=== PATIENT | female | born 1940 | race Caucasian/White ===

== ENCOUNTER → 2016-07-19 | Outpatient (CLI) | payer OTHER ==
[~2016-07-19] MED LIST: ALLO300T2 PO; BRIM0.2S18 OPB; BUSP15TA70 PO; CLON0.3T PO; CLON1TAB3 PO; FLUO20CA34 PO; LAMO200T38 PO; LEVO150T PO; [UNRECOGNIZED DRUG - CODE] OPB
--- NOTE | 2016-07-19 16:01 | MAMMOGRAPHY REPORT ---
BILATERAL DIGITAL SCREENING MAMMOGRAM WITH CAD: 07/19/2016 CLINICAL HISTORY: Routine screening. Patient has no complaints. TECHNIQUE: Bilateral CC and MLO views were obtained. Current study was also evaluated with a Compute r Aided Detection (CAD) system. COMPARISON: Comparison is made to exams dated: 07/15/2015 mammogram, 07/10/2014 mammogram, 08/17/2011 ma mmogram, 08/06/2010 mammogram, 02/13/2009 mammogram - [facility], and 02/06/2008. BREAST COMPOSITION: The tissue of both breasts is almost entirely fatty. FINDINGS: A pacemaker projects over the superior left pectoralis muscle on the MLO view. No new susp icious mass, architectural distortion or cluster of microcalcifications is seen. IMPRESSION: ACR BI-RADS CATEGORY 1: NEGATIVE There is no mammographic evidence of malignancy. A 1 year screening mammogram is recommended. The pa tient will receive written notification of the results. Approximately 10% of breast cancers are not detected with mammography. A negative mammographic report should not delay biopsy if a clinically suggestive mass is present. Emma Torres M.D. ay/:07/19/2016 13:55:09 [employer] Observer: Maddie CONNELLY(Anastasia)(Araceli)(BD), [facility] letter sent: Normal 1/2 BI-RADS Code: ACR BI-RADS Category 1: Negative
== END | disposition home or self-care (01) ==
LOC: C.MAMM 13:13
PROVIDERS: ATTEND Family Medicine
DX: Z12.31 Encounter for screening mammogram for malignant neoplasm of breast (principal)

== ENCOUNTER → 2017-06-15 | Day surgery (SDC) | payer OTHER ==
[~2017-06-15] VITALS: Ht 172.7 cm; Wt 78.6 kg
[~2017-06-15] MED LIST changes: +LACT1CAP6 PO; +LAMO200T35 PO; -LAMO200T38 PO; +LIDOCAINE HCL 2% 2 ML VIAL (20MG/ML) ONE; +ONDANSETRON INJ 2 MG/ML 2 ML VIAL IV PRN; +PROPOFOL IV EMULSION 10 MG/ML 20 ML VIAL ONE; +PSYL58.636 PO
[2017-06-15 09:11] VITALS: Ht 172.7 cm; Wt 78.6 kg
--- NOTE | 2017-06-15 09:18 | Endo History and Physical ---
History & Physical Date of Service: June 15, 2017. Chief Complaint: Referring Physician: Ms Lobo and Dr. Crandall History of Present Illness History of intermitant solid food dysphagia, gagging and abdominal bloating. Past Medical History Other Psy. Disorders, Glaucoma, High Cholesterol, Heart Disease, Thyroid Disease , Kidney Disease Past Surgical History Hx Cardiac Surgery: No Hx Internal Defibrillator: No Hx Pacemaker: No Hx Abdominal Surgery: No Hx Post-Op Nausea and Vomiting: No Hx Cancer Surgery: No Hx Thoracic Surgery: No Hx Orthopedic: No Hx Urinary Tract Surgery: No Social History Smoking Status: Never Smoker Hx Substance Use: No Hx Alcohol Use: No Allergies Coded Allergies: No Known Allergies (Verified , 06/15/17) Current Medications Reported Home Medications Medications Dose Route/Sig Max Daily Dose Days Date Category Metamucil Fiber (Psyllium) 51.7 % Fritz 8 PO QD 06/15/17 Reported Probiotic (Lactobacillus) 1 Cap Cap PO QD 06/15/17 Reported Buspar (Buspirone Hcl) 15 Mg Tab 15 Mg PO 06/18/14 Reported Synthroid (Levothyroxine Sodium) 150 Mcg Tab 150 Mcg PO DAILY 06/18/14 Reported Lamictal (Lamotrigine) 200 Mg Tab 200 Mg PO BID 05/09/14 Reported Klonopin (Clonazepam) 1 Mg Tab 1 Mg PO DAILY PRN 05/18/12 Reported Timolol Maleate (Timolol Maleate (Ophth)) 0.5 % Lolis 1 Drop OPB DAILYBB 05/18/12 Reported Brimonidine Tartrate 0.2 % Lolis 1 Drop OPB BID 05/18/12 Reported Prozac (Fluoxetine Hcl) 20 Mg Cap 60 Mg PO AM 08/30/11 Reported Zyloprim (Allopurinol) 300 Mg Tab 300 Mg PO DAILY 08/30/11 Reported Catapres (Clonidine Hcl) 0.3 Mg Tab 0.3 Mg PO BID 08/30/11 Reported Vital Signs Weight (Kilograms): 78.64 Height (Feet): 5 Height (Inches): 8 Date Time Temp Pulse Resp B/P (MAP) Pulse Ox O2 Delivery O2 Flow Rate FiO2 06/15/17 09:10 36.7 81 20 172/98 (122) 100 Room Air Physical Exam General Appearance: no apparent distress Respiratory/Chest: Auscultation: breath sounds normal Cardiovascular: Heart Auscultation: II/ DORON Abdomen: Inspection & Palpation: soft Assessment and Plan EGD for evaluation of bloating and dysphagia. Risks discussed to include bleeding, infection, perforation pain, aspiration and need for follow-up studies.
--- NOTE | 2017-06-15 09:52 | GI REPORT ---
Patient Name: Eva Tejeda Procedure Date: 06/15/2017 9:37 AM Date of : 1940 Admit Type: Outpatient Age: 76 Gender: Female Attending MD: Frank Nowak DO Procedure: Upper GI endoscopy Providers: Frank Nowak DO Referring MD: Rosa Malone NP, Leticia Crandall Indications: Dysphagia, Abdominal bloating Medicines: Monitored Anesthesia Care Complications: No immediate complications. Estimated blood loss: Minimal. Estimated Blood Loss: Estimated blood loss was minimal. Procedure: Pre-Anesthesia Assessment: - Prior to the procedure, a History and Physical was performed, and patient medications, allergies and sensitivities were reviewed. The patient's tolerance of previous anesthesia was reviewed. - The risks and benefits of the procedure and the sedation options and risks were discussed with the patient. All questions were answered and informed consent was obtained. - Patient identification and proposed procedure were verified prior to the procedure by the physician, the nurse and the batt machine operator. The procedure was verified in the procedure room. - Pre-procedure physical examination revealed no contraindications to sedation. - ASA Grade Assessment: III - A patient with severe systemic disease. - After reviewing the risks and benefits, the patient was deemed in satisfactory condition to undergo the procedure. - The anesthesia plan was to use monitored anesthesia care (MAC). - Immediately prior to administration of medications, the patient was re-assessed for adequacy to receive sedatives. - The heart rate, respiratory rate, oxygen saturations, blood pressure, adequacy of pulmonary ventilation, and response to care were monitored throughout the procedure. - The physical status of the patient was re-assessed after the procedure. After obtaining informed consent, the endoscope was passed under direct vision. Throughout the procedure, the patient's blood pressure, pulse, and oxygen saturations were monitored continuously. The Scope was introduced through the mouth, and advanced to the second part of duodenum. The upper GI endoscopy was accomplished without difficulty. The patient tolerated the procedure well. Findings: No endoscopic abnormality was evident in the esophagus to explain the patient's complaint of dysphagia. It was decided, however, to proceed with dilation of the entire esophagus. A guidewire was placed and the scope was withdrawn. Dilation was performed with a Savary dilator with mild resistance at 54 Fr. The endoscope was then reinserted to evaluate the success of the procedure. Estimated blood loss was minimal. The Z-line was regular and was found 37 cm from the incisors. The entire examined stomach was normal. Biopsies were taken with a cold forceps for histology. Estimated blood loss was minimal. Patchy mild inflammation characterized by erythema and granularity was found in the duodenal bulb and in the second portion of the duodenum. Biopsies were taken with a cold forceps for histology. Estimated blood loss was minimal. Impression: - No endoscopic esophageal abnormality to explain patient's dysphagia. Esophagus dilated to 54 Fr today. - Z-line regular, 37 cm from the incisors. - Normal stomach. Biopsied. - Duodenitis. Biopsied. Recommendation: - Discharge patient to home (ambulatory). - Advance diet as tolerated today. - Symptoms are most likely medication related (Wellbutrin, Prozac or Lamictal) - Try Prilosec (omeprazole) 20 mg PO daily for 6 weeks. Frank Nowak D.O. Frank Nowak, 06/15/2017 9:51:24 AM This report has been signed electronically. Note Initiated On: 06/15/2017 9:37 AM Number of Addenda: 0 I attest to the content of the Intraoperative Record and orders documented therein, exceptions below {[id number]}
--- NOTE | 2017-06-15 09:54 | Discharge Instructions ---
Endoscopy Patient Instructions Date / Procedure(s) Performed June 15, 2017. EGD Allergy Information Coded Allergies: No Known Allergies (Verified , 06/15/17) Discharge Date / Findings June 15, 2017. Normal esophagus Normal Stomach Mild inflammation of the duodenum Medication Instructions Reported Home Medications Medications Dose Route/Sig Max Daily Dose Days Date Category Metamucil Fiber (Psyllium) 51.7 % Fritz 8 PO QD 06/15/17 Reported Probiotic (Lactobacillus) 1 Cap Cap PO QD 06/15/17 Reported Buspar (Buspirone Hcl) 15 Mg Tab 15 Mg PO 06/18/14 Reported Synthroid (Levothyroxine Sodium) 150 Mcg Tab 150 Mcg PO DAILY 06/18/14 Reported Lamictal (Lamotrigine) 200 Mg Tab 200 Mg PO BID 05/09/14 Reported Klonopin (Clonazepam) 1 Mg Tab 1 Mg PO DAILY PRN 05/18/12 Reported Timolol Maleate (Timolol Maleate (Ophth)) 0.5 % Lolis 1 Drop OPB DAILYBB 05/18/12 Reported Brimonidine Tartrate 0.2 % Lolis 1 Drop OPB BID 05/18/12 Reported Prozac (Fluoxetine Hcl) 20 Mg Cap 60 Mg PO AM 08/30/11 Reported Zyloprim (Allopurinol) 300 Mg Tab 300 Mg PO DAILY 08/30/11 Reported Catapres (Clonidine Hcl) 0.3 Mg Tab 0.3 Mg PO BID 08/30/11 Reported Provider Instructions Activity Restrictions - No exercising or heavy lifting for 24 hours. - Do not drink alcohol the day of the procedure. - Do not drive a car or operate machinery until the day after the procedure. - Do not make any important decisions or sign important papers in 24 hours after the procedure. Following Day: - Return to full activity which may include returning to work/school. Diet Start your diet with liquids and light foods (jello, soup, juice, toast). Then eat your usual diet if not nauseated. Treatment For Common After Affects For mild abdominal pain, bloating, or excessive gas: - Rest - Eat lightly - Lie on right side Follow-Up Information Follow-up with Leticia Crandall as scheduled try omeprazole 20 mg per day for 6 weeks If symptoms persist would talk with your PCM about medication changes (symptoms could be related to wellbutrin, prozac or Lamictal) Anesthesia Information What You Should Know You have had a procedure that required some medicine to reduce anxiety and discomfort. This treatment is called moderate sedation. After receiving the treatment, you may be sleepy, but you will be able to breathe on your own. The effects of the treatment may last for several hours. Follow these instructions along with Activity/Diet recommendations noted above: * Do NOT do anything where dizziness or clumsiness would be dangerous. * Rest quietly at home today, then you can be up and about tomorrow. * Have a responsible person stay with you the rest of today. * You may have had an I.V. today. If so, you may take the dressing off later today. Recommendations Call your doctor if: * Trouble breathing * Continuous vomiting for more than 24 hours * Temperature above 101 degrees * Severe abdominal pain or bloating * Pain not relieved by pain medicine ordered * There is increased drainage or redness from any incision * A large amount of rectal bleeding greater than 2-3 tablespoons. (If you had a polyp/s removed or have hemorrhoids, a small amount of blood - from the rectum is to be expected.) * You have any unanswered questions or concerns. IN THE EVENT OF A SERIOUS EMERGENCY, GO TO THE NEAREST EMERGENCY ROOM Your discharge instructions were prepared by provider Frank oNwak. Patient Instructions Signature Page Eva Tejeda Patient (or Guardian) Signature/Date: I have read and understand the instructions given to me by my caregivers. Caregiver/RN/Doctor Signature/Date: The above-named patient and/or guardian has received patient instructions on this date. + Original Patient Signature Page (only) stays with chart. Please make copy for patient.
--- NOTE | 2017-06-15 10:09 | Anesthesiology Progress Note ---
Anesthesia Post Op Note Date & Time June 15, 2017 at 10:09 Vital Signs Pain Intensity: 0 Vital Signs Past 12 Hours Date Time Temp Pulse Resp B/P (MAP) Pulse Ox O2 Delivery O2 Flow Rate FiO2 06/15/17 10:06 59 18 162/84 (110) 98 Room Air 06/15/17 09:51 70 18 147/84 (105) 96 Room Air 06/15/17 09:10 36.7 81 20 172/98 (122) 100 Room Air Notes Mental Status: alert / awake / arousable, participated in evaluation Pt Amnestic to Procedure: Yes Nausea / Vomiting: adequately controlled Pain: adequately controlled Airway Patency, RR, SpO2: stable & adequate BP & HR: stable & adequate Hydration State: stable & adequate Anesthetic Complications: no major complications apparent
[2017-06-15 10:21] VITALS: BP 177/91; PULSE 60; O2SAT 98
== END | disposition home or self-care (01) ==
LOC: C.GI 08:48
PROVIDERS: ATTEND Internal Medicine Gastroenterology
DX: R13.10 Dysphagia, unspecified (principal); K29.80 Duodenitis without bleeding; K29.50 Unspecified chronic gastritis without bleeding; I12.9 Hypertensive chronic kidney disease with stage 1 through stage 4 chronic kidney disease, or unspecified chronic kidney disease; N18.9 Chronic kidney disease, unspecified; R10.9 Unspecified abdominal pain; Z79.899 Other long term (current) drug therapy

== ENCOUNTER 2020-07-10 13:22 | Inpatient (IN) ==
[2020-07-10] MEDS ORDERED: SODIUM CHLORIDE 0.9% 1000ML 500 ML IV ONE (14:20)
[2020-07-10] MEDS ORDERED: ACETAMINOPHEN 1,000 MG/100 ML VIAL IV STA (14:20)
[2020-07-10 14:27] LABS: Basophils # (auto) 0.01 K/uL (0-0.2); Basophils % (auto) 0.2 %; Eosinophils # (auto) 0.01 K/uL (0-0.5); Eosinophils % (auto) 0.2 %; Hematocrit (blood only) 32.2 % (37-47); Hemoglobin 10.8 g/dL (12.0-16.0); Immature Granulocytes # (auto) 0.02 K/uL (0.00-0.02); Immature Granulocytes % (auto) 0.3 %; Lymphocytes # (auto) 0.53 K/uL (1.2-3.4); Lymphocytes % (auto) 8.4 %; Mean Corpuscular Hemoglobin 29.9 pg (25-34); Mean Corpuscular Hgb Conc 33.5 g/dL (32-36); Mean Corpuscular Volume 89.2 fL (80-100); Mean Platelet Volume 10.4 fL (7.4-10.4); Monocytes # (auto) 0.52 K/uL (0.11-0.59); Monocytes % (auto) 8.3 %; Neutrophils # (auto) 5.21 K/uL (1.4-6.5); Neutrophils % (auto) 82.6 %; Platelet Count 148 K/uL (130-400); RDW Standard Deviation 45.8 fL (36.4-46.3); Red Blood Count 3.61 M/uL (4.2-5.4)
[2020-07-10 14:35] LABS: Albumin Level 3.4 gm/dl (3.4-5.0); Calcium 9.3 mg/dl (8.5-10.1); Creatinine Clr Calc Pharmacy 35.4 ml/min; Est GFR (African American) 38.2 ml/min; Magnesium 1.4 mg/dl (1.8-2.4); Potassium 4.6 mmol/L (3.5-5.1)
[2020-07-10 14:37] LABS: Partial Thromboplastin Ratio 0.9; Partial Thromboplastin Time 23.7 Seconds (21.0-31.0); Prothrombin Time 10.4 Seconds (9.0-12.0)
--- NOTE | 2020-07-10 15:01 | XRay Report ---
XR chest 1V portable CLINICAL HISTORY: SEPSIS COMPARISON STUDY: April 21, 2019 FINDINGS: No pneumothorax. No pleural effusion. No large infiltrates or consolidative lesions are seen. Mild reticular prominence of pulmonary inters titium within bilateral lower lungs appear less conspicuous then due to prior study in 2019. Cardiomediastinal silhouette is within normal limits in size. No significant pulmonary vascular congestion.. Aorta is calcified. Osseous structures: Mild degenerative changes of the spine. Stable position of dual-lead left-sided pacemaker with battery pack partially obscuring left lung par enchyma. IMPRESSION: 1. Mild reticular prominence within bilateral lower lungs appears significantly less conspicuous cesar n on prior study in 2019. No large infiltrates or consolidative lesions are seen. ACT 112: Negative or not required by law. The above report was generated using voice recognition software. It may contain grammatical, syntax o r spelling errors. Electronically signed by: Anny Correa DO 07/10/2020 2:59 PM
[2020-07-10 15:14] LABS: Bilirubin,Total 0.8 mg/dl (0.2-1); Globulin 3.6 gm/dl (2.5-4.0)
[2020-07-10 15:27] LABS: Albumin Globulin Ratio 0.9 (0.9-2); Troponin I 0.051 ng/ml (0-0.045)
[2020-07-10 15:47] LABS: Appearance Urine Clear (Clear); Bacteria Urine Automated Negative (Negative); Bilirubin Urine Negative (Negative); Blood Urine Negative (Negative); Cast Urine Automated 0 /lpf (0-5); Color Urine Yellow; Epithelial Cell Urine Auto 20-30 /lpf (0-5); Glucose Urine UA Negative (Negative); Ketones Urine Negative (Negative); Leukocyte Esterase Urine Trace (Negative); Nitrite Urine Negative (Negative); Protein Urine Negative (Negative); RBC Urine Automated 0-4 /hpf (0-4); Specific Gravity Urine 1.011 (1.000-1.030); Urobilinogen Urine Negative (Negative)
[2020-07-10] MEDS: MAGNESIUM SULFATE / D5W 1 GM/100 ML BAG IV SCH ×4 (15:56→22:51)
--- NOTE | 2020-07-10 16:55 | History & Physical Report ---
Date of Service July 10, 2020 Assessment & Plan (1) Elevated troponin: - Admit to tele for observation for r/o - Trend cardiac biomarkers, initial set 0.051, possibly elevated due to kidney involvement with creatinine of 1.51 - EKG reviewed-no ST changes or signs of ischemia, paced - Check 2 D echo - If negative enzymes can consider a stress test tomorrow morning. - PT/OT consulted (2) SSS (sick sinus syndrome): - Hx of pacemaker in 2016 - Interrogate pacemaker while admitted - Follows with [facility] cardiology as outpatient, consider consult (3) Hypomagnesemia: -1.4 on admission, replace with 2 bags via IV now -Trend with a.m. labs (4) Fever: -T-max = 38 while in the ER, history of dysuria in the past week, no previous antibiotic use, did not seek outpatient care. -UA shows trace esterase, 5-10 WBC, no bacteria, will follow culture -Check blood cultures x2 -Will check lymes and anaplasmosis testing with pt being outside, as well as fatigue/weakness, platelet count dropped from 236 to 148 from last year. -Start on empiric Rocephin and can DC if urine culture is negative (5) Anemia: -Hemoglobin of 10.8, slightly down from baseline, monitor with a.m. labs. She denies lightheadedness, shortness of breath, chest pain (6) Bipolar disorder (manic depression): - hx of such - Mood is improving with help of support system/family. Has crying episodes at times, but states she is improving. Does not want to be on benzos for anxiety. - Reports history of being on lithium because of chronic kidney disease, no longer taking this medication and has been since switched to lamotrigine 100 mg twice daily and tolerates this well. - Continue Prozac 80 mg daily. -Recently weaned off of Abilify due to worsening anxiety with the medication, now feeling mood has improved since this. -Follows with Dr. Lee with psychiatry as outpatient DVT ppx: - teds, scds CODE: Full code Dispo: From home, likely to remain in the hospital x 1-2 days History of Present Illness Primary Care Provider: Leticia Crandall, DO This is a 79 yo F with PMHx of SSS s/p pacemaker insertion in 2016, hypertension, hypomagnesemia, bipolar manic depression, who presents for worse taisha weakness and fatigue x1 week, significant head pressure/ache and chest pressure x1 today. She reports that " I haven't felt myself for about 1 week". The spell of head pressure and chest pressure occurred whenever she was planting liu and watering them this morning, lasted for a brief moment and then went away completely. Patient denies significant chest pain, shortness of breath, palpitations or flutter. She follows with [facility] cardiology once yearly for her pacemaker, and is about due for her annual visit. Pt also notes dysuria x 1 week, denies hematuria, incontinence, increased frequency and reports that she attempted to drink lots of water last week, improved for about 3 days and now is back today. She did not take any antibiotic therapy. She is significantly fatigued to the point where last week she was riding with her sister in a car and fell asleep. Patient reports getting 4 to 5 hours of sleep per night. Of note her recently , April 13, 2020 and since then has been mourning, but does have a strong support system. She has maintained taking Prozac daily. Was placed on Abilify however felt more anxious with being on this medication and weaned off of it with instruction from her psychiatrist, Dr. Lee. She follows with her routinely every 3 months. Patient found to have episode of fever while here in the ER with T-max = 38. W BC= 6.3, UA with trace esterase, 5-10 WBC. Magnesium of 1.4, creatinine 1.5 which appears to be near her baseline of 1.4, and hemoglobin is slightly decreased at 10.8. Her troponin was found to be slightly elevated at 0.051. Allergies Allergy/AdvReac Type Severity Reaction Status Date / Time No Known Allergies Allergy Unknown Verified 07/10/20 15:08 Home Medications Medication Instructions Recorded Confirmed Type allopurinol 300 mg PO DAILY 04/21/19 07/10/20 History atorvastatin 20 mg PO DAILY 04/21/19 07/10/20 History brimonidine 1 drp OPB BID 04/21/19 07/10/20 History buspirone 15 mg PO BID 04/21/19 07/10/20 History clonidine HCl 0.3 mg PO BID 04/21/19 07/10/20 History fluoxetine 80 mg PO QAM 04/21/19 07/10/20 History lamotrigine 100 mg PO BID 04/21/19 07/10/20 History levothyroxine 150 mcg PO QAM 04/21/19 07/10/20 History timolol maleate 1 drp OPB DAILY 04/21/19 07/10/20 History Ativan 0.5 mg PO TID PRN 07/10/20 07/10/20 History chlorthalidone 12.5 mg PO DAILY 07/10/20 07/10/20 History Past Med/Surg History Medical History Anxiety Depression HTN (hypertension) Kidney problem SSS (sick sinus syndrome) Family History Other No significant family history Social History Smoking Status: Never smoker Hx Alcohol Use: No Hx Substance Use: No Preferred Language: Yoruba Communication Ability: Effective Milling Machine Operator Required: No Beliefs That Will Affect Care: None Current Living Situation: Alone Feels Safe at Home: Yes Safety Concerns: Feels Safe At This Time Assistive Devices: None Review of Systems Review of Systems: Constitutional: +fever x 1 while in ER, no sweats or chills, + headache/pressure as per HPI. Eyes: No diplopia, no worsening or blurred vision ENT: normal hearing, no trouble swallowing Respiratory: No cough, sputum, dyspnea at rest or on exertion Cardiovascular: No chest pain, tightness or palpitations Abdomen: No pain, nausea, vomiting, diarrhea or constipation Musculoskeletal: No joint pain, calf pain, swelling Neurologic: No weakness, numbness/tingling, or balance problems Psychiatric: + Bipolar manic depression, on medication, recent of her causing worsening mood swings and crying episodes Skin: No rash or itch Physical Exam Physical Exam: General: awake, alert, no apparent distress Head: Normocephalic, atraumatic ENT: PERRL, EOMI, no pharyngeal exudate, mucous membranes moist Chest: Clear to auscultation, on room air, no adventitious breath sounds Cardiac: Pacemaker left chest wall, regular rate and rhythm, no murmur, no JVD, normal peripheral pulses, good capillary refill, no reproducible chest discomfort with palpation Abdominal: NABS x 4 quadrants, soft, nondistended, nontender to palpation, no rebound or guarding Extremities: Normal inspection, no peripheral edema or erythema, calfs nontender to palpation Psych: Normal mood and affect Neuro: AAO x 3, strength intact bilaterally and rated 5/5, no motor deficits, speech is clear, no peripheral sensory deficits Results & Data Results & Data ([facility]) Vital Signs (Past 12 Hours) Vital Signs Temp Pulse Resp BP Pulse Ox 07/10/20 15:24 37.2 C 07/10/20 15:22 66 18 94 07/10/20 15:21 71 23 131/69 93 07/10/20 15:15 60 19 123/63 95 07/10/20 15:10 60 19 95 07/10/20 15:01 60 22 125/69 96 07/10/20 15:00 61 19 95 07/10/20 14:50 60 20 95 07/10/20 14:45 60 24 128/62 95 07/10/20 14:40 61 20 95 07/10/20 14:31 62 22 95 07/10/20 14:30 62 28 H 134/71 96 07/10/20 14:20 61 18 96 07/10/20 14:15 61 18 132/73 96 07/10/20 14:10 61 16 96 07/10/20 14:01 71 28 H 96 07/10/20 14:00 60 22 127/68 95 07/10/20 13:50 62 17 96 07/10/20 13:48 61 27 H 96 07/10/20 13:45 62 21 141/76 H 95 07/10/20 13:37 38 C H 64 18 154/72 H 95 Diagnostic Findings Chest X-Ray 07/10/20 14:10 XR chest 1V portable CLINICAL HISTORY: SEPSIS COMPARISON STUDY: April 21, 2019 FINDINGS: No pneumothorax. No pleural effusion. No large infiltrates or consolidative lesions are seen. Mild reticular prominence of pulmonary interstitium within bilateral lower lungs appear less conspicuous then due to prior study in 2019. Cardiomediastinal silhouette is within normal limits in size. No significant pulmonary vascular congestion.. Aorta is calcified. Osseous structures: Mild degenerative changes of the spine. Stable position of dual-lead left-sided pacemaker with battery pack partially obscuring left lung parenchyma. IMPRESSION: 1. Mild reticular prominence within bilateral lower lungs appears significantly less conspicuous than on prior study in 2020. No large infiltrates or consolidative lesions are seen. ACT 112: Negative or not required by law. The above report was generated using voice recognition software. It may contain grammatical, syntax or spelling errors. Electronically signed by: Anny Correa DO 07/10/2020 2:59 PM ECG Rhythm: normal sinus Findings: + paced rhythm Code Status & VTE Plan Code Status Full code-discussed with the patient at bedside Supervising Physician Co-Signing Physician Notes Patient is a 79-year-old female with history of sick sinus syndrome, hypertension, bipolar manic disorder and other medical problems presents with history of generalized weakness, fatigue since 1 week duration. She also states having transient retrosternal chest discomfort this morning. She denies any nausea, shortness of breath, radiation. Currently she is chest pain-free. She also states having dysuria 1 week ago which resolved. Patient's about 3 months ago. Please review HPI for complete details of presentation. He was noted to have hypomagnesemia 1.4, mild troponin elevation 0.05, creatinine noted in 1.5at baseline. On exam patient is obese, no apparent distress, normocephalic atraumatic, lungs are clear to auscultation, S1-S2, normal, no pedal edema, abdomen soft, nontender, normal bowel sounds, alert, awake, oriented, grossly no focal deficits. EKG showed normal significant change from prior. Will trend cardiac enzymes, check resting echo. Will consider IV he cheng if patient develops chest pain or repeat troponin continues to rise. Will consider cardiology evaluation if needed. Will replace magnesium. We will also obtain TSH, vitamin B12, vitamin D levels. Start on aspirin 81 mg daily. Repeat EKG in the morning. PT/OT eval requested. I personally reviewed the record. Patient is interviewed and examined at bedside. Patient's care is coordinated with Oneyda Perez PA-C. Please refer to the documentation above for details of patient's presentation and for discussion of other issues.
--- NOTE | 2020-07-10 17:25 | Emergency Department Note ---
History of Present Illness General Chief complaint: Weakness Time Seen by Provider: 07/10/20 14:10 History of Present Illness Provider complaint: Weakness Onset (ago): month(s) 1 Maximum Pain Intensity: 0 Associated symptoms: + chest pain and + headaches 79-year-old female presents emergency department with her family member for fatigue. Family member reports that the patient's fatigue has been going on for last several months since her in March. She reports that the patient has been having worsening anxiety and depression. She reports that the patient stopped taking her buspirone because she did not think was helping. She states subsequently after the headache she started having chest pain. The patient reports that she is also been having headache. She reports a headache began at 10 AM and is mild. Patient also reports having dysuria. She reports dysuria began 2 to 3 weeks ago and she was recently treated for UTI. She does n ot report any hematuria. She does not remember which antibiotic she was treated with. Patient is vaccinated against Covid. Home Medications Medication Instructions Recorded Confirmed Type allopurinol 300 mg PO DAILY 04/21/19 07/10/20 History atorvastatin 20 mg PO DAILY 04/21/19 07/10/20 History brimonidine 1 drp OPB BID 04/21/19 07/10/20 History buspirone 15 mg PO BID 04/21/19 07/10/20 History clonidine HCl 0.3 mg PO BID 04/21/19 07/10/20 History fluoxetine 80 mg PO QAM 04/21/19 07/10/20 History lamotrigine 100 mg PO BID 04/21/19 07/10/20 History levothyroxine 150 mcg PO QAM 04/21/19 07/10/20 History timolol maleate 1 drp OPB DAILY 04/21/19 07/10/20 History Allergies Allergy/AdvReac Type Severity Reaction Status Date / Time No Known Allergies Allergy Unknown Verified 07/10/20 15:08 Past Med/Surg History Medical History Anxiety Depression HTN (hypertension) Kidney problem SSS (sick sinus syndrome) Family History Other No significant family history Social History Smoking Status: Never smoker Preferred Language: Yi Feels Safe at Home: Yes Review of Systems A total of 10 systems reviewed and were otherwise negative Physical Exam Vital Signs Vital Signs - 24 hr 07/10/20 13:37 07/10/20 13:45 07/10/20 13:48 Temperature 38 C H Temperature Source Oral Pulse Rate 64 62 61 Pulse Rate from SpO2 Sensor 62 61 Pulse Rhythm Regular Respiratory Rate 18 21 27 H Respiratory Depth Normal Blood Pressure 154/72 H 141/76 H Blood Pressure Mean 99 97 Pulse Oximetry 95 95 96 Oxygen Delivery Method Room Air Sepsis Recent Fever Within 48 Hours No Sepsis New/Unexplained Change in Mental Status No Sepsis Action Taken by Nursing No Action Required 07/10/20 13:50 07/10/20 14:00 07/10/20 14:01 Temperature Temperature Source Pulse Rate 62 60 71 Pulse Rate from SpO2 Sensor 62 60 69 Pulse Rhythm Respiratory Rate 17 22 28 H Respiratory Depth Blood Pressure 127/68 Blood Pressure Mean 87 Pulse Oximetry 96 95 96 Oxygen Delivery Method Sepsis Recent Fever Within 48 Hours Sepsis New/Unexplained Change in Mental Status Sepsis Action Taken by Nursing 07/10/20 14:10 07/10/20 14:15 07/10/20 14:16 Temperature Temperature Source Pulse Rate 61 61 Pulse Rate from SpO2 Sensor 61 61 Pulse Rhythm Respiratory Rate 16 18 Respiratory Depth Blood Pressure 132/73 Blood Pressure Mean 92 Pulse Oximetry 96 96 Oxygen Delivery Method Room Air Sepsis Recent Fever Within 48 Hours Sepsis New/Unexplained Change in Mental Status Sepsis Action Taken by Nursing 07/10/20 14:20 07/10/20 14:30 07/10/20 14:31 Temperature Temperature Source Pulse Rate 61 62 62 Pulse Rate from SpO2 Sensor 62 62 61 Pulse Rhythm Respiratory Rate 18 28 H 22 Respiratory Depth Blood Pressure 134/71 Blood Pressure Mean 92 Pulse Oximetry 96 96 95 Oxygen Delivery Method Sepsis Recent Fever Within 48 Hours Sepsis New/Unexplained Change in Mental Status Sepsis Action Taken by Nursing 07/10/20 14:40 07/10/20 14:45 07/10/20 14:50 Temperature Temperature Source Pulse Rate 61 60 60 Pulse Rate from SpO2 Sensor 61 62 60 Pulse Rhythm Respiratory Rate 20 24 20 Respiratory Depth Blood Pressure 128/62 Blood Pressure Mean 84 Pulse Oximetry 95 95 95 Oxygen Delivery Method Sepsis Recent Fever Within 48 Hours Sepsis New/Unexplained Change in Mental Status Sepsis Action Taken by Nursing 07/10/20 15:00 07/10/20 15:01 07/10/20 15:10 Temperature Temperature Source Pulse Rate 61 60 60 Pulse Rate from SpO2 Sensor 60 60 60 Pulse Rhythm Respiratory Rate 19 22 19 Respiratory Depth Blood Pressure 125/69 Blood Pressure Mean 87 Pulse Oximetry 95 96 95 Oxygen Delivery Method Sepsis Recent Fever Within 48 Hours Sepsis New/Unexplained Change in Mental Status Sepsis Action Taken by Nursing 07/10/20 15:15 07/10/20 15:21 07/10/20 15:22 Temperature Temperature Source Pulse Rate 60 71 66 Pulse Rate from SpO2 Sensor 61 71 66 Pulse Rhythm Respiratory Rate 19 23 18 Respiratory Depth Blood Pressure 123/63 131/69 Blood Pressure Mean 83 89 Pulse Oximetry 95 93 94 Oxygen Delivery Method Sepsis Recent Fever Within 48 Hours Sepsis New/Unexplained Change in Mental Status Sepsis Action Taken by Nursing 07/10/20 15:24 07/10/20 15:30 07/10/20 15:31 Temperature 37.2 C Temperature Source Oral Pulse Rate 60 61 Pulse Rate from SpO2 Sensor 61 60 Pulse Rhythm Respiratory Rate 19 19 Respiratory Depth Blood Pressure 125/65 Blood Pressure Mean 85 Pulse Oximetry 95 95 Oxygen Delivery Method Sepsis Recent Fever Within 48 Hours Sepsis New/Unexplained Change in Mental Status Sepsis Action Taken by Nursing 07/10/20 15:40 07/10/20 15:45 07/10/20 15:50 Temperature Temperature Source Pulse Rate 61 60 60 Pulse Rate from SpO2 Sensor 60 60 60 Pulse Rhythm Respiratory Rate 17 19 20 Respiratory Depth Blood Pressure 123/65 Blood Pressure Mean 84 Pulse Oximetry 95 94 94 Oxygen Delivery Method Sepsis Recent Fever Within 48 Hours Sepsis New/Unexplained Change in Mental Status Sepsis Action Taken by Nursing 07/10/20 16:00 07/10/20 16:01 07/10/20 16:10 Temperature Temperature Source Pulse Rate 61 60 60 Pulse Rate from SpO2 Sensor 60 60 60 Pulse Rhythm Respiratory Rate 28 H 21 18 Respiratory Depth Blood Pressure 124/65 Blood Pressure Mean 84 Pulse Oximetry 95 95 94 Oxygen Delivery Method Sepsis Recent Fever Within 48 Hours Sepsis New/Unexplained Change in Mental Status Sepsis Action Taken by Nursing 07/10/20 16:15 07/10/20 16:20 07/10/20 16:30 Temperature Temperature Source Pulse Rate 60 60 60 Pulse Rate from SpO2 Sensor 60 61 60 Pulse Rhythm Respiratory Rate 23 17 19 Respiratory Depth Blood Pressure 125/64 122/62 Blood Pressure Mean 84 82 Pulse Oximetry 95 95 95 Oxygen Delivery Method Sepsis Recent Fever Within 48 Hours Sepsis New/Unexplained Change in Mental Status Sepsis Action Taken by Nursing 07/10/20 16:31 07/10/20 16:40 07/10/20 16:45 Temperature Temperature Source Pulse Rate 60 62 62 Pulse Rate from SpO2 Sensor 60 60 60 Pulse Rhythm Respiratory Rate 18 18 22 Respiratory Depth Blood Pressure 132/71 Blood Pressure Mean 91 Pulse Oximetry 95 95 95 Oxygen Delivery Method Sepsis Recent Fever Within 48 Hours Sepsis New/Unexplained Change in Mental Status Sepsis Action Taken by Nursing 07/10/20 16:50 07/10/20 17:00 07/10/20 17:01 Temperature Temperature Source Pulse Rate 62 60 60 Pulse Rate from SpO2 Sensor 59 L 60 60 Pulse Rhythm Respiratory Rate 17 17 18 Respiratory Depth Blood Pressure 126/70 Blood Pressure Mean 88 Pulse Oximetry 97 96 96 Oxygen Delivery Method Sepsis Recent Fever Within 48 Hours Sepsis New/Unexplained Change in Mental Status Sepsis Action Taken by Nursing Physical Exam GENERAL: She is oriented to person, place, and time. She appears well-developed and well-nourished. She does not appear distressed. HENT: Exam performed. -Head: Normocephalic and atraumatic. -Right Ear: External ear normal. No mastoid tenderness. -Left Ear: External ear normal. No mastoid tenderness. -Mouth/Throat: The oropharynx is clear and moist. No trismus in the jaw. No dental abscesses or uvula swelling. No oropharyngeal exudate or tonsillar abscesses. EYES: Conjunctivae and EOM are normal. Pupils are equal, round, and reactive to light. Right eye exhibits no discharge. Left eye exhibits no discharge. No scleral icterus. NECK: Normal range of motion. Neck supple. No JVD present. No spinous process tenderness present. No carotid bruit present. No rigidity. No tracheal deviation and normal range of motion present. No Brudzinski's sign and no Kernig's sign noted. CV: Normal rate, regular rhythm, normal heart sounds and intact distal pulses. There is no peripheral edema. Palpable radial pulses bue. PULM/CHEST: Effort normal and breath sounds normal. No respiratory distress. No stridor. She has no wheezes. She has no rales. -Chest Wall: She exhibits no tenderness. ABD: The abdomen is soft. Bowel sounds are normal. She has no distension. No mass is present. There is no tenderness. There is no rebound, no guarding, no Goldsmith's sign and no tenderness at McBurney's point. Rovsig negative MUSC/SKEL: Normal range of motion. There is no peripheral edema, tenderness or deformity. LYMPH: No cervical adenopathy. NEURO: She is alert and oriented to person, place, and time. She has normal strength. No cranial nerve deficit or sensory deficit. Coordination and gait normal. GCS eye subscore is 4. GCS verbal subscore is 5. GCS motor subscore is 6. Cerebellar tests wnl. SKIN: Skin is warm and dry. She is not diaphoretic. PSYCH: She has a normal mood and affect. Behavior is normal. Judgment and t hought content normal. Course Course 1410: The patient was evaluated in room B10. A complete history and physical exam was performed Cardiac monitoring: An order was placed for continuous cardiac monitoring. The monitor shows a rate of 80 with paced rhythm 1625: Vital signs improved status post antipyretic. Labs show a creatinine of 1.5, increased from baseline around 1.4. Troponin is elevated. Patient is not currently reporting any chest pain. This could be due to the patient's elevated creatinine. [facility] with Salbador who stated to admit to Dr. Woodall Administered Medications Magnesium Sulfate/Dextrose (Magnesium Sulfate / D5w) 1 gm in 100 mls @ 100 mls/hr IV Q1H CASSIE Stop: 07/10/20 17:36 Last Admin: 07/10/20 16:54 Dose: 100 mls/hr Documented by: [id number] Infusion: 07/10/20 16:54 Dose: 100 mls/hr Documented by: [id number] Admin: 07/10/20 15:56 Dose: 100 mls/hr Documented by: [id number] Discontinued Medications Acetaminophen (Ofirmev) 1,000 mg in 100 mls @ 400 mls/hr IV NOW STA Stop: 07/10/20 14:34 Last Infusion: 07/10/20 15:07 Dose: 400 mls/hr Documented by: [id number] Admin: 07/10/20 14:33 Dose: 400 mls/hr Documented by: [id number] Sodium Chloride (Nss 1000ml) 500 mls @ 999 mls/hr IV .Q31M ONE Stop: 07/10/20 14:50 Last Infusion: 07/10/20 15:07 Dose: 999 mls/hr Documented by: [id number] Admin: 07/10/20 14:34 Dose: 999 mls/hr Documented by: [id number] Medical Decision Making Laboratory Data Result diagrams: 07/10/20 13:45 07/10/20 13:45 Lab Results 07/10/20 07/10/20 07/10/20 Range/Units 13:45 13:45 13:45 WBC 6.30 (4.8-10.8) K/uL RBC 3.61 L (4.2-5.4) M/uL Hgb 10.8 L (12.0-16.0) g/dL Hct 32.2 L (37-47) % MCV 89.2 (80-100) fL MCH 29.9 (25-34) pg MCHC 33.5 (32-36) g/dL RDW Std Deviation 45.8 (36.4-46.3) fL RDW Coeff of Tank 14.0 (11.5-14.5) % Plt Count 148 (130-400) K/uL MPV 10.4 (7.4-10.4) fL Immature Gran % (Auto) 0.3 % Neut % (Auto) 82.6 % Lymph % (Auto) 8.4 % Harper % (Auto) 8.3 % Eos % (Auto) 0.2 % Baso % (Auto) 0.2 % Neut # (Auto) 5.21 (1.4-6.5) K/uL Lymph # (Auto) 0.53 L (1.2-3.4) K/uL Harper # (Auto) 0.52 (0.11-0.59) K/uL Eos # (Auto) 0.01 (0-0.5) K/uL Baso # (Auto) 0.01 (0-0.2) K/uL Immature Gran # (Auto) 0.02 (0.00-0.02) K/uL PT 10.4 (9.0-12.0) Seconds INR 1.0 (0.9-1.1) APTT 23.7 (21.0-31.0) Seconds PTT Ratio 0.9 Sodium 139 (136-145) mmol/L Potassium 4.6 (3.5-5.1) mmol/L Chloride 111 H (98-107) mmol/L Carbon Dioxide 23 (21-32) mmol/L Anion Gap 5.0 (3-11) BUN 29 H (7-18) mg/dl Creatinine 1.51 H (0.6-1.2) mg/dl Est Cr Clr Drug Dosing 35.4 ml/min Est GFR ( Amer) 38.2 ml/min Est GFR (Non-Af Amer) 33.0 ml/min BUN/Creatinine Ratio 19.0 (10-20) Glucose 131 H (70-99) mg/dl Lactate (0.4-2.0) mmol/L Calcium 9.3 (8.5-10.1) mg/dl Magnesium 1.4 L (1.8-2.4) mg/dl Total Bilirubin 0.8 (0.2-1) mg/dl AST 18 (15-37) U/L ALT 26 (12-78) U/L Alkaline Phosphatase 112 (45-117) U/L Troponin I 0.051 H* (0-0.045) ng/ml Total Protein 7.0 (6.4-8.2) gm/dl Albumin 3.4 (3.4-5.0) gm/dl Globulin 3.6 (2.5-4.0) gm/dl Albumin/Globulin Ratio 0.9 (0.9-2) Procalcitonin (0-0.5) ng/ml Urine Color Urine Appearance (Clear) Urine pH (4.5-7.5) Ur Specific [place] (1.000-1.030) Urine Protein (Negative) Urine Glucose (UA) (Negative) Urine Ketones (Negative) Urine Blood (Negative) Urine Nitrite (Negative) Urine Bilirubin (Negative) Urine Urobilinogen (Negative) Ur Leukocyte Esterase (Negative) Urine WBC (Auto) (0-5) /hpf Urine RBC (Auto) (0-4) /hpf U Hyaline Cast (Auto) (0-5) /lpf U Epithel Cells (Auto) (0-5) /lpf Urine Bacteria (Auto) (Negative) COVID-19 Eval Order 07/10/20 07/10/20 07/10/20 Range/Units 13:45 15:16 15:21 WBC (4.8-10.8) K/uL RBC (4.2-5.4) M/uL Hgb (12.0-16.0) g/dL Hct (37-47) % MCV (80-100) fL MCH (25-34) pg MCHC (32-36) g/dL RDW Std Deviation (36.4-46.3) fL RDW Coeff of Tank (11.5-14.5) % Plt Count (130-400) K/uL MPV (7.4-10.4) fL Immature Gran % (Auto) % Neut % (Auto) % Lymph % (Auto) % Harper % (Auto) % Eos % (Auto) % Baso % (Auto) % Neut # (Auto) (1.4-6.5) K/uL Lymph # (Auto) (1.2-3.4) K/uL Harper # (Auto) (0.11-0.59) K/uL Eos # (Auto) (0-0.5) K/uL Baso # (Auto) (0-0.2) K/uL Immature Gran # (Auto) (0.00-0.02) K/uL PT (9.0-12.0) Seconds INR (0.9-1.1) APTT (21.0-31.0) Seconds PTT Ratio Sodium (136-145) mmol/L Potassium (3.5-5.1) mmol/L Chloride (98-107) mmol/L Carbon Dioxide (21-32) mmol/L Anion Gap (3-11) BUN (7-18) mg/dl Creatinine (0.6-1.2) mg/dl Est Cr Clr Drug Dosing ml/min Est GFR ( Amer) ml/min Est GFR (Non-Af Amer) ml/min BUN/Creatinine Ratio (10-20) Glucose (70-99) mg/dl Lactate 0.8 (0.4-2.0) mmol/L Calcium (8.5-10.1) mg/dl Magnesium (1.8-2.4) mg/dl Total Bilirubin (0.2-1) mg/dl AST (15-37) U/L ALT (12-78) U/L Alkaline Phosphatase (45-117) U/L Troponin I (0-0.045) ng/ml Total Protein (6.4-8.2) gm/dl Albumin (3.4-5.0) gm/dl Globulin (2.5-4.0) gm/dl Albumin/Globulin Ratio (0.9-2) Procalcitonin 0.34 (0-0.5) ng/ml Urine Color Yellow Urine Appearance Clear (Clear) Urine pH 5.0 (4.5-7.5) Ur Specific [place] 1.011 (1.000-1.030) Urine Protein Negative (Negative) Urine Glucose (UA) Negative (Negative) Urine Ketones Negative (Negative) Urine Blood Negative (Negative) Urine Nitrite Negative (Negative) Urine Bilirubin Negative (Negative) Urine Urobilinogen Negative (Negative) Ur Leukocyte Esterase Trace H (Negative) Urine WBC (Auto) 5-10 H (0-5) /hpf Urine RBC (Auto) 0-4 (0-4) /hpf U Hyaline Cast (Auto) 0 (0-5) /lpf U Epithel Cells (Auto) 20-30 H (0-5) /lpf Urine Bacteria (Auto) Negative (Negative) COVID-19 Eval Order 07/10/20 Range/Units 16:50 WBC (4.8-10.8) K/uL RBC (4.2-5.4) M/uL Hgb (12.0-16.0) g/dL Hct (37-47) % MCV (80-100) fL MCH (25-34) pg MCHC (32-36) g/dL RDW Std Deviation (36.4-46.3) fL RDW Coeff of Tank (11.5-14.5) % Plt Count (130-400) K/uL MPV (7.4-10.4) fL Immature Gran % (Auto) % Neut % (Auto) % Lymph % (Auto) % Harper % (Auto) % Eos % (Auto) % Baso % (Auto) % Neut # (Auto) (1.4-6.5) K/uL Lymph # (Auto) (1.2-3.4) K/uL Harper # (Auto) (0.11-0.59) K/uL Eos # (Auto) (0-0.5) K/uL Baso # (Auto) (0-0.2) K/uL Immature Gran # (Auto) (0.00-0.02) K/uL PT (9.0-12.0) Seconds INR (0.9-1.1) APTT (21.0-31.0) Seconds PTT Ratio Sodium (136-145) mmol/L Potassium (3.5-5.1) mmol/L Chloride (98-107) mmol/L Carbon Dioxide (21-32) mmol/L Anion Gap (3-11) BUN (7-18) mg/dl Creatinine (0.6-1.2) mg/dl Est Cr Clr Drug Dosing ml/min Est GFR ( Amer) ml/min Est GFR (Non-Af Amer) ml/min BUN/Creatinine Ratio (10-20) Glucose (70-99) mg/dl Lactate (0.4-2.0) mmol/L Calcium (8.5-10.1) mg/dl Magnesium (1.8-2.4) mg/dl Total Bilirubin (0.2-1) mg/dl AST (15-37) U/L ALT (12-78) U/L Alkaline Phosphatase (45-117) U/L Troponin I (0-0.045) ng/ml Total Protein (6.4-8.2) gm/dl Albumin (3.4-5.0) gm/dl Globulin (2.5-4.0) gm/dl Albumin/Globulin Ratio (0.9-2) Procalcitonin (0-0.5) ng/ml Urine Color Urine Appearance (Clear) Urine pH (4.5-7.5) Ur Specific [place] (1.000-1.030) Urine Protein (Negative) Urine Glucose (UA) (Negative) Urine Ketones (Negative) Urine Blood (Negative) Urine Nitrite (Negative) Urine Bilirubin (Negative) Urine Urobilinogen (Negative) Ur Leukocyte Esterase (Negative) Urine WBC (Auto) (0-5) /hpf Urine RBC (Auto) (0-4) /hpf U Hyaline Cast (Auto) (0-5) /lpf U Epithel Cells (Auto) (0-5) /lpf Urine Bacteria (Auto) (Negative) COVID-19 Eval Order Covid19 at [facility] Imaging Data Radiologist's Impression: Chest X-Ray 07/10/20 14:10 XR chest 1V portable CLINICAL HISTORY: SEPSIS COMPARISON STUDY: April 21, 2019 FINDINGS: No pneumothorax. No pleural effusion. No large infiltrates or consolidative lesions are seen. Mild reticular prominence of pulmonary interstitium within bilateral lower lungs appear less conspicuous then due to prior study in 2019. Cardiomediastinal silhouette is within normal limits in size. No significant pulmonary vascular congestion.. Aorta is calcified. Osseous structures: Mild degenerative changes of the spine. Stable position of dual-lead left-sided pacemaker with battery pack partially obscuring left lung parenchyma. IMPRESSION: 1. Mild reticular prominence within bilateral lower lungs appears significantly less conspicuous than on prior study in 2019. No large infiltrates or consolidative lesions are seen. ACT 112: Negative or not required by law. The above report was generated using voice recognition software. It may contain grammatical, syntax or spelling errors. Electronically signed by: Anny Correa DO 07/10/2020 2:59 PM ECG Data Additional Comments: Paced rhythm with a rate of 76. [place] QRS and QTc intervals within normal limits. No ST elevation or ST depression. [facility] Narrative 1410: The patient was evaluated in room B10. A complete history and physical exam was performed Cardiac monitoring: An order was placed for continuous cardiac monitoring. The monitor shows a rate of 80 with paced rhythm 1625: Vital signs improved status post antipyretic. Labs show a creatinine of 1.5, increased from baseline around 1.4. Troponin is elevated. Patient is not currently reporting any chest pain. This could be due to the patient's elevated creatinine. Patient will be admitted to the [facility] hospitalist team. Spoke with Salbador who stated to admit to Dr. Woodall Impression & Plan Elevated troponin, KAT (acute kidney injury) Discharge Plan Visit Data Chief Complaint: Weakness ED Provider: Idris Espinoza Discharge Problem: Elevated troponin, KAT (acute kidney injury) Patient Disposition: Being Evaluated by Hospitalist Forms Stand Alone Forms: My [employer] Prescriptions Prescriptions: No Action allopurinol 300 mg tablet 300 mg PO DAILY RF: 0 atorvastatin 20 mg tablet 20 mg PO DAILY RF: 0 levothyroxine 150 mcg tablet 150 mcg PO QAM RF: 0 clonidine HCl 0.3 mg tablet 0.3 mg PO BID RF: 0 buspirone 15 mg tablet 15 mg PO BID RF: 0 brimonidine 0.15 % drops 1 drp OPB BID RF: 0 lamotrigine 100 mg tablet 100 mg PO BID RF: 0 timolol maleate 0.5 % drops 1 drp OPB DAILY RF: 0 fluoxetine 40 mg capsule 80 mg PO QAM RF: 0 Referrals Referrals: Leticia Crandall DO [Primary Care Provider] -
[2020-07-10 19:06] LABS: Lyme Ab IgM w/WB Rflx Negative (Negative)
[2020-07-10 19:25] LABS: Lyme Ab IgG w/WB Rflx Positive (Negative)
[2020-07-10] MEDS ORDERED: ONDANSETRON INJ 2 MG/ML 2 ML VIAL IV PRN (19:45)
[2020-07-10] MEDS ORDERED: ACETAMINOPHEN 325 MG TAB PO PRN (19:45)
[2020-07-10] MEDS: cefTRIAXone SODIUM 2,000 MG in DEXTROSE 5% 50 ML IV SCH (21:47)
[2020-07-10] MEDS ORDERED: LORazepam 0.5 MG TAB PO PRN (21:49)
[2020-07-10] MEDS: cloNIDine HCL 0.3 MG TAB PO SCH (22:51)
[2020-07-10] MEDS: ASPIRIN 81 MG ECTAB PO SCH (22:51)
[2020-07-10] MEDS: busPIRone 15 MG TAB PO SCH (22:52)
[2020-07-10] MEDS: lamoTRIgine 100 MG TAB PO SCH (22:52)
[2020-07-10] MEDS ORDERED: METOPROLOL TARTRATE 1 MG/ML VIAL IV STA (23:48)
[2020-07-11] MEDS ORDERED: HALOPERIDOL LACTATE 5 MG/ML 1 ML VIAL IM STA (00:29)
[2020-07-11] MEDS ORDERED: LORazepam 0.25 MG/0.5 ML VIAL IV STA (00:39)
[2020-07-11] MEDS: DOXYCYCLINE HYCLATE 100 MG CAP PO SCH ×3 (00:49→21:04)
[2020-07-11] MEDS ORDERED: Heparin IV Adult Wt-Based Standard *NO* Bolus Protocol IV SCH (01:24)
[2020-07-11] MEDS ORDERED: HEPARIN SODIUM/DEXTROSE 25,000 UNITS/500 ML BAG IV SCH (01:40)
[2020-07-11 04:03] LABS: Hematocrit (blood only) 30.5 % (37-47); Mean Corpuscular Hemoglobin 29.9 pg (25-34); Mean Corpuscular Hgb Conc 32.8 g/dL (32-36); Mean Corpuscular Volume 91.3 fL (80-100); Platelet Count 126 K/uL (130-400); RDW Coefficient of Variation 14.1 % (11.5-14.5); RDW Standard Deviation 46.5 fL (36.4-46.3); Red Blood Count 3.34 M/uL (4.2-5.4); White Blood Count 6.44 K/uL (4.8-10.8)
[2020-07-11 04:25] LABS: BUN Creatinine Ratio 17.8 (10-20); Calcium 9.3 mg/dl (8.5-10.1); Creatinine Clr Calc Pharmacy 29.9 ml/min; Est GFR (African American) 32.4 ml/min; Magnesium 2.5 mg/dl (1.8-2.4); Potassium 4.5 mmol/L (3.5-5.1)
[2020-07-11 04:48] LABS: Albumin Globulin Ratio 0.9 (0.9-2); Bilirubin,Total 0.6 mg/dl (0.2-1); Globulin 3.4 gm/dl (2.5-4.0); Thyroid Stimulating Hormone 0.351 uIu/ml (0.300-4.500); Total Protein 6.4 gm/dl (6.4-8.2); Troponin I 0.56 ng/ml (0-0.045)
[2020-07-11] MEDS: SODIUM CHLORIDE 0.9% 1000ML 1,000 ML IV SCH ×2 (05:29→18:05)
[2020-07-11] MEDS: LEVOTHYROXINE SODIUM 150 MCG TABLET PO SCH (05:31)
[2020-07-11] MEDS: lamoTRIgine 100 MG TAB PO SCH ×2 (08:21→21:04)
[2020-07-11] MEDS: TIMOLOL MALEATE 0.5% OP SOLN 5 ML BTL OP SCH (08:21)
[2020-07-11] MEDS: BRIMONIDINE TARTRATE-P 0.15% 5 ML BTL OPB SCH ×2 (08:21→20:58)
[2020-07-11] MEDS: ATORVASTATIN 20 MG TAB PO SCH (08:22)
[2020-07-11] MEDS: ASPIRIN 81 MG ECTAB PO SCH (08:22)
[2020-07-11] MEDS: busPIRone 15 MG TAB PO SCH ×2 (08:22→21:03)
[2020-07-11] MEDS: CHLORTHALIDONE 25 MG TAB PO SCH (08:22)
[2020-07-11] MEDS: cloNIDine HCL 0.3 MG TAB PO SCH ×2 (08:22→21:04)
[2020-07-11] MEDS: allopurinoL 300 MG TAB PO SCH (08:22)
[2020-07-11] MEDS: FLUoxetine HCL 20 MG CAP PO SCH (08:22)
[2020-07-11 08:42] LABS: Partial Thromboplastin Ratio 1.7
--- NOTE | 2020-07-11 08:49 | Cardiology Consultation ---
Date of Consultation July 11, 2020 Assessment & Plan (1) Fever: (2) Elevated troponin: (3) Anemia: (4) KAT (acute kidney injury): (5) Lyme disease: Patient was admitted after 1 week of weakness, fatigue, fevers, dysuria, and then one episode of chest pain She was found to have minimally elevated troponin in setting of worsening creatinine, anemia, and febrile illness. Prelim Lyme is + with western blot pending Prelim Urine culture is + Her echo demonstrates normal LV systolic function without wall motion abnormalities. Her EKG has no ischemic changes and she remains chest pain free. Will discontinue IV heparin at this time. Elevated troponin is not indicative of ACS and likely secondary to acute illness with KAT. Recommend IV fluids and antibiotics per hospitalist, following final cultures and lyme tests. No further inpatient cardiac testing warranted at this time. Would consider outpatient nuclear stress test if she has recurrent chest pain. Case discussed with Dr. Hancock. Supervising Physician Co-Signing Physician Notes Patient seen and examined with Aaliyah Goodwin PA-C. Agree with findings and assessment as above. Mrs. Tejeda is a very pleasant 79-year-old woman who is well-known to our cardiology practice. She presented to the emergency department today with complaints of chest pain along with dysuria and fatigue. Upon arrival she was found to have a urinary tract infection and also tested positive for Lyme disease. Minimal troponin elevation in the setting of acute on chronic renal failure, I do not believe this represents an acute ischemic event. Echocardiogram without wall motion abnormality. No further cardiac testing intervention is necessary at this time. History of Present Illness Reason for Consultation: Weakness; Chest Pain; Elevated Troponin Requesting Physician: Dr. Gonzalez Attending Physician: Dr. Hancock History of Present Illness Patient is a 79-year-old female known to [facility] cardiology (Dr. Feldman/Thony) for history of Sick sinus syndrome status post permanent pacemaker implantation and Hypertension. Other history includes chronic kidney disease, anemia. Unfortunately her earlier this year due to Alzheimers. Patient reports over the last week worsening fatigue/weakness, intermittent dysuria, and then she had an episode of chest pain that morning. She came to ER for evaluation. She was found to be febrile, her creatinine was relatively stable at baseline with creatinine of 1.5, mild worsening anemia at 10.8, troponin minimally elevated at 0.3, EKG without acute changes, pacemaker was interrogated without significant findings. Magnesium was low and supplemented. Urine culture demonstrating + gram negative prelim report. Blood cultures prelim is negative. She tested positive for lyme disease as well. Started on antibiotic therapy. At time of consult patient resting in bed comfortably. no recurrent chest pain since admission. She feels "much better". notes having panic attacks last night. weakness has been persistent for about 1 week. Notes ongoing fatigue. Currently without complaints. she denies recent tick bites, but admits she is outside alot in the garden and pulls ticks of her cats. Allergies Allergy/AdvReac Type Severity Reaction Status Date / Time No Known Allergies Allergy Unknown Verified 07/10/20 15:08 Home Medications Medication Instructions Recorded Confirmed Type allopurinol 300 mg PO DAILY 04/21/19 07/10/20 History atorvastatin 20 mg PO DAILY 04/21/19 07/10/20 History brimonidine 1 drp OPB BID 04/21/19 07/10/20 History buspirone 15 mg PO BID 04/21/19 07/10/20 History clonidine HCl 0.3 mg PO BID 04/21/19 07/10/20 History fluoxetine 80 mg PO QAM 04/21/19 07/10/20 History lamotrigine 100 mg PO BID 04/21/19 07/10/20 History levothyroxine 150 mcg PO QAM 04/21/19 07/10/20 History timolol maleate 1 drp OPB DAILY 04/21/19 07/10/20 History Ativan 0.5 mg PO TID PRN 07/10/20 07/10/20 History chlorthalidone 12.5 mg PO DAILY 07/10/20 07/10/20 History Patient History Medical History Anxiety Depression HTN (hypertension) Kidney problem SSS (sick sinus syndrome) Family History Other No significant family history Social History Smoking Status: Never smoker Hx Alcohol Use: No Hx Substance Use: No Preferred Language: Northern Irish Communication Ability: Effective Information Operator Required: No Beliefs That Will Affect Care: None marital status: / Current Living Situation: Alone Feels Safe at Home: Yes Safety Concerns: Feels Safe At This Time Assistive Devices: None Review of Systems Review of Systems: All systems reviewed & are unremarkable except as noted in HPI & below Physical Exam Constitutional: WD/WN, vitals as above well developed and well nourished; no acute distress Eyes: PERRL, conjunctivae normal, anicteric sclerae ENMT: external ear and nose normal, oropharynx normal Neck: trachea midline, no thyromegaly normal visual inspection Respiratory: normal respiratory effort, lungs clear to auscultation Cardiovascular: Rate/Rhythm: regular rate and regular rhythm Heart Sounds: normal S1 and normal S2; no murmur Vessels: no JVD Extremities: no edema Gastrointestinal (Abdomen): normal bowel sounds, soft, nontender, no hepatosplenomegaly Musculoskeletal: no cyanosis or clubbing, extremities motor strength 5/5 Neurologic: PERRL, EOMI, accommodation nl, no face palsy, no dysarthria Psychiatric: A+Ox3, euthymic affect Results & Data ([facility]) Vital Signs (Past 12 Hours) Vital Signs Temp Pulse Pulse Resp BP Pulse Ox 07/11/20 07:15 37.1 C 61 19 103/62 92 07/11/20 04:02 36.7 C 60 14 112/67 90 07/11/20 02:43 36.3 C L 67 16 106/63 92 07/11/20 01:01 37.8 C H 67 16 130/67 92 07/11/20 00:47 84 133/81 07/10/20 23:59 95 H 177/89 H 07/10/20 23:42 38.5 C H 204/76 H 07/10/20 23:38 39.4 C H 106 H 20 208/80 H 90 07/10/20 23:17 197/116 H 07/10/20 23:10 36.7 C 81 26 H 93 07/10/20 22:20 80 07/10/20 20:52 61 151/71 H Laboratory Results 07/11/20 07/11/20 07/11/20 Range/Units 08:08 08:08 08:08 WBC (4.8-10.8) K/uL RBC (4.2-5.4) M/uL Hgb (12.0-16.0) g/dL Hct (37-47) % MCV (80-100) fL MCH (25-34) pg MCHC (32-36) g/dL RDW Std Deviation (36.4-46.3) fL RDW Coeff of Tank (11.5-14.5) % Plt Count (130-400) K/uL MPV (7.4-10.4) fL Immature Gran % (Auto) % Neut % (Auto) % Lymph % (Auto) % Morton % (Auto) % Eos % (Auto) % Baso % (Auto) % Neut # (Auto) (1.4-6.5) K/uL Lymph # (Auto) (1.2-3.4) K/uL Morton # (Auto) (0.11-0.59) K/uL Eos # (Auto) (0-0.5) K/uL Baso # (Auto) (0-0.2) K/uL Immature Gran # (Auto) (0.00-0.02) K/uL PT (9.0-12.0) Seconds INR (0.9-1.1) APTT 45.0 H (21.0-31.0) Seconds PTT Ratio 1.7 Sodium (136-145) mmol/L Potassium (3.5-5.1) mmol/L Chloride (98-107) mmol/L Carbon Dioxide (21-32) mmol/L Anion Gap (3-11) BUN (7-18) mg/dl Creatinine (0.6-1.2) mg/dl Est Cr Clr Drug Dosing ml/min Est GFR ( Amer) ml/min Est GFR (Non-Af Amer) ml/min BUN/Creatinine Ratio (10-20) Glucose (70-99) mg/dl Lactate (0.4-2.0) mmol/L Calcium (8.5-10.1) mg/dl Magnesium (1.8-2.4) mg/dl Total Bilirubin (0.2-1) mg/dl AST (15-37) U/L ALT (12-78) U/L Alkaline Phosphatase (45-117) U/L Troponin I Pending (0-0.045) ng/ml Total Protein (6.4-8.2) gm/dl Albumin (3.4-5.0) gm/dl Globulin (2.5-4.0) gm/dl Albumin/Globulin Ratio (0.9-2) Triglycerides (0-150) mg/dl Cholesterol (0-200) mg/dl LDL Cholesterol, Calc mg/dl VLDL Cholesterol, Calc mg/dl HDL Cholesterol mg/dl Cholesterol/HDL Ratio Vitamin B12 Pending 25-OH Vitamin D Total (30-100) ng/ml Procalcitonin (0-0.5) ng/ml TSH (0.300-4.500) uIu/ml Urine Color Urine Appearance (Clear) Urine pH (4.5-7.5) Ur Specific [place] (1.000-1.030) Urine Protein (Negative) Urine Glucose (UA) (Negative) Urine Ketones (Negative) Urine Blood (Negative) Urine Nitrite (Negative) Urine Bilirubin (Negative) Urine Urobilinogen (Negative) Ur Leukocyte Esterase (Negative) Urine WBC (Auto) (0-5) /hpf Urine RBC (Auto) (0-4) /hpf U Hyaline Cast (Auto) (0-5) /lpf U Epithel Cells (Auto) (0-5) /lpf Urine Bacteria (Auto) (Negative) Anaplasma Smear A. phagocytophilum DNA Lyme Disease IgG Ab (Negative) Lyme IgG (Western Blot) Lyme IgG 18 kDa Band Lyme IgG 23 kDa Band Lyme IgG 28 kDa Band Lyme IgG 30 kDa Band Lyme IgG 39 kDa Band Lyme IgG 41 kDa Band Lyme IgG 45 kDa Band Lyme IgG 58 kDa Band Lyme IgG 66 kDa Band Lyme IgG 93 kDa Band Lyme IgM Ab (WB) Lyme Disease IgM Ab (Negative) Lyme IgM 23 kDa Band Lyme IgM 39 kDa Band Lyme IgM 41 kDa Band COVID-19 Eval Order SARS-CoV-2 (PCR) (Negative) 07/11/20 07/11/20 07/11/20 Range/Units 03:51 03:51 03:51 WBC (4.8-10.8) K/uL RBC (4.2-5.4) M/uL Hgb (12.0-16.0) g/dL Hct (37-47) % MCV (80-100) fL MCH (25-34) pg MCHC (32-36) g/dL RDW Std Deviation (36.4-46.3) fL RDW Coeff of Tank (11.5-14.5) % Plt Count (130-400) K/uL MPV (7.4-10.4) fL Immature Gran % (Auto) % Neut % (Auto) % Lymph % (Auto) % Morton % (Auto) % Eos % (Auto) % Baso % (Auto) % Neut # (Auto) (1.4-6.5) K/uL Lymph # (Auto) (1.2-3.4) K/uL Morton # (Auto) (0.11-0.59) K/uL Eos # (Auto) (0-0.5) K/uL Baso # (Auto) (0-0.2) K/uL Immature Gran # (Auto) (0.00-0.02) K/uL PT (9.0-12.0) Seconds INR (0.9-1.1) APTT (21.0-31.0) Seconds PTT Ratio Sodium 139 (136-145) mmol/L Potassium 4.5 (3.5-5.1) mmol/L Chloride 111 H (98-107) mmol/L Carbon Dioxide 23 (21-32) mmol/L Anion Gap 5.0 (3-11) BUN 31 H (7-18) mg/dl Creatinine 1.73 H (0.6-1.2) mg/dl Est Cr Clr Drug Dosing 29.9 ml/min Est GFR ( Amer) 32.4 ml/min Est GFR (Non-Af Amer) 28.0 ml/min BUN/Creatinine Ratio 17.8 (10-20) Glucose 156 H (70-99) mg/dl Lactate (0.4-2.0) mmol/L Calcium 9.3 (8.5-10.1) mg/dl Magnesium 2.5 H (1.8-2.4) mg/dl Total Bilirubin 0.6 (0.2-1) mg/dl AST 22 (15-37) U/L ALT 29 (12-78) U/L Alkaline Phosphatase 104 (45-117) U/L Troponin I 0.560 H* (0-0.045) ng/ml Total Protein 6.4 (6.4-8.2) gm/dl Albumin 3.0 L (3.4-5.0) gm/dl Globulin 3.4 (2.5-4.0) gm/dl Albumin/Globulin Ratio 0.9 (0.9-2) Triglycerides 55 (0-150) mg/dl Cholesterol 74 (0-200) mg/dl LDL Cholesterol, Calc 28 mg/dl VLDL Cholesterol, Calc 11 mg/dl HDL Cholesterol 35 mg/dl Cholesterol/HDL Ratio 2 Vitamin B12 Cancelled 25-OH Vitamin D Total 33.2 (30-100) ng/ml Procalcitonin (0-0.5) ng/ml TSH 0.351 (0.300-4.500) uIu/ml Urine Color Urine Appearance (Clear) Urine pH (4.5-7.5) Ur Specific [place] (1.000-1.030) Urine Protein (Negative) Urine Glucose (UA) (Negative) Urine Ketones (Negative) Urine Blood (Negative) Urine Nitrite (Negative) Urine Bilirubin (Negative) Urine Urobilinogen (Negative) Ur Leukocyte Esterase (Negative) Urine WBC (Auto) (0-5) /hpf Urine RBC (Auto) (0-4) /hpf U Hyaline Cast (Auto) (0-5) /lpf U Epithel Cells (Auto) (0-5) /lpf Urine Bacteria (Auto) (Negative) Anaplasma Smear A. phagocytophilum DNA Lyme Disease IgG Ab (Negative) Lyme IgG (Western Blot) Lyme IgG 18 kDa Band Lyme IgG 23 kDa Band Lyme IgG 28 kDa Band Lyme IgG 30 kDa Band Lyme IgG 39 kDa Band Lyme IgG 41 kDa Band Lyme IgG 45 kDa Band Lyme IgG 58 kDa Band Lyme IgG 66 kDa Band Lyme IgG 93 kDa Band Lyme IgM Ab (WB) Lyme Disease IgM Ab (Negative) Lyme IgM 23 kDa Band Lyme IgM 39 kDa Band Lyme IgM 41 kDa Band COVID-19 Eval Order SARS-CoV-2 (PCR) (Negative) 07/11/20 07/11/20 07/10/20 Range/Units 03:51 00:33 20:00 WBC 6.44 (4.8-10.8) K/uL RBC 3.34 L (4.2-5.4) M/uL Hgb 10.0 L (12.0-16.0) g/dL Hct 30.5 L (37-47) % MCV 91.3 (80-100) fL MCH 29.9 (25-34) pg MCHC 32.8 (32-36) g/dL RDW Std Deviation 46.5 H (36.4-46.3) fL RDW Coeff of Tank 14.1 (11.5-14.5) % Plt Count 126 L (130-400) K/uL MPV 10.0 (7.4-10.4) fL Immature Gran % (Auto) % Neut % (Auto) % Lymph % (Auto) % Morton % (Auto) % Eos % (Auto) % Baso % (Auto) % Neut # (Auto) (1.4-6.5) K/uL Lymph # (Auto) (1.2-3.4) K/uL Morton # (Auto) (0.11-0.59) K/uL Eos # (Auto) (0-0.5) K/uL Baso # (Auto) (0-0.2) K/uL Immature Gran # (Auto) (0.00-0.02) K/uL PT (9.0-12.0) Seconds INR (0.9-1.1) APTT (21.0-31.0) Seconds PTT Ratio Sodium (136-145) mmol/L Potassium (3.5-5.1) mmol/L Chloride (98-107) mmol/L Carbon Dioxide (21-32) mmol/L Anion Gap (3-11) BUN (7-18) mg/dl Creatinine (0.6-1.2) mg/dl Est Cr Clr Drug Dosing ml/min Est GFR ( Amer) ml/min Est GFR (Non-Af Amer) ml/min BUN/Creatinine Ratio (10-20) Glucose (70-99) mg/dl Lactate (0.4-2.0) mmol/L Calcium (8.5-10.1) mg/dl Magnesium (1.8-2.4) mg/dl Total Bilirubin (0.2-1) mg/dl AST (15-37) U/L ALT (12-78) U/L Alkaline Phosphatase (45-117) U/L Troponin I 0.340 H* 0.138 H* (0-0.045) ng/ml Total Protein (6.4-8.2) gm/dl Albumin (3.4-5.0) gm/dl Globulin (2.5-4.0) gm/dl Albumin/Globulin Ratio (0.9-2) Triglycerides (0-150) mg/dl Cholesterol (0-200) mg/dl LDL Cholesterol, Calc mg/dl VLDL Cholesterol, Calc mg/dl HDL Cholesterol mg/dl Cholesterol/HDL Ratio Vitamin B12 25-OH Vitamin D Total (30-100) ng/ml Procalcitonin (0-0.5) ng/ml TSH (0.300-4.500) uIu/ml Urine Color Urine Appearance (Clear) Urine pH (4.5-7.5) Ur Specific [place] (1.000-1.030) Urine Protein (Negative) Urine Glucose (UA) (Negative) Urine Ketones (Negative) Urine Blood (Negative) Urine Nitrite (Negative) Urine Bilirubin (Negative) Urine Urobilinogen (Negative) Ur Leukocyte Esterase (Negative) Urine WBC (Auto) (0-5) /hpf Urine RBC (Auto) (0-4) /hpf U Hyaline Cast (Auto) (0-5) /lpf U Epithel Cells (Auto) (0-5) /lpf Urine Bacteria (Auto) (Negative) Anaplasma Smear A. phagocytophilum DNA Lyme Disease IgG Ab (Negative) Lyme IgG (Western Blot) Lyme IgG 18 kDa Band Lyme IgG 23 kDa Band Lyme IgG 28 kDa Band Lyme IgG 30 kDa Band Lyme IgG 39 kDa Band Lyme IgG 41 kDa Band Lyme IgG 45 kDa Band Lyme IgG 58 kDa Band Lyme IgG 66 kDa Band Lyme IgG 93 kDa Band Lyme IgM Ab (WB) Lyme Disease IgM Ab (Negative) Lyme IgM 23 kDa Band Lyme IgM 39 kDa Band Lyme IgM 41 kDa Band COVID-19 Eval Order SARS-CoV-2 (PCR) (Negative) 07/10/20 07/10/20 07/10/20 Range/Units 16:50 16:50 15:21 WBC (4.8-10.8) K/uL RBC (4.2-5.4) M/uL Hgb (12.0-16.0) g/dL Hct (37-47) % MCV (80-100) fL MCH (25-34) pg MCHC (32-36) g/dL RDW Std Deviation (36.4-46.3) fL RDW Coeff of Tank (11.5-14.5) % Plt Count (130-400) K/uL MPV (7.4-10.4) fL Immature Gran % (Auto) % Neut % (Auto) % Lymph % (Auto) % Morton % (Auto) % Eos % (Auto) % Baso % (Auto) % Neut # (Auto) (1.4-6.5) K/uL Lymph # (Auto) (1.2-3.4) K/uL Morton # (Auto) (0.11-0.59) K/uL Eos # (Auto) (0-0.5) K/uL Baso # (Auto) (0-0.2) K/uL Immature Gran # (Auto) (0.00-0.02) K/uL PT (9.0-12.0) Seconds INR (0.9-1.1) APTT (21.0-31.0) Seconds PTT Ratio Sodium (136-145) mmol/L Potassium (3.5-5.1) mmol/L Chloride (98-107) mmol/L Carbon Dioxide (21-32) mmol/L Anion Gap (3-11) BUN (7-18) mg/dl Creatinine (0.6-1.2) mg/dl Est Cr Clr Drug Dosing ml/min Est GFR ( Amer) ml/min Est GFR (Non-Af Amer) ml/min BUN/Creatinine Ratio (10-20) Glucose (70-99) mg/dl Lactate (0.4-2.0) mmol/L Calcium (8.5-10.1) mg/dl Magnesium (1.8-2.4) mg/dl Total Bilirubin (0.2-1) mg/dl AST (15-37) U/L ALT (12-78) U/L Alkaline Phosphatase (45-117) U/L Troponin I (0-0.045) ng/ml Total Protein (6.4-8.2) gm/dl Albumin (3.4-5.0) gm/dl Globulin (2.5-4.0) gm/dl Albumin/Globulin Ratio (0.9-2) Triglycerides (0-150) mg/dl Cholesterol (0-200) mg/dl LDL Cholesterol, Calc mg/dl VLDL Cholesterol, Calc mg/dl HDL Cholesterol mg/dl Cholesterol/HDL Ratio Vitamin B12 25-OH Vitamin D Total (30-100) ng/ml Procalcitonin (0-0.5) ng/ml TSH (0.300-4.500) uIu/ml Urine Color Yellow Urine Appearance Clear (Clear) Urine pH 5.0 (4.5-7.5) Ur Specific [place] 1.011 (1.000-1.030) Urine Protein Negative (Negative) Urine Glucose (UA) Negative (Negative) Urine Ketones Negative (Negative) Urine Blood Negative (Negative) Urine Nitrite Negative (Negative) Urine Bilirubin Negative (Negative) Urine Urobilinogen Negative (Negative) Ur Leukocyte Esterase Trace H (Negative) Urine WBC (Auto) 5-10 H (0-5) /hpf Urine RBC (Auto) 0-4 (0-4) /hpf U Hyaline Cast (Auto) 0 (0-5) /lpf U Epithel Cells (Auto) 20-30 H (0-5) /lpf Urine Bacteria (Auto) Negative (Negative) Anaplasma Smear A. phagocytophilum DNA Lyme Disease IgG Ab (Negative) Lyme IgG (Western Blot) Lyme IgG 18 kDa Band Lyme IgG 23 kDa Band Lyme IgG 28 kDa Band Lyme IgG 30 kDa Band Lyme IgG 39 kDa Band Lyme IgG 41 kDa Band Lyme IgG 45 kDa Band Lyme IgG 58 kDa Band Lyme IgG 66 kDa Band Lyme IgG 93 kDa Band Lyme IgM Ab (WB) Lyme Disease IgM Ab (Negative) Lyme IgM 23 kDa Band Lyme IgM 39 kDa Band Lyme IgM 41 kDa Band COVID-19 Eval Order Covid19 at [facility] SARS-CoV-2 (PCR) NEGATIVE (Negative) 07/10/20 07/10/20 07/10/20 Range/Units 15:16 13:45 13:45 WBC (4.8-10.8) K/uL RBC (4.2-5.4) M/uL Hgb (12.0-16.0) g/dL Hct (37-47) % MCV (80-100) fL MCH (25-34) pg MCHC (32-36) g/dL RDW Std Deviation (36.4-46.3) fL RDW Coeff of Tank (11.5-14.5) % Plt Count (130-400) K/uL MPV (7.4-10.4) fL Immature Gran % (Auto) % Neut % (Auto) % Lymph % (Auto) % Morton % (Auto) % Eos % (Auto) % Baso % (Auto) % Neut # (Auto) (1.4-6.5) K/uL Lymph # (Auto) (1.2-3.4) K/uL [place] # (Auto) (0.11-0.59) K/uL Eos # (Auto) (0-0.5) K/uL Baso # (Auto) (0-0.2) K/uL Immature Gran # (Auto) (0.00-0.02) K/uL PT (9.0-12.0) Seconds INR (0.9-1.1) APTT (21.0-31.0) Seconds PTT Ratio Sodium (136-145) mmol/L Potassium (3.5-5.1) mmol/L Chloride (98-107) mmol/L Carbon Dioxide (21-32) mmol/L Anion Gap (3-11) BUN (7-18) mg/dl Creatinine (0.6-1.2) mg/dl Est Cr Clr Drug Dosing ml/min Est GFR ( Amer) ml/min Est GFR (Non-Af Amer) ml/min BUN/Creatinine Ratio (10-20) Glucose (70-99) mg/dl Lactate 0.8 (0.4-2.0) mmol/L Calcium (8.5-10.1) mg/dl Magnesium (1.8-2.4) mg/dl Total Bilirubin (0.2-1) mg/dl AST (15-37) U/L ALT (12-78) U/L Alkaline Phosphatase (45-117) U/L Troponin I (0-0.045) ng/ml Total Protein (6.4-8.2) gm/dl Albumin (3.4-5.0) gm/dl Globulin (2.5-4.0) gm/dl Albumin/Globulin Ratio (0.9-2) Triglycerides (0-150) mg/dl Cholesterol (0-200) mg/dl LDL Cholesterol, Calc mg/dl VLDL Cholesterol, Calc mg/dl HDL Cholesterol mg/dl Cholesterol/HDL Ratio Vitamin B12 25-OH Vitamin D Total (30-100) ng/ml Procalcitonin (0-0.5) ng/ml TSH (0.300-4.500) uIu/ml Urine Color Urine Appearance (Clear) Urine pH (4.5-7.5) Ur Specific [place] (1.000-1.030) Urine Protein (Negative) Urine Glucose (UA) (Negative) Urine Ketones (Negative) Urine Blood (Negative) Urine Nitrite (Negative) Urine Bilirubin (Negative) Urine Urobilinogen (Negative) Ur Leukocyte Esterase (Negative) Urine WBC (Auto) (0-5) /hpf Urine RBC (Auto) (0-4) /hpf U Hyaline Cast (Auto) (0-5) /lpf U Epithel Cells (Auto) (0-5) /lpf Urine Bacteria (Auto) (Negative) Anaplasma Smear A. phagocytophilum DNA Pending Lyme Disease IgG Ab (Negative) Lyme IgG (Western Blot) Pending Lyme IgG 18 kDa Band Pending Lyme IgG 23 kDa Band Pending Lyme IgG 28 kDa Band Pending Lyme IgG 30 kDa Band Pending Lyme IgG 39 kDa Band Pending Lyme IgG 41 kDa Band Pending Lyme IgG 45 kDa Band Pending Lyme IgG 58 kDa Band Pending Lyme IgG 66 kDa Band Pending Lyme IgG 93 kDa Band Pending Lyme IgM Ab (WB) Pending Lyme Disease IgM Ab (Negative) Lyme IgM 23 kDa Band Pending Lyme IgM 39 kDa Band Pending Lyme IgM 41 kDa Band Pending COVID-19 Eval Order SARS-CoV-2 (PCR) (Negative) 07/10/20 07/10/20 07/10/20 Range/Units 13:45 13:45 13:45 WBC (4.8-10.8) K/uL RBC (4.2-5.4) M/uL Hgb (12.0-16.0) g/dL Hct (37-47) % MCV (80-100) fL MCH (25-34) pg MCHC (32-36) g/dL RDW Std Deviation (36.4-46.3) fL RDW Coeff of Tank (11.5-14.5) % Plt Count (130-400) K/uL MPV (7.4-10.4) fL Immature Gran % (Auto) % Neut % (Auto) % Lymph % (Auto) % Morton % (Auto) % Eos % (Auto) % Baso % (Auto) % Neut # (Auto) (1.4-6.5) K/uL Lymph # (Auto) (1.2-3.4) K/uL [place] # (Auto) (0.11-0.59) K/uL Eos # (Auto) (0-0.5) K/uL Baso # (Auto) (0-0.2) K/uL Immature Gran # (Auto) (0.00-0.02) K/uL PT (9.0-12.0) Seconds INR (0.9-1.1) APTT (21.0-31.0) Seconds PTT Ratio Sodium (136-145) mmol/L Potassium (3.5-5.1) mmol/L Chloride (98-107) mmol/L Carbon Dioxide (21-32) mmol/L Anion Gap (3-11) BUN (7-18) mg/dl Creatinine (0.6-1.2) mg/dl Est Cr Clr Drug Dosing ml/min Est GFR ( Amer) ml/min Est GFR (Non-Af Amer) ml/min BUN/Creatinine Ratio (10-20) Glucose (70-99) mg/dl Lactate (0.4-2.0) mmol/L Calcium (8.5-10.1) mg/dl Magnesium (1.8-2.4) mg/dl Total Bilirubin (0.2-1) mg/dl AST (15-37) U/L ALT (12-78) U/L Alkaline Phosphatase (45-117) U/L Troponin I (0-0.045) ng/ml Total Protein (6.4-8.2) gm/dl Albumin (3.4-5.0) gm/dl Globulin (2.5-4.0) gm/dl Albumin/Globulin Ratio (0.9-2) Triglycerides (0-150) mg/dl Cholesterol (0-200) mg/dl LDL Cholesterol, Calc mg/dl VLDL Cholesterol, Calc mg/dl HDL Cholesterol mg/dl Cholesterol/HDL Ratio Vitamin B12 25-OH Vitamin D Total (30-100) ng/ml Procalcitonin 0.34 (0-0.5) ng/ml TSH (0.300-4.500) uIu/ml Urine Color Urine Appearance (Clear) Urine pH (4.5-7.5) Ur Specific [place] (1.000-1.030) Urine Protein (Negative) Urine Glucose (UA) (Negative) Urine Ketones (Negative) Urine Blood (Negative) Urine Nitrite (Negative) Urine Bilirubin (Negative) Urine Urobilinogen (Negative) Ur Leukocyte Esterase (Negative) Urine WBC (Auto) (0-5) /hpf Urine RBC (Auto) (0-4) /hpf U Hyaline Cast (Auto) (0-5) /lpf U Epithel Cells (Auto) (0-5) /lpf Urine Bacteria (Auto) (Negative) Anaplasma Smear See Comment A. phagocytophilum DNA Lyme Disease IgG Ab Positive A (Negative) Lyme IgG (Western Blot) Lyme IgG 18 kDa Band Lyme IgG 23 kDa Band Lyme IgG 28 kDa Band Lyme IgG 30 kDa Band Lyme IgG 39 kDa Band Lyme IgG 41 kDa Band Lyme IgG 45 kDa Band Lyme IgG 58 kDa Band Lyme IgG 66 kDa Band Lyme IgG 93 kDa Band Lyme IgM Ab (WB) Lyme Disease IgM Ab Negative (Negative) Lyme IgM 23 kDa Band Lyme IgM 39 kDa Band Lyme IgM 41 kDa Band COVID-19 Eval Order SARS-CoV-2 (PCR) (Negative) 07/10/20 07/10/20 07/10/20 Range/Units 13:45 13:45 13:45 WBC 6.30 (4.8-10.8) K/uL RBC 3.61 L (4.2-5.4) M/uL Hgb 10.8 L (12.0-16.0) g/dL Hct 32.2 L (37-47) % MCV 89.2 (80-100) fL MCH 29.9 (25-34) pg MCHC 33.5 (32-36) g/dL RDW Std Deviation 45.8 (36.4-46.3) fL RDW Coeff of Tank 14.0 (11.5-14.5) % Plt Count 148 (130-400) K/uL MPV 10.4 (7.4-10.4) fL Immature Gran % (Auto) 0.3 % Neut % (Auto) 82.6 % Lymph % (Auto) 8.4 % Morton % (Auto) 8.3 % Eos % (Auto) 0.2 % Baso % (Auto) 0.2 % Neut # (Auto) 5.21 (1.4-6.5) K/uL Lymph # (Auto) 0.53 L (1.2-3.4) K/uL Morton # (Auto) 0.52 (0.11-0.59) K/uL Eos # (Auto) 0.01 (0-0.5) K/uL Baso # (Auto) 0.01 (0-0.2) K/uL Immature Gran # (Auto) 0.02 (0.00-0.02) K/uL PT 10.4 (9.0-12.0) Seconds INR 1.0 (0.9-1.1) APTT 23.7 (21.0-31.0) Seconds PTT Ratio 0.9 Sodium 139 (136-145) mmol/L Potassium 4.6 (3.5-5.1) mmol/L Chloride 111 H (98-107) mmol/L Carbon Dioxide 23 (21-32) mmol/L Anion Gap 5.0 (3-11) BUN 29 H (7-18) mg/dl Creatinine 1.51 H (0.6-1.2) mg/dl Est Cr Clr Drug Dosing 35.4 ml/min Est GFR ( Amer) 38.2 ml/min Est GFR (Non-Af Amer) 33.0 ml/min BUN/Creatinine Ratio 19.0 (10-20) Glucose 131 H (70-99) mg/dl Lactate (0.4-2.0) mmol/L Calcium 9.3 (8.5-10.1) mg/dl Magnesium 1.4 L (1.8-2.4) mg/dl Total Bilirubin 0.8 (0.2-1) mg/dl AST 18 (15-37) U/L ALT 26 (12-78) U/L Alkaline Phosphatase 112 (45-117) U/L Troponin I 0.051 H* (0-0.045) ng/ml Total Protein 7.0 (6.4-8.2) gm/dl Albumin 3.4 (3.4-5.0) gm/dl Globulin 3.6 (2.5-4.0) gm/dl Albumin/Globulin Ratio 0.9 (0.9-2) Triglycerides (0-150) mg/dl Cholesterol (0-200) mg/dl LDL Cholesterol, Calc mg/dl VLDL Cholesterol, Calc mg/dl HDL Cholesterol mg/dl Cholesterol/HDL Ratio Vitamin B12 25-OH Vitamin D Total (30-100) ng/ml Procalcitonin (0-0.5) ng/ml TSH (0.300-4.500) uIu/ml Urine Color Urine Appearance (Clear) Urine pH (4.5-7.5) Ur Specific [place] (1.000-1.030) Urine Protein (Negative) Urine Glucose (UA) (Negative) Urine Ketones (Negative) Urine Blood (Negative) Urine Nitrite (Negative) Urine Bilirubin (Negative) Urine Urobilinogen (Negative) Ur Leukocyte Esterase (Negative) Urine WBC (Auto) (0-5) /hpf Urine RBC (Auto) (0-4) /hpf U Hyaline Cast (Auto) (0-5) /lpf U Epithel Cells (Auto) (0-5) /lpf Urine Bacteria (Auto) (Negative) Anaplasma Smear A. phagocytophilum DNA Lyme Disease IgG Ab (Negative) Lyme IgG (Western Blot) Lyme IgG 18 kDa Band Lyme IgG 23 kDa Band Lyme IgG 28 kDa Band Lyme IgG 30 kDa Band Lyme IgG 39 kDa Band Lyme IgG 41 kDa Band Lyme IgG 45 kDa Band Lyme IgG 58 kDa Band Lyme IgG 66 kDa Band Lyme IgG 93 kDa Band Lyme IgM Ab (WB) Lyme Disease IgM Ab (Negative) Lyme IgM 23 kDa Band Lyme IgM 39 kDa Band Lyme IgM 41 kDa Band COVID-19 Eval Order SARS-CoV-2 (PCR) (Negative) Diagnostic Findings EKG on admission: Atrial-paced rhythm Minimal voltage criteria for LVH, may be normal variant Abnormal ECG When compared with ECG of 21-APR-2019 20:01, No significant change was found telemetry reviewed - NSR and intermittent pacing. no arrhythmias chest xray reviewed: IMPRESSION: 1. Mild reticular prominence within bilateral lower lungs appears significantly less conspicuous than on prior study in 2019. No large infiltrates or consolidative lesions are see Pacemaker interrogation reviewed - appropriate function and battery longevity. 2 episodes of non sustained Vt, occurring in Fe and early June lasting 2 seconds. No concerning findings Medications Administered Medications allopurinol 300 mg PO DAILY 04/21/19 [History Confirmed 07/10/20] atorvastatin 20 mg PO DAILY 04/21/19 [History Confirmed 07/10/20] brimonidine 1 drp OPB BID 04/21/19 [History Confirmed 07/10/20] buspirone 15 mg PO BID 04/21/19 [History Confirmed 07/10/20] clonidine HCl 0.3 mg PO BID 04/21/19 [History Confirmed 07/10/20] fluoxetine 80 mg PO QAM 04/21/19 [History Confirmed 07/10/20] lamotrigine 100 mg PO BID 04/21/19 [History Confirmed 07/10/20] levothyroxine 150 mcg PO QAM 04/21/19 [History Confirmed 07/10/20] timolol maleate 1 drp OPB DAILY 04/21/19 [History Confirmed 07/10/20] Ativan 0.5 mg PO TID PRN 07/10/20 [History Confirmed 07/10/20] chlorthalidone 12.5 mg PO DAILY 07/10/20 [History Confirmed 07/10/20] Home Medications Acetaminophen (Acetaminophen 325 Mg Tab) 650 mg PO Q4H PRN PRN Reason: Moderate Pain Stop: 08/09/20 19:44 Last Admin: 07/10/20 23:54 Dose: 650 mg Documented by: Allopurinol (Allopurinol 300 Mg Tab) 300 mg PO DAILY [facility] Stop: 08/10/20 08:59 Last Admin: 07/11/20 08:22 Dose: 300 mg Documented by: Aspirin (Aspirin 81 Mg Ectab) 81 mg PO QAM [facility] Stop: 08/09/20 21:39 Last Admin: 07/11/20 08:22 Dose: 81 mg Documented by: Atorvastatin Calcium (Atorvastatin 20 Mg Tab) 20 mg PO DAILY [facility] Stop: 08/10/20 08:59 Last Admin: 07/11/20 08:22 Dose: 20 mg Documented by: Brimonidine Tartrate (Brimonidine Tartrate-P 0.15% 5 Ml Btl) 1 drops OPB BID [facility] Stop: 08/10/20 08:59 Last Admin: 07/11/20 08:21 Dose: 1 drops Documented by: Buspirone HCl (Buspirone 15 Mg Tab) 15 mg PO BID [facility] Stop: 08/09/20 21:44 Last Admin: 07/11/20 08:22 Dose: 15 mg Documented by: Chlorthalidone (Chlorthalidone 25 Mg Tab) 12.5 mg PO DAILY [facility] Stop: 08/10/20 08:59 Last Admin: 07/11/20 08:22 Dose: 12.5 mg Documented by: Clonidine HCl (Clonidine Hcl 0.3 Mg Tab) 0.3 mg PO BID [facility] Stop: 08/09/20 21:44 Last Admin: 07/11/20 08:22 Dose: 0.3 mg Documented by: Doxycycline Hyclate (Doxycycline Hyclate 100 Mg Cap) 100 mg PO BID [facility] Stop: 07/20/20 23:44 Last Admin: 07/11/20 08:22 Dose: 100 mg Documented by: Fluoxetine HCl (Fluoxetine Hcl 20 Mg Cap) 80 mg PO QAM [facility] Stop: 08/10/20 08:59 Last Admin: 07/11/20 08:22 Dose: 80 mg Documented by: Ceftriaxone Sodium 2,000 mg/ (Dextrose) 70 mls @ 100 mls/hr IV Q24H [facility]; Protocol Stop: 07/15/20 19:59 Last Infusion: 07/10/20 22:29 Dose: Infused Documented by: Sodium Chloride (Nss 1000ml) 1,000 mls @ 80 mls/hr IV .[id number] [facility] Stop: 07/12/20 06:14 Last Admin: 07/11/20 05:29 Dose: 80 mls/hr Documented by: Lamotrigine (Lamotrigine 100 Mg Tab) 100 mg PO BID [facility] Stop: 08/09/20 21:44 Last Admin: 07/11/20 08:21 Dose: 100 mg Documented by: Levothyroxine Sodium (Levothyroxine Sodium 150 Mcg Tablet) 150 mcg PO DAILYBB [facility] Stop: 08/10/20 06:29 Last Admin: 07/11/20 05:31 Dose: 150 mcg Documented by: Lorazepam (Lorazepam 0.5 Mg Tab) 0.5 mg PO TID PRN PRN Reason: Anxiety Stop: 08/09/20 21:48 Last Admin: 07/10/20 22:50 Dose: 0.5 mg Documented by: Ondansetron HCl (Ondansetron Inj 2 Mg/Ml 2 Ml Vial) 4 mg IV Q4H PRN PRN Reason: Nausea And Vomiting Stop: 08/09/20 19:44 Last Admin: 07/10/20 23:17 Dose: 4 mg Documented by: Timolol Maleate (Timolol Maleate 0.5% Op Soln 5 Ml Btl) 1 drops OP DAILY [facility] Stop: 08/10/20 08:59 Last Admin: 07/11/20 08:21 Dose: 1 drops Documented by: Current Inpatient Medications Acetaminophen (Acetaminophen 325 Mg Tab) 650 mg PO Q4H PRN PRN Reason: Moderate Pain Stop: 08/09/20 19:44 Last Admin: 07/10/20 23:54 Dose: 650 mg Documented by: Allopurinol (Allopurinol 300 Mg Tab) 300 mg PO DAILY [facility] Stop: 08/10/20 08:59 Last Admin: 07/11/20 08:22 Dose: 300 mg Documented by: Aspirin (Aspirin 81 Mg Ectab) 81 mg PO QAM [facility] Stop: 08/09/20 21:39 Last Admin: 07/11/20 08:22 Dose: 81 mg Documented by: Atorvastatin Calcium (Atorvastatin 20 Mg Tab) 20 mg PO DAILY [facility] Stop: 08/10/20 08:59 Last Admin: 07/11/20 08:22 Dose: 20 mg Documented by: Brimonidine Tartrate (Brimonidine Tartrate-P 0.15% 5 Ml Btl) 1 drops OPB BID [facility] Stop: 08/10/20 08:59 Last Admin: 07/11/20 08:21 Dose: 1 drops Documented by: Buspirone HCl (Buspirone 15 Mg Tab) 15 mg PO BID [facility] Stop: 08/09/20 21:44 Last Admin: 07/11/20 08:22 Dose: 15 mg Documented by: Chlorthalidone (Chlorthalidone 25 Mg Tab) 12.5 mg PO DAILY [facility] Stop: 08/10/20 08:59 Last Admin: 07/11/20 08:22 Dose: 12.5 mg Documented by: Clonidine HCl (Clonidine Hcl 0.3 Mg Tab) 0.3 mg PO BID [facility] Stop: 08/09/20 21:44 Last Admin: 07/11/20 08:22 Dose: 0.3 mg Documented by: Doxycycline Hyclate (Doxycycline Hyclate 100 Mg Cap) 100 mg PO BID [facility] Stop: 07/20/20 23:44 Last Admin: 07/11/20 08:22 Dose: 100 mg Documented by: Fluoxetine HCl (Fluoxetine Hcl 20 Mg Cap) 80 mg PO QAM [facility] Stop: 08/10/20 08:59 Last Admin: 07/11/20 08:22 Dose: 80 mg Documented by: Ceftriaxone Sodium 2,000 mg/ (Dextrose) 70 mls @ 100 mls/hr IV Q24H [facility]; Protocol Stop: 07/15/20 19:59 Last Infusion: 07/10/20 22:29 Dose: Infused Documented by: Sodium Chloride (Nss 1000ml) 1,000 mls @ 80 mls/hr IV .[id number] [facility] Stop: 07/12/20 06:14 Last Admin: 07/11/20 05:29 Dose: 80 mls/hr Documented by: Lamotrigine (Lamotrigine 100 Mg Tab) 100 mg PO BID [facility] Stop: 08/09/20 21:44 Last Admin: 07/11/20 08:21 Dose: 100 mg Documented by: Levothyroxine Sodium (Levothyroxine Sodium 150 Mcg Tablet) 150 mcg PO DAILYBB [facility] Stop: 08/10/20 06:29 Last Admin: 07/11/20 05:31 Dose: 150 mcg Documented by: Lorazepam (Lorazepam 0.5 Mg Tab) 0.5 mg PO TID PRN PRN Reason: Anxiety Stop: 08/09/20 21:48 Last Admin: 07/10/20 22:50 Dose: 0.5 mg Documented by: Ondansetron HCl (Ondansetron Inj 2 Mg/Ml 2 Ml Vial) 4 mg IV Q4H PRN PRN Reason: Nausea And Vomiting Stop: 08/09/20 19:44 Last Admin: 07/10/20 23:17 Dose: 4 mg Documented by: Timolol Maleate (Timolol Maleate 0.5% Op Soln 5 Ml Btl) 1 drops OP DAILY [facility] Stop: 08/10/20 08:59 Last Admin: 07/11/20 08:21 Dose: 1 drops Documented by:
[2020-07-11 15:07] LABS: Partial Thromboplastin Ratio 1.1; Partial Thromboplastin Time 28.5 Seconds (21.0-31.0)
--- NOTE | 2020-07-11 15:31 | Electrocardiogram Report ---
Test Reason : Blood Pressure : / mmHG Vent. Rate : 076 BPM Atrial Rate : 076 BPM P-R Int : 192 ms QRS Dur : 086 ms QT Int : 368 ms P-R-T Axes : 046 -22 018 degrees QTc Int : 414 ms Atrial-paced rhythm Minimal voltage criteria for LVH, may be normal variant Abnormal ECG When compared with ECG of 21-APR-2019 20:01, No significant change was found Confirmed by Epifanio Pearce ([id number]) on 07/11/2020 3:31:10 PM Referred By: REFERRED SELF Confirmed By:Epifanio Pearce
--- NOTE | 2020-07-11 15:37 | Electrocardiogram Report ---
Test Reason : Blood Pressure : / mmHG Vent. Rate : 096 BPM Atrial Rate : 096 BPM P-R Int : 420 ms QRS Dur : 080 ms QT Int : 456 ms P-R-T Axes : 000 -12 040 degrees QTc Int : 576 ms Poor data quality, interpretation may be adversely affected Sinus rhythm with marked sinus arrhythmia with 1st degree A-V block with Premature supraventricular c omplexes Nonspecific ST abnormality Prolonged QT Abnormal ECG When compared with ECG of 10-JUL-2020 13:28, (unconfirmed) Significant changes have occurred Confirmed by Epifanio Pearce ([id number]) on 07/11/2020 3:37:08 PM Referred By: REFERRED SELF Confirmed By:Epifanio Pearce
--- NOTE | 2020-07-11 15:40 | Electrocardiogram Report ---
Test Reason : Blood Pressure : / mmHG Vent. Rate : 061 BPM Atrial Rate : 061 BPM P-R Int : 212 ms QRS Dur : 096 ms QT Int : 480 ms P-R-T Axes : -12 -23 -16 degrees QTc Int : 483 ms Atrial-paced rhythm with prolonged AV conduction Abnormal ECG When compared with ECG of 10-JUL-2020 13:28, (unconfirmed) QT has lengthened Confirmed by Epifanio Pearce ([id number]) on 07/11/2020 3:40:14 PM Referred By: REFERRED SELF Confirmed By:Epifanio Pearce
--- NOTE | 2020-07-11 18:00 | Hospitalist Progress Note ---
Date of Service July 11, 2020 Assessment & Plan (1) Elevated troponin: - Admit to tele for observation for r/o - Trend cardiac biomarkers, initial set 0.051, possibly elevated due to kidney involvement with creatinine of 1.51 - EKG reviewed-no ST changes or signs of ischemia, paced - Check 2 D echo - normal LV chamber size with mild concentric LVH. Normal LV systolic function, EF 65 to 70%. No segmental LV wall motion abnormalities are noted. Grade 1 diastolic dysfunction. Aortic valve sclerosis mild, without significant aortic valvular stenosis. Severe tricuspid regurgitation. Mild left atrial enlargement. PASP of 38 mmHg assuming of RA pressure of 3mmHg. Compared to previous study from 2015, severe tricuspid regurg is not present. -Troponin elevated overnight, patient was started on IV heparin by cured meats supervisor -Patient seen by cardiology, echo also obtained, studies reviewed, no ACS, Instead likely secondary to acute illness with KAT - PT/OT consulted (2) SSS (sick sinus syndrome): - Hx of pacemaker in 2016 - Interrogate pacemaker while admitted - reviewed by cardiology, as above - Follows with [facility] cardiology as outpatient, consulted (3) Hypomagnesemia: -1.4 on admission, replace with 2 bags via IV now -Trend with a.m. labs (4) Fever: -T-max = 38 while in the ER, history of dysuria in the past week, no previous antibiotic use, did not seek outpatient care. -UA shows trace esterase, 5-10 WBC, no bacteria Ucultx positive, cont. empiric Rocephin -Check blood cultures x2 -Will check lymes and anaplasmosis testing with pt being outside, as well as fatigue/weakness, platelet count dropped from 236 to 148 from last year. -Start on empiric Rocephin and can DC if urine culture is negative -IgG for Lyme disease positive, IgM negative, Western blot pending -Patient reports being outside and her cats having ticks -She does not recall being sick or treated for Lyme disease (5) Anemia: -Hemoglobin of 10.8, slightly down from baseline, monitor with a.m. labs. She denies lightheadedness, shortness of breath, chest pain (6) Bipolar disorder (manic depression): - hx of such - Mood is improving with help of support system/family. Has crying episodes at times, but states she is improving. Does not want to be on benzos for anxiety. - Reports history of being on lithium because of chronic kidney disease, no longer taking this medication and has been since switched to lamotrigine 100 mg twice daily and tolerates this well. - Continue Prozac 80 mg daily. -Recently weaned off of Abilify due to worsening anxiety with the medication, now feeling mood has improved since this. -Follows with Dr. Lee with psychiatry as outpatient DVT ppx: - teds, scds CODE: Full code Dispo: From home, likely to remain in the hospital x 1-2 days Admission and Anticipated Discharge Date Admission Date: July 10, 2020 Subjective Patient seen in follow-up of chest pain, dysuria Elevated troponin overnight, started on IV heparin by cured meats supervisor, awaiting further cardiology input Currently she is lying in bed, denies chest pain shortness of breath abdominal pain, nausea or vomiting Had fever on admission as well Currently she says that she feels much better, she was started on empiric antibiotics on admission reports having some cough panic attack last night though Review of Systems Review of Systems: All systems reviewed & are unremarkable except as noted in HPI & below Constitutional: + fever (on admission) Respiratory: no cough and no dyspnea Cardiovascular: no chest pain and no palpitations Gastrointestinal: no abdominal pain, no nausea and no vomiting Genitourinary: + dysuria Physical Exam Physical Exam: General: awake, alert, no apparent distress Head: Normocephalic, atraumatic ENT: PERRL, EOMI, no pharyngeal exudate, mucous membranes moist Chest: Clear to auscultation, on room air, no adventitious breath sounds Cardiac: Pacemaker left chest wall, regular rate and rhythm, no murmur, no JVD, normal peripheral pulses, good capillary refill, no reproducible chest discomf ort with palpation Abdominal: NABS x 4 quadrants, soft, nondistended, nontender to palpation, no rebound or guarding Extremities: Normal inspection, no peripheral edema or erythema, calfs nontender to palpation Psych: Normal mood and affect Neuro: AAO x 3, strength intact bilaterally and rated 5/5, no motor deficits, speech is clear, no peripheral sensory deficits Results & Data Results & Data ([facility]) Vital Signs (Past 12 Hours) Vital Signs Temp Pulse Pulse Resp BP Pulse Ox 07/11/20 16:00 60 07/11/20 15:23 36.8 C 70 19 112/67 94 07/11/20 11:00 37.1 C 64 18 109/67 94 07/11/20 07:15 37.1 C 61 19 103/62 92 Laboratory Results 07/11/20 07/11/20 07/11/20 Range/Units 14:42 14:42 08:08 WBC (4.8-10.8) K/uL RBC (4.2-5.4) M/uL Hgb (12.0-16.0) g/dL Hct (37-47) % MCV (80-100) fL MCH (25-34) pg MCHC (32-36) g/dL RDW Std Deviation (36.4-46.3) fL RDW Coeff of Tank (11.5-14.5) % Plt Count (130-400) K/uL MPV (7.4-10.4) fL APTT 28.5 (21.0-31.0) Seconds PTT Ratio 1.1 Sodium (136-145) mmol/L Potassium (3.5-5.1) mmol/L Chloride (98-107) mmol/L Carbon Dioxide (21-32) mmol/L Anion Gap (3-11) BUN (7-18) mg/dl Creatinine (0.6-1.2) mg/dl Est Cr Clr Drug Dosing ml/min Est GFR ( Amer) ml/min Est GFR (Non-Af Amer) ml/min BUN/Creatinine Ratio (10-20) Glucose (70-99) mg/dl Calcium (8.5-10.1) mg/dl Magnesium (1.8-2.4) mg/dl Total Bilirubin (0.2-1) mg/dl AST (15-37) U/L ALT (12-78) U/L Alkaline Phosphatase (45-117) U/L Troponin I 0.210 H* (0-0.045) ng/ml Total Protein (6.4-8.2) gm/dl Albumin (3.4-5.0) gm/dl Globulin (2.5-4.0) gm/dl Albumin/Globulin Ratio (0.9-2) Triglycerides (0-150) mg/dl Cholesterol (0-200) mg/dl LDL Cholesterol, Calc mg/dl VLDL Cholesterol, Calc mg/dl HDL Cholesterol mg/dl Cholesterol/HDL Ratio Vitamin B12 355 25-OH Vitamin D Total (30-100) ng/ml TSH (0.300-4.500) uIu/ml Anaplasma Smear A. phagocytophilum DNA Lyme Disease IgG Ab (Negative) Lyme IgG (Western Blot) Lyme IgG 18 kDa Band Lyme IgG 23 kDa Band Lyme IgG 28 kDa Band Lyme IgG 30 kDa Band Lyme IgG 39 kDa Band Lyme IgG 41 kDa Band Lyme IgG 45 kDa Band Lyme IgG 58 kDa Band Lyme IgG 66 kDa Band Lyme IgG 93 kDa Band Lyme IgM Ab (WB) Lyme Disease IgM Ab (Negative) Lyme IgM 23 kDa Band Lyme IgM 39 kDa Band Lyme IgM 41 kDa Band SARS-CoV-2 (PCR) (Negative) 07/11/20 07/11/20 07/11/20 Range/Units 08:08 08:08 03:51 WBC (4.8-10.8) K/uL RBC (4.2-5.4) M/uL Hgb (12.0-16.0) g/dL Hct (37-47) % MCV (80-100) fL MCH (25-34) pg MCHC (32-36) g/dL RDW Std Deviation (36.4-46.3) fL RDW Coeff of Tank (11.5-14.5) % Plt Count (130-400) K/uL MPV (7.4-10.4) fL APTT 45.0 H (21.0-31.0) Seconds PTT Ratio 1.7 Sodium (136-145) mmol/L Potassium (3.5-5.1) mmol/L Chloride (98-107) mmol/L Carbon Dioxide (21-32) mmol/L Anion Gap (3-11) BUN (7-18) mg/dl Creatinine (0.6-1.2) mg/dl Est Cr Clr Drug Dosing ml/min Est GFR ( Amer) ml/min Est GFR (Non-Af Amer) ml/min BUN/Creatinine Ratio (10-20) Glucose (70-99) mg/dl Calcium (8.5-10.1) mg/dl Magnesium (1.8-2.4) mg/dl Total Bilirubin (0.2-1) mg/dl AST (15-37) U/L ALT (12-78) U/L Alkaline Phosphatase (45-117) U/L Troponin I 0.333 H* (0-0.045) ng/ml Total Protein (6.4-8.2) gm/dl Albumin (3.4-5.0) gm/dl Globulin (2.5-4.0) gm/dl Albumin/Globulin Ratio (0.9-2) Triglycerides (0-150) mg/dl Cholesterol (0-200) mg/dl LDL Cholesterol, Calc mg/dl VLDL Cholesterol, Calc mg/dl HDL Cholesterol mg/dl Cholesterol/HDL Ratio Vitamin B12 25-OH Vitamin D Total 33.2 (30-100) ng/ml TSH (0.300-4.500) uIu/ml Anaplasma Smear A. phagocytophilum DNA Lyme Disease IgG Ab (Negative) Lyme IgG (Western Blot) Lyme IgG 18 kDa Band Lyme IgG 23 kDa Band Lyme IgG 28 kDa Band Lyme IgG 30 kDa Band Lyme IgG 39 kDa Band Lyme IgG 41 kDa Band Lyme IgG 45 kDa Band Lyme IgG 58 kDa Band Lyme IgG 66 kDa Band Lyme IgG 93 kDa Band Lyme IgM Ab (WB) Lyme Disease IgM Ab (Negative) Lyme IgM 23 kDa Band Lyme IgM 39 kDa Band Lyme IgM 41 kDa Band SARS-CoV-2 (PCR) (Negative) 07/11/20 07/11/20 07/11/20 Range/Units 03:51 03:51 03:51 WBC 6.44 (4.8-10.8) K/uL RBC 3.34 L (4.2-5.4) M/uL Hgb 10.0 L (12.0-16.0) g/dL Hct 30.5 L (37-47) % MCV 91.3 (80-100) fL MCH 29.9 (25-34) pg MCHC 32.8 (32-36) g/dL RDW Std Deviation 46.5 H (36.4-46.3) fL RDW Coeff of Tank 14.1 (11.5-14.5) % Plt Count 126 L (130-400) K/uL MPV 10.0 (7.4-10.4) fL APTT (21.0-31.0) Seconds PTT Ratio Sodium 139 (136-145) mmol/L Potassium 4.5 (3.5-5.1) mmol/L Chloride 111 H (98-107) mmol/L Carbon Dioxide 23 (21-32) mmol/L Anion Gap 5.0 (3-11) BUN 31 H (7-18) mg/dl Creatinine 1.73 H (0.6-1.2) mg/dl Est Cr Clr Drug Dosing 29.9 ml/min Est GFR ( Amer) 32.4 ml/min Est GFR (Non-Af Amer) 28.0 ml/min BUN/Creatinine Ratio 17.8 (10-20) Glucose 156 H (70-99) mg/dl Calcium 9.3 (8.5-10.1) mg/dl Magnesium 2.5 H (1.8-2.4) mg/dl Total Bilirubin 0.6 (0.2-1) mg/dl AST 22 (15-37) U/L ALT 29 (12-78) U/L Alkaline Phosphatase 104 (45-117) U/L Troponin I 0.560 H* (0-0.045) ng/ml Total Protein 6.4 (6.4-8.2) gm/dl Albumin 3.0 L (3.4-5.0) gm/dl Globulin 3.4 (2.5-4.0) gm/dl Albumin/Globulin Ratio 0.9 (0.9-2) Triglycerides 55 (0-150) mg/dl Cholesterol 74 (0-200) mg/dl LDL Cholesterol, Calc 28 mg/dl VLDL Cholesterol, Calc 11 mg/dl HDL Cholesterol 35 mg/dl Cholesterol/HDL Ratio 2 Vitamin B12 Cancelled 25-OH Vitamin D Total (30-100) ng/ml TSH 0.351 (0.300-4.500) uIu/ml Anaplasma Smear A. phagocytophilum DNA Lyme Disease IgG Ab (Negative) Lyme IgG (Western Blot) Lyme IgG 18 kDa Band Lyme IgG 23 kDa Band Lyme IgG 28 kDa Band Lyme IgG 30 kDa Band Lyme IgG 39 kDa Band Lyme IgG 41 kDa Band Lyme IgG 45 kDa Band Lyme IgG 58 kDa Band Lyme IgG 66 kDa Band Lyme IgG 93 kDa Band Lyme IgM Ab (WB) Lyme Disease IgM Ab (Negative) Lyme IgM 23 kDa Band Lyme IgM 39 kDa Band Lyme IgM 41 kDa Band SARS-CoV-2 (PCR) (Negative) 07/11/20 07/10/20 07/10/20 Range/Units 00:33 20:00 16:50 WBC (4.8-10.8) K/uL RBC (4.2-5.4) M/uL Hgb (12.0-16.0) g/dL Hct (37-47) % MCV (80-100) fL MCH (25-34) pg MCHC (32-36) g/dL RDW Std Deviation (36.4-46.3) fL RDW Coeff of Tank (11.5-14.5) % Plt Count (130-400) K/uL MPV (7.4-10.4) fL APTT (21.0-31.0) Seconds PTT Ratio Sodium (136-145) mmol/L Potassium (3.5-5.1) mmol/L Chloride (98-107) mmol/L Carbon Dioxide (21-32) mmol/L Anion Gap (3-11) BUN (7-18) mg/dl Creatinine (0.6-1.2) mg/dl Est Cr Clr Drug Dosing ml/min Est GFR ( Amer) ml/min Est GFR (Non-Af Amer) ml/min BUN/Creatinine Ratio (10-20) Glucose (70-99) mg/dl Calcium (8.5-10.1) mg/dl Magnesium (1.8-2.4) mg/dl Total Bilirubin (0.2-1) mg/dl AST (15-37) U/L ALT (12-78) U/L Alkaline Phosphatase (45-117) U/L Troponin I 0.340 H* 0.138 H* (0-0.045) ng/ml Total Protein (6.4-8.2) gm/dl Albumin (3.4-5.0) gm/dl Globulin (2.5-4.0) gm/dl Albumin/Globulin Ratio (0.9-2) Triglycerides (0-150) mg/dl Cholesterol (0-200) mg/dl LDL Cholesterol, Calc mg/dl VLDL Cholesterol, Calc mg/dl HDL Cholesterol mg/dl Cholesterol/HDL Ratio Vitamin B12 25-OH Vitamin D Total (30-100) ng/ml TSH (0.300-4.500) uIu/ml Anaplasma Smear A. phagocytophilum DNA Lyme Disease IgG Ab (Negative) Lyme IgG (Western Blot) Lyme IgG 18 kDa Band Lyme IgG 23 kDa Band Lyme IgG 28 kDa Band Lyme IgG 30 kDa Band Lyme IgG 39 kDa Band Lyme IgG 41 kDa Band Lyme IgG 45 kDa Band Lyme IgG 58 kDa Band Lyme IgG 66 kDa Band Lyme IgG 93 kDa Band Lyme IgM Ab (WB) Lyme Disease IgM Ab (Negative) Lyme IgM 23 kDa Band Lyme IgM 39 kDa Band Lyme IgM 41 kDa Band SARS-CoV-2 (PCR) NEGATIVE (Negative) 07/10/20 07/10/20 07/10/20 Range/Units 13:45 13:45 13:45 WBC (4.8-10.8) K/uL RBC (4.2-5.4) M/uL Hgb (12.0-16.0) g/dL Hct (37-47) % MCV (80-100) fL MCH (25-34) pg MCHC (32-36) g/dL RDW Std Deviation (36.4-46.3) fL RDW Coeff of Tank (11.5-14.5) % Plt Count (130-400) K/uL MPV (7.4-10.4) fL APTT (21.0-31.0) Seconds PTT Ratio Sodium (136-145) mmol/L Potassium (3.5-5.1) mmol/L Chloride (98-107) mmol/L Carbon Dioxide (21-32) mmol/L Anion Gap (3-11) BUN (7-18) mg/dl Creatinine (0.6-1.2) mg/dl Est Cr Clr Drug Dosing ml/min Est GFR ( Amer) ml/min Est GFR (Non-Af Amer) ml/min BUN/Creatinine Ratio (10-20) Glucose (70-99) mg/dl Calcium (8.5-10.1) mg/dl Magnesium (1.8-2.4) mg/dl Total Bilirubin (0.2-1) mg/dl AST (15-37) U/L ALT (12-78) U/L Alkaline Phosphatase (45-117) U/L Troponin I (0-0.045) ng/ml Total Protein (6.4-8.2) gm/dl Albumin (3.4-5.0) gm/dl Globulin (2.5-4.0) gm/dl Albumin/Globulin Ratio (0.9-2) Triglycerides (0-150) mg/dl Cholesterol (0-200) mg/dl LDL Cholesterol, Calc mg/dl VLDL Cholesterol, Calc mg/dl HDL Cholesterol mg/dl Cholesterol/HDL Ratio Vitamin B12 25-OH Vitamin D Total (30-100) ng/ml TSH (0.300-4.500) uIu/ml Anaplasma Smear A. phagocytophilum DNA Pending Lyme Disease IgG Ab Positive A (Negative) Lyme IgG (Western Blot) Pending Lyme IgG 18 kDa Band Pending Lyme IgG 23 kDa Band Pending Lyme IgG 28 kDa Band Pending Lyme IgG 30 kDa Band Pending Lyme IgG 39 kDa Band Pending Lyme IgG 41 kDa Band Pending Lyme IgG 45 kDa Band Pending Lyme IgG 58 kDa Band Pending Lyme IgG 66 kDa Band Pending Lyme IgG 93 kDa Band Pending Lyme IgM Ab (WB) Pending Lyme Disease IgM Ab Negative (Negative) Lyme IgM 23 kDa Band Pending Lyme IgM 39 kDa Band Pending Lyme IgM 41 kDa Band Pending SARS-CoV-2 (PCR) (Negative) 07/10/20 Range/Units 13:45 WBC (4.8-10.8) K/uL RBC (4.2-5.4) M/uL Hgb (12.0-16.0) g/dL Hct (37-47) % MCV (80-100) fL MCH (25-34) pg MCHC (32-36) g/dL RDW Std Deviation (36.4-46.3) fL RDW Coeff of Tank (11.5-14.5) % Plt Count (130-400) K/uL MPV (7.4-10.4) fL APTT (21.0-31.0) Seconds PTT Ratio Sodium (136-145) mmol/L Potassium (3.5-5.1) mmol/L Chloride (98-107) mmol/L Carbon Dioxide (21-32) mmol/L Anion Gap (3-11) BUN (7-18) mg/dl Creatinine (0.6-1.2) mg/dl Est Cr Clr Drug Dosing ml/min Est GFR ( Amer) ml/min Est GFR (Non-Af Amer) ml/min BUN/Creatinine Ratio (10-20) Glucose (70-99) mg/dl Calcium (8.5-10.1) mg/dl Magnesium (1.8-2.4) mg/dl Total Bilirubin (0.2-1) mg/dl AST (15-37) U/L ALT (12-78) U/L Alkaline Phosphatase (45-117) U/L Troponin I (0-0.045) ng/ml Total Protein (6.4-8.2) gm/dl Albumin (3.4-5.0) gm/dl Globulin (2.5-4.0) gm/dl Albumin/Globulin Ratio (0.9-2) Triglycerides (0-150) mg/dl Cholesterol (0-200) mg/dl LDL Cholesterol, Calc mg/dl VLDL Cholesterol, Calc mg/dl HDL Cholesterol mg/dl Cholesterol/HDL Ratio Vitamin B12 25-OH Vitamin D Total (30-100) ng/ml TSH (0.300-4.500) uIu/ml Anaplasma Smear See Comment A. phagocytophilum DNA Lyme Disease IgG Ab (Negative) Lyme IgG (Western Blot) Lyme IgG 18 kDa Band Lyme IgG 23 kDa Band Lyme IgG 28 kDa Band Lyme IgG 30 kDa Band Lyme IgG 39 kDa Band Lyme IgG 41 kDa Band Lyme IgG 45 kDa Band Lyme IgG 58 kDa Band Lyme IgG 66 kDa Band Lyme IgG 93 kDa Band Lyme IgM Ab (WB) Lyme Disease IgM Ab (Negative) Lyme IgM 23 kDa Band Lyme IgM 39 kDa Band Lyme IgM 41 kDa Band SARS-CoV-2 (PCR) (Negative) Medications Administered Current Inpatient Medications Acetaminophen (Acetaminophen 325 Mg Tab) 650 mg PO Q4H PRN PRN Reason: Moderate Pain Stop: 08/09/20 19:44 Last Admin: 07/10/20 23:54 Dose: 650 mg Documented by: Allopurinol (Allopurinol 300 Mg Tab) 300 mg PO DAILY [facility] Stop: 08/10/20 08:59 Last Admin: 07/11/20 08:22 Dose: 300 mg Documented by: Aspirin (Aspirin 81 Mg Ectab) 81 mg PO QAM [facility] Stop: 08/09/20 21:39 Last Admin: 07/11/20 08:22 Dose: 81 mg Documented by: Atorvastatin Calcium (Atorvastatin 20 Mg Tab) 20 mg PO DAILY [facility] Stop: 08/10/20 08:59 Last Admin: 07/11/20 08:22 Dose: 20 mg Documented by: Brimonidine Tartrate (Brimonidine Tartrate-P 0.15% 5 Ml Btl) 1 drops OPB BID [facility] Stop: 08/10/20 08:59 Last Admin: 07/11/20 08:21 Dose: 1 drops Documented by: Buspirone HCl (Buspirone 15 Mg Tab) 15 mg PO BID [facility] Stop: 08/09/20 21:44 Last Admin: 07/11/20 08:22 Dose: 15 mg Documented by: Chlorthalidone (Chlorthalidone 25 Mg Tab) 12.5 mg PO DAILY [facility] Stop: 08/10/20 08:59 Last Admin: 07/11/20 08:22 Dose: 12.5 mg Documented by: Clonidine HCl (Clonidine Hcl 0.3 Mg Tab) 0.3 mg PO BID [facility] Stop: 08/09/20 21:44 Last Admin: 07/11/20 08:22 Dose: 0.3 mg Documented by: Doxycycline Hyclate (Doxycycline Hyclate 100 Mg Cap) 100 mg PO BID [facility] Stop: 07/20/20 23:44 Last Admin: 07/11/20 08:22 Dose: 100 mg Documented by: Fluoxetine HCl (Fluoxetine Hcl 20 Mg Cap) 80 mg PO QAM [facility] Stop: 08/10/20 08:59 Last Admin: 07/11/20 08:22 Dose: 80 mg Documented by: Ceftriaxone Sodium 2,000 mg/ (Dextrose) 70 mls @ 100 mls/hr IV Q24H [facility]; Protocol Stop: 07/15/20 19:59 Last Infusion: 07/10/20 22:29 Dose: Infused Documented by: Sodium Chloride (Nss 1000ml) 1,000 mls @ 80 mls/hr IV .[id number] [facility] Stop: 07/12/20 06:14 Last Admin: 07/11/20 05:29 Dose: 80 mls/hr Documented by: Lamotrigine (Lamotrigine 100 Mg Tab) 100 mg PO BID [facility] Stop: 08/09/20 21:44 Last Admin: 07/11/20 08:21 Dose: 100 mg Documented by: Levothyroxine Sodium (Levothyroxine Sodium 150 Mcg Tablet) 150 mcg PO DAILYBB [facility] Stop: 08/10/20 06:29 Last Admin: 07/11/20 05:31 Dose: 150 mcg Documented by: Lorazepam (Lorazepam 0.5 Mg Tab) 0.5 mg PO TID PRN PRN Reason: Anxiety Stop: 08/09/20 21:48 Last Admin: 07/10/20 22:50 Dose: 0.5 mg Documented by: Ondansetron HCl (Ondansetron Inj 2 Mg/Ml 2 Ml Vial) 4 mg IV Q4H PRN PRN Reason: Nausea And Vomiting Stop: 08/09/20 19:44 Last Admin: 07/10/20 23:17 Dose: 4 mg Documented by: Timolol Maleate (Timolol Maleate 0.5% Op Soln 5 Ml Btl) 1 drops OP DAILY [facility] Stop: 08/10/20 08:59 Last Admin: 07/11/20 08:21 Dose: 1 drops Documented by:
[2020-07-11] MEDS: cefTRIAXone SODIUM 2,000 MG in DEXTROSE 5% 50 ML IV SCH (20:57)
[2020-07-12] MEDS: LEVOTHYROXINE SODIUM 150 MCG TABLET PO SCH (06:13)
[2020-07-12 07:34] LABS: Hematocrit (blood only) 29.6 % (37-47); Hemoglobin 9.6 g/dL (12.0-16.0); Mean Corpuscular Hemoglobin 29.6 pg (25-34); Mean Corpuscular Hgb Conc 32.4 g/dL (32-36); Mean Corpuscular Volume 91.4 fL (80-100); Mean Platelet Volume 10.1 fL (7.4-10.4); Platelet Count 118 K/uL (130-400); RDW Coefficient of Variation 14.1 % (11.5-14.5); RDW Standard Deviation 47.7 fL (36.4-46.3); Red Blood Count 3.24 M/uL (4.2-5.4); White Blood Count 3.76 K/uL (4.8-10.8)
[2020-07-12 07:53] LABS: Albumin Level 2.8 gm/dl (3.4-5.0); BUN Creatinine Ratio 21.4 (10-20); Calcium 9.5 mg/dl (8.5-10.1); Creatinine Clr Calc Pharmacy 27.8 ml/min; Est GFR (African American) 29.7 ml/min; Est GFR (Non-African American) 25.6 ml/min; Magnesium 1.9 mg/dl (1.8-2.4); Potassium 4.3 mmol/L (3.5-5.1)
[2020-07-12 07:56] LABS: Albumin Globulin Ratio 0.8 (0.9-2); Bilirubin,Total 0.2 mg/dl (0.2-1); Globulin 3.4 gm/dl (2.5-4.0); Phosphorus 2.9 mg/dl (2.5-4.9); Total Protein 6.2 gm/dl (6.4-8.2)
[2020-07-12 08:11] LABS: Platelet Estimate Decreased (Normal)
--- NOTE | 2020-07-12 08:23 | Hospitalist Progress Note ---
Date of Service July 12, 2020 Assessment & Plan (1) Elevated troponin: - Admit to tele for observation for r/o - Trend cardiac biomarkers, initial set 0.051, possibly elevated due to kidney involvement with creatinine of 1.51 - EKG reviewed-no ST changes or signs of ischemia, paced - Check 2 D echo - normal LV chamber size with mild concentric LVH. Normal LV systolic function, EF 65 to 70%. No segmental LV wall motion abnormalities are noted. Grade 1 diastolic dysfunction. Aortic valve sclerosis mild, without significant aortic valvular stenosis. Severe tricuspid regurgitation. Mild left atrial enlargement. PASP of 38 mmHg assuming of RA pressure of 3mmHg. Compared to previous study from 2015, severe tricuspid regurg is not present. -Troponin elevated overnight, patient was started on IV heparin by harness builder -Patient seen by cardiology, echo also obtained, studies reviewed, no ACS, Instead likely secondary to acute illness with KAT - PT/OT consulted (2) SSS (sick sinus syndrome): - Hx of pacemaker in 2016 - Interrogate pacemaker while admitted - reviewed by cardiology, as above - Follows with [facility] cardiology as outpatient, consulted (3) Hypomagnesemia: -1.4 on admission, replace with 2 bags via IV now -Trend with a.m. labs (4) Fever: -T-max = 38 while in the ER, history of dysuria in the past week, no previous antibiotic use, did not seek outpatient care. -UA shows trace esterase, 5-10 WBC, no bacteria Ucultx positive for E.coli cont. Rocephin while inpt -Blood cultures x2 - pending -Check lymes and anaplasmosis testing with pt being outside, as well as fatigue/weakness, platelet count dropped from 236 to 148 from last year. -Start on empiric Rocephin and can DC if urine culture is negative -IgG for Lyme disease positive, IgM negative, Western blot pending -Patient reports being outside and her cats having ticks -She does not recall being sick or treated for Lyme disease (5) Anemia: -Hemoglobin of 10.8, slightly down from baseline, monitor with a.m. labs. She denies lightheadedness, shortness of breath, chest pain (6) Bipolar disorder (manic depression): - hx of such - Mood is improving with help of support system/family. Has crying episodes at times, but states she is improving. Does not want to be on benzos for anxiety. - Reports history of being on lithium because of chronic kidney disease, no longer taking this medication and has been since switched to lamotrigine 100 mg twice daily and tolerates this well. - Continue Prozac 80 mg daily. -Recently weaned off of Abilify due to worsening anxiety with the medication, now feeling mood has improved since this. -Follows with Dr. Lee with psychiatry as outpatient DVT ppx: - favio, scds CODE: Full code Dispo: From home, likely to remain in the hospital x 1-2 days Admission and Anticipated Discharge Date Admission Date: July 10, 2020 Subjective Patient seen in follow-up of chest pain, elevated troponin, dysuria Currently she is sitting up in chair and sleeping, reports that she is feeling better however is very tired Denies chest pain shortness of breath abdominal pain, nausea or vomiting Review of Systems Review of Systems: All systems reviewed & are unremarkable except as noted in HPI & below Constitutional: no fever and no chills Respiratory: no cough and no dyspnea Cardiovascular: no chest pain and no palpitations Gastrointestinal: no abdominal pain, no nausea and no vomiting Physical Exam Physical Exam: General: awake, alert, no apparent distress but tired Head: Normocephalic, atraumatic ENT: PERRL, EOMI, no pharyngeal exudate, mucous membranes moist Chest: Clear to auscultation, on room air, no adventitious breath sounds Cardiac: Pacemaker left chest wall, regular rate and rhythm, no murmur, no JVD, normal peripheral pulses, good capillary refill, no reproducible chest discomfort with palpation Abdominal: NABS x 4 quadrants, soft, nondistended, nontender to palpation, no rebound or guarding Extremities: Normal inspection, no peripheral edema or erythema, calves nontender to palpation Psych: Normal mood and affect Neuro: AAO x 3, strength intact bilaterally and rated 5/5, no motor deficits, speech is clear, no peripheral sensory deficits Results & Data Results & Data ([facility]) Vital Signs (Past 12 Hours) Vital Signs Temp Pulse Resp BP Pulse Ox 07/12/20 07:29 36.8 C 64 20 175/88 H 95 07/12/20 03:42 36.6 C 68 16 115/61 96 07/11/20 23:22 36.6 C 62 16 114/70 92 Laboratory Results 07/12/20 07/12/20 07/11/20 Range/Units 07:11 07:11 14:42 WBC 3.76 L (4.8-10.8) K/uL RBC 3.24 L (4.2-5.4) M/uL Hgb 9.6 L (12.0-16.0) g/dL Hct 29.6 L (37-47) % MCV 91.4 (80-100) fL MCH 29.6 (25-34) pg MCHC 32.4 (32-36) g/dL RDW Std Deviation 47.7 H (36.4-46.3) fL RDW Coeff of Tank 14.1 (11.5-14.5) % Plt Count 118 L (130-400) K/uL MPV 10.1 (7.4-10.4) fL Platelet Estimate Decreased L (Normal) APTT 28.5 (21.0-31.0) Seconds PTT Ratio 1.1 Sodium 141 (136-145) mmol/L Potassium 4.3 (3.5-5.1) mmol/L Chloride 112 H (98-107) mmol/L Carbon Dioxide 24 (21-32) mmol/L Anion Gap 5.0 (3-11) BUN 40 H (7-18) mg/dl Creatinine 1.86 H (0.6-1.2) mg/dl Est Cr Clr Drug Dosing 27.8 ml/min Est GFR ( Amer) 29.7 ml/min Est GFR (Non-Af Amer) 25.6 ml/min BUN/Creatinine Ratio 21.4 H (10-20) Glucose 106 H (70-99) mg/dl Calcium 9.5 (8.5-10.1) mg/dl Phosphorus 2.9 (2.5-4.9) mg/dl Magnesium 1.9 (1.8-2.4) mg/dl Total Bilirubin 0.2 (0.2-1) mg/dl AST 34 (15-37) U/L ALT 31 (12-78) U/L Alkaline Phosphatase 90 (45-117) U/L Troponin I (0-0.045) ng/ml Total Protein 6.2 L (6.4-8.2) gm/dl Albumin 2.8 L (3.4-5.0) gm/dl Globulin 3.4 (2.5-4.0) gm/dl Albumin/Globulin Ratio 0.8 L (0.9-2) Vitamin B12 (193-986) pg/ml 25-OH Vitamin D Total (30-100) ng/ml 07/11/20 07/11/20 07/11/20 Range/Units 14:42 08:08 08:08 WBC (4.8-10.8) K/uL RBC (4.2-5.4) M/uL Hgb (12.0-16.0) g/dL Hct (37-47) % MCV (80-100) fL MCH (25-34) pg MCHC (32-36) g/dL RDW Std Deviation (36.4-46.3) fL RDW Coeff of Tank (11.5-14.5) % Plt Count (130-400) K/uL MPV (7.4-10.4) fL Platelet Estimate (Normal) APTT (21.0-31.0) Seconds PTT Ratio Sodium (136-145) mmol/L Potassium (3.5-5.1) mmol/L Chloride (98-107) mmol/L Carbon Dioxide (21-32) mmol/L Anion Gap (3-11) BUN (7-18) mg/dl Creatinine (0.6-1.2) mg/dl Est Cr Clr Drug Dosing ml/min Est GFR ( Amer) ml/min Est GFR (Non-Af Amer) ml/min BUN/Creatinine Ratio (10-20) Glucose (70-99) mg/dl Calcium (8.5-10.1) mg/dl Phosphorus (2.5-4.9) mg/dl Magnesium (1.8-2.4) mg/dl Total Bilirubin (0.2-1) mg/dl AST (15-37) U/L ALT (12-78) U/L Alkaline Phosphatase (45-117) U/L Troponin I 0.210 H* 0.333 H* (0-0.045) ng/ml Total Protein (6.4-8.2) gm/dl Albumin (3.4-5.0) gm/dl Globulin (2.5-4.0) gm/dl Albumin/Globulin Ratio (0.9-2) Vitamin B12 355 (193-986) pg/ml 25-OH Vitamin D Total (30-100) ng/ml 07/11/20 07/11/20 Range/Units 08:08 03:51 WBC (4.8-10.8) K/uL RBC (4.2-5.4) M/uL Hgb (12.0-16.0) g/dL Hct (37-47) % MCV (80-100) fL MCH (25-34) pg MCHC (32-36) g/dL RDW Std Deviation (36.4-46.3) fL RDW Coeff of Tank (11.5-14.5) % Plt Count (130-400) K/uL MPV (7.4-10.4) fL Platelet Estimate (Normal) APTT 45.0 H (21.0-31.0) Seconds PTT Ratio 1.7 Sodium (136-145) mmol/L Potassium (3.5-5.1) mmol/L Chloride (98-107) mmol/L Carbon Dioxide (21-32) mmol/L Anion Gap (3-11) BUN (7-18) mg/dl Creatinine (0.6-1.2) mg/dl Est Cr Clr Drug Dosing ml/min Est GFR ( Amer) ml/min Est GFR (Non-Af Amer) ml/min BUN/Creatinine Ratio (10-20) Glucose (70-99) mg/dl Calcium (8.5-10.1) mg/dl Phosphorus (2.5-4.9) mg/dl Magnesium (1.8-2.4) mg/dl Total Bilirubin (0.2-1) mg/dl AST (15-37) U/L ALT (12-78) U/L Alkaline Phosphatase (45-117) U/L Troponin I (0-0.045) ng/ml Total Protein (6.4-8.2) gm/dl Albumin (3.4-5.0) gm/dl Globulin (2.5-4.0) gm/dl Albumin/Globulin Ratio (0.9-2) Vitamin B12 (193-986) pg/ml 25-OH Vitamin D Total 33.2 (30-100) ng/ml Medications Administered Current Inpatient Medications Acetaminophen (Acetaminophen 325 Mg Tab) 650 mg PO Q4H PRN PRN Reason: Moderate Pain Stop: 08/09/20 19:44 Last Admin: 07/10/20 23:54 Dose: 650 mg Documented by: Allopurinol (Allopurinol 300 Mg Tab) 300 mg PO DAILY [facility] Stop: 08/10/20 08:59 Last Admin: 07/11/20 08:22 Dose: 300 mg Documented by: Aspirin (Aspirin 81 Mg Ectab) 81 mg PO QAM [facility] Stop: 08/09/20 21:39 Last Admin: 07/11/20 08:22 Dose: 81 mg Documented by: Atorvastatin Calcium (Atorvastatin 20 Mg Tab) 20 mg PO DAILY [facility] Stop: 08/10/20 08:59 Last Admin: 07/11/20 08:22 Dose: 20 mg Documented by: Brimonidine Tartrate (Brimonidine Tartrate-P 0.15% 5 Ml Btl) 1 drops OPB BID [facility] Stop: 08/10/20 08:59 Last Admin: 07/11/20 20:58 Dose: 1 drops Documented by: Buspirone HCl (Buspirone 15 Mg Tab) 15 mg PO BID [facility] Stop: 08/09/20 21:44 Last Admin: 07/11/20 21:03 Dose: 15 mg Documented by: Chlorthalidone (Chlorthalidone 25 Mg Tab) 12.5 mg PO DAILY [facility] Stop: 08/10/20 08:59 Last Admin: 07/11/20 08:22 Dose: 12.5 mg Documented by: Clonidine HCl (Clonidine Hcl 0.3 Mg Tab) 0.3 mg PO BID [facility] Stop: 08/09/20 21:44 Last Admin: 07/11/20 21:04 Dose: 0.3 mg Documented by: Doxycycline Hyclate (Doxycycline Hyclate 100 Mg Cap) 100 mg PO BID [facility] Stop: 07/20/20 23:44 Last Admin: 07/11/20 21:04 Dose: 100 mg Documented by: Fluoxetine HCl (Fluoxetine Hcl 20 Mg Cap) 80 mg PO QAM [facility] Stop: 08/10/20 08:59 Last Admin: 07/11/20 08:22 Dose: 80 mg Documented by: Ceftriaxone Sodium 2,000 mg/ (Dextrose) 70 mls @ 100 mls/hr IV Q24H [facility]; Protocol Stop: 07/15/20 19:59 Last Infusion: 07/11/20 23:41 Dose: Infused Documented by: Lamotrigine (Lamotrigine 100 Mg Tab) 100 mg PO BID [facility] Stop: 08/09/20 21:44 Last Admin: 07/11/20 21:04 Dose: 100 mg Documented by: Levothyroxine Sodium (Levothyroxine Sodium 150 Mcg Tablet) 150 mcg PO DAILYBB [facility] Stop: 08/10/20 06:29 Last Admin: 07/12/20 06:13 Dose: 150 mcg Documented by: Lorazepam (Lorazepam 0.5 Mg Tab) 0.5 mg PO TID PRN PRN Reason: Anxiety Stop: 08/09/20 21:48 Last Admin: 07/10/20 22:50 Dose: 0.5 mg Documented by: Ondansetron HCl (Ondansetron Inj 2 Mg/Ml 2 Ml Vial) 4 mg IV Q4H PRN PRN Reason: Nausea And Vomiting Stop: 08/09/20 19:44 Last Admin: 07/10/20 23:17 Dose: 4 mg Documented by: Timolol Maleate (Timolol Maleate 0.5% Op Soln 5 Ml Btl) 1 drops OP DAILY [facility] Stop: 08/10/20 08:59 Last Admin: 07/11/20 08:21 Dose: 1 drops Documented by:
[2020-07-12] MEDS: allopurinoL 300 MG TAB PO SCH (09:12)
[2020-07-12] MEDS: DOXYCYCLINE HYCLATE 100 MG CAP PO SCH ×2 (09:12→20:13)
[2020-07-12] MEDS: ATORVASTATIN 20 MG TAB PO SCH (09:12)
[2020-07-12] MEDS: cloNIDine HCL 0.3 MG TAB PO SCH ×2 (09:12→20:13)
[2020-07-12] MEDS: lamoTRIgine 100 MG TAB PO SCH ×2 (09:12→20:13)
[2020-07-12] MEDS: FLUoxetine HCL 20 MG CAP PO SCH (09:12)
[2020-07-12] MEDS: CHLORTHALIDONE 25 MG TAB PO SCH (09:12)
[2020-07-12] MEDS: busPIRone 15 MG TAB PO SCH ×2 (09:13→20:13)
[2020-07-12] MEDS: ASPIRIN 81 MG ECTAB PO SCH (09:14)
[2020-07-12] MEDS: BRIMONIDINE TARTRATE-P 0.15% 5 ML BTL OPB SCH ×2 (09:14→20:18)
[2020-07-12] MEDS: TIMOLOL MALEATE 0.5% OP SOLN 5 ML BTL OP SCH (09:15)
[2020-07-12] MEDS: MULTIVITAMIN TAB PO SCH (10:08)
[2020-07-12] MEDS: CYANOCOBALAMIN 500 MCG TABLET (VITAMIN B-12) PO SCH (10:08)
[2020-07-12] MEDS: FOLIC ACID 1 MG TAB PO SCH (14:08)
[2020-07-12] MEDS: CHOLECALCIFEROL 1,000 UNITS 25 MCG TAB PO SCH (14:09)
[2020-07-12] MEDS: cefTRIAXone SODIUM 2,000 MG in DEXTROSE 5% 50 ML IV SCH (20:13)
[2020-07-13] MEDS: LEVOTHYROXINE SODIUM 150 MCG TABLET PO SCH (06:10)
[2020-07-13 06:45] LABS: Hematocrit (blood only) 29.4 % (37-47); Hemoglobin 9.7 g/dL (12.0-16.0); Mean Platelet Volume 10.5 fL (7.4-10.4); Platelet Count 157 K/uL (130-400); RDW Coefficient of Variation 13.9 % (11.5-14.5); RDW Standard Deviation 46.3 fL (36.4-46.3); Red Blood Count 3.23 M/uL (4.2-5.4)
[2020-07-13 07:12] LABS: Albumin Level 3.1 gm/dl (3.4-5.0); BUN Creatinine Ratio 23.8 (10-20); Calcium 9.5 mg/dl (8.5-10.1); Est GFR (African American) 31.3 ml/min; Magnesium 1.7 mg/dl (1.8-2.4); Potassium 4.6 mmol/L (3.5-5.1)
[2020-07-13 07:15] LABS: Albumin Globulin Ratio 0.9 (0.9-2); Bilirubin,Total 0.3 mg/dl (0.2-1); Globulin 3.5 gm/dl (2.5-4.0); Phosphorus 3.3 mg/dl (2.5-4.9); Total Protein 6.6 gm/dl (6.4-8.2)
--- NOTE | 2020-07-13 08:02 | Hospitalist Progress Note ---
Date of Service July 13, 2020 Assessment & Plan (1) Elevated troponin: - Cardiac biomarkers, initial set 0.051, possibly elevated due to kidney involvement with creatinine of 1.51 - EKG reviewed-no ST changes or signs of ischemia, paced - Check 2 D echo - normal LV chamber size with mild concentric LVH. Normal LV systolic function, EF 65 to 70%. No segmental LV wall motion abnormalities are noted. Grade 1 diastolic dysfunction. Aortic valve sclerosis mild, without significant aortic valvular stenosis. Severe tricuspid regurgitation. Mild left atrial enlargement. PASP of 38 mmHg assuming of RA pressure of 3mmHg. Compared to previous study from 2014, severe tricuspid regurg is not present. -Troponin elevated overnight, patient was started on IV heparin by metal tank erector -Patient seen by cardiology, echo also obtained, studies reviewed, no ACS, Instead likely secondary to acute illness with KAT - PT/OT consulted (2) SSS (sick sinus syndrome): - Hx of pacemaker in 2016 - Interrogate pacemaker while admitted - reviewed by cardiology, as above - Follows with [facility] cardiology as outpatient, consulted (3) Hypomagnesemia: -1.4 on admission, replace with 2 bags via IV now -repleted - will DC on Mag supplement -follow up as outpt (4) Fever: Thrombocytopenia Anemia -T-max = 38 while in the ER, history of dysuria in the past week, no previous antibiotic use, did not seek outpatient care. -UA shows trace esterase, 5-10 WBC, no bacteria Ucultx positive for E.coli cont. Rocephin while inpt -Blood cultures x2 - negative for 48hrs -Check lymes and anaplasmosis testing with pt being outside, as well as fatigue/weakness, platelet count dropped from 236 to 148 from last year. (Plt down to 118 on 07/12, but now improved, 157 on 07/13/2020) - follow up platelet level, H&H as outpatient, current hemoglobin 9.7 Anemia may be secondary to current infection, or nutritional -Started supplemental multivitamin -Start on empiric Rocephin and can DC if urine culture is negative -IgG for Lyme disease positive, IgM negative, Western blot pending- follow up as outpt -Patient reports being outside and her cats having ticks -She does not recall being sick or treated for Lyme disease - will DC on doxycyline Hypovitaminosis D - low vitamin D level noted, started on 2000 units daily - follow up as outpt (5) Anemia: -Hemoglobin of 10.8, slightly down from baseline, monitor with a.m. labs. She denies lightheadedness, shortness of breath, chest pain -Anemia may be secondary to current infection, or nutritional -Started supplemental multivitamin -Current hemoglobin 9.7, stable from yesterday, will need outpatient follow-up (6) Bipolar disorder (manic depression): - hx of such - Mood is improving with help of support system/family. Has crying episodes at times, but states she is improving. Does not want to be on benzos for anxiety. - Reports history of being on lithium because of chronic kidney disease, no russell uzma taking this medication and has been since switched to lamotrigine 100 mg twice daily and tolerates this well. - Continue Prozac 80 mg daily. -Recently weaned off of Abilify due to worsening anxiety with the medication, now feeling mood has improved since this. -Follows with Dr. Lee with psychiatry as outpatient DVT ppx: - kimberlee stahl CODE: Full code Dispo: Home w/ HH, close follow-up with primary doctor Admission and Anticipated Discharge Date Admission Date: July 10, 2020 Subjective Patient seen in follow-up of chest pain, elevated troponin, dysuria Currently she is sitting up in chair in NAD. reports that she is feeling better and is inquiring about going home Denies chest pain shortness of breath abdominal pain, nausea or vomiting Review of Systems Review of Systems: All systems reviewed & are unremarkable except as noted in HPI & below Constitutional: no fever and no chills Respiratory: no cough and no dyspnea Cardiovascular: no chest pain and no palpitations Gastrointestinal: no abdominal pain, no nausea and no vomiting Physical Exam Physical Exam: General: awake, alert, no apparent distress Head: Normocephalic, atraumatic ENT: PERRL, EOMI, mucous membranes moist Chest: Clear to auscultation, on room air, no adventitious breath sounds Cardiac: Pacemaker left chest wall, regular rate and rhythm, no murmur, no JVD, normal peripheral pulses, good capillary refill Abdominal: NABS x 4 quadrants, soft, nondistended, nontender to palpation, no rebound or guarding Extremities: Normal inspection, no peripheral edema or erythema, calves nonten merry to palpation Psych: Normal mood and affect Neuro: AAO x 3, strength intact bilaterally and rated 5/5, no motor deficits, speech is clear, no peripheral sensory deficits Results & Data Results & Data ([facility]) Vital Signs (Past 12 Hours) Vital Signs Temp Pulse Resp BP Pulse Ox 07/13/20 03:58 36.7 C 56 L 18 143/75 H 96 07/13/20 00:12 36.7 C 61 18 135/74 97 Laboratory Results 07/13/20 07/13/20 07/12/20 Range/Units 06:23 06:23 07:11 WBC 4.70 L (4.8-10.8) K/uL RBC 3.23 L (4.2-5.4) M/uL Hgb 9.7 L (12.0-16.0) g/dL Hct 29.4 L (37-47) % MCV 91.0 (80-100) fL MCH 30.0 (25-34) pg MCHC 33.0 (32-36) g/dL RDW Std Deviation 46.3 (36.4-46.3) fL RDW Coeff of Tank 13.9 (11.5-14.5) % Plt Count 157 (130-400) K/uL MPV 10.5 H (7.4-10.4) fL Platelet Estimate Decreased L (Normal) Sodium 141 (136-145) mmol/L Potassium 4.6 (3.5-5.1) mmol/L Chloride 112 H (98-107) mmol/L Carbon Dioxide 23 (21-32) mmol/L Anion Gap 5.0 (3-11) BUN 42 H (7-18) mg/dl Creatinine 1.78 H (0.6-1.2) mg/dl Est Cr Clr Drug Dosing 29.0 ml/min Est GFR ( Amer) 31.3 ml/min Est GFR (Non-Af Amer) 27.0 ml/min BUN/Creatinine Ratio 23.8 H (10-20) Glucose 100 H (70-99) mg/dl Calcium 9.5 (8.5-10.1) mg/dl Phosphorus 3.3 (2.5-4.9) mg/dl Magnesium 1.7 L (1.8-2.4) mg/dl Total Bilirubin 0.3 (0.2-1) mg/dl AST 29 (15-37) U/L ALT 33 (12-78) U/L Alkaline Phosphatase 104 (45-117) U/L Total Protein 6.6 (6.4-8.2) gm/dl Albumin 3.1 L (3.4-5.0) gm/dl Globulin 3.5 (2.5-4.0) gm/dl Albumin/Globulin Ratio 0.9 (0.9-2) Medications Administered Current Inpatient Medications Acetaminophen (Acetaminophen 325 Mg Tab) 650 mg PO Q4H PRN PRN Reason: Moderate Pain Stop: 08/09/20 19:44 Last Admin: 07/10/20 23:54 Dose: 650 mg Documented by: Allopurinol (Allopurinol 300 Mg Tab) 300 mg PO DAILY [facility] Stop: 08/10/20 08:59 Last Admin: 07/12/20 09:12 Dose: 300 mg Documented by: Aspirin (Aspirin 81 Mg Ectab) 81 mg PO QAM [facility] Stop: 08/09/20 21:39 Last Admin: 07/12/20 09:14 Dose: Not Given Documented by: Atorvastatin Calcium (Atorvastatin 20 Mg Tab) 20 mg PO DAILY [facility] Stop: 08/10/20 08:59 Last Admin: 07/12/20 09:12 Dose: 20 mg Documented by: Brimonidine Tartrate (Brimonidine Tartrate-P 0.15% 5 Ml Btl) 1 drops OPB BID [facility] Stop: 08/10/20 08:59 Last Admin: 07/12/20 20:18 Dose: 1 drops Documented by: Buspirone HCl (Buspirone 15 Mg Tab) 15 mg PO BID [facility] Stop: 08/09/20 21:44 Last Admin: 07/12/20 20:13 Dose: 15 mg Documented by: Chlorthalidone (Chlorthalidone 25 Mg Tab) 12.5 mg PO DAILY [facility] Stop: 08/10/20 08:59 Last Admin: 07/12/20 09:12 Dose: 12.5 mg Documented by: Clonidine HCl (Clonidine Hcl 0.3 Mg Tab) 0.3 mg PO BID [facility] Stop: 08/09/20 21:44 Last Admin: 07/12/20 20:13 Dose: 0.3 mg Documented by: Cyanocobalamin (Cyanocobalamin 500 Mcg Tablet (Vitamin B-12)) 500 mcg PO QAM [facility] Stop: 08/11/20 08:59 Last Admin: 07/12/20 10:08 Dose: 500 mcg Documented by: Doxycycline Hyclate (Doxycycline Hyclate 100 Mg Cap) 100 mg PO BID [facility] Stop: 07/20/20 23:44 Last Admin: 07/12/20 20:13 Dose: 100 mg Documented by: Fluoxetine HCl (Fluoxetine Hcl 20 Mg Cap) 80 mg PO [facility] Stop: 08/10/20 08:59 Last Admin: 07/12/20 09:12 Dose: 80 mg Documented by: Folic Acid (Folic Acid 1 Mg Tab) [facility] Stop: 08/11/20 13:14 Last Admin: 07/12/20 14:08 Dose: 1 mg Documented by: Ceftriaxone Sodium 2,000 mg/ (Dextrose) 70 mls @ 100 mls/hr IV Q24H [facility]; Protocol Stop: 07/15/20 19:59 Last Infusion: 07/12/20 22:11 Dose: Infused Documented by: Magnesium Sulfate/Dextrose (Magnesium Sulfate / D5w) 1 gm in 100 mls @ 50 mls/hr IV 0830 ONE Stop: 07/13/20 10:29 Lamotrigine (Lamotrigine 100 Mg Tab) 100 mg PO BID [facility] Stop: 08/09/20 21:44 Last Admin: 07/12/20 20:13 Dose: 100 mg Documented by: Levothyroxine Sodium (Levothyroxine Sodium 150 Mcg Tablet) [facility]: 08/10/20 06:29 Last Admin: 07/13/20 06:10 Dose: 150 mcg Documented by: Lorazepam (Lorazepam 0.5 Mg Tab) 0.5 mg PO TID PRN PRN Reason: Anxiety Stop: 08/09/20 21:48 Last Admin: 07/10/20 22:50 Dose: 0.5 mg Documented by: Multivitamins (Multivitamin Tab) 1 tab PO [facility] Stop: 08/11/20 08:59 Last Admin: 07/12/20 10:08 Dose: 1 tab Documented by: Ondansetron HCl (Ondansetron Inj 2 Mg/Ml 2 Ml Vial) 4 mg IV Q4H PRN PRN Reason: Nausea And Vomiting Stop: 08/09/20 19:44 Last Admin: 07/10/20 23:17 Dose: 4 mg Documented by: Timolol Maleate (Timolol Maleate 0.5% Op Soln 5 Ml Btl) 1 drops OP DAILY [facility] Stop: 08/10/20 08:59 Last Admin: 07/12/20 09:15 Dose: 1 drops Documented by: Vitamin D (Cholecalciferol 1,000 Units 25 Mcg Tab) 2,000 units PO QAM [facility] Stop: 08/11/20 13:14 Last Admin: 07/12/20 14:09 Dose: 2,000 units Documented by:
[2020-07-13] MEDS: allopurinoL 300 MG TAB PO SCH (08:23)
[2020-07-13] MEDS: ASPIRIN 81 MG ECTAB PO SCH (08:23)
[2020-07-13] MEDS: DOXYCYCLINE HYCLATE 100 MG CAP PO SCH (08:24)
[2020-07-13] MEDS: MULTIVITAMIN TAB PO SCH (08:24)
[2020-07-13] MEDS: CYANOCOBALAMIN 500 MCG TABLET (VITAMIN B-12) PO SCH (08:24)
[2020-07-13] MEDS: cloNIDine HCL 0.3 MG TAB PO SCH (08:24)
[2020-07-13] MEDS: FLUoxetine HCL 20 MG CAP PO SCH (08:24)
[2020-07-13] MEDS: busPIRone 15 MG TAB PO SCH (08:24)
[2020-07-13] MEDS: lamoTRIgine 100 MG TAB PO SCH (08:25)
[2020-07-13] MEDS: CHLORTHALIDONE 25 MG TAB PO SCH (08:25)
[2020-07-13] MEDS: BRIMONIDINE TARTRATE-P 0.15% 5 ML BTL OPB SCH (08:25)
[2020-07-13] MEDS: CHOLECALCIFEROL 1,000 UNITS 25 MCG TAB PO SCH (08:25)
[2020-07-13] MEDS: FOLIC ACID 1 MG TAB PO SCH (08:25)
[2020-07-13] MEDS: ATORVASTATIN 20 MG TAB PO SCH (08:26)
[2020-07-13] MEDS: TIMOLOL MALEATE 0.5% OP SOLN 5 ML BTL OP SCH (08:26)
[2020-07-13] MEDS ORDERED: MAGNESIUM SULFATE / D5W 1 GM/100 ML BAG IV ONE (08:30)
--- NOTE | 2020-07-13 11:45 | Discharge Summary ---
Date of Service July 13, 2020 Admission HPI Per Admitting Provider This is a 79 yo F with PMHx of SSS s/p pacemaker insertion in 2016, hypertension, hypomagnesemia, bipolar manic depression, who presents for worsening weakness and fatigue x1 week, significant head pressure/ache and chest pressure x1 today. She reports that " I haven't felt myself for about 1 week". The spell of head pressure and chest pressure occurred whenever she was planting liu and watering them this morning, lasted for a brief moment and then went away completely. Patient denies significant chest pain, shortness of breath, palpitations or flutter. She follows with [facility] cardiology once yearly f or her pacemaker, and is about due for her annual visit. Pt also notes dysuria x 1 week, denies hematuria, incontinence, increased frequency and reports that she attempted to drink lots of water last week, improved for about 3 days and now is back today. She did not take any antibiotic therapy. She is significantly fatigued to the point where last week she was riding with her sister in a car and fell asleep. Patient reports getting 4 to 5 hours of sleep per night. Of note her recently , April 13, 2020 and since then has been mourning, but does have a strong support system. She has maintained taking Prozac daily. Was placed on Abilify however felt more anxious with being on this medication and weaned off of it with instruction from her psychiatrist, Dr. Lee. She follows with her routinely every 3 months. Patient found to have episode of fever while here in the ER with T-max = 38. WBC= 6.3, UA with trace esterase, 5-10 WBC. Magnesium of 1.4, creatinine 1.5 which appears to be near her baseline of 1.4, and hemoglobin is slightly decreased at 10.8. Her troponin was found to be slightly elevated at 0.051. Admission Exam Per Admitting Provider General: awake, alert, no apparent distress Head: Normocephalic, atraumatic ENT: PERRL, EOMI, no pharyngeal exudate, mucous membranes moist Chest: Clear to auscultation, on room air, no adventitious breath sounds Cardiac: Pacemaker left chest wall, regular rate and rhythm, no murmur, no JVD, normal peripheral pulses, good capillary refill, no reproducible chest discomfort with palpation Abdominal: NABS x 4 quadrants, soft, nondistended, nontender to palpation, no rebound or guarding Extremities: Normal inspection, no peripheral edema or erythema, calfs nontender to palpation Psych: Normal mood and affect Neuro: AAO x 3, strength intact bilaterally and rated 5/5, no motor deficits, speech is clear, no peripheral sensory deficits Principal Diagnosis Chest pain, elevated troponin Hypomagnesemia UTI abnormal Lyme panel Anemia Thrombocytopenia Hypovitaminosis D Discharge Exam General: awake, alert, no apparent distress Head: Normocephalic, atraumatic ENT: PERRL, EOMI, mucous membranes moist Chest: Clear to auscultation, on room air, no adventitious breath sounds Cardiac: Pacemaker left chest wall, regular rate and rhythm, no murmur, no JVD, normal peripheral pulses, good capillary refill Abdominal: NABS x 4 quadrants, soft, nondistended, nontender to palpation, no rebound or guarding Extremities: Normal inspection, no peripheral edema or erythema, calves nontender to palpation Psych: Normal mood and affect Neuro: AAO x 3, strength intact bilaterally and rated 5/5, no motor deficits, speech is clear, no peripheral sensory deficits Discharge Data Allergies Allergy/AdvReac Type Severity Reaction Status Date / Time No Known Allergies Allergy Unknown Verified 07/10/20 15:08 Consultations 07/10/20 16:25 ED Decision to Admit Stat 07/11/20 08:00 Consult Cardiology Routine Hospital Course (1) Elevated troponin: - Cardiac biomarkers, initial set 0.051, possibly elevated due to kidney involvement with creatinine of 1.51 - EKG reviewed-no ST changes or signs of ischemia, paced - Check 2 D echo - normal LV chamber size with mild concentric LVH. Normal LV systolic function, EF 65 to 70%. No segmental LV wall motion abnormalities are noted. Grade 1 diastolic dysfunction. Aortic valve sclerosis mild, without significant aortic valvular stenosis. Severe tricuspid regurgitation. Mild left atrial enlargement. PASP of 38 mmHg assuming of RA pressure of 3mmHg. Compared to previous study from 2015, severe tricuspid regurg is not present. -Troponin elevated overnight, patient was started on IV heparin by bradder -Patient seen by cardiology, echo also obtained, studies reviewed, no ACS, Instead likely secondary to acute illness with KAT - PT/OT consulted (2) SSS (sick sinus syndrome): - Hx of pacemaker in 2016 - Interrogate pacemaker while admitted - reviewed by cardiology, as above - Follows with [facility] cardiology as outpatient, consulted (3) Hypomagnesemia: -1.4 on admission, replace with 2 bags via IV now -repleted - will DC on Mag supplement -follow up as outpt (4) Fever: Thrombocytopenia Anemia -T-max = 38 while in the ER, history of dysuria in the past week, no previous antibiotic use, did not seek outpatient care. -UA shows trace esterase, 5-10 WBC, no bacteria Ucultx positive for E.coli cont. Rocephin while inpt -Blood cultures x2 - negative for 48hrs -Check lymes and anaplasmosis testing with pt being outside, as well as fatigue/weakness, platelet count dropped from 236 to 148 from last year. (Plt down to 118 on 07/12, but now improved, 157 on 07/13/2020) - follow up platelet level, H&H as outpatient, current hemoglobin 9.7 Anemia may be secondary to current infection, or nutritional -Started supplemental multivitamin -Start on empiric Rocephin and can DC if urine culture is negative -IgG for Lyme disease positive, IgM negative, Western blot pending- follow up as outpt -Patient reports being outside and her cats having ticks -She does not recall being sick or treated for Lyme disease - will DC on doxycyline Hypovitaminosis D - low vitamin D level noted, started on 2000 units daily - follow up as outpt (5) Anemia: -Hemoglobin of 10.8, slightly down from baseline, monitor with a.m. labs. She denies lightheadedness, shortness of breath, chest pain -Anemia may be secondary to current infection, or nutritional -Started supplemental multivitamin -Current hemoglobin 9.7, stable from yesterday, will need outpatient follow-up (6) Bipolar disorder (manic depression): - hx of such - Mood is improving with help of support system/family. Has crying episodes at times, but states she is improving. Does not want to be on benzos for anxiety. - Reports history of being on lithium because of chronic kidney disease, no longer taking this medication and has been since switched to lamotrigine 100 mg twice daily and tolerates this well. - Continue Prozac 80 mg daily. -Recently weaned off of Abilify due to worsening anxiety with the medication, now feeling mood has improved since this. -Follows with Dr. Lee with psychiatry as outpatient Dispo: Home w/ HH, close follow-up with primary doctor Total Time Total Time Spent Total Time Spent (In Minutes): 40 Total Time Includes: Examination of the Patient, Discharge Planning, Medication Reconciliation and Communication With Other Providers Discharge Plan Discharge Items Patient Disposition: Home - Home Health Services Reason For Visit: ELEVATED TROPONIN, HYPOMAGNESEMIA Discharge Diagnosis: Chest pain, elevated troponin Hypomagnesemia UTI abnormal Lyme panel Anemia Thrombocytopenia Hypovitaminosis D Activity: Per Instructions section Non-emergency contact: Primary Care Provider Call non-emergency contact if: you have any medication questions and your symptoms worsen Follow-up/Referrals: Leticia Crandall, [Primary Care Provider] - Diet: Heart Healthy Addtl Attending Provider Instructions: Follow-up with your primary doctor, Dr. Crandall, within 1 week. At that time I recommend that you have your blood work done, check CBC, BMP, magnesium level. Take antibiotic, ciprofloxacin, to finish treatment for urinary tract infection. Take antibiotic, doxycycline, as prescribed for your Lyme disease. Discuss with your family doctor how long you should be on this antibiotic, depending on your final Lyme disease panel. You were also diagnosed with low magnesium level and low vitamin D. Several supplements were prescribed for you. Discuss this further with your family physician at your next appointment. Pending Studies at Discharge: Yes Studies:: Final blood culture Final Lyme disease panel Stand-Alone Forms: My [facility], Smoking Cessation Medications and DC Order Prescriptions: New doxycycline hyclate 100 mg Capsule 100 mg PO BID 10 Days Qty: 20 RF: 0 aspirin 81 mg Tablet,Delayed Release (Dr/Ec) 81 mg PO QAM Qty: 30 RF: 0 cholecalciferol (vitamin D3) 25 mcg (1,000 unit) Capsule 2,000 unit PO QAM 30 Days Qty: 30 RF: 0 cyanocobalamin (vitamin B-12) 500 mcg Tablet 500 mcg PO QAM Qty: 30 RF: 0 folic acid 1 mg Tablet 1 mg PO QAM Qty: 30 RF: 0 multivitamin [Daily-Krystin] Tablet 1 tab PO QAM Qty: 30 RF: 0 magnesium oxide 400 mg (241.3 mg magnesium) tablet 400 mg PO DAILY Qty: 10 RF: 0 ciprofloxacin HCl 500 mg tablet 500 mg PO BID 2 Days Qty: 4 RF: 0 Continued allopurinol 300 mg tablet 300 mg PO DAILY RF: 0 atorvastatin 20 mg tablet 20 mg PO DAILY RF: 0 levothyroxine 150 mcg tablet 150 mcg PO QAM RF: 0 clonidine HCl 0.3 mg tablet 0.3 mg PO BID RF: 0 buspirone 15 mg tablet 15 mg PO BID RF: 0 brimonidine 0.15 % drops 1 drp OPB BID RF: 0 lamotrigine 100 mg tablet 100 mg PO BID RF: 0 timolol maleate 0.5 % drops 1 drp OPB DAILY RF: 0 fluoxetine 40 mg capsule 80 mg PO QAM RF: 0 Ativan 0.5 mg PO TID PRN (Reason: Anxiety) RF: 0 chlorthalidone 25 mg Tablet 12.5 mg PO DAILY RF: 0 Discharge Orders: Discharge Order (Routine); Ordered 07/13/20 Ordered By: Akash Lopez Admission Data Admit Date/Time: 07/10/20 17:55 Attending Provider: Akash Lopez Admit Provider: Shantanu Crawford Primary Care Provider: Leticia Crandall Other Providers: Shantanu Crawford ; Js Hancock ; Qasim Rosa ; Asad Feldman ; Craig Leon ; JoselynDimitry triplett ; Cisco Reynoso ; Aaliyah Goodwin ; Camille Muller ; Salina Em ; David Márquez
[2020-07-19 04:02] LABS: 18KDIGG Band REACTIVE; 23KDIGG Band NON-REACTIVE; 23KDIGM Band NON-REACTIVE; 28KDIGG Band REACTIVE; 30KDIGG Band REACTIVE; 39KDIGG Band REACTIVE; 39KDIGM Band NON-REACTIVE; 41KDIGG Band REACTIVE; 41KDIGM Band NON-REACTIVE; 45KDIGG Band NON-REACTIVE; 58KDIGG Band REACTIVE; 66KDIGG Band REACTIVE; 93KDIGG Band REACTIVE; Lyme Antibodies, WB IgG POSITIVE (NEGATIVE); Lyme Antibodies, WB IgM NEGATIVE (NEGATIVE)
== END 2020-07-13 13:49 | disposition home health service (06) | DRG 683 ==
LOC: ED 13:22 → 2S 17:55 → SUATTDRO 17:55 → 2S 19:19

== ENCOUNTER 2021-01-10 07:47 | Inpatient (IN) ==
--- NOTE | 2021-01-10 07:59 | Emergency Department Note ---
Impression & Plan Elevated troponin, Breath shortness ED Provider Note NAME: COLIN MCKENNA AGE: 80 SEX: F : 1940 ARRIVES VIA: Ambulance INFORMANT: Patient ED PROVIDER(S): Neil Nuñez DO CHIEF COMPLAINT: Shortness of breath HPI: Patient is a 80-year-old female with a past medical history of sick sinus syndrome, KAT and bipolar disorder that presents to the ER for shortness of breath. Her symptoms started about 8 days ago with cough and congestion. She has a runny nose and a sore throat. She denies any fevers. Runny nose and sore throat have improved but the cough has been persistent. She does have some shortness of breath with it. Notes pulse ox was reading 88-91 at home. ROS: See above HPI for pertinent positives & negatives. A total of 10 systems reviewed and were otherwise negative. PAST MEDICAL HISTORY:See Below PAST SURGICAL HISTORY:See Below FAMILY HISTORY:See Below SOCIAL HISTORY:See Below HOME MEDICATIONS:See Below ALLERGIES:See Below VITALS:See Below PHYSICAL EXAMINATION: GENERAL: Sitting up in bed, alert, well appearing, well nourished, no distress, non-toxic, with a cough EYE EXAM: normal conjunctiva. OROPHARYNX: no exudate, no erythema, lips, buccal mucosa, and tongue normal and mucous membranes are moist NECK: supple, no nuchal rigidity, no adenopathy, non-tender LUNGS: Clear to auscultation. Normal chest wall mechanics HEART: no murmurs, S1 normal and S2 normal ABDOMEN: abdomen soft, non-tender, normo-active bowel sounds, no masses, no rebound or guarding. UPPER EXTREMITIES: upper extremities are grossly normal. LOWER EXTREMITIES: No pitting edema. NEURO EXAM: Normal sensorium, cranial nerves II-XII grossly intact, normal speech, no gross weakness of arms, no gross weakness of legs. MEDICAL DECISION MAKING: Patient is a 80-year-old female who presents ER with above-stated complaint. He was established with orders obtained. Labs show no significant leukocytosis or anemia. BMP with slightly elevated creatinine 1.7 consistent with previous. LFTs bilirubin was unremarkable. Troponin was checked was 0.7. Previous troponin was negative. Pro-Kumar was normal. Influenza and Covid were negative. Chest x-ray with questionable infiltrates. Patient was given IV antibiotics. She was very anxious and constantly was given Ativan. Patient was also given IV fluids. Triage Nursing notes reviewed. Limited review of prior medical records performed Vital Signs: reviewed and remarkable for no significant abnormalities Differential diagnosis: Differential diagnoses includes but is not limited to pneumonia, bronchitis, COPD/Asthma exacerbation, pneumothorax, pulmonary embolism, congestive heart failure, acute coronary syndrome ER treatment provided: See below Diagnostics interpreted by me: ECG: Atrial paced rate 80 Left axis No PVCs QTC 454 Cardiac Monitoring: An order was placed for continuous cardiac monitoring. The monitor shows a rate of 82 with sinus rhythm. Laboratory studies: As stated above and show below. Imaging studies: Portable AP upright 1 view of the chest shows subtle bilateral infiltrates bilaterally Consultation(s): Discussed with hospitalist for further evaluation Procedures: none Critical Care: None Past Med/Surg History Medical History (Updated 01/10/21 @ 13:44 by Neil Nuñez DO) Anxiety Depression HTN (hypertension) Kidney problem SSS (sick sinus syndrome) Surgical History (Updated 01/10/21 @ 13:01 by Martina Lizama PA-C) H/O parathyroidectomy History of blepharoplasty History of permanent cardiac pacemaker placement History of tubal ligation Family History (Updated 01/10/21 @ 13:01 by Martina Lizama PA-C) Other Heart disease Denies family history of Cancer Social History Smoking Status: Never smoker Hx Alcohol Use: No Hx Substance Use: No Preferred Language: Pakistani Communication Ability: Effective Manager Materials Management Required: No Beliefs That Will Affect Care: None marital status: / Current Living Situation: Alone Feels Safe at Home: Yes Assistive Devices: Glasses Allergies Allergies Allergy/AdvReac Type Severity Reaction Status Date / Time No Known Allergies Allergy Unknown Verified 01/10/21 09:25 Home Meds Home Medications Medication Instructions Recorded Confirmed allopurinol 300 mg tablet 300 mg PO DAILY 04/21/19 01/10/21 atorvastatin 20 mg tablet 20 mg PO DAILY 04/21/19 01/10/21 brimonidine 0.15 % eye drops 1 drp OPB BID 04/21/19 01/10/21 buspirone 15 mg tablet 15 mg PO BID 04/21/19 01/10/21 clonidine HCl 0.3 mg tablet 0.3 mg PO BID 04/21/19 01/10/21 fluoxetine 40 mg capsule 80 mg PO QAM 04/21/19 01/10/21 lamotrigine 100 mg tablet 100 mg PO BID 04/21/19 01/10/21 levothyroxine 150 mcg tablet 150 mcg PO QAM 04/21/19 01/10/21 timolol maleate 0.5 % eye drops 1 drp OPB DAILY 04/21/19 01/10/21 aripiprazole 2 mg tablet 2 mg PO PM 01/10/21 01/10/21 lorazepam 1 mg tablet 1 mg PO UD 01/10/21 01/10/21 Previous Rx's Medication Instructions Recorded cyanocobalamin (vitamin B-12) 500 500 mcg PO QAM #30 tab 07/13/20 mcg tablet folic acid 1 mg tablet 1 mg PO QAM #30 tab 07/13/20 magnesium oxide 400 mg (241.3 mg 400 mg PO DAILY #10 tab 07/13/20 magnesium) tablet Results & Data (ED) Vital Signs Vital Signs - 24 hr 01/10/21 07:54 01/10/21 08:01 01/10/21 08:26 Temperature 36.9 C Temperature Source Oral Pulse Rate 78 71 Pulse Rate [Right Radial] 70 Pulse Rate from SpO2 Sensor Respiratory Rate 22 22 20 Respiratory Effort / Characteristics Non-Labored Spontaneous Respiratory Depth Normal Respiratory Pattern Regular Blood Pressure 165/94 H Blood Pressure [Left Arm] 176/102 H Blood Pressure Mean 117 Blood Pressure Mean [Left Arm] 126 Blood Pressure Position Lying Blood Pressure Position [Left Arm] Lying Pulse Oximetry 96 95 94 Oxygen Delivery Method Room Air Room Air Sepsis Recent Fever Within 48 Hours No Sepsis New/Unexplained Change in Mental Status N/A Sepsis Action Taken by Nursing No Action Required 01/10/21 08:36 01/10/21 09:00 01/10/21 09:30 Temperature Temperature Source Pulse Rate 74 73 71 Pulse Rate [Right Radial] Pulse Rate from SpO2 Sensor 73 76 71 Respiratory Rate 21 18 16 Respiratory Effort / Characteristics Respiratory Depth Respiratory Pattern Blood Pressure 203/107 H Blood Pressure [Left Arm] Blood Pressure Mean 139 Blood Pressure Mean [Left Arm] Blood Pressure Position Blood Pressure Position [Left Arm] Pulse Oximetry 96 95 93 Oxygen Delivery Method Sepsis Recent Fever Within 48 Hours Sepsis New/Unexplained Change in Mental Status Sepsis Action Taken by Nursing 01/10/21 10:00 01/10/21 10:30 Temperature Temperature Source Pulse Rate 75 66 Pulse Rate [Right Radial] Pulse Rate from SpO2 Sensor 74 66 Respiratory Rate 21 17 Respiratory Effort / Characteristics Respiratory Depth Respiratory Pattern Blood Pressure 170/107 H Blood Pressure [Left Arm] Blood Pressure Mean 128 Blood Pressure Mean [Left Arm] Blood Pressure Position Blood Pressure Position [Left Arm] Pulse Oximetry 94 94 Oxygen Delivery Method Sepsis Recent Fever Within 48 Hours Sepsis New/Unexplained Change in Mental Status Sepsis Action Taken by Nursing Laboratory Data Result diagrams: 01/10/21 08:00 01/10/21 08:00 Lab Results 01/10/21 01/10/21 01/10/21 Range/Units 08:00 08:00 08:00 WBC 6.13 (4.8-10.8) K/uL RBC 4.01 L (4.2-5.4) M/uL Hgb 12.1 (12.0-16.0) g/dL Hct 36.6 L (37-47) % MCV 91.3 (80-100) fL MCH 30.2 (25-34) pg MCHC 33.1 (32-36) g/dL RDW Std Deviation 45.8 (36.4-46.3) fL RDW Coeff of Tank 13.9 (11.5-14.5) % Plt Count 164 (130-400) K/uL MPV 10.1 (7.4-10.4) fL Immature Gran % (Auto) 0.2 % Neut % (Auto) 65.2 % Lymph % (Auto) 21.7 % [place] % (Auto) 9.3 % Eos % (Auto) 3.1 % Baso % (Auto) 0.5 % Neut # (Auto) 4.00 (1.4-6.5) K/uL Lymph # (Auto) 1.33 (1.2-3.4) K/uL [place] # (Auto) 0.57 (0.11-0.59) K/uL Eos # (Auto) 0.19 (0-0.5) K/uL Baso # (Auto) 0.03 (0-0.2) K/uL Immature Gran # (Auto) 0.01 (0.00-0.02) K/uL Sodium 143 (136-145) mmol/L Potassium 4.8 (3.5-5.1) mmol/L Chloride 114 H (98-107) mmol/L Carbon Dioxide 22 (21-32) mmol/L Anion Gap 7.0 (3-11) BUN 27 H (7-18) mg/dl Creatinine 1.70 H (0.6-1.2) mg/dl Est Cr Clr Drug Dosing 31.0 ml/min Est GFR ( Amer) 32.9 ml/min Est GFR (Non-Af Amer) 28.4 ml/min BUN/Creatinine Ratio 15.9 (10-20) Glucose 122 H (70-99) mg/dl Calcium 9.4 (8.5-10.1) mg/dl Total Bilirubin 0.3 (0.2-1) mg/dl AST 19 (15-37) U/L ALT 34 (12-78) U/L Alkaline Phosphatase 100 (45-117) U/L Troponin I 0.070 H* (0-0.045) ng/ml NT-Pro-B Natriuret Pep (0-1800) pg/ml Total Protein 7.2 (6.4-8.2) gm/dl Albumin 3.4 (3.4-5.0) gm/dl Globulin 3.8 (2.5-4.0) gm/dl Albumin/Globulin Ratio 0.9 (0.9-2) Lipase 159 (73-393) U/L Procalcitonin (0-0.5) ng/ml TSH (0.300-4.500) uIu/ml Free T4 (0.8-1.6) ng/dl SARS-CoV-2 (PCR) (Negative) Influ A Molecular Assay Negative (Negative) Influ B Molecular Assay Negative (Negative) 01/10/21 01/10/21 01/10/21 Range/Units 08:00 08:00 10:03 WBC (4.8-10.8) K/uL RBC (4.2-5.4) M/uL Hgb (12.0-16.0) g/dL Hct (37-47) % MCV (80-100) fL MCH (25-34) pg MCHC (32-36) g/dL RDW Std Deviation (36.4-46.3) fL RDW Coeff of Tank (11.5-14.5) % Plt Count (130-400) K/uL MPV (7.4-10.4) fL Immature Gran % (Auto) % Neut % (Auto) % Lymph % (Auto) % [place] % (Auto) % Eos % (Auto) % Baso % (Auto) % Neut # (Auto) (1.4-6.5) K/uL Lymph # (Auto) (1.2-3.4) K/uL [place] # (Auto) (0.11-0.59) K/uL Eos # (Auto) (0-0.5) K/uL Baso # (Auto) (0-0.2) K/uL Immature Gran # (Auto) (0.00-0.02) K/uL Sodium (136-145) mmol/L Potassium (3.5-5.1) mmol/L Chloride (98-107) mmol/L Carbon Dioxide (21-32) mmol/L Anion Gap (3-11) BUN (7-18) mg/dl Creatinine (0.6-1.2) mg/dl Est Cr Clr Drug Dosing ml/min Est GFR ( Amer) ml/min Est GFR (Non-Af Amer) ml/min BUN/Creatinine Ratio (10-20) Glucose (70-99) mg/dl Calcium (8.5-10.1) mg/dl Total Bilirubin (0.2-1) mg/dl AST (15-37) U/L ALT (12-78) U/L Alkaline Phosphatase (45-117) U/L Troponin I (0-0.045) ng/ml NT-Pro-B Natriuret Pep 548 (0-1800) pg/ml Total Protein (6.4-8.2) gm/dl Albumin (3.4-5.0) gm/dl Globulin (2.5-4.0) gm/dl Albumin/Globulin Ratio (0.9-2) Lipase (73-393) U/L Procalcitonin < 0.05 (0-0.5) ng/ml TSH 8.470 H (0.300-4.500) uIu/ml Free T4 1.06 (0.8-1.6) ng/dl SARS-CoV-2 (PCR) NEGATIVE (Negative) Influ A Molecular Assay (Negative) Influ B Molecular Assay (Negative) Administered Medications Discontinued Medications Carvedilol (Carvedilol 6.25 Mg Tab) 6.25 mg PO NOW ONE Stop: 01/10/21 12:00 Last Admin: 01/10/21 13:00 Dose: 6.25 mg Documented by: [id number] Furosemide (Furosemide 40 Mg/4 Ml Vial) 20 mg IV ONE ONE Stop: 01/10/21 12:46 Last Admin: 01/10/21 13:01 Dose: 20 mg Documented by: [id number] Levofloxacin/Dextrose (Levaquin/D5w) 750 mg in 150 mls @ 100 mls/hr IV NOW STA Stop: 01/10/21 10:33 Last Infusion: 01/10/21 11:44 Dose: 0 mls/hr Documented by: [id number] Admin: 01/10/21 10:14 Dose: 100 mls/hr Documented by: [id number] Lorazepam (Lorazepam 1 Mg Tab) 1 mg SL NOW STA Stop: 01/10/21 10:07 Last Admin: 01/10/21 10:13 Dose: 1 mg Documented by: [id number] Imaging Data Radiologist's Impression: Chest X-Ray 01/10/21 07:55 SINGLE VIEW CHEST CLINICAL HISTORY: Atypical chest pain. FINDINGS: An AP, portable, upright chest radiograph is compared to study dated 07/10/2020. The examination is degraded by portable technique and patient rotation. A 2-lead cardiac pacemaker is unchanged in position. The heart is enlarged noting atherosclerotic calcification of the thoracic aorta. There are bilateral airspace opacities. No large pleural effusion or pneumothorax is seen. The skeletal structures are osteopenic. The bony thorax is grossly intact. IMPRESSION: 1. Cardiomegaly and cardiac pacemaker. 2. Bilateral airspace opacities could represent congestive failure/pulmonary edema and/or an infectious/inflammatory pneumonitis. Clinical correlation will be required and radiographic follow-up to resolution is recommended. ACT 112: Negative or not required by law. Electronically signed by: Bal Ruvalcaba M.D. 01/10/2021 8:16 AM Discharge Plan Visit Data Chief Complaint: Shortness of Breath/Dyspnea Stated Complaint: SOB, ILLNESS ED Provider: Neil Nuñez Discharge Problem: Elevated troponin, Breath shortness Patient Disposition: Admitted As Inpatient Discharge Instructions Interventions: ED Discharge Assessment Last Done: 01/10/21 13:19
[2021-01-10 08:10] LABS: Basophils # (auto) 0.03 K/uL (0-0.2); Basophils % (auto) 0.5 %; Eosinophils # (auto) 0.19 K/uL (0-0.5); Eosinophils % (auto) 3.1 %; Hematocrit (blood only) 36.6 % (37-47); Hemoglobin 12.1 g/dL (12.0-16.0); Immature Granulocytes # (auto) 0.01 K/uL (0.00-0.02); Immature Granulocytes % (auto) 0.2 %; Lymphocytes # (auto) 1.33 K/uL (1.2-3.4); Lymphocytes % (auto) 21.7 %; Mean Corpuscular Hemoglobin 30.2 pg (25-34); Mean Corpuscular Hgb Conc 33.1 g/dL (32-36); Mean Corpuscular Volume 91.3 fL (80-100); Mean Platelet Volume 10.1 fL (7.4-10.4); Monocytes # (auto) 0.57 K/uL (0.11-0.59); Monocytes % (auto) 9.3 %; Neutrophils % (auto) 65.2 %; Platelet Count 164 K/uL (130-400); RDW Coefficient of Variation 13.9 % (11.5-14.5); RDW Standard Deviation 45.8 fL (36.4-46.3); Red Blood Count 4.01 M/uL (4.2-5.4); White Blood Count 6.13 K/uL (4.8-10.8)
--- NOTE | 2021-01-10 08:17 | XRay Report ---
SINGLE VIEW CHEST CLINICAL HISTORY: Atypical chest pain. FINDINGS: An AP, portable, upright chest radiograph is compared to study dated 07/10/2020. The examina tion is degraded by portable technique and patient rotation. A 2-lead cardiac pacemaker is unchanged in position. The heart is enlarged noting atherosclerotic calcification of the thoracic aorta. There are bilateral airspace opacities. No large pleural effusion or pneumothorax is seen. The skeletal str uctures are osteopenic. The bony thorax is grossly intact. IMPRESSION: 1. Cardiomegaly and cardiac pacemaker. 2. Bilateral airspace opacities could represent congestive failure/pulmonary edema and/or an infectio us/inflammatory pneumonitis. Clinical correlation will be required and radiographic follow-up to reso lution is recommended. ACT 112: Negative or not required by law. Electronically signed by: Bal Ruvalcaba M.D. 01/10/2021 8:16 AM
[2021-01-10 08:28] LABS: Albumin Level 3.4 gm/dl (3.4-5.0); BUN Creatinine Ratio 15.9 (10-20); Calcium 9.4 mg/dl (8.5-10.1); Est GFR (African American) 32.9 ml/min; Est GFR (Non-African American) 28.4 ml/min; Potassium 4.8 mmol/L (3.5-5.1)
[2021-01-10 08:30] LABS: Influenza A virus by PCR Negative (Negative); Influenza B virus by PCR Negative (Negative)
[2021-01-10 09:01] LABS: Albumin Globulin Ratio 0.9 (0.9-2); Bilirubin,Total 0.3 mg/dl (0.2-1); Globulin 3.8 gm/dl (2.5-4.0); Total Protein 7.2 gm/dl (6.4-8.2); Troponin I 0.07 ng/ml (0-0.045)
[2021-01-10] MEDS ORDERED: levoFLOXacin/D5W 750 MG/150 ML BAG IV STA (09:04)
[2021-01-10] MEDS ORDERED: LORazepam 1 MG TAB SL STA (10:06)
[2021-01-10] MEDS ORDERED: carvediloL 6.25 MG TAB PO ONE (11:59)
[2021-01-10] MEDS ORDERED: cloNIDine HCL 0.3 MG TAB PO STA (11:59)
--- NOTE | 2021-01-10 12:13 | History & Physical Report ---
Date of Service January 10, 2021 Assessment & Plan (1) SOB (shortness of breath): (2) Elevated troponin: (3) Lower respiratory infection (e.g., bronchitis, pneumonia, pneumonitis, pulmonitis): (4) CKD (chronic kidney disease) stage 3, GFR 30-59 ml/min: Plan: This is a 80-year-old female who has significant past medical history of HTN, CKD stage IIIb parathyroidectomy anxiety, gout who presents to ED secondary to URI symptoms, Shortness of breath and panic attacks x1 week. LRTI, SOB, possible Bronchitis Admit to med telemetry Obtain procalcitonin and proBNP -both within normal limits Give Lasix 20 mg IV x1 given concern finding for pulmonary edema and reported history of weight gain x8 pounds Doxycycline 100 mg twice daily Prednisone 40 mg daily x5 Elevated troponin Denies chest pain, may be secondary to CKD as well as hypertension Cycle troponins Obtain echocardiogram EKG unchanged If significant elevation in troponin will consult cardiology HTN Patient did not take morning meds Give Coreg and clonidine x1 now Continue home medications of Coreg and clonidine, monitor CKD stage III Baseline creatinine 1.5-1.7, at baseline Monitor renal function, avoid nephrotoxic agents She did receive 1 dose IV Lasix 20 mg x 1 Bipolar disorder Panic attacks Continue Abilify, lorazepam, BuSpar, fluoxetine, Lamictal She has follow-up with psychiatrist in January Offered her psychiatric consult which she respectfully declines due to already being established as outpatient DVT ppx: SQ Heparin Dispo: Med telemetry PCP: Raz FULL CODE Patient was seen and examined in collaboration with Dr. Mg, please see addendum History of Present Illness Chief Complaint: URI sx, SOB and panic attacks x 1 week. Primary Care Provider: Leticia Crandall, DO This is a 80-year-old female who has significant past medical history of HTN, CKD stage IIIb parathyroidectomy anxiety, gout who presents to ED secondary to URI symptoms, Shortness of breath and panic attacks x1 week. Over past week she has experience sore throat, sinus congestion and dry cough. Sore throat and congestion resolved but she continues to have cough. Cough is now wet but unsure of coloration due to swallowing mucus. She denies fever, chills, sweats, lightheaded, dizziness, chest pain, orthopnea, pnd, lower ext edema, n/v/d, abd pain, change in bowel or urinary habits. She does admit to off and on SOB, mostly with exertion. She further complains of chest tightness when she sob w/ exertion. Appetite has been normal. She admits to 8lb weight gain over the past 3 months, unintentional. She feels it may be related to medication. She denies using excess salt or eating processed foods. Her daughter is at bedside. She was seen in outpt clinic by PCP. Her flu, covid and rsv test was negative. She has not been taking anything over the counter. She also admits to panic attacks occurring overnight. Due to hx of bipolar d/o she follows psych q3 months. She states her last March and she has been having difficulty with this. Attacks occur in middle of night when she gets up to urinate, lasts 5 minutes, resolves on own. She has experienced this before but it has been while. In ED she remained hemodynamically stable although hypertensive. Her CBC and CMP was generally unremarkable except for chronic renal insufficiency with a BUN of 27 and creatinine of 1.70 and a mildly elevated troponin at .070. Her chest x-ray revealed bilateral airspace opacities could represent congestive heart failure/pulmonary edema and/or infectious/inflammatory pneumonitis. She received IV Levaquin and oral lorazepam while in ED. Allergies Allergy/AdvReac Type Severity Reaction Status Date / Time No Known Allergies Allergy Unknown Verified 01/10/21 09:25 Home Medications Medication Instructions Recorded Confirmed Type allopurinol 300 mg tablet 300 mg PO DAILY 04/21/19 01/10/21 History atorvastatin 20 mg tablet 20 mg PO DAILY 04/21/19 01/10/21 History brimonidine 0.15 % eye drops 1 drp OPB BID 04/21/19 01/10/21 History buspirone 15 mg tablet 15 mg PO BID 04/21/19 01/10/21 History clonidine HCl 0.3 mg tablet 0.3 mg PO BID 04/21/19 01/10/21 History fluoxetine 40 mg capsule 80 mg PO QAM 04/21/19 01/10/21 History lamotrigine 100 mg tablet 100 mg PO BID 04/21/19 01/10/21 History levothyroxine 150 mcg tablet 150 mcg PO QAM 04/21/19 01/10/21 History timolol maleate 0.5 % eye drops 1 drp OPB DAILY 04/21/19 01/10/21 History cyanocobalamin (vitamin B-12) 500 500 mcg PO QAM #30 tab 07/13/20 01/10/21 Rx mcg tablet folic acid 1 mg tablet 1 mg PO QAM #30 tab 07/13/20 01/10/21 Rx magnesium oxide 400 mg (241.3 mg 400 mg PO DAILY #10 tab 07/13/20 01/10/21 Rx magnesium) tablet aripiprazole 2 mg tablet 2 mg PO PM 01/10/21 01/10/21 History carvedilol 6.25 mg tablet 6.25 mg PO BID #60 tab 01/12/21 Rx doxycycline hyclate 100 mg capsule 100 mg PO BID@1000,2200 5 Days #10 01/12/21 Rx cap hydroxyzine HCl 25 mg tablet 25 mg PO HS #10 tab 01/12/21 Rx prednisone 10 mg tablet 10 mg PO UD #3 tab 01/12/21 Rx Past Med/Surg History Medical History Anxiety Depression HTN (hypertension) Kidney problem SSS (sick sinus syndrome) Surgical History H/O parathyroidectomy History of blepharoplasty History of permanent cardiac pacemaker placement History of tubal ligation Family History Other Heart disease Denies family history of Cancer Social History Smoking Status: Never smoker Hx Alcohol Use: No Hx Substance Use: No Preferred Language: Telugu Communication Ability: Effective 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 Review of Systems Review of Systems: All systems reviewed & are unremarkable except as noted in HPI & below Physical Exam Physical Exam: Constitutional: WD/WN, elderly, female, vitals as above, NAD, sitting up in bed, pleasant, conversing easily Head: Normocephalic, Atraumatic Eyes: PERRL, conjunctivae normal, anicteric sclerae ENMT: external ear and nose normal, oropharynx normal Neck: trachea midline, no thyromegaly normal visual inspection Respiratory: normal respiratory effort, lungs clear to auscultation, positive rhonchi, prolonged expiratory phase, no wheeze, rales. Normal insp/exp effort, no accessory muscle use Cardiovascular: RRR, no murmur, no edema Vessels: no JVD or carotid bruit Chest: normal inspection of chest Abdomen: normal bowel sounds, soft, nontender, no hepatosplenomegaly Musculoskeletal: no cyanosis or clubbing, extremities motor strength 5/5 Skin: no rashes, warm and dry normal turgor Neurologic: PERRL, EOMI, accommodation nl, no face palsy, no dysarthria CN's II-XI intact bilaterally and moves all extremities Psychiatric: A+Ox3, euthymic affect Lymphatic: no cervical or axillary lymphadenopathy : deferred Results & Data Results & Data ([facility]) Vital Signs (Past 12 Hours) Vital Signs Temp Pulse Pulse Resp BP BP Pulse Ox 01/10/21 10:30 66 17 170/107 H 94 01/10/21 10:00 75 21 94 01/10/21 09:30 71 16 203/107 H 93 01/10/21 09:00 73 18 95 01/10/21 08:36 74 21 96 01/10/21 08:26 70 20 176/102 H 94 01/10/21 08:01 71 22 95 01/10/21 07:54 36.9 C 78 22 165/94 H 96 Diagnostic Findings Chest X-Ray 01/10/21 07:55 SINGLE VIEW CHEST CLINICAL HISTORY: Atypical chest pain. FINDINGS: An AP, portable, upright chest radiograph is compared to study dated 07/10/2020. The examination is degraded by portable technique and patient rotation. A 2-lead cardiac pacemaker is unchanged in position. The heart is enlarged noting atherosclerotic calcification of the thoracic aorta. There are bilateral airspace opacities. No large pleural effusion or pneumothorax is seen. The skeletal structures are osteopenic. The bony thorax is grossly intact. IMPRESSION: 1. Cardiomegaly and cardiac pacemaker. 2. Bilateral airspace opacities could represent congestive failure/pulmonary edema and/or an infectious/inflammatory pneumonitis. Clinical correlation will be required and radiographic follow-up to resolution is recommended. ACT 112: Negative or not required by law. Electronically signed by: Bal Ruvalcaba M.D. 01/10/2021 8:16 AM Medications Administered Medication List Discontinued Medications Carvedilol (Carvedilol 6.25 Mg Tab) 6.25 mg PO NOW ONE Stop: 01/10/21 12:00 Last Admin: 01/10/21 13:00 Dose: 6.25 mg Documented by: [id number] Furosemide (Furosemide 40 Mg/4 Ml Vial) 20 mg IV ONE ONE Stop: 01/10/21 12:46 Last Admin: 01/10/21 13:01 Dose: 20 mg Documented by: [id number] Levofloxacin/Dextrose (Levaquin/D5w) 750 mg in 150 mls @ 100 mls/hr IV NOW STA Stop: 01/10/21 10:33 Last Infusion: 01/10/21 11:44 Dose: 0 mls/hr Documented by: [id number] Admin: 01/10/21 10:14 Dose: 100 mls/hr Documented by: [id number] Lorazepam (Lorazepam 1 Mg Tab) 1 mg SL NOW STA Stop: 01/10/21 10:07 Last Admin: 01/10/21 10:13 Dose: 1 mg Documented by: [id number] ECG Rate (beats per minute): 80 Rhythm: normal sinus Findings: + paced rhythm COVID-19 Results Results COVID-19 Adm Lab Results: RBC 3.76 M/uL (4.2-5.4) L 01/12/21 WBC 6.15 K/uL (4.8-10.8) 01/12/21 Hgb 11.1 g/dL (12.0-16.0) L 01/12/21 Hct 33.6 % (37-47) L 01/12/21 Plt Count 175 K/uL (130-400) 01/12/21 Neutrophils (%) (Auto) 56.8 % 01/12/21 Lymphocytes (%) (Auto) 33.8 % 01/12/21 Monocytes # (Auto) 0.55 K/uL (0.11-0.59) 01/12/21 Eosinophils # (Auto) 0.00 K/uL (0-0.5) 01/12/21 Immature Granulocyte % (Auto) 0.3 % 01/12/21 Neutrophils # (Auto) 3.49 K/uL (1.4-6.5) 01/12/21 Lymphocytes # (Auto) 2.08 K/uL (1.2-3.4) 01/12/21 Monocytes # (Auto) 0.55 K/uL (0.11-0.59) 01/12/21 Eosinophils # (Auto) 0.00 K/uL (0-0.5) 01/12/21 Basophils # (Auto) 0.01 K/uL (0-0.2) 01/12/21 Immature Granulocyte # (Auto) 0.02 K/uL (0.00-0.02) 01/12/21 Na 138 mmol/L (136-145) 01/11/21 K 4.9 mmol/L (3.5-5.1) 01/11/21 Cl 109 mmol/L (98-107) H 01/11/21 CO2 22 mmol/L (21-32) 01/11/21 Anion Gap 7.0 (3-11) 01/11/21 BUN 36 mg/dl (7-18) H 01/11/21 Creatinine 1.84 mg/dl (0.6-1.2) H 01/11/21 BUN/Creatinine Ratio 19.4 (10-20) 01/11/21 Glucose Level 163 mg/dl (70-99) H 01/11/21 Ca 10.3 mg/dl (8.5-10.1) H 01/11/21 Total Bilirubin 0.5 mg/dl (0.2-1) 01/11/21 AST/SGOT 18 U/L (15-37) 01/11/21 ALT/SGPT 31 U/L (12-78) 01/11/21 Alkaline Phosphatase 92 U/L (45-117) 01/11/21 Total Protein 7.0 gm/dl (6.4-8.2) 01/11/21 Albumin 3.3 gm/dl (3.4-5.0) L 01/11/21 Globulin 3.7 gm/dl (2.5-4.0) 01/11/21 Albumin/Globulin Ratio 0.9 (0.9-2) 01/11/21 Troponin I 1.290 ng/ml (0-0.045) H* 01/11/21 IV-Xdz-U-Type Natriuretic Pep 7611 pg/ml (0-1800) H 01/11/21 Procalcitonin 0.06 ng/ml (0-0.5) 01/11/21 PTT 24.2 Seconds (21.0-31.0) 01/12/21 INR 1.1 (0.9-1.1) 01/10/21 COVID-19 PCR NEGATIVE (Negative) 01/10/[address] 01/10/21 Chest X-Ray 01/10/21 Code Status & VTE Plan Code Status Full code VTE Prophylaxis Plan VTE Prophylaxis will be ordered: Yes Supervising Physician Co-Signing Physician Notes Attending Addendum: delayed entry date of service noted above care coordinated with EZE Tidwell please refer to her notes for full details, I agree with her notes patient seen and examined, records reviewed by myself as well on exam, patient seen resting in bed, not in distress somewhat anxious no active chest pain, dyspnea no other symptoms VS noted and reviewed oriented x 3, not in distress, speaks in sentences with no effort nor accessory muscle use normal rate, regular rhythm, no murmurs clear breath sounds bilaterally non distended, soft, nontender no bipedal edema, erythema, warmth no neuro deficits WBC 6.15 Hg 11 Crea 1.8 Trop 1.2 ASSESSMENT AND PLAN Chest pain, r/o ACS trend troponin, EKG, echo CHF vs PNA was given Lasix continue Abx other diagnoses and plan of care as per EZE Tidwell's notes Erick Mg MD
--- NOTE | 2021-01-10 12:38 | Electrocardiogram Report ---
Test Reason : Blood Pressure : / mmHG Vent. Rate : 080 BPM Atrial Rate : 080 BPM P-R Int : 204 ms QRS Dur : 096 ms QT Int : 394 ms P-R-T Axes : 065 -34 028 degrees QTc Int : 454 ms Atrial-paced rhythm Left axis deviation Moderate voltage criteria for LVH, may be normal variant Abnormal ECG When compared with ECG of 13-DEC-2020 16:40, No significant change was found Confirmed by Joseph Connelly ([id number]) on 01/10/2021 12:37:59 PM Referred By: REFERRED SELF Confirmed By:Iain Connelly
[2021-01-10 12:43] LABS: Thyroid Stimulating Hormone 8.47 uIu/ml (0.300-4.500)
[2021-01-10] MEDS ORDERED: FUROSEMIDE 40 MG/4 ML VIAL IV ONE (12:45)
[2021-01-10 12:55] LABS: T4 Free Thyroxine 1.06 ng/dl (0.8-1.6)
[2021-01-10] MEDS ORDERED: ACETAMINOPHEN 325 MG TAB PO PRN (14:08)
[2021-01-10] MEDS ORDERED: POLYETHYLENE (MIRALAX) 17 GM PACK PO PRN (14:08)
[2021-01-10] MEDS ORDERED: ONDANSETRON INJ 2 MG/ML 2 ML VIAL IV PRN (14:08)
[2021-01-10] MEDS ORDERED: LORazepam 1 MG TAB PO PRN (14:08)
[2021-01-10] MEDS ORDERED: hydrALAZINE HCL 20 MG/ML VIAL IV PRN (14:16)
[2021-01-10] MEDS ORDERED: hydrALAZINE HCL 20 MG/ML VIAL IV ONE (14:16)
[2021-01-10] MEDS: predniSONE 20 MG TAB PO SCH (14:55)
--- NOTE | 2021-01-10 16:47 | CT Scan Report ---
CT SCAN OF THE CHEST WITHOUT IV CONTRAST CLINICAL HISTORY: Atypical chest pain. Abnormal chest x-ray. COMPARISON STUDY: Chest x-ray dated 01/10/2021. TECHNIQUE: CT scan of the thorax was performed from the thoracic inlet to the upper abdomen. Images are reviewed in the axial, sagittal, and coronal planes. IV contrast was not administered for this ex amination as per the referring clinician. A dose lowering technique was utilized adhering to the [facility] of [place]. CT DOSE: 381.54 mGy.cm FINDINGS: Thyroid: Atrophic. Thoracic aorta: There is mild atherosclerotic calcification of the thoracic aorta, which is normal in caliber and demonstrates bovine variant arch anatomy. Heart: A 2-lead cardiac pacemaker is present in the left chest wall. The heart is enlarged and withou t pericardial effusion. Lungs and pleural spaces: A fat-containing Bochdalek hernia is noted at the right lung base. Mild pat parvez groundglass opacities are seen throughout the left lung. No pleural effusion is identified. Scarr ing/atelectasis is seen at both lung bases. The trachea and central airways are clear. Mild diffuse i ntralobular septal thickening is observed. Air trapping is noted at both lung bases. Mediastinum: There are scattered subcentimeter mediastinal lymph nodes. Mary Jo: Not well assessed without IV contrast. Axillae: There is no axillary lymphadenopathy. Upper abdomen: Partially visualized upper abdominal viscera is within normal limits. Skeletal structures: The skeletal structures are osteopenic. Spondylotic change is seen throughout th e thoracic spine. No lytic or blastic bony lesions are seen. IMPRESSION: 1. Cardiomegaly and cardiac pacemaker. Mild diffuse intralobular septal thickening could represent ac joaquin versus chronic congestive change and clinical correlation will be required. 2. There are groundglass opacities scattered throughout the left lung. This could represent asymmetri c fluid overload versus a mild infectious/inflammatory pneumonitis. Again, clinical correlation will be required. 3. There is no lobar consolidation or pleural effusion. 4. Additional findings as above. ACT 112: Negative or not required by law. Electronically signed by: Bal Ruvalcaba M.D. 01/10/2021 4:46 PM
[2021-01-10] MEDS: busPIRone 15 MG TAB PO SCH (20:12)
[2021-01-10] MEDS: BRIMONIDINE TARTRATE-P 0.15% 5 ML BTL OPB SCH (20:12)
[2021-01-10] MEDS: cloNIDine HCL 0.3 MG TAB PO SCH (20:13)
[2021-01-10] MEDS: ARIPIprazole 1 MG/ML ORAL SOLN 150 ML BTL PO SCH (20:13)
[2021-01-10] MEDS: lamoTRIgine 100 MG TAB PO SCH (20:13)
[2021-01-10] MEDS: hydrOXYzine HCl 25 MG TAB PO SCH (20:16)
[2021-01-10] MEDS ORDERED: Heparin IV Adult Wt-Based Standard *NO* Bolus Protocol IV SCH (21:09)
[2021-01-10] MEDS ORDERED: HEPARIN SODIUM/DEXTROSE 25,000 UNITS/500 ML BAG IV SCH (21:30)
[2021-01-10 21:42] LABS: Basophils # (auto) 0.01 K/uL (0-0.2); Basophils % (auto) 0.2 %; Hematocrit (blood only) 38.3 % (37-47); Immature Granulocytes # (auto) 0.03 K/uL (0.00-0.02); Immature Granulocytes % (auto) 0.5 %; Lymphocytes # (auto) 0.91 K/uL (1.2-3.4); Lymphocytes % (auto) 14.1 %; Mean Corpuscular Hemoglobin 30.4 pg (25-34); Mean Corpuscular Volume 89.5 fL (80-100); Mean Platelet Volume 10.2 fL (7.4-10.4); Monocytes # (auto) 0.12 K/uL (0.11-0.59); Monocytes % (auto) 1.9 %; Neutrophils # (auto) 5.39 K/uL (1.4-6.5); Neutrophils % (auto) 83.3 %; Platelet Count 194 K/uL (130-400); RDW Coefficient of Variation 13.9 % (11.5-14.5); RDW Standard Deviation 45.6 fL (36.4-46.3); Red Blood Count 4.28 M/uL (4.2-5.4); White Blood Count 6.46 K/uL (4.8-10.8)
[2021-01-10] MEDS ORDERED: HEPARIN SOD 5,000 UNIT/0.5 ML VIAL SQ SCH (22:00)
[2021-01-10] MEDS: DOXYCYCLINE HYCLATE 100 MG CAP PO SCH (22:01)
[2021-01-10 22:24] LABS: INR 1.1 (0.9-1.1); Partial Thromboplastin Time 26.8 Seconds (21.0-31.0)
[2021-01-10 22:50] LABS: Mean Corpuscular Hgb Conc 33.9 g/dL (32-36)
[2021-01-11 04:59] LABS: Hematocrit (blood only) 35.8 % (37-47); Immature Granulocytes # (auto) 0.02 K/uL (0.00-0.02); Immature Granulocytes % (auto) 0.3 %; Lymphocytes # (auto) 1.09 K/uL (1.2-3.4); Lymphocytes % (auto) 18.4 %; Mean Corpuscular Hemoglobin 29.8 pg (25-34); Mean Corpuscular Hgb Conc 33.5 g/dL (32-36); Mean Corpuscular Volume 88.8 fL (80-100); Mean Platelet Volume 10.3 fL (7.4-10.4); Monocytes # (auto) 0.32 K/uL (0.11-0.59); Monocytes % (auto) 5.4 %; Neutrophils # (auto) 4.48 K/uL (1.4-6.5); Neutrophils % (auto) 75.9 %; Platelet Count 195 K/uL (130-400); RDW Coefficient of Variation 13.8 % (11.5-14.5); RDW Standard Deviation 45.3 fL (36.4-46.3); Red Blood Count 4.03 M/uL (4.2-5.4); White Blood Count 5.91 K/uL (4.8-10.8)
[2021-01-11 05:23] LABS: Partial Thromboplastin Ratio 2.1
[2021-01-11 05:27] LABS: Albumin Level 3.3 gm/dl (3.4-5.0); BUN Creatinine Ratio 19.4 (10-20); Calcium 10.3 mg/dl (8.5-10.1); Creatinine Clr Calc Pharmacy 28.6 ml/min; Est GFR (African American) 29.9 ml/min; Est GFR (Non-African American) 25.8 ml/min; Potassium 4.9 mmol/L (3.5-5.1)
[2021-01-11 05:38] LABS: Partial Thromboplastin Time 56.4 Seconds (21.0-31.0)
[2021-01-11 05:41] LABS: Albumin Globulin Ratio 0.9 (0.9-2); Bilirubin,Total 0.5 mg/dl (0.2-1); Globulin 3.7 gm/dl (2.5-4.0); Troponin I 1.29 ng/ml (0-0.045)
[2021-01-11] MEDS: LEVOTHYROXINE SODIUM 150 MCG TABLET PO SCH (05:51)
[2021-01-11] MEDS: FLUoxetine HCL 20 MG CAP PO SCH (08:49)
[2021-01-11] MEDS: busPIRone 15 MG TAB PO SCH ×2 (08:50→21:06)
[2021-01-11] MEDS: CYANOCOBALAMIN 500 MCG TABLET (VITAMIN B-12) PO SCH (08:50)
[2021-01-11] MEDS: allopurinoL 300 MG TAB PO SCH (08:50)
[2021-01-11] MEDS: DOXYCYCLINE HYCLATE 100 MG CAP PO SCH ×2 (08:50→21:06)
[2021-01-11] MEDS: MAGNESIUM OXIDE 400 MG TAB PO SCH (08:50)
[2021-01-11] MEDS: lamoTRIgine 100 MG TAB PO SCH ×2 (08:50→21:06)
[2021-01-11] MEDS: FOLIC ACID 1 MG TAB PO SCH (08:50)
[2021-01-11] MEDS: ATORVASTATIN 20 MG TAB PO SCH (08:50)
[2021-01-11] MEDS: predniSONE 20 MG TAB PO SCH (08:50)
[2021-01-11] MEDS: cloNIDine HCL 0.3 MG TAB PO SCH ×2 (08:50→21:07)
[2021-01-11] MEDS: BRIMONIDINE TARTRATE-P 0.15% 5 ML BTL OPB SCH ×2 (08:51→21:05)
[2021-01-11] MEDS: TIMOLOL MALEATE 0.5% OP SOLN 5 ML BTL OP SCH (08:51)
[2021-01-11] MEDS ORDERED: ASPIRIN 81 MG ECTAB PO SCH (09:00)
--- NOTE | 2021-01-11 10:20 | Communication Note ---
Date of Service: January 11, 2021 Patient declined psych consult as reports having follow up with Dr. Lee in January. Dr. Mg notified and consult will be canceled for now.
--- NOTE | 2021-01-11 12:21 | Hospitalist Progress Note ---
Date of Service January 11, 2021 Assessment & Plan (1) SOB (shortness of breath): (2) Elevated troponin: (3) Lower respiratory infection (e.g., bronchitis, pneumonia, pneumonitis, pulmonitis): (4) CKD (chronic kidney disease) stage 3, GFR 30-59 ml/min: Plan: This is a 80-year-old female who has significant past medical history of HTN, CKD stage IIIb parathyroidectomy anxiety, gout who presents to ED secondary to URI symptoms, Shortness of breath and panic attacks x1 week. Shortness of breath, likely secondary to underlying CHF, systolic and valvular type, newly diagnosed procalcitonin and proBNP -both within normal limits Covid screen: Negative CT chest: Possible CHF pattern versus viral pneumonia Given Lasix 20 mg IV x1 given concern finding for pulmonary edema and reported history of weight gain x8 pounds Doxycycline 100 mg twice daily Prednisone 40 mg daily x5 Much improved, on room air Hold off on further Lasix at this time Continue doxycycline day number 2 out of 7 Taper prednisone 30 mg tomorrow Monitor closely Elevated troponin likely demand ischemia from hypertensive urgency Denies chest pain EKG no signs of acute ischemia or infarct Echocardiogram: EF 40 to 45% Apical wall motion abnormality may reflect pacemaker activation Right ventricular systolic function is normal Left atrium is moderately dilated There is mild to moderate mitral regurgitation There is moderate to severe tricuspid vegetation Hand Iii Cutter consulted, heparin discontinued Continue to control blood pressure HTN Now improved Continue clonidine Control anxiety CKD stage III Baseline creatinine 1.5-1.7, at baseline Remains at baseline Monitor Bipolar disorder Panic attacks Continue Abilify, lorazepam, BuSpar, fluoxetine, Lamictal She has follow-up with psychiatrist in January inpatient psychiatry consultation Vistaril as needed added DVT ppx: SQ Heparin Dispo: Med telemetry PCP: Raz FULL CODE Lives at home by herself We will order PT OT evaluation Admission and Anticipated Discharge Date Admission Date: January 11, 2021 Subjective Follow-up for shortness of breath, possible CHF versus pneumonia, elevated troponin, etc. Started on heparin overnight for increasing troponin Seen resting in bed, comfortable, watching TV, not in distress States that she slept well overnight Denies any chest pain, shortness of breath, palpitations, dizziness, nausea vomiting States her anxiety is improved today Denies suicidal ideations Less cough, no sputum production, fevers or chills No other symptoms Review of Systems Review of Systems: all noted and negative except for above Physical Exam Physical Exam: General- oriented x 3, not in distress, speaks in sentences with no effort or accessory muscle use Eyes- anicteric Neck- no JVD Lungs- clear breath sounds bilaterally, no crackles or wheezing Heart- normal rate, regular rhythm; no murmurs Abdomen- normal bowel sounds, nondistended, soft, nontender Extremities- no pretibial edema, no calf tenderness Neuro- alert, oriented x 3; no gross focal neurologic deficits Skin- warm & dry Results & Data Results & Data ([facility]) Vital Signs (Past 12 Hours) Vital Signs Temp Pulse Pulse Resp BP Pulse Ox 01/11/21 11:16 36.6 C 70 18 127/78 97 01/11/21 07:49 37.0 C 78 18 138/68 93 01/11/21 07:00 64 01/11/21 03:12 36.7 C 76 18 157/87 H 95 all noted and reviewed including below
--- NOTE | 2021-01-11 12:24 | Cardiology Consultation ---
Date of Consultation January 11, 2021 Assessment & Plan (1) CKD (chronic kidney disease) stage 3, GFR 30-59 ml/min: (2) Elevated troponin: (3) Hypertensive urgency, malignant: (4) Anxiety attack: The patient presented with hypertensive urgency and has evidence of hypertensive heart disease. I suspect that she may not have been taking her medications. She presented with which she describes as an anxiety attack. I do not believe that her elevated troponin are due to acute coronary syndrome. Believe it is stress related from her hypertensive urgency. I would treat her hypertension and anxiety disorder. I believe her IV heparin can be discontinued. History of Present Illness Attending Physician: Erick Mg MD History of Present Illness This is a 80-year-old female who is not a good historian. There have information is taken from the medical records. She is seen in our clinic by Aaliyah Goodwin history of sick sinus syndrome and a permanent pacemaker. She has not actually been seen in our clinic since February 2019 although she has had routine pacemaker checks. Her in March and she has had a difficult time. She does have a history of an anxiety disorder and actually came to the emergency department because she describes as a panic attack. She was markedly hypertensive on admission to the emergency department. She never really had chest pain. She denies shortness of breath. She states that she was taking all her medications at home. After admission her cardiac markers were slightly elevated most likely as result of stress from hypertensive urgency. I do not believe that this is acute coronary syndrome. Her EKG showed no acute changes. She is comfortable now and has no ongoing complaints. Of note is that her echocardiogram does show slightly reduced left ventricular function most likely on the basis of hypertensive heart disease and presentation with hypertensive urgency. Allergies Allergy/AdvReac Type Severity Reaction Status Date / Time No Known Allergies Allergy Unknown Verified 01/10/21 09:25 Home Medications Medication Instructions Recorded Confirmed Type allopurinol 300 mg tablet 300 mg PO DAILY 04/21/19 01/10/21 History atorvastatin 20 mg tablet 20 mg PO DAILY 04/21/19 01/10/21 History brimonidine 0.15 % eye drops 1 drp OPB BID 04/21/19 01/10/21 History buspirone 15 mg tablet 15 mg PO BID 04/21/19 01/10/21 History clonidine HCl 0.3 mg tablet 0.3 mg PO BID 04/21/19 01/10/21 History fluoxetine 40 mg capsule 80 mg PO QAM 04/21/19 01/10/21 History lamotrigine 100 mg tablet 100 mg PO BID 04/21/19 01/10/21 History levothyroxine 150 mcg tablet 150 mcg PO QAM 04/21/19 01/10/21 History timolol maleate 0.5 % eye drops 1 drp OPB DAILY 04/21/19 01/10/21 History cyanocobalamin (vitamin B-12) 500 500 mcg PO QAM #30 tab 07/13/20 01/10/21 Rx mcg tablet folic acid 1 mg tablet 1 mg PO QAM #30 tab 07/13/20 01/10/21 Rx magnesium oxide 400 mg (241.3 mg 400 mg PO DAILY #10 tab 07/13/20 01/10/21 Rx magnesium) tablet aripiprazole 2 mg tablet 2 mg PO PM 01/10/21 01/10/21 History lorazepam 1 mg tablet 1 mg PO UD 01/10/21 01/10/21 History Patient History Medical History Anxiety Depression HTN (hypertension) Kidney problem SSS (sick sinus syndrome) Surgical History H/O parathyroidectomy History of blepharoplasty History of permanent cardiac pacemaker placement History of tubal ligation Family History Other Heart disease Denies family history of Cancer Social History Smoking Status: Never smoker Hx Alcohol Use: No Hx Substance Use: No Preferred Language: [place] Communication Ability: Effective 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 Review of Systems Review of Systems: Review of Systems: See HPI for pertinent positives. All other 10 point review of systems are negative. Physical Exam Physical Exam: General: no acute distress and stated age Head: normocephalic, no masses, lesions, tenderness or abnormalities Eyes: conjunctiva are pink and non-injected, sclera clear Neck: supple, no adenopathy, no bruits, normal jugular venous pulse, no hepatojugular reflux Chest: normal shape and normal respiratory effort Lungs: clear to auscultation and percussion Cardiac Exam: - regular rate & rhythm, no murmurs gallops or rubs - normal S1, normal S2 Pulses: 2(+) throughout Abdomen: abdomen soft, non-tender, no abnormal masses and no hepatosplenomegaly Musculoskeletal: no gait disturbance, no joint inflammation, no deforming arthritis Extremities: no edema and no cyanosis Neuro: grossly normal exam Results & Data ([facility]) Vital Signs (Past 12 Hours) Vital Signs Temp Pulse Pulse Resp BP Pulse Ox 01/11/21 11:16 36.6 C 70 18 127/78 97 01/11/21 07:49 37.0 C 78 18 138/68 93 01/11/21 07:00 64 01/11/21 03:12 36.7 C 76 18 157/87 H 95 Laboratory Results Laboratory Results - last 24 hr 01/10/21 01/10/21 01/10/21 08:00 08:00 13:10 WBC RBC Hgb Hct MCV MCH MCHC RDW Std Deviation RDW Coeff of Tank Plt Count MPV Immature Gran % (Auto) Neut % (Auto) Lymph % (Auto) [place] % (Auto) Eos % (Auto) Baso % (Auto) Neut # (Auto) Lymph # (Auto) [place] # (Auto) Eos # (Auto) Baso # (Auto) Immature Gran # (Auto) PT INR APTT PTT Ratio Sodium Potassium Chloride Carbon Dioxide Anion Gap BUN Creatinine Est Cr Clr Drug Dosing Est GFR ( Amer) Est GFR (Non-Af Amer) BUN/Creatinine Ratio Glucose Calcium Total Bilirubin AST ALT Alkaline Phosphatase Troponin I 0.965 H* NT-Pro-B Natriuret Pep 548 Total Protein Albumin Globulin Albumin/Globulin Ratio Procalcitonin < 0.05 TSH 8.470 H Free T4 1.06 01/10/21 01/10/21 01/10/21 19:31 21:29 21:29 WBC 6.46 RBC 4.28 Hgb 13.0 Hct 38.3 MCV 89.5 MCH 30.4 MCHC 33.9 RDW Std Deviation 45.6 RDW Coeff of Tank 13.9 Plt Count 194 MPV 10.2 Immature Gran % (Auto) 0.5 Neut % (Auto) 83.3 Lymph % (Auto) 14.1 [place] % (Auto) 1.9 Eos % (Auto) 0.0 Baso % (Auto) 0.2 Neut # (Auto) 5.39 Lymph # (Auto) 0.91 L [place] # (Auto) 0.12 Eos # (Auto) 0.00 Baso # (Auto) 0.01 Immature Gran # (Auto) 0.03 H PT 11.0 INR 1.1 APTT 26.8 PTT Ratio 1.0 Sodium Potassium Chloride Carbon Dioxide Anion Gap BUN Creatinine Est Cr Clr Drug Dosing Est GFR ( Amer) Est GFR (Non-Af Amer) BUN/Creatinine Ratio Glucose Calcium Total Bilirubin AST ALT Alkaline Phosphatase Troponin I 1.570 H* NT-Pro-B Natriuret Pep Total Protein Albumin Globulin Albumin/Globulin Ratio Procalcitonin TSH Free T4 01/11/21 01/11/21 01/11/21 04:34 04:34 04:34 WBC 5.91 RBC 4.03 L Hgb 12.0 Hct 35.8 L MCV 88.8 MCH 29.8 MCHC 33.5 RDW Std Deviation 45.3 RDW Coeff of Tank 13.8 Plt Count 195 MPV 10.3 Immature Gran % (Auto) 0.3 Neut % (Auto) 75.9 Lymph % (Auto) 18.4 [place] % (Auto) 5.4 Eos % (Auto) 0.0 Baso % (Auto) 0.0 Neut # (Auto) 4.48 Lymph # (Auto) 1.09 L [place] # (Auto) 0.32 Eos # (Auto) 0.00 Baso # (Auto) 0.00 Immature Gran # (Auto) 0.02 PT INR APTT PTT Ratio Sodium 138 Potassium 4.9 Chloride 109 H Carbon Dioxide 22 Anion Gap 7.0 BUN 36 H Creatinine 1.84 H Est Cr Clr Drug Dosing 28.6 Est GFR ( Amer) 29.9 Est GFR (Non-Af Amer) 25.8 BUN/Creatinine Ratio 19.4 Glucose 163 H Calcium 10.3 H Total Bilirubin 0.5 AST 18 ALT 31 Alkaline Phosphatase 92 Troponin I 1.290 H* NT-Pro-B Natriuret Pep Total Protein 7.0 Albumin 3.3 L Globulin 3.7 Albumin/Globulin Ratio 0.9 Procalcitonin 0.06 TSH Free T4 01/11/21 01/11/21 04:34 09:04 WBC RBC Hgb Hct MCV MCH MCHC RDW Std Deviation RDW Coeff of Tank Plt Count MPV Immature Gran % (Auto) Neut % (Auto) Lymph % (Auto) [place] % (Auto) Eos % (Auto) Baso % (Auto) Neut # (Auto) Lymph # (Auto) [place] # (Auto) Eos # (Auto) Baso # (Auto) Immature Gran # (Auto) PT INR APTT 56.4 H* PTT Ratio 2.1 Sodium Potassium Chloride Carbon Dioxide Anion Gap BUN Creatinine Est Cr Clr Drug Dosing Est GFR ( Amer) Est GFR (Non-Af Amer) BUN/Creatinine Ratio Glucose Calcium Total Bilirubin AST ALT Alkaline Phosphatase Troponin I NT-Pro-B Natriuret Pep 7611 H Total Protein Albumin Globulin Albumin/Globulin Ratio Procalcitonin TSH Free T4 Diagnostic Findings Echocardiogram reveals mild decreased LV function with an estimated left ventricular ejection fraction of around 40 to 45% which is most likely due to hypertensive heart disease. Medications Administered Current Inpatient Medications Acetaminophen (Acetaminophen 325 Mg Tab) 650 mg PO Q4H PRN PRN Reason: Pain or Fever Stop: 02/09/21 14:07 Allopurinol (Allopurinol 300 Mg Tab) 300 mg PO DAILY [facility] Stop: 02/10/21 08:59 Last Admin: 01/11/21 08:50 Dose: 300 mg Documented by: Aripiprazole (Aripiprazole 1 Mg/Ml Oral Soln 150 Ml Btl) 2 mg PO PM [facility] Stop: 02/09/21 20:59 Last Admin: 01/10/21 20:13 Dose: 2 mg Documented by: Atorvastatin Calcium (Atorvastatin 20 Mg Tab) 20 mg PO DAILY [facility] Stop: 02/10/21 08:59 Last Admin: 01/11/21 08:50 Dose: 20 mg Documented by: Brimonidine Tartrate (Brimonidine Tartrate-P 0.15% 5 Ml Btl) 1 drops OPB BID [facility] Stop: 02/09/21 20:59 Last Admin: 01/11/21 08:51 Dose: 1 drops Documented by: Buspirone HCl (Buspirone 15 Mg Tab) 15 mg PO BID [facility] Stop: 02/09/21 20:59 Last Admin: 01/11/21 08:50 Dose: 15 mg Documented by: Clonidine HCl (Clonidine Hcl 0.3 Mg Tab) 0.3 mg PO BID [facility] Stop: 02/09/21 20:59 Last Admin: 01/11/21 08:50 Dose: 0.3 mg Documented by: Cyanocobalamin (Cyanocobalamin 500 Mcg Tablet (Vitamin B-12)) 500 mcg PO QAM [facility] Stop: 02/10/21 08:59 Last Admin: 01/11/21 08:50 Dose: 500 mcg Documented by: Doxycycline Hyclate (Doxycycline Hyclate 100 Mg Cap) 100 mg PO BID@1000,2200 [facility] Stop: 01/17/21 21:59 Last Admin: 01/11/21 08:50 Dose: 100 mg Documented by: Fluoxetine HCl (Fluoxetine Hcl 20 Mg Cap) 80 mg PO QAM [facility] Stop: 02/10/21 08:59 Last Admin: 01/11/21 08:49 Dose: 80 mg Documented by: Folic Acid (Folic Acid 1 Mg Tab) 1 mg PO QAM [facility] Stop: 02/10/21 08:59 Last Admin: 01/11/21 08:50 Dose: 1 mg Documented by: Hydralazine HCl (Hydralazine Hcl 20 Mg/Ml Vial) 5 mg IV Q6H PRN PRN Reason: systolic bp > 160 Stop: 02/09/21 14:29 Hydroxyzine HCl (Hydroxyzine Hcl 25 Mg Tab) 25 mg PO HS [facility] Stop: 02/09/21 20:59 Last Admin: 01/10/21 20:16 Dose: 25 mg Documented by: Heparin Sodium/Dextrose (Heparin Sodium/Dextrose) 25,000 units in 500 mls @ 26 mls/hr IV .[id number] [facility]; Protocol Stop: 02/09/21 21:29 Last Titration: 01/11/21 05:42 Dose: 1,300 units/hr, 26 mls/hr Documented by: Lamotrigine (Lamotrigine 100 Mg Tab) 100 mg PO BID [facility] Stop: 02/09/21 20:59 Last Admin: 01/11/21 08:50 Dose: 100 mg Documented by: Levothyroxine Sodium (Levothyroxine Sodium 150 Mcg Tablet) 150 mcg PO DAILYBB [facility] Stop: 02/10/21 06:29 Last Admin: 01/11/21 05:51 Dose: 150 mcg Documented by: Magnesium Oxide (Magnesium Oxide 400 Mg Tab) 400 mg PO DAILY [facility] Stop: 02/10/21 08:59 Last Admin: 01/11/21 08:50 Dose: 400 mg Documented by: Ondansetron HCl (Ondansetron Inj 2 Mg/Ml 2 Ml Vial) 4 mg IV Q6H PRN PRN Reason: Nausea Stop: 02/09/21 14:07 Polyethylene Glycol (Polyethylene (Miralax) 17 Gm Pack) 17 gm PO DAILY PRN PRN Reason: Constipation Stop: 02/09/21 14:07 Prednisone (Prednisone 20 Mg Tab) 40 mg PO DAILY [facility] Stop: 01/14/21 09:01 Last Admin: 01/11/21 08:50 Dose: 40 mg Documented by: Timolol Maleate (Timolol Maleate 0.5% Op Soln 5 Ml Btl) 1 drops OP DAILY [facility] Stop: 02/10/21 08:59 Last Admin: 01/11/21 08:51 Dose: 1 drops Documented by:
[2021-01-11] MEDS: carvediloL 6.25 MG TAB PO SCH (17:16)
[2021-01-11] MEDS: hydrOXYzine HCl 25 MG TAB PO SCH (21:05)
[2021-01-11] MEDS: ARIPIprazole 1 MG/ML ORAL SOLN 150 ML BTL PO SCH (21:07)
[2021-01-12] MEDS: LEVOTHYROXINE SODIUM 150 MCG TABLET PO SCH (06:06)
[2021-01-12 07:57] LABS: Basophils # (auto) 0.01 K/uL (0-0.2); Basophils % (auto) 0.2 %; Hematocrit (blood only) 33.6 % (37-47); Hemoglobin 11.1 g/dL (12.0-16.0); Immature Granulocytes # (auto) 0.02 K/uL (0.00-0.02); Immature Granulocytes % (auto) 0.3 %; Lymphocytes # (auto) 2.08 K/uL (1.2-3.4); Lymphocytes % (auto) 33.8 %; Mean Corpuscular Hemoglobin 29.5 pg (25-34); Mean Corpuscular Volume 89.4 fL (80-100); Mean Platelet Volume 10.8 fL (7.4-10.4); Monocytes # (auto) 0.55 K/uL (0.11-0.59); Monocytes % (auto) 8.9 %; Neutrophils # (auto) 3.49 K/uL (1.4-6.5); Neutrophils % (auto) 56.8 %; Platelet Count 175 K/uL (130-400); RDW Standard Deviation 45.7 fL (36.4-46.3); Red Blood Count 3.76 M/uL (4.2-5.4); White Blood Count 6.15 K/uL (4.8-10.8)
[2021-01-12 08:05] LABS: Partial Thromboplastin Ratio 0.9; Partial Thromboplastin Time 24.2 Seconds (21.0-31.0)
[2021-01-12] MEDS: TIMOLOL MALEATE 0.5% OP SOLN 5 ML BTL OP SCH (08:41)
[2021-01-12] MEDS: BRIMONIDINE TARTRATE-P 0.15% 5 ML BTL OPB SCH (08:41)
[2021-01-12] MEDS: busPIRone 15 MG TAB PO SCH (08:42)
[2021-01-12] MEDS: CYANOCOBALAMIN 500 MCG TABLET (VITAMIN B-12) PO SCH (08:42)
[2021-01-12] MEDS: MAGNESIUM OXIDE 400 MG TAB PO SCH (08:42)
[2021-01-12] MEDS: FLUoxetine HCL 20 MG CAP PO SCH (08:42)
[2021-01-12] MEDS: DOXYCYCLINE HYCLATE 100 MG CAP PO SCH (08:42)
[2021-01-12] MEDS: cloNIDine HCL 0.3 MG TAB PO SCH (08:42)
[2021-01-12] MEDS: allopurinoL 300 MG TAB PO SCH (08:42)
[2021-01-12] MEDS: FOLIC ACID 1 MG TAB PO SCH (08:43)
[2021-01-12] MEDS: carvediloL 6.25 MG TAB PO SCH (08:43)
[2021-01-12] MEDS: ATORVASTATIN 20 MG TAB PO SCH (08:43)
[2021-01-12] MEDS: lamoTRIgine 100 MG TAB PO SCH (08:43)
[2021-01-12] MEDS ORDERED: predniSONE 10 MG TABLET PO SCH (09:00)
[2021-01-12] MEDS ORDERED: hydrOXYzine HCl 25 MG TAB PO PRN (09:46)
--- NOTE | 2021-01-12 10:09 | Cardiology Progress Note ---
Date of Service January 12, 2021 Assessment & Plan (1) CKD (chronic kidney disease) stage 3, GFR 30-59 ml/min: (2) Elevated troponin: (3) Hypertensive urgency, malignant: (4) Anxiety attack: (5) Lower respiratory infection (e.g., bronchitis, pneumonia, pneumonitis, pulmonitis): Plan: Patient admitted for SOB, anxiety, and hypertensive urgency. Chest xray with mild vascular congestion and possible pneumonia/pneumonitis. Symptoms improved with one dose IV lasix and antibiotic/steroid. Hypertensive emergency with elevated troponin also noted. BP improved with resuming home medications and treating anxiety. LVEF mildly reduced at 40-45%. Possibly due to hypertensive urgency and pacemaker activation. Will monitor. Continue carvedilol, clonidine. Consider future low dose RU/ARB given mildly reduced EF, but with CKD and borderline elevated potassium, will not initiate at this time. BP has greatly improved. She is currently asymptomatic. Stable for discharge today from cardiac perspective. Will arrange 2-4 week cardiology f/u. Case discussed with Dr. Alves. Admission and Anticipated Discharge Date Admission Date: January 11, 2021 Supervising Physician Co-Signing Physician Notes I have seen and examined the patient. I reviewed the medical record. I discussed the case with Ms. Goodwin and I agree with the plan as outlined. Subjective Patient ambulating in her room this morning. Denies acute complaints. Reports her SOB has greatly improved. Minimal cough. Denies fever or chills. No chest pain overnight or this morning. No dizziness or lightheadedness. BP trended down with home antihypertensive medications. She voices no complaints. Less anxious. Hoping to go home today. Review of Systems Review of Systems: All systems reviewed & are unremarkable except as noted in HPI & below Physical Exam Constitutional: WD/WN, vitals as above Eyes: PERRL, conjunctivae normal, anicteric sclerae ENMT: external ear and nose normal, oropharynx normal Neck: trachea midline, no thyromegaly Respiratory: normal respiratory effort; no respiratory distress Auscultation: + diminished lung sounds; no crackles, no rales and no rhonchi Cardiovascular: Rate/Rhythm: regular rate and regular rhythm Heart Sounds: normal S1, normal S2 and + murmur (II/ systolic murmur) Gastrointestinal (Abdomen): normal bowel sounds, soft, nontender, no hepatosplenomegaly Skin: no rashes, warm and dry Neurologic: PERRL, EOMI, accommodation nl, no face palsy, no dysarthria Psychiatric: A+Ox3, euthymic affect Results & Data ([facility]) Vital Signs (Past 12 Hours) Vital Signs Temp Pulse Pulse Resp BP Pulse Ox 01/12/21 07:00 36.7 C 65 18 138/66 96 01/12/21 02:46 36.6 C 70 16 137/74 96 01/12/21 01:37 60 01/11/21 22:58 36.6 C 72 18 131/75 96 Laboratory Results 01/12/21 01/12/21 Range/Units 06:49 06:49 WBC 6.15 (4.8-10.8) K/uL RBC 3.76 L (4.2-5.4) M/uL Hgb 11.1 L (12.0-16.0) g/dL Hct 33.6 L (37-47) % MCV 89.4 (80-100) fL MCH 29.5 (25-34) pg MCHC 33.0 (32-36) g/dL RDW Std Deviation 45.7 (36.4-46.3) fL RDW Coeff of Tank 14.0 (11.5-14.5) % Plt Count 175 (130-400) K/uL MPV 10.8 H (7.4-10.4) fL Immature Gran % (Auto) 0.3 % Neut % (Auto) 56.8 % Lymph % (Auto) 33.8 % [place]eller % (Auto) 8.9 % Eos % (Auto) 0.0 % Baso % (Auto) 0.2 % Neut # (Auto) 3.49 (1.4-6.5) K/uL Lymph # (Auto) 2.08 (1.2-3.4) K/uL Teller # (Auto) 0.55 (0.11-0.59) K/uL Eos # (Auto) 0.00 (0-0.5) K/uL Baso # (Auto) 0.01 (0-0.2) K/uL Immature Gran # (Auto) 0.02 (0.00-0.02) K/uL APTT 24.2 (21.0-31.0) Seconds PTT Ratio 0.9 Diagnostic Findings Telemetry reviewed: atrial paced in the 60's. No arrhythmias. Echo results reviewed dated 01/10/21: Mod concentric LVH LV systolic funciton is mildly reduced EF 40-45% Apical wall motion abnormality may reflect pacemaker activation. RV systolic function is normal LA is moderately dilated RA is normal in size Mild to moderate MR Moderate to severe TR Medications Administered Current Inpatient Medications Acetaminophen (Acetaminophen 325 Mg Tab) 650 mg PO Q4H PRN PRN Reason: Pain or Fever Stop: 02/09/21 14:07 Allopurinol (Allopurinol 300 Mg Tab) 300 mg PO DAILY [facility] Stop: 02/10/21 08:59 Last Admin: 01/12/21 08:42 Dose: 300 mg Documented by: Aripiprazole (Aripiprazole 1 Mg/Ml Oral Soln 150 Ml Btl) 2 mg PO PM [facility] Stop: 02/09/21 20:59 Last Admin: 01/11/21 21:07 Dose: 2 mg Documented by: Atorvastatin Calcium (Atorvastatin 20 Mg Tab) 20 mg PO DAILY [facility] Stop: 02/10/21 08:59 Last Admin: 01/12/21 08:43 Dose: 20 mg Documented by: Brimonidine Tartrate (Brimonidine Tartrate-P 0.15% 5 Ml Btl) 1 drops OPB BID [facility] Stop: 02/09/21 20:59 Last Admin: 01/12/21 08:41 Dose: 1 drops Documented by: Buspirone HCl (Buspirone 15 Mg Tab) 15 mg PO BID [facility] Stop: 02/09/21 20:59 Last Admin: 01/12/21 08:42 Dose: 15 mg Documented by: Carvedilol (Carvedilol 6.25 Mg Tab) 6.25 mg PO BID [facility] Stop: 02/10/21 15:39 Last Admin: 01/12/21 08:43 Dose: 6.25 mg Documented by: Clonidine HCl (Clonidine Hcl 0.3 Mg Tab) 0.3 mg PO BID [facility] Stop: 02/09/21 20:59 Last Admin: 01/12/21 08:42 Dose: 0.3 mg Documented by: Cyanocobalamin (Cyanocobalamin 500 Mcg Tablet (Vitamin B-12)) 500 mcg PO QAM [facility] Stop: 02/10/21 08:59 Last Admin: 01/12/21 08:42 Dose: 500 mcg Documented by: Doxycycline Hyclate (Doxycycline Hyclate 100 Mg Cap) 100 mg PO BID@1000,2200 [facility] Stop: 01/17/21 21:59 Last Admin: 01/12/21 08:42 Dose: 100 mg Documented by: Fluoxetine HCl (Fluoxetine Hcl 20 Mg Cap) 80 mg PO QAM [facility] Stop: 02/10/21 08:59 Last Admin: 01/12/21 08:42 Dose: 80 mg Documented by: Folic Acid (Folic Acid 1 Mg Tab) 1 mg PO QAM [facility] Stop: 02/10/21 08:59 Last Admin: 01/12/21 08:43 Dose: 1 mg Documented by: Hydralazine HCl (Hydralazine Hcl 20 Mg/Ml Vial) 5 mg IV Q6H PRN PRN Reason: systolic bp > 160 Stop: 02/09/21 14:29 Hydroxyzine HCl (Hydroxyzine Hcl 25 Mg Tab) 25 mg PO HS [facility] Stop: 02/09/21 20:59 Last Admin: 01/11/21 21:05 Dose: 25 mg Documented by: Hydroxyzine HCl (Hydroxyzine Hcl 25 Mg Tab) 25 mg PO Q6H PRN PRN Reason: Anxiety Stop: 02/11/21 09:45 Lamotrigine (Lamotrigine 100 Mg Tab) 100 mg PO BID [facility] Stop: 02/09/21 20:59 Last Admin: 01/12/21 08:43 Dose: 100 mg Documented by: Levothyroxine Sodium (Levothyroxine Sodium 150 Mcg Tablet) 150 mcg PO DAILYBB [facility] Stop: 02/10/21 06:29 Last Admin: 01/12/21 06:06 Dose: 150 mcg Documented by: Magnesium Oxide (Magnesium Oxide 400 Mg Tab) 400 mg PO DAILY [facility] Stop: 02/10/21 08:59 Last Admin: 01/12/21 08:42 Dose: 400 mg Documented by: Ondansetron HCl (Ondansetron Inj 2 Mg/Ml 2 Ml Vial) 4 mg IV Q6H PRN PRN Reason: Nausea Stop: 02/09/21 14:07 Polyethylene Glycol (Polyethylene (Miralax) 17 Gm Pack) 17 gm PO DAILY PRN PRN Reason: Constipation Stop: 02/09/21 14:07 Prednisone (Prednisone 10 Mg Tablet) 30 mg PO DAILY [facility] Stop: 01/14/21 09:01 Last Admin: 01/12/21 08:43 Dose: 30 mg Documented by: Timolol Maleate (Timolol Maleate 0.5% Op Soln 5 Ml Btl) 1 drops OP DAILY [facility] Stop: 02/10/21 08:59 Last Admin: 01/12/21 08:41 Dose: 1 drops Documented by:
--- NOTE | 2021-01-12 15:43 | Hospitalist Progress Note ---
Date of Service January 12, 2021 Assessment & Plan (1) SOB (shortness of breath): (2) Elevated troponin: (3) Lower respiratory infection (e.g., bronchitis, pneumonia, pneumonitis, pulmonitis): (4) CKD (chronic kidney disease) stage 3, GFR 30-59 ml/min: Plan: This is a 80-year-old female who has significant past medical history of HTN, CKD stage IIIb parathyroidectomy anxiety, gout who presents to ED secondary to URI symptoms, Shortness of breath and panic attacks x1 week. Shortness of breath, likely secondary to underlying CHF, systolic and valvular type, newly diagnosed Possible bilateral pneumonia procalcitonin and proBNP -both within normal limits Covid screen: Negative CT chest: Possible CHF pattern versus pneumonia Given Lasix 20 mg IV x1 given concern finding for pulmonary edema and reported history of weight gain x8 pounds Doxycycline 100 mg twice daily Prednisone 40 mg daily Much improved, on room air Continue doxycycline day number 3 out of 7 Taper prednisone 20 mg tomorrow, 10 mg the day after, then stop 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 Patient has remained euvolemic Hold off on further Lasix at this time Consideration for RU inhibitor in the future, held for now Follow-up with cardiology in 2 weeks Elevated troponin likely demand ischemia from hypertensive urgency Denies chest pain EKG no signs of acute ischemia or infarct Echocardiogram: EF 40 to 45% Apical wall motion abnormality may reflect pacemaker activation Right ventricular systolic function is normal Left atrium is moderately dilated There is mild to moderate mitral regurgitation There is moderate to severe tricuspid vegetation [employer]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, heparin discontinued Continue to maintain good blood pressure HTN Now improved Continue clonidine Control anxiety CKD stage III Baseline creatinine 1.5-1.7, at baseline Remains at baseline Monitor Bipolar disorder Panic attacks Continue Abilify, lorazepam, BuSpar, fluoxetine, Lamictal She has follow-up with psychiatrist in January inpatient psychiatry consultation Vistaril at bedtime and as needed added, working well DVT ppx: SQ Heparin Dispo: Med telemetry PCP: Raz [facility] Disposition Discharge to home Follow-up with PCP in 1 week Follow-up with commissioned police officer in 3 to 4 weeks Admission and Anticipated Discharge Date Admission Date: January 11, 2021 Subjective Follow-up for shortness of breath, pneumonia, CHF, etc. Seen resting in bed, in very good spirits, smiling, cheerful States she feels much better overall No shortness of breath, cough, fevers or chills Ambulated with respiratory therapist, does not require oxygen supplementation No chest pain, dizziness, headache States mood is much better, sleeping well No other symptoms Review of Systems Review of Systems: all noted and negative except for above Physical Exam Physical Exam: General- oriented x 3, not in distress, speaks in sentences with no effort or accessory muscle use Eyes- anicteric Neck- no JVD Lungs- clear breath sounds bilaterally, no crackles, no wheezing bilaterally Heart- normal rate, regular rhythm; no murmurs Abdomen- normal bowel sounds, nondistended, soft, nontender Extremities- no pretibial edema, no calf tenderness Neuro- alert, oriented x 3; no gross focal neurologic deficits Skin- warm & dry Results & Data Results & Data ([facility]) Vital Signs (Past 12 Hours) Vital Signs Temp Pulse Pulse Pulse Pulse Pulse Resp 01/12/21 15:31 36.7 C 76 16 01/12/21 14:57 63 01/12/21 12:56 95 H 94 H 79 01/12/21 10:54 36.5 C 63 18 01/12/21 07:00 36.7 C 75 65 18 Resp Resp Resp BP Pulse Ox Pulse Ox Pulse Ox 01/12/21 15:31 154/81 H 97 01/12/21 14:57 01/12/21 12:56 18 16 16 93 96 01/12/21 10:54 117/72 97 01/12/21 07:00 138/66 96 Pulse Ox 01/12/21 15:31 01/12/21 14:57 01/12/21 12:56 97 01/12/21 10:54 01/12/21 07:00 all noted and reviewed including below
--- NOTE | 2021-01-12 15:53 | Discharge Summary ---
Date of Service January 12, 2021 Admission HPI Per Admitting Provider This is a 80-year-old female who has significant past medical history of HTN, CKD stage IIIb parathyroidectomy anxiety, gout who presents to ED secondary to URI symptoms, Shortness of breath and panic attacks x1 week. Over past week she has experience sore throat, sinus congestion and dry cough. Sore throat and congestion resolved but she continues to have cough. Cough is now wet but unsure of coloration due to swallowing mucus. She denies fever, chills, sweats, lightheaded, dizziness, chest pain, orthopnea, pnd, lower ext edema, n/v/d, abd pain, change in bowel or urinary habits. She does admit to off and on SOB, mostly with exertion. She further complains of chest tightness when she sob w/ exertion. Appetite has been normal. She admits to 8lb weight gain over the past 3 months, unintentional. She feels it may be related to medication. She denies using excess salt or eating processed foods. Her daughter is at bedside. She was seen in outpt clinic by PCP. Her flu, covid and rsv test was negative. She has not been taking anything over the counter. She also admits to panic attacks occurring overnight. Due to hx of bipolar d/o she follows psych q3 months. She states her last March and she has been having difficulty with this. Attacks occur in middle of night when she gets up to urinate, lasts 5 minutes, resolves on own. She has experienced this before but it has been while. In ED she remained hemodynamically stable although hypertensive. Her CBC and CMP was generally unremarkable except for chronic renal insufficiency with a BUN of 27 and creatinine of 1.70 and a mildly elevated troponin at .070. Her chest x-ray revealed bilateral airspace opacities could represent congestive heart failure/pulmonary edema and/or infectious/inflammatory pneumonitis. She received IV Levaquin and oral lorazepam while in ED. Admission Exam (Per Admitting) Constitutional Constitutional: WD/WN, elderly, female, vitals as above, NAD, sitting up in bed, pleasant, conversing easily Head: Normocephalic, Atraumatic Eyes: PERRL, conjunctivae normal, anicteric sclerae ENMT: external ear and nose normal, oropharynx normal Neck: trachea midline, no thyromegaly normal visual inspection Respiratory: normal respiratory effort, lungs clear to auscultation, positive rhonchi, prolonged expiratory phase, no wheeze, rales. Normal insp/exp effort, no accessory muscle use Cardiovascular: RRR, no murmur, no edema Vessels: no JVD or carotid bruit Chest: normal inspection of chest Abdomen: normal bowel sounds, soft, nontender, no hepatosplenomegaly Musculoskeletal: no cyanosis or clubbing, extremities motor strength 5/5 Skin: no rashes, warm and dry normal turgor Neurologic: PERRL, EOMI, accommodation nl, no face palsy, no dysarthria CN's II-XI intact bilaterally and moves all extremities Psychiatric: A+Ox3, euthymic affect Lymphatic: no cervical or axillary lymphadenopathy : deferred Discharge Data Consultations 01/10/21 09:06 ED Decision to Admit Stat 01/10/21 16:22 Consult Cardiology Routine Procedures Performed CT SCAN OF THE CHEST WITHOUT IV CONTRAST CLINICAL HISTORY: Atypical chest pain. Abnormal chest x-ray. COMPARISON STUDY: Chest x-ray dated 01/10/2021. TECHNIQUE: CT scan of the thorax was performed from the thoracic inlet to the upper abdomen. Images are reviewed in the axial, sagittal, and coronal planes. IV contrast was not administered for this examination as per the referring clinician. A dose lowering technique was utilized adhering to the principles of ALARA. CT DOSE: 381.54 mGy.cm FINDINGS: Thyroid: Atrophic. Thoracic aorta: There is mild atherosclerotic calcification of the thoracic aorta, which is normal in caliber and demonstrates bovine variant arch anatomy. Heart: A 2-lead cardiac pacemaker is present in the left chest wall. The heart is enlarged and without pericardial effusion. Lungs and pleural spaces: A fat-containing Bochdalek hernia is noted at the right lung base. Mild patchy groundglass opacities are seen throughout the left lung. No pleural effusion is identified. Scarring/atelectasis is seen at both lung bases. The trachea and central airways are clear. Mild diffuse intralobular septal thickening is observed. Air trapping is noted at both lung bases. Mediastinum: There are scattered subcentimeter mediastinal lymph nodes. Mary Jo: Not well assessed without IV contrast. Axillae: There is no axillary lymphadenopathy. Upper abdomen: Partially visualized upper abdominal viscera is within normal limits. Skeletal structures: The skeletal structures are osteopenic. Spondylotic change is seen throughout the thoracic spine. No lytic or blastic bony lesions are seen. IMPRESSION: 1. Cardiomegaly and cardiac pacemaker. Mild diffuse intralobular septal thickening could represent acute versus chronic congestive change and clinical correlation will be required. 2. There are groundglass opacities scattered throughout the left lung. This could represent asymmetric fluid overload versus a mild infectious/inflammatory pneumonitis. Again, clinical correlation will be required. 3. There is no lobar consolidation or pleural effusion. 4. Additional findings as above. ACT 112: Negative or not required by law. Electronically signed by: Bal Ruvalcaba M.D. 01/10/2021 4:46 PM Hospital Course (1) SOB (shortness of breath): (2) Elevated troponin: (3) Lower respiratory infection (e.g., bronchitis, pneumonia, pneumonitis, pulmonitis): (4) CKD (chronic kidney disease) stage 3, GFR 30-59 ml/min: This is a 80-year-old female who has significant past medical history of HTN, CKD stage IIIb parathyroidectomy anxiety, gout who presents to ED secondary to URI symptoms, Shortness of breath and panic attacks x1 week. Shortness of breath, likely secondary to underlying CHF, systolic and valvular type, newly diagnosed Possible bilateral pneumonia procalcitonin and proBNP -both within normal limits Covid screen: Negative CT chest: Possible CHF pattern versus pneumonia Given Lasix 20 mg IV x1 given concern finding for pulmonary edema and reported history of weight gain x8 pounds Doxycycline 100 mg twice daily Prednisone 40 mg daily Much improved, on room air Continue doxycycline day number 3 out of 7 Taper prednisone 20 mg tomorrow, 10 mg the day after, then stop Buttonhole Maker consulted Patient has remained euvolemic Hold off on further Lasix at this time Consideration for RU inhibitor in the future, held for now Follow-up with cardiology in 2 weeks Elevated troponin likely demand ischemia from hypertensive urgency Denies chest pain EKG no signs of acute ischemia or infarct Echocardiogram: EF 40 to 45% Apical wall motion abnormality may reflect pacemaker activation Right ventricular systolic function is normal Left atrium is moderately dilated There is mild to moderate mitral regurgitation There is moderate to severe tricuspid vegetation Buttonhole Maker consulted, heparin discontinued Continue to maintain good blood pressure HTN Now improved Continue clonidine Control anxiety CKD stage III Baseline creatinine 1.5-1.7, at baseline Remains at baseline Monitor Bipolar disorder Panic attacks Continue Abilify, lorazepam, BuSpar, fluoxetine, Lamictal She has follow-up with psychiatrist in January inpatient psychiatry consultation Vistaril at bedtime and as needed added, working well repeat EKG on ff up with PCP, please monitor QT interval closely as outpatient Disposition Discharge to home Follow-up with PCP in 1 week Follow-up with gut cleaner in 3 to 4 weeks
--- NOTE | 2021-01-21 08:02 | Coding Query ---
CONGESTIVE HEART FAILURE To Promote full compliance with coding requirements relating to patient care, physician participation is requested in all cases of siding stapler uncertainty. Please assist us with the following questions. A diagnosis of Congestive Heart Failure is documented in the patient's medical record. To accurately code this diagnosis and to compare patient severity, we ask that you specify the type of heart failure by placing an X within the parenthesis (x). SYSTOLIC HEART FAILURE ( ) Acute ( ) Chronic ( x) Acute on Chronic ( ) Rheumatic ( ) Unknown DIASTOLIC HEART FAILURE ( ) Acute ( ) Chronic ( ) Acute on Chronic ( ) Rheumatic ( ) Unknown COMBINED SYSTOLIC AND DIASTOLIC HEART FAILURE ( ) Acute ( ) Chronic ( ) Acute on Chronic ( ) Rheumatic ( ) Unknown Was the CHF Present On Admission? Please check the appropriate box: ( x) Present on Admission ( ) Not Present On Admission ( ) Clinically undetermined Thank you Fidel [facility]
== END 2021-01-12 17:28 | disposition home or self-care (01) | DRG 291 ==
LOC: ED 07:47 → 2N 07:47

== ENCOUNTER 2021-04-23 08:50 | Inpatient (IN) ==
--- NOTE | 2021-04-23 08:56 | Emergency Department Note ---
Impression & Plan Hypertensive emergency, CKD (chronic kidney disease) stage 3, GFR 30-59 ml/min, Hypoxemia ED Provider Note NAME: COLIN MCKENNA AGE: 80 SEX: F : 1940 ARRIVES VIA: Ambulance INFORMANT: Patient, ED PROVIDER(S): Jaems Lewis MD Chief Complaint: Shortness of breath HPI: Patient presents due to concern for shortness of breath that began around 6 AM this morning. EMS was called with the patient was placed on supplemental oxygen and was given Ativan 0.5 mg IV to see if this would help xiomara some of her symptoms. The patient states that the Ativan did improve her symptoms. The patient does complain of some left-sided chest heaviness but not any radiation. The patient denies any abdominal pain nausea or vomiting. No sweaty episodes. The patient denies any history of DVT or PE. The patient does believe that she is put on about 5 pounds in the last month but thinks that this is related to poor diet. Patient does not take her morning blood pressure medications. Patient denies any lower leg swelling. Patient denies any known history of any lung disease and does not use oxygen at home. Patient is vaccinated for COVID- 19. Patient was most recently seen at the end of December for similar symptoms. Patient at that time had a CT noncontrast which showed some cardiomegaly. No evidence of obvious effusion or lobar consolidation at that time. Patient's echo showed EF of 40 to 45% with apical wall motion abnormality. Left atrium moderately dilated with normal RV function. There is moderate MR and TR. ROS: See HPI for pertinent positives and negatives. A total of 10 systems were reviewed and otherwise negative. Past medical history: See below Surgical history: See below Social history: See below Physical Exam: GENERAL: Anxious in appearance, wearing a mask, nasal cannula in place. EYE EXAM: Normal conjunctiva. PERRL, no anisocoria and EOM's grossly intact w/o pain. OROPHARYNX: Moist mucus membranes. Grossly normal dentition. NECK: Supple, no nuchal rigidity, no adenopathy, non-tender. No signs of meningismus. LUNGS: Bibasilar crackles noted. Normal chest wall mechanics. HEART: NSR, no MRG. ABDOMEN: Abdomen soft, non-tender, normo-active bowel sounds, no masses, no rebound or guarding. BACK: No CVA TTP. SKIN: No rashes and no bruising. UPPER EXTREMITIES: Upper extremities are grossly normal. LOWER EXTREMITIES: Grossly normal, no edema. Negative Homans' sign bilaterally NEURO EXAM: A&O x3, cranial nerves II-XII grossly intact, normal speech, moves all 4 extremities on command w/o issue. Differential diagnoses: Reactive airway disease, pneumonia, pneumothorax, COPD, CHF, infections, cardiac ischemia, pulmonary embolism, musculoskeletal, gastrointestinal, as well as other pathologies. Course: Patient was seen and evaluated the bedside. Full history physical exam was performed. EKG interpreted by me A paced rhythm, ventricular rate of 72, normal intervals, left axis deviation, no obvious ST changes. Significant motion artifact noted Imaging Studies: See Below Cardiac monitoring: An order was placed for continuous cardiac monitoring. The monitor shows a rate of 75 with paced rhythm. MDM: Patient was seen due to concern for shortness of breath and hypertensive emergency. Blood work was obtained. The patient did have an EKG completed chest x-ray. The patient was treated for hypertension associated shortness of breath with IV labetalol, sublingual nitro, and Ativan. Patient has normal white count H&H and platelet count. The patient's kidney function showed a creatinine clearance of 35. Creatinine is at more or less baseline. Patient does have mild hyperkalemia. Given the patient does have pulmonary edema seen on chest x-ray and given the patient's hypotension will give a dose of IV Lasix 20 mg. Covid negative. Troponin is detectable but not elevated. EKG with no obvious ischemic change. Believe the patient would benefit from inpatient treatment given her hypertensive emergency also causing hypoxemia. I did speak with Stephanie Witt PA-C and the patient was admitted to Dr. Dodge. The patient's blood pressure is significantly improved compared to the EMS call I received as well as when she initially arrived. Critical Care: I have personally spent 47 minutes of critical care time in direct management of this patient. This includes bedside care, interpretation of diagnostic studies, and testing, discussion with consultants, patient, and family members, and other require inpatient management activities. This 47 minutes is in excess of all separately billable procedures. Past Med/Surg History Medical History Anxiety Bipolar disorder (manic depression) CKD (chronic kidney disease) stage 3, GFR 30-59 ml/min Depression Dyslipidemia GERD (gastroesophageal reflux disease) HTN (hypertension) Kidney problem Lyme disease Mitral regurgitation Primary angle-closure glaucoma SSS (sick sinus syndrome) Tricuspid regurgitation Surgical History H/O parathyroidectomy History of blepharoplasty History of permanent cardiac pacemaker placement History of tubal ligation Family History Other Heart disease Denies family history of Cancer Social History Smoking Status: Never smoker Hx Alcohol Use: No Hx Substance Use: No Preferred Language: Danish Communication Ability: Effective Vending Route Driver Required: No Beliefs That Will Affect Care: None marital status: / Current Living Situation: Alone Other Information That Helps Us Care for You: No Feels Safe at Home: Yes Safety Concerns: Feels Safe At This Time Assistive Devices: Glasses Allergies Allergies Allergy/AdvReac Type Severity Reaction Status Date / Time No Known Allergies Allergy Unknown Verified 04/23/21 11:23 Home Meds Home Medications Medication Instructions Recorded Confirmed allopurinol 300 mg tablet 300 mg PO QAM 04/21/19 04/23/21 atorvastatin 20 mg tablet 20 mg PO PM 04/21/19 04/23/21 brimonidine 0.15 % eye drops 1 drp OPB BID 04/21/19 04/23/21 buspirone 15 mg tablet 15 mg PO BID 04/21/19 04/23/21 clonidine HCl 0.3 mg tablet 0.3 mg PO BID 04/21/19 04/23/21 fluoxetine 40 mg capsule 80 mg PO QAM 04/21/19 04/23/21 lamotrigine 100 mg tablet 100 mg PO BID 04/21/19 04/23/21 levothyroxine 150 mcg tablet 150 mcg PO QAM 04/21/19 04/23/21 timolol maleate 0.5 % eye drops 1 drp OPB DAILY 04/21/19 04/23/21 carvedilol 12.5 mg tablet 12.5 mg PO BID 04/23/21 04/23/21 cholecalciferol (vitamin D3) 50 50 mcg PO DAILY 04/23/21 04/23/21 mcg (2,000 unit) capsule (Vitamin D3) lorazepam 1 mg tablet 1 mg PO DAILY PRN 04/23/21 04/23/21 olanzapine 2.5 mg tablet 2.5 mg PO DAILY 04/23/21 04/23/21 Previous Rx's Medication Instructions Recorded cyanocobalamin (vitamin B-12) 500 500 mcg PO QAM #30 tab 07/13/20 mcg tablet folic acid 1 mg tablet 1 mg PO QAM #30 tab 07/13/20 magnesium oxide 400 mg (241.3 mg 400 mg PO DAILY #10 tab 07/13/20 magnesium) tablet Results & Data (ED) Vital Signs Vital Signs - 24 hr 04/23/21 08:59 04/23/21 09:30 04/23/21 10:21 Temperature 36.7 C Temperature Source Oral Pulse Rate 79 Pulse Rate [Apical] 61 60 Respiratory Rate 30 H 22 18 Blood Pressure 244/137 H Blood Pressure [Right Arm] 135/89 137/88 Blood Pressure Mean 172 Blood Pressure Mean [Right Arm] 104 104 Pulse Oximetry 89 L 97 97 Oxygen Delivery Method Nasal Cannula Nasal Cannula Nasal Cannula Oxygen Flow Rate 0 2 2 Sepsis Recent Fever Within 48 Hours No Sepsis New/Unexplained Change in Mental Status No Sepsis Action Taken by Nursing No Action Required Oxygen Flow Rate - Titration 2 Pulse Oximetry Post Tiitration 94 Home Medications Current Medication List: was personally reviewed by me Laboratory Data Attestation: I reviewed the patient's lab results. Result diagrams: 04/23/21 09:00 04/23/21 09:00 Lab Results 04/23/21 04/23/21 04/23/21 Range/Units 09:00 09:00 09:00 WBC 8.24 (4.8-10.8) K/uL RBC 4.26 (4.2-5.4) M/uL Hgb 12.8 (12.0-16.0) g/dL Hct 38.8 (37-47) % MCV 91.1 (80-100) fL MCH 30.0 (25-34) pg MCHC 33.0 (32-36) g/dL RDW Std Deviation 50.1 H (36.4-46.3) fL RDW Coeff of Tank 15.1 H (11.5-14.5) % Plt Count 168 (130-400) K/uL MPV 10.7 H (7.4-10.4) fL Immature Gran % (Auto) 0.5 % Neut % (Auto) 79.6 % Lymph % (Auto) 10.8 % Aiken % (Auto) 6.8 % Eos % (Auto) 1.8 % Baso % (Auto) 0.5 % Neut # (Auto) 6.56 H (1.4-6.5) K/uL Lymph # (Auto) 0.89 L (1.2-3.4) K/uL Aiken # (Auto) 0.56 (0.11-0.59) K/uL Eos # (Auto) 0.15 (0-0.5) K/uL Baso # (Auto) 0.04 (0-0.2) K/uL Immature Gran # (Auto) 0.04 H (0.00-0.02) K/uL PT 10.7 (9.0-12.0) Seconds INR 1.0 (0.9-1.1) APTT 25.2 (21.0-31.0) Seconds PTT Ratio 0.9 Sodium 138 (136-145) mmol/L Potassium 5.2 H (3.5-5.1) mmol/L Chloride 113 H (98-107) mmol/L Carbon Dioxide 20 L (21-32) mmol/L Anion Gap 5 (3-11) BUN 25 H (6-23) mg/dl Creatinine 1.48 H (0.6-1.2) mg/dl Est Cr Clr Drug Dosing 35.3 ml/min Est GFR ( Amer) 38.9 ml/min Est GFR (Non-Af Amer) 33.6 ml/min BUN/Creatinine Ratio 16.9 (10-20) Glucose 141 H (70-99(Fasting)) mg/dl Calcium 9.4 (8.5-10.1) mg/dl Total Bilirubin 0.5 (0.2-1.0) mg/dl AST 28 (13-39) U/L ALT 36 (7-52) U/L Alkaline Phosphatase 104 (34-104) U/L Troponin I 0.04 (0-0.04) ng/ml Total Protein 7.1 (6.0-8.3) gm/dl Albumin 4.0 (3.4-5.0) gm/dl Globulin 3.1 (2.5-4.0) gm/dl Albumin/Globulin Ratio 1.3 (0.9-2) SARS-CoV-2, RNA, NAAT (NEGATIVE) 04/23/21 Range/Units 10:00 WBC (4.8-10.8) K/uL RBC (4.2-5.4) M/uL Hgb (12.0-16.0) g/dL Hct (37-47) % MCV (80-100) fL MCH (25-34) pg MCHC (32-36) g/dL RDW Std Deviation (36.4-46.3) fL RDW Coeff of Tank (11.5-14.5) % Plt Count (130-400) K/uL MPV (7.4-10.4) fL Immature Gran % (Auto) % Neut % (Auto) % Lymph % (Auto) % Aiken % (Auto) % Eos % (Auto) % Baso % (Auto) % Neut # (Auto) (1.4-6.5) K/uL Lymph # (Auto) (1.2-3.4) K/uL Aiken # (Auto) (0.11-0.59) K/uL Eos # (Auto) (0-0.5) K/uL Baso # (Auto) (0-0.2) K/uL Immature Gran # (Auto) (0.00-0.02) K/uL PT (9.0-12.0) Seconds INR (0.9-1.1) APTT (21.0-31.0) Seconds PTT Ratio Sodium (136-145) mmol/L Potassium (3.5-5.1) mmol/L Chloride (98-107) mmol/L Carbon Dioxide (21-32) mmol/L Anion Gap (3-11) BUN (6-23) mg/dl Creatinine (0.6-1.2) mg/dl Est Cr Clr Drug Dosing ml/min Est GFR ( Amer) ml/min Est GFR (Non-Af Amer) ml/min BUN/Creatinine Ratio (10-20) Glucose (70-99(Fasting)) mg/dl Calcium (8.5-10.1) mg/dl Total Bilirubin (0.2-1.0) mg/dl AST (13-39) U/L ALT (7-52) U/L Alkaline Phosphatase (34-104) U/L Troponin I (0-0.04) ng/ml Total Protein (6.0-8.3) gm/dl Albumin (3.4-5.0) gm/dl Globulin (2.5-4.0) gm/dl Albumin/Globulin Ratio (0.9-2) SARS-CoV-2, RNA, NAAT NEGATIVE (NEGATIVE) Administered Medications Discontinued Medications Furosemide (Furosemide Inj 20 Mg/2 Ml Vial) 20 mg IV ONE ONE Stop: 04/23/21 09:47 Last Admin: 04/23/21 09:54 Dose: 20 mg Documented by: [id number] Furosemide (Furosemide Inj 20 Mg/2 Ml Vial) 20 mg IV ONE ONE Stop: 04/23/21 12:44 Last Admin: 04/23/21 13:07 Dose: 20 mg Documented by: [id number] Labetalol HCl (Labetalol Hcl Iv 5 Mg/Ml 20ml) 10 mg IV NOW STA Stop: 04/23/21 09:04 Last Admin: 04/23/21 09:19 Dose: 10 mg Documented by: [id number] Cosigned by: [id number] Lorazepam (Lorazepam 2 Mg/1 Ml Vial) 0.5 mg IV NOW STA Stop: 04/23/21 09:04 Last Admin: 04/23/21 09:17 Dose: 0.5 mg Documented by: [id number] Nitroglycerin (Nitroglycerin Sl 0.4 Mg/Tab Tab) 0.4 mg SL NOW STA Stop: 04/23/21 09:04 Last Admin: 04/23/21 09:15 Dose: 0.4 mg Documented by: [id number] Imaging Data Radiologist's Impression: Chest X-Ray 04/23/21 09:03 XR chest 1V portable HISTORY: 80 years-old Female Dyspnea acute shortness of breath COMPARISON: Chest radiograph and chest CT 01/10/2021 TECHNIQUE: Portable AP view of the chest FINDINGS: The cardiac silhouette is enlarged. Left subclavian pacer. Pulmonary vascular congestion with bilateral reticular interstitial opacities. Small pleural effusions with mild bibasilar opacities. No pneumothorax. Bones appear grossly intact. IMPRESSION: 1. Cardiomegaly with pulmonary edema. 2. Small pleural effusions with mild bibasilar consolidation. ACT 112: Negative or not required by law. The above report was generated using voice recognition software. It may contain grammatical, syntax or spelling errors. Electronically signed by: Romel Steward M.D. 04/23/2021 9:41 AM Discharge Plan Visit Data Chief Complaint: Shortness of Breath/Dyspnea Stated Complaint: SOB, HTN ED Provider: James Lewis Discharge Problem: Hypertensive emergency, CKD (chronic kidney disease) stage 3, GFR 30-59 ml/min, Hypoxemia Patient Disposition: Admitted As Inpatient Discharge Instructions Interventions: ED Discharge Assessment Last Done: 04/23/21 11:28
[2021-04-23] MEDS ORDERED: NITROGLYCERIN SL 0.4 MG/TAB TAB SL STA (09:03)
[2021-04-23] MEDS ORDERED: LORazepam 2 MG/1 ML VIAL IV STA (09:03)
[2021-04-23] MEDS ORDERED: LABETALOL HCL IV 5 MG/ML 20ML IV STA (09:03)
[2021-04-23 09:12] LABS: Mean Platelet Volume 10.7 fL (7.4-10.4); Platelet Count 168 K/uL (130-400)
[2021-04-23 09:26] LABS: Partial Thromboplastin Ratio 0.9; Partial Thromboplastin Time 25.2 Seconds (21.0-31.0); Prothrombin Time 10.7 Seconds (9.0-12.0)
[2021-04-23 09:36] LABS: Albumin Globulin Ratio 1.3 (0.9-2); BUN Creatinine Ratio 16.9 (10-20); Bilirubin,Total 0.5 mg/dl (0.2-1.0); Calcium 9.4 mg/dl (8.5-10.1); Creatinine Clr Calc Pharmacy 35.3 ml/min; Est GFR (African American) 38.9 ml/min; Est GFR (Non-African American) 33.6 ml/min; Globulin 3.1 gm/dl (2.5-4.0); Potassium 5.2 mmol/L (3.5-5.1); Total Protein 7.1 gm/dl (6.0-8.3)
[2021-04-23 09:38] LABS: Troponin I 0.04 ng/ml (0-0.04)
[2021-04-23 09:43] LABS: Basophils # (auto) 0.04 K/uL (0-0.2); Basophils % (auto) 0.5 %; Eosinophils # (auto) 0.15 K/uL (0-0.5); Eosinophils % (auto) 1.8 %; Hematocrit (blood only) 38.8 % (37-47); Hemoglobin 12.8 g/dL (12.0-16.0); Immature Granulocytes # (auto) 0.04 K/uL (0.00-0.02); Immature Granulocytes % (auto) 0.5 %; Lymphocytes # (auto) 0.89 K/uL (1.2-3.4); Lymphocytes % (auto) 10.8 %; Mean Corpuscular Volume 91.1 fL (80-100); Monocytes # (auto) 0.56 K/uL (0.11-0.59); Monocytes % (auto) 6.8 %; Neutrophils # (auto) 6.56 K/uL (1.4-6.5); Neutrophils % (auto) 79.6 %; RDW Coefficient of Variation 15.1 % (11.5-14.5); RDW Standard Deviation 50.1 fL (36.4-46.3); Red Blood Count 4.26 M/uL (4.2-5.4); White Blood Count 8.24 K/uL (4.8-10.8)
--- NOTE | 2021-04-23 09:43 | XRay Report ---
XR chest 1V portable HISTORY: 80 years-old Female Dyspnea acute shortness of breath COMPARISON: Chest radiograph and chest CT 01/10/2021 TECHNIQUE: Portable AP view of the chest FINDINGS: The cardiac silhouette is enlarged. Left subclavian pacer. Pulmonary vascular congestion with bilater al reticular interstitial opacities. Small pleural effusions with mild bibasilar opacities. No pneumo thorax. Bones appear grossly intact. IMPRESSION: 1. Cardiomegaly with pulmonary edema. 2. Small pleural effusions with mild bibasilar consolidation. ACT 112: Negative or not required by law. The above report was generated using voice recognition software. It may contain grammatical, syntax o r spelling errors. Electronically signed by: Romel Steward M.D. 04/23/2021 9:41 AM
[2021-04-23] MEDS ORDERED: FUROSEMIDE INJ 20 MG/2 ML VIAL IV ONE ×2 (09:46→12:43)
--- NOTE | 2021-04-23 10:19 | History & Physical Report ---
Date of Service April 23, 2021 Assessment & Plan (1) Hypertensive emergency: Plan: Pt's BP has been variable over the past several months - most recently cardiology adjusted BP meds to Coreg 12.5 mg BID - Admit to PCU - PRN Labetalol if SBP >180 - Consult cardiology for additional recommendations for BP management - Will give additional dose of IV Lasix this afternoon and reassess in AM (2) CKD (chronic kidney disease) stage 3, GFR 30-59 ml/min: Plan: Creatinine appears to be at baseline - repeat labs in AM (3) Dyslipidemia: Plan: Continue statin (4) GERD (gastroesophageal reflux disease): (5) Anemia: (6) SSS (sick sinus syndrome): (7) Bipolar disorder (manic depression): Plan: Has been on buspirone and will continue Continue lamotrigine and fluoxetine as well (8) Anxiety attack: (9) Primary angle-closure glaucoma: Plan: Continue other home meds as appropriate Pt seen and reviewed with collaborating physician, Dr. Dodge. Plan of care discussed and as outlined above. DVT Prophylaxis: Lovenox Code Status: Full code Marcie Witt PA-C History of Present Illness Chief Complaint: shortness of breath Primary Care Provider: Leticia Crandall DO This is a 80 y/o female with a PMH of HTN, CKD3b (baseline creatinine ~1.5), bipolar d/o, anxiety, gout, prior parathyroidectomy, SSS s/p PPM, glaucoma, hypothyroidism, dyslipidemia, and depression who presented to the ED today via EMS with palpitations, shortness of breath, and OLSEN. Pt reports that she woke up to go to the bathroom this morning around 6:20 am and noted that the top of her head hurt. While in the bathroom, she developed palpitation. She tried to lie down to see if this would help here symptoms but instead they worsened with shortness of breath, ROMERO, and chest heaviness so she called the ambulance. She also felt flushed. She denies chest pain, dizziness, syncope. She noted nothing unusual last night when she went to bed. She does note that she started last fall with anxiety and panic attacks. 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 She is following with psychiatry for anxiety, bipolar, and depression and notes that she was recently started on Zyprexa, which she feels has helped dramatically. She is sleeping well and anxiety is much improved. Currently, in the ED, she reports feeling dramatically improved with better control of her BP. The only residual symptom she has at present is mild SOB. Of note, pt had a similar episode in Nov for which she was admitted. Allergies Allergy/AdvReac Type Severity Reaction Status Date / Time No Known Allergies Allergy Unknown Verified 04/23/21 11:23 Home Medications Medication Instructions Recorded Confirmed Type allopurinol 300 mg tablet 300 mg PO QAM 04/21/19 04/23/21 History atorvastatin 20 mg tablet 20 mg PO PM 04/21/19 04/23/21 History brimonidine 0.15 % eye drops 1 drp OPB BID 04/21/19 04/23/21 History buspirone 15 mg tablet 15 mg PO BID 04/21/19 04/23/21 History clonidine HCl 0.3 mg tablet 0.3 mg PO BID 04/21/19 04/23/21 History fluoxetine 40 mg capsule 80 mg PO QAM 04/21/19 04/23/21 History lamotrigine 100 mg tablet 100 mg PO BID 04/21/19 04/23/21 History levothyroxine 150 mcg tablet 150 mcg PO QAM 04/21/19 04/23/21 History timolol maleate 0.5 % eye drops 1 drp OPB DAILY 04/21/19 04/23/21 History cyanocobalamin (vitamin B-12) 500 500 mcg PO QAM #30 tab 07/13/20 04/23/21 Rx mcg tablet folic acid 1 mg tablet 1 mg PO QAM #30 tab 07/13/20 04/23/21 Rx magnesium oxide 400 mg (241.3 mg 400 mg PO DAILY #10 tab 07/13/20 04/23/21 Rx magnesium) tablet carvedilol 12.5 mg tablet 12.5 mg PO BID 04/23/21 04/23/21 History cholecalciferol (vitamin D3) 50 50 mcg PO DAILY 04/23/21 04/23/21 History mcg (2,000 unit) capsule (Vitamin D3) lorazepam 1 mg tablet 1 mg PO DAILY PRN 04/23/21 04/23/21 History olanzapine 2.5 mg tablet 2.5 mg PO DAILY 04/23/21 04/23/21 History Past Med/Surg History Medical History Anxiety Bipolar disorder (manic depression) CKD (chronic kidney disease) stage 3, GFR 30-59 ml/min Depression Dyslipidemia GERD (gastroesophageal reflux disease) HTN (hypertension) Kidney problem Lyme disease Mitral regurgitation Primary angle-closure glaucoma SSS (sick sinus syndrome) Tricuspid regurgitation Surgical History H/O parathyroidectomy History of blepharoplasty History of permanent cardiac pacemaker placement History of tubal ligation Family History Other Heart disease Denies family history of Cancer Social History Smoking Status: Never smoker Hx Alcohol Use: No Hx Substance Use: No Preferred Language: Malay Communication Ability: Effective Bench Grinder Required: No Beliefs That Will Affect Care: None marital status: / Current Living Situation: Alone Other Information That Helps Us Care for You: No Feels Safe at Home: Yes Safety Concerns: Feels Safe At This Time Assistive Devices: Glasses Review of Systems Review of Systems: All systems reviewed & are unremarkable except as noted in HPI & below Constitutional: + fatigue and + weakness; no fever, no chills and no sweats Eyes: no diplopia Ear, Nose, Mouth, Throat: no nasal congestion, no nasal discharge and no sore throat Respiratory: + dyspnea and + dyspnea on exertion; no cough and no wheezing Cardiovascular: as per Subjective / HPI and + palpitations; no chest pain, no lightheadedness, no syncope and no edema Gastrointestinal: no abdominal pain, no nausea, no vomiting, no diarrhea/loose stools and no blood in stools Genitourinary: no dysuria, no urinary frequency and no hematuria Musculoskeletal: no myalgia and no muscle weakness Integumentary: no rash and no yellowing of the skin Neurologic: as per Subjective / HPI; no falls and no syncope Psychiatric: + anxiety and + panic attacks Physical Exam Constitutional: well developed and well nourished; no acute distress Eyes: + anicteric sclerae Neck: trachea midline Respiratory: no respiratory distress and no labored breathing Auscultation: + crackles (bibasilar - otherwise clear) Cardiovascular: Rate/Rhythm: regular rate and regular rhythm Vessels: dorsalis pedis pulses present and radial pulses present Extremities: no pedal edema Gastrointestinal (Abdomen): Inspection/Auscultation: normal bowel sounds; abdomen not distended Percussion/Palpation: abdomen soft; abdomen nontender Musculoskeletal: Head/Neck/Chest: normocephalic, head atraumatic and neck supple Skin: no jaundice Neurologic: moves all extremities; no focal motor deficits Psychiatric: A+Ox3, euthymic affect Results & Data Results & Data ([facility]) Vital Signs (Past 12 Hours) Vital Signs Temp Pulse Pulse Resp BP BP Pulse Ox 04/23/21 09:30 61 22 135/89 97 04/23/21 08:59 36.7 C 79 30 H 244/137 H 89 L Laboratory Results Laboratory Results - last 24 hr 04/23/21 04/23/21 04/23/21 09:00 09:00 09:00 WBC 8.24 RBC 4.26 Hgb 12.8 Hct 38.8 MCV 91.1 MCH 30.0 MCHC 33.0 RDW Std Deviation 50.1 H RDW Coeff of Tank 15.1 H Plt Count 168 MPV 10.7 H Immature Gran % (Auto) 0.5 Neut % (Auto) 79.6 Lymph % (Auto) 10.8 [place] % (Auto) 6.8 Eos % (Auto) 1.8 Baso % (Auto) 0.5 Neut # (Auto) 6.56 H Lymph # (Auto) 0.89 L [place] # (Auto) 0.56 Eos # (Auto) 0.15 Baso # (Auto) 0.04 Immature Gran # (Auto) 0.04 H PT 10.7 INR 1.0 APTT 25.2 PTT Ratio 0.9 Sodium 138 Potassium 5.2 H Chloride 113 H Carbon Dioxide 20 L Anion Gap 5 BUN 25 H Creatinine 1.48 H Est Cr Clr Drug Dosing 35.3 Est GFR ( Amer) 38.9 Est GFR (Non-Af Amer) 33.6 BUN/Creatinine Ratio 16.9 Glucose 141 H Calcium 9.4 Total Bilirubin 0.5 AST 28 ALT 36 Alkaline Phosphatase 104 Troponin I 0.04 Total Protein 7.1 Albumin 4.0 Globulin 3.1 Albumin/Globulin Ratio 1.3 SARS-CoV-2, RNA, NAAT 04/23/21 10:00 WBC RBC Hgb Hct MCV MCH MCHC RDW Std Deviation RDW Coeff of Tank Plt Count MPV Immature Gran % (Auto) Neut % (Auto) Lymph % (Auto) [place] % (Auto) Eos % (Auto) Baso % (Auto) Neut # (Auto) Lymph # (Auto) [place] # (Auto) Eos # (Auto) Baso # (Auto) Immature Gran # (Auto) PT INR APTT PTT Ratio Sodium Potassium Chloride Carbon Dioxide Anion Gap BUN Creatinine Est Cr Clr Drug Dosing Est GFR ( Amer) Est GFR (Non-Af Amer) BUN/Creatinine Ratio Glucose Calcium Total Bilirubin AST ALT Alkaline Phosphatase Troponin I Total Protein Albumin Globulin Albumin/Globulin Ratio SARS-CoV-2, RNA, NAAT NEGATIVE Diagnostic Findings Chest X-ray 04/23/21 - IMPRESSION: 1. Cardiomegaly with pulmonary edema. 2. Small pleural effusions with mild bibasilar consolidation. Medications Administered Discontinued Medications Furosemide (Furosemide Inj 20 Mg/2 Ml Vial) 20 mg IV ONE ONE Stop: 04/23/21 09:47 Last Admin: 04/23/21 09:54 Dose: 20 mg Documented by: [id number] Labetalol HCl (Labetalol Hcl Iv 5 Mg/Ml 20ml) 10 mg IV NOW STA Stop: 04/23/21 09:04 Last Admin: 04/23/21 09:19 Dose: 10 mg Documented by: [id number] Cosigned by: [id number] Lorazepam (Lorazepam 2 Mg/1 Ml Vial) 0.5 mg IV NOW STA Stop: 04/23/21 09:04 Last Admin: 04/23/21 09:17 Dose: 0.5 mg Documented by: [id number] Nitroglycerin (Nitroglycerin Sl 0.4 Mg/Tab Tab) 0.4 mg SL NOW STA Stop: 04/23/21 09:04 Last Admin: 04/23/21 09:15 Dose: 0.4 mg Documented by: [id number] Supervising Physician Co-Signing Physician Notes Attending addendum: The patient was seen and examined in the emergency room in presence of the daughter She has been complaining of dizziness, ringing in the ears, headache, chest pressure and shortness of breath since last night Noted to have very high blood pressure of 244/137 in the emergency room which was controlled with intravenous labetalol During my examination she has been feeling a little better with minimal shortness of breath without any other symptoms On examination Very anxious but lying in bed without any acute distress Hemodynamically stable Chestbibasilar crackles HeartS1-S2, regular Abdomenbenign Extremitiesno edema CNSalert, awake and oriented x3. 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
[2021-04-23] MEDS ORDERED: ACETAMINOPHEN 325 MG TAB PO PRN (12:18)
[2021-04-23] MEDS ORDERED: PNEUMOCOCCAL POLYSACCHARIDES 25 MCG/0.5 ML VIAL/SYR IM ONE (12:33)
[2021-04-23] MEDS ORDERED: LABETALOL HCL IV 5 MG/ML 20ML IV PRN (12:43)
--- NOTE | 2021-04-23 13:23 | Electrocardiogram Report ---
Test Reason : Blood Pressure : / mmHG Vent. Rate : 072 BPM Atrial Rate : 072 BPM P-R Int : 194 ms QRS Dur : 080 ms QT Int : 380 ms P-R-T Axes : 010 -24 041 degrees QTc Int : 416 ms Poor data quality, interpretation may be adversely affected Atrial-paced rhythm Minimal voltage criteria for LVH, may be normal variant Poor R wave progression, consider anterior MO vs. lead placement vs. LVH Abnormal ECG When compared with ECG of 10-JAN-2021 07:51, No significant change Confirmed by Malik Thomas ([id number]) on 04/23/2021 1:22:59 PM Referred By: REFERRED SELF Confirmed By:Malik Thomas
--- NOTE | 2021-04-23 13:37 | Cardiology Consultation ---
Date of Consultation April 23, 2021 Assessment & Plan (1) Bipolar disorder (manic depression): (2) Hypertensive cardiovascular-renal disease: (3) Anxiety attack: The patient's blood pressure seems to be better now that she is in the hospital. I think she is having problems with anxiety and mental health since the passing of her . She has been under the care of both a psychologist and counselor. I feel she came to the hospital really because of anxiety and it may be best that we have psychiatry see her while she is an inpatient. History of Present Illness Attending Physician: Jason Dodge MD History of Present Illness This is a 80-year-old female with a bipolar disorder and anxiety who has been under the care of mental health. We have seen her in the past for difficult to control hypertension which may be related to medical noncompliance. She does have a history of hypertensive heart disease by echocardiography. The patient has been having a difficult time with the recent passing of her . She describes to me a feeling of increased anxiety resulting in paresthesias and other somatic complaints. She was noted upon arrival to the hospital to be markedly hypertensive but now as she is calm down her blood pressure seems to have leveled off. No cardiac complaints presently. Past cardiac history: 1.Cardiomyopathy, 2.LV dysfunction 3.HTN, goal below 140/90 4.Dyslipidemia, goal LDL below 100 5.Chronic kidney disease, stage 3b (HCC) 6.Cardiac pacemaker in situ Allergies Allergy/AdvReac Type Severity Reaction Status Date / Time No Known Allergies Allergy Unknown Verified 04/23/21 11:23 Home Medications Medication Instructions Recorded Confirmed Type allopurinol 300 mg tablet 300 mg PO QAM 04/21/19 04/23/21 History atorvastatin 20 mg tablet 20 mg PO PM 04/21/19 04/23/21 History brimonidine 0.15 % eye drops 1 drp OPB BID 04/21/19 04/23/21 History buspirone 15 mg tablet 15 mg PO BID 04/21/19 04/23/21 History clonidine HCl 0.3 mg tablet 0.3 mg PO BID 04/21/19 04/23/21 History fluoxetine 40 mg capsule 80 mg PO QAM 04/21/19 04/23/21 History lamotrigine 100 mg tablet 100 mg PO BID 04/21/19 04/23/21 History levothyroxine 150 mcg tablet 150 mcg PO QAM 04/21/19 04/23/21 History timolol maleate 0.5 % eye drops 1 drp OPB DAILY 04/21/19 04/23/21 History cyanocobalamin (vitamin B-12) 500 500 mcg PO QAM #30 tab 07/13/20 04/23/21 Rx mcg tablet folic acid 1 mg tablet 1 mg PO QAM #30 tab 07/13/20 04/23/21 Rx magnesium oxide 400 mg (241.3 mg 400 mg PO DAILY #10 tab 07/13/20 04/23/21 Rx magnesium) tablet carvedilol 12.5 mg tablet 12.5 mg PO BID 04/23/21 04/23/21 History cholecalciferol (vitamin D3) 50 50 mcg PO DAILY 04/23/21 04/23/21 History mcg (2,000 unit) capsule (Vitamin D3) lorazepam 1 mg tablet 1 mg PO DAILY PRN 04/23/21 04/23/21 History olanzapine 2.5 mg tablet 2.5 mg PO DAILY 04/23/21 04/23/21 History Patient History Medical History Anxiety Bipolar disorder (manic depression) CKD (chronic kidney disease) stage 3, GFR 30-59 ml/min Depression Dyslipidemia GERD (gastroesophageal reflux disease) HTN (hypertension) Kidney problem Lyme disease Mitral regurgitation Primary angle-closure glaucoma SSS (sick sinus syndrome) Tricuspid regurgitation Surgical History H/O parathyroidectomy History of blepharoplasty History of permanent cardiac pacemaker placement History of tubal ligation Family History Other Heart disease Denies family history of Cancer Social History Smoking Status: Never smoker Hx Alcohol Use: No Hx Substance Use: No Preferred Language: Urdu Communication Ability: Effective Airline Attendant Required: No Beliefs That Will Affect Care: None marital status: / Current Living Situation: Alone Other Information That Helps Us Care for You: No Feels Safe at Home: Yes Safety Concerns: Feels Safe At This Time Assistive Devices: Glasses Review of Systems Review of Systems: Review of Systems: See HPI for pertinent positives. All other 10 point review of systems are negative. Physical Exam Physical Exam: General: no acute distress and stated age Head: normocephalic, no masses, lesions, tenderness or abnormalities Eyes: conjunctiva are pink and non-injected, sclera clear Neck: supple, no adenopathy, no bruits, normal jugular venous pulse, no hepatojugular reflux Chest: normal shape and normal respiratory effort Lungs: clear to auscultation and percussion Cardiac Exam: - regular rate & rhythm, no murmurs gallops or rubs - normal S1, normal S2 Pulses: 2(+) throughout Abdomen: abdomen soft, non-tender, no abnormal masses and no hepatosplenomegaly Musculoskeletal: no gait disturbance, no joint inflammation, no deforming arthritis Extremities: no edema and no cyanosis Neuro: grossly normal exam Results & Data ([facility]) Vital Signs (Past 12 Hours) Vital Signs Temp Pulse Pulse Resp BP BP Pulse Ox 04/23/21 12:20 36.8 C 61 18 133/82 95 04/23/21 12:19 04/23/21 11:23 60 18 139/85 97 04/23/21 10:21 60 18 137/88 97 04/23/21 09:30 61 22 135/89 97 04/23/21 08:59 36.7 C 79 30 H 244/137 H 89 L Pulse Ox 04/23/21 12:20 04/23/21 12:19 95 04/23/21 11:23 04/23/21 10:21 04/23/21 09:30 04/23/21 08:59 Laboratory Results Laboratory Results - last 24 hr 04/23/21 04/23/21 04/23/21 09:00 09:00 09:00 WBC 8.24 RBC 4.26 Hgb 12.8 Hct 38.8 MCV 91.1 MCH 30.0 MCHC 33.0 RDW Std Deviation 50.1 H RDW Coeff of Tank 15.1 H Plt Count 168 MPV 10.7 H Immature Gran % (Auto) 0.5 Neut % (Auto) 79.6 Lymph % (Auto) 10.8 [place] % (Auto) 6.8 Eos % (Auto) 1.8 Baso % (Auto) 0.5 Neut # (Auto) 6.56 H Lymph # (Auto) 0.89 L [place] # (Auto) 0.56 Eos # (Auto) 0.15 Baso # (Auto) 0.04 Immature Gran # (Auto) 0.04 H PT 10.7 INR 1.0 APTT 25.2 PTT Ratio 0.9 Sodium 138 Potassium 5.2 H Chloride 113 H Carbon Dioxide 20 L Anion Gap 5 BUN 25 H Creatinine 1.48 H Est Cr Clr Drug Dosing 35.3 Est GFR ( Amer) 38.9 Est GFR (Non-Af Amer) 33.6 BUN/Creatinine Ratio 16.9 Glucose 141 H Calcium 9.4 Total Bilirubin 0.5 AST 28 ALT 36 Alkaline Phosphatase 104 Troponin I 0.04 Total Protein 7.1 Albumin 4.0 Globulin 3.1 Albumin/Globulin Ratio 1.3 SARS-CoV-2, RNA, NAAT 04/23/21 10:00 WBC RBC Hgb Hct MCV MCH MCHC RDW Std Deviation RDW Coeff of Tank Plt Count MPV Immature Gran % (Auto) Neut % (Auto) Lymph % (Auto) [place] % (Auto) Eos % (Auto) Baso % (Auto) Neut # (Auto) Lymph # (Auto) [place] # (Auto) Eos # (Auto) Baso # (Auto) Immature Gran # (Auto) PT INR APTT PTT Ratio Sodium Potassium Chloride Carbon Dioxide Anion Gap BUN Creatinine Est Cr Clr Drug Dosing Est GFR ( Amer) Est GFR (Non-Af Amer) BUN/Creatinine Ratio Glucose Calcium Total Bilirubin AST ALT Alkaline Phosphatase Troponin I Total Protein Albumin Globulin Albumin/Globulin Ratio SARS-CoV-2, RNA, NAAT NEGATIVE Medications Administered Current Inpatient Medications Acetaminophen (Acetaminophen 325 Mg Tab) 650 mg PO Q4H PRN PRN Reason: Pain or Fever Stop: 05/23/21 12:17 Allopurinol (Allopurinol 300 Mg Tab) 300 mg PO QAM CASSIE Stop: 05/24/21 08:59 Atorvastatin Calcium (Atorvastatin 20 Mg Tab) 20 mg PO PM CASSIE Stop: 05/23/21 20:59 Brimonidine Tartrate (Brimonidine Tartrate-P 0.15% 5 Ml Btl) 1 drops OPB BID CASSIE Stop: 05/23/21 20:59 Buspirone HCl (Buspirone 15 Mg Tab) 15 mg PO BID CASSIE Stop: 05/23/21 20:59 Carvedilol (Carvedilol 12.5 Mg Tab) 12.5 mg PO BID CASSIE Stop: 05/23/21 20:59 Clonidine HCl (Clonidine Hcl 0.3 Mg Tab) 0.3 mg PO BID CASSIE Stop: 05/23/21 20:59 Cyanocobalamin (Cyanocobalamin (B-12) 500 Mcg Tablet) 500 mcg PO QAM CASSIE Stop: 05/24/21 08:59 Enoxaparin Sodium (Enoxaparin Inj 30 Mg/0.3 Ml Syr) 40 mg SQ Q24H CASSIE Stop: 05/24/21 08:59 Fluoxetine HCl (Fluoxetine Hcl 20 Mg Cap) 80 mg PO QAM CASSIE Stop: 05/24/21 08:59 Folic Acid (Folic Acid 1 Mg Tab) 1 mg PO QAM CASSIE Stop: 05/24/21 08:59 Labetalol HCl (Labetalol Hcl Iv 5 Mg/Ml 20ml) 10 mg IV ONE PRN PRN Reason: Blood Pressure - High Stop: 05/23/21 12:42 Lamotrigine (Lamotrigine 100 Mg Tab) 100 mg PO BID CASSIE Stop: 05/23/21 20:59 Levothyroxine Sodium (Levothyroxine Sodium 150 Mcg Tablet) 150 mcg PO DAILYBB CASSIE Stop: 05/24/21 06:29 Lorazepam (Lorazepam 1 Mg Tab) 1 mg PO DAILY PRN PRN Reason: Anxiety Stop: 05/23/21 13:56 Magnesium Oxide (Magnesium Oxide 400 Mg Tab) 400 mg PO DAILY CASSIE Stop: 05/24/21 08:59 Olanzapine (Olanzapine 2.5 Mg Tab) 2.5 mg PO DAILY CASSIE Stop: 05/24/21 08:59 Timolol Maleate (Timolol Maleate 0.5% Op Soln 5 Ml Btl) 1 drops OP DAILY CASSIE Stop: 05/24/21 08:59 Vitamin D (Cholecalciferol 1,000 Units 25 Mcg Tab) 2,000 units PO DAILY CASSIE Stop: 05/24/21 08:59
[2021-04-23] MEDS ORDERED: LORazepam 1 MG TAB PO PRN (13:57)
[2021-04-23] MEDS: ATORVASTATIN 20 MG TAB PO SCH (20:01)
[2021-04-23] MEDS: busPIRone 15 MG TAB PO SCH (20:01)
[2021-04-23] MEDS: cloNIDine HCL 0.3 MG TAB PO SCH (20:01)
[2021-04-23] MEDS: carvediloL 12.5 MG TAB PO SCH (20:01)
[2021-04-23] MEDS: BRIMONIDINE TARTRATE-P 0.15% 5 ML BTL OPB SCH (20:01)
[2021-04-23] MEDS: lamoTRIgine 100 MG TAB PO SCH (20:02)
[2021-04-24] MEDS: LEVOTHYROXINE SODIUM 150 MCG TABLET PO SCH (06:31)
[2021-04-24 07:18] LABS: Calcium 9.8 mg/dl (8.5-10.1); Creatinine Clr Calc Pharmacy 27.6 ml/min; Est GFR (African American) 29.7 ml/min; Est GFR (Non-African American) 25.6 ml/min; Magnesium 1.2 mg/dl (1.7-2.4); Potassium 4.9 mmol/L (3.5-5.1)
[2021-04-24 07:33] LABS: BUN Creatinine Ratio 20.5 (10-20)
[2021-04-24] MEDS ORDERED: ENOXAPARIN INJ 30 MG/0.3 ML SYR SQ SCH (09:00)
[2021-04-24] MEDS ORDERED: TIMOLOL MALEATE 0.5% OP SOLN 5 ML BTL OP SCH (09:00)
--- NOTE | 2021-04-24 09:06 | Cardiology Progress Note ---
Date of Service April 24, 2021 Assessment & Plan (1) Bipolar disorder (manic depression): (2) Hypertensive cardiovascular-renal disease: (3) Anxiety attack: (4) (HFpEF) heart failure with preserved ejection fraction: (5) PAF (paroxysmal atrial fibrillation): Plan: The patient's admission chest x-ray suggested pulmonary edema. She was given IV Lasix in the emergency department early yesterday morning and her symptoms of heart failure resolved. Possibly, she may have gone into atrial fibrillation which resulted in her heart failure. In any case, she was seen and in a paced rhythm yesterday and now this morning has gone into atrial fibrillation. I have discontinued her Lovenox and started her on IV heparin. I have also started her on oral amiodarone. She is a little hypertensive this morning and I have restarted Lasix p.o. 20 mg twice daily. This should help with her hypertension and and HFpEF. Continue to follow renal function. Admission and Anticipated Discharge Date Admission Date: April 23, 2021 Subjective The patient went into atrial fibrillation approximately 830 this morning. She got up to go to the bathroom and felt her heart racing and palpitating. She has no complaints of shortness of breath. No dizziness or lightheadedness. Review of Systems Review of Systems: Review of Systems: See HPI for pertinent positives. All other 10 point review of systems are negative. Physical Exam Physical Exam: General: no acute distress and stated age Head: normocephalic, no masses, lesions, tenderness or abnormalities Eyes: conjunctiva are pink and non-injected, sclera clear Neck: supple, no adenopathy, no bruits, normal jugular venous pulse, no hepatojugular reflux Chest: normal shape and normal respiratory effort Lungs: clear to auscultation and percussion Cardiac Exam: - regular rate & rhythm, no murmurs gallops or rubs - normal S1, normal S2 Pulses: 2(+) throughout Abdomen: abdomen soft, non-tender, no abnormal masses and no hepatosplenomegaly Musculoskeletal: no gait disturbance, no joint inflammation, no deforming arthritis Extremities: no edema and no cyanosis Neuro: grossly normal exam Results & Data ([facility]) Vital Signs (Past 12 Hours) Vital Signs Temp Pulse Resp BP Pulse Ox 04/24/21 08:06 36.8 C 67 18 163/95 H 93 04/24/21 03:01 36.6 C 67 18 169/94 H 96 04/23/21 23:24 36.6 C 62 18 119/67 92 04/23/21 22:07 124/63 Laboratory Results Laboratory Results - last 24 hr 04/23/21 04/23/21 04/23/21 09:00 09:00 09:00 WBC 8.24 RBC 4.26 Hgb 12.8 Hct 38.8 MCV 91.1 MCH 30.0 MCHC 33.0 RDW Std Deviation 50.1 H RDW Coeff of Tank 15.1 H Plt Count 168 MPV 10.7 H Immature Gran % (Auto) 0.5 Neut % (Auto) 79.6 Lymph % (Auto) 10.8 [place] % (Auto) 6.8 Eos % (Auto) 1.8 Baso % (Auto) 0.5 Neut # (Auto) 6.56 H Lymph # (Auto) 0.89 L [place] # (Auto) 0.56 Eos # (Auto) 0.15 Baso # (Auto) 0.04 Immature Gran # (Auto) 0.04 H PT 10.7 INR 1.0 APTT 25.2 PTT Ratio 0.9 Sodium 138 Potassium 5.2 H Chloride 113 H Carbon Dioxide 20 L Anion Gap 5 BUN 25 H Creatinine 1.48 H Est Cr Clr Drug Dosing 35.3 Est GFR ( Amer) 38.9 Est GFR (Non-Af Amer) 33.6 BUN/Creatinine Ratio 16.9 Glucose 141 H Calcium 9.4 Magnesium Total Bilirubin 0.5 AST 28 ALT 36 Alkaline Phosphatase 104 Troponin I 0.04 B-Natriuretic Peptide Total Protein 7.1 Albumin 4.0 Globulin 3.1 Albumin/Globulin Ratio 1.3 Procalcitonin SARS-CoV-2, RNA, NAAT 04/23/21 04/24/21 04/24/21 10:00 05:44 08:19 WBC RBC Hgb Hct MCV MCH MCHC RDW Std Deviation RDW Coeff of Tank Plt Count MPV Immature Gran % (Auto) Neut % (Auto) Lymph % (Auto) [place] % (Auto) Eos % (Auto) Baso % (Auto) Neut # (Auto) Lymph # (Auto) [place] # (Auto) Eos # (Auto) Baso # (Auto) Immature Gran # (Auto) PT INR APTT PTT Ratio Sodium 137 Potassium 4.9 Chloride 111 H Carbon Dioxide 24 Anion Gap 2 L BUN 38 H Creatinine 1.85 H D Est Cr Clr Drug Dosing 27.6 Est GFR ( Amer) 29.7 Est GFR (Non-Af Amer) 25.6 BUN/Creatinine Ratio 20.5 H Glucose 128 H Calcium 9.8 Magnesium 1.2 L Total Bilirubin AST ALT Alkaline Phosphatase Troponin I B-Natriuretic Peptide Pending Total Protein Albumin Globulin Albumin/Globulin Ratio Procalcitonin SARS-CoV-2, RNA, NAAT NEGATIVE 04/24/21 08:19 WBC RBC Hgb Hct MCV MCH MCHC RDW Std Deviation RDW Coeff of Tank Plt Count MPV Immature Gran % (Auto) Neut % (Auto) Lymph % (Auto) [place] % (Auto) Eos % (Auto) Baso % (Auto) Neut # (Auto) Lymph # (Auto) [place] # (Auto) Eos # (Auto) Baso # (Auto) Immature Gran # (Auto) PT INR APTT PTT Ratio Sodium Potassium Chloride Carbon Dioxide Anion Gap BUN Creatinine Est Cr Clr Drug Dosing Est GFR ( Amer) Est GFR (Non-Af Amer) BUN/Creatinine Ratio Glucose Calcium Magnesium Total Bilirubin AST ALT Alkaline Phosphatase Troponin I B-Natriuretic Peptide Total Protein Albumin Globulin Albumin/Globulin Ratio Procalcitonin Pending SARS-CoV-2, RNA, NAAT Medications Administered Current Inpatient Medications Acetaminophen (Acetaminophen 325 Mg Tab) 650 mg PO Q4H PRN PRN Reason: Pain or Fever Stop: 05/23/21 12:17 Allopurinol (Allopurinol 300 Mg Tab) 300 mg PO QAM [facility] Stop: 05/24/21 08:59 Amiodarone HCl (Amiodarone 200 Mg Tab) 200 mg PO TIDM [facility] Stop: 05/24/21 08:59 Atorvastatin Calcium (Atorvastatin 20 Mg Tab) 20 mg PO PM [facility] Stop: 05/23/21 20:59 Last Admin: 04/23/21 20:01 Dose: 20 mg Documented by: Brimonidine Tartrate (Brimonidine Tartrate-P 0.15% 5 Ml Btl) 1 drops OPB BID [facility] Stop: 05/23/21 20:59 Last Admin: 04/23/21 20:01 Dose: 1 drops Documented by: Buspirone HCl (Buspirone 15 Mg Tab) 15 mg PO BID [facility] Stop: 05/23/21 20:59 Last Admin: 04/23/21 20:01 Dose: 15 mg Documented by: Carvedilol (Carvedilol 12.5 Mg Tab) 12.5 mg PO BID [facility] Stop: 05/23/21 20:59 Last Admin: 04/23/21 20:01 Dose: 12.5 mg Documented by: Clonidine HCl (Clonidine Hcl 0.3 Mg Tab) 0.3 mg PO BID [facility] Stop: 05/23/21 20:59 Last Admin: 04/23/21 20:01 Dose: 0.3 mg Documented by: Cyanocobalamin (Cyanocobalamin (B-12) 500 Mcg Tablet) 500 mcg PO QAM [facility] Stop: 05/24/21 08:59 Fluoxetine HCl (Fluoxetine Hcl 20 Mg Cap) 80 mg PO QAM [facility] Stop: 05/24/21 08:59 Folic Acid (Folic Acid 1 Mg Tab) 1 mg PO QAM [facility] Stop: 05/24/21 08:59 Furosemide (Furosemide 20 Mg Tab) 20 mg PO BID17 [facility] Stop: 05/24/21 08:59 Heparin Sodium/Dextrose (Heparin Iv Adult Wt-Based Standard *No* Bolus Protocol) 1 ea N/A ONE ONE; Protocol Stop: 04/24/21 08:58 Magnesium Sulfate/Dextrose (Magnesium Sulfate / D5w) 1 gm in 100 mls @ 50 mls/hr IV Q2H [facility] Stop: 04/24/21 14:29 Heparin Sodium/Dextrose (Heparin Sodium/Dextrose) 25,000 units in 500 mls @ 0.02 mls/hr IV .Q24H [facility]; Protocol Stop: 05/24/21 09:14 Labetalol HCl (Labetalol Hcl Iv 5 Mg/Ml 20ml) 10 mg IV ONE PRN PRN Reason: Blood Pressure - High Stop: 05/23/21 12:42 Last Admin: 04/23/21 21:18 Dose: 10 mg Documented by: Lamotrigine (Lamotrigine 100 Mg Tab) 100 mg PO BID [facility] Stop: 05/23/21 20:59 Last Admin: 04/23/21 20:02 Dose: 100 mg Documented by: Levothyroxine Sodium (Levothyroxine Sodium 150 Mcg Tablet) 150 mcg PO DAILYBB [facility] Stop: 05/24/21 06:29 Last Admin: 04/24/21 06:31 Dose: 150 mcg Documented by: Lorazepam (Lorazepam 1 Mg Tab) 1 mg PO DAILY PRN PRN Reason: Anxiety Stop: 05/23/21 13:56 Last Admin: 04/23/21 21:24 Dose: 1 mg Documented by: Magnesium Oxide (Magnesium Oxide 400 Mg Tab) 400 mg PO DAILY [facility] Stop: 05/24/21 08:59 Olanzapine (Olanzapine 2.5 Mg Tab) 2.5 mg PO DAILY [facility] Stop: 05/24/21 08:59 Timolol Maleate (Timolol Maleate 0.5% Op Soln 5 Ml Btl) 1 drops OP DAILY [facility] Stop: 05/24/21 08:59 Vitamin D (Cholecalciferol 1,000 Units 25 Mcg Tab) 2,000 units PO DAILY [facility] Stop: 05/24/21 08:59
[2021-04-24] MEDS: MAGNESIUM SULFATE / D5W 1 GM/100 ML BAG IV SCH ×3 (09:27→13:24)
[2021-04-24] MEDS: OLANZAPINE 2.5 MG TAB PO SCH (09:29)
[2021-04-24] MEDS: MAGNESIUM OXIDE 400 MG TAB PO SCH (09:29)
[2021-04-24] MEDS: CYANOCOBALAMIN (B-12) 500 MCG TABLET PO SCH (09:29)
[2021-04-24] MEDS: FLUoxetine HCL 20 MG CAP PO SCH (09:29)
[2021-04-24] MEDS: carvediloL 12.5 MG TAB PO SCH ×2 (09:29→21:09)
[2021-04-24] MEDS ORDERED: Heparin IV Adult Wt-Based Standard *NO* Bolus Protocol IV SCH (09:30)
[2021-04-24] MEDS: allopurinoL 300 MG TAB PO SCH (09:30)
[2021-04-24] MEDS: TIMOLOL MALEATE 0.5% OP SOLN 5 ML BTL OP SCH (09:30)
[2021-04-24] MEDS: lamoTRIgine 100 MG TAB PO SCH ×2 (09:31→21:06)
[2021-04-24] MEDS: FOLIC ACID 1 MG TAB PO SCH (09:31)
[2021-04-24] MEDS: CHOLECALCIFEROL 1,000 UNITS 25 MCG TAB PO SCH (09:31)
[2021-04-24] MEDS: busPIRone 15 MG TAB PO SCH ×2 (09:31→21:07)
[2021-04-24] MEDS: cloNIDine HCL 0.3 MG TAB PO SCH ×2 (09:31→21:07)
[2021-04-24] MEDS: BRIMONIDINE TARTRATE-P 0.15% 5 ML BTL OPB SCH ×2 (09:32→21:09)
[2021-04-24 09:39] LABS: Albumin Globulin Ratio 1.6 (0.9-2); Albumin Level 3.9 gm/dl (3.4-5.0); BUN Creatinine Ratio 21.6 (10-20); Bilirubin,Total 0.5 mg/dl (0.2-1.0); Calcium 9.4 mg/dl (8.5-10.1); Est GFR (African American) 31.6 ml/min; Est GFR (Non-African American) 27.2 ml/min; Globulin 2.4 gm/dl (2.5-4.0); Magnesium 1.1 mg/dl (1.7-2.4); Potassium 4.5 mmol/L (3.5-5.1); Total Protein 6.3 gm/dl (6.0-8.3)
[2021-04-24 09:49] LABS: Troponin I 0.05 ng/ml (0-0.04)
[2021-04-24] MEDS: FUROSEMIDE 20 MG TAB PO SCH ×2 (09:56→16:50)
[2021-04-24] MEDS: AMIODARONE 200 MG TAB PO SCH ×3 (09:56→16:50)
[2021-04-24] MEDS: HEPARIN SODIUM/DEXTROSE 25,000 UNITS/500 ML BAG IV SCH (09:58)
--- NOTE | 2021-04-24 13:06 | Electrocardiogram Report ---
Test Reason : Blood Pressure : / mmHG Vent. Rate : 098 BPM Atrial Rate : 277 BPM P-R Int : 000 ms QRS Dur : 086 ms QT Int : 334 ms P-R-T Axes : 000 -27 073 degrees QTc Int : 426 ms Atrial flutter with variable A-V block Minimal voltage criteria for LVH, may be normal variant Abnormal ECG When compared with ECG of 23-APR-2021 08:57, Atrial flutter has replaced Electronic atrial pacemaker Confirmed by Malik Thomas ([id number]) on 04/24/2021 1:06:09 PM Referred By: REFERRED SELF Confirmed By:Malik Thomas
--- NOTE | 2021-04-24 14:22 | Hospitalist Progress Note ---
Date of Service April 24, 2021 Assessment & Plan (1) Hypertensive emergency: Plan: (1) Hypertensive emergency: (#) Anxiety Plan: Pt's BP has been variable over the past several months [employer] - most recently cardiology adjusted BP meds to Coreg 12.5 mg BID c/w telemetry PRN Labetalol if SBP >180 Cardiology on board, appreciate recommendation Blood pressure has been variable, mostly under control. Patient reports that she lost her almost a year ago in March She reports her anxiety had been getting better lately, her medication has been changed by her psychiatrist 3 weeks ago [employer] DIRECT[employer] per her. She reports having some anxiety in the ED at presentation after being told that her blood pressure elevation might be due to her anxiety. Will continue w/ OP meds, behavioral health liasion consulted. #. Pulmonary edema #. Acute on chronic systolic heart failure Admitting CXR positive for cardiomegaly with pulmonary edema, mild bibasilar consolidation. WBC and pro Kumar negative at presentation. At admission BNP elevated at 225. Received multiple doses of Lasix IV on the day of admission. 01/10/2021 ECHO: EF 40 to 45%, LV systolic function reduced. Likely secondary to PAF. Clinically, no crackles appreciated on auscultation today. Cardiology on board, Lasix 20 mg twice daily, appreciate recommendation Will get ECHO, f/u results #. Paroxysmal atrial fibrillation Admitting EKG was atrial paced rhythm. Patient went into A. fib at 8:30 AM 04/24. 04/24 EKG: Atrial flutter with variable AV block. Cardiology on board, patient started on heparin and amiodarone, replace magnesium, trend troponin. ECHO. #. CKD (chronic kidney disease) stage 3, GFR 30-59 ml/min: Plan: Creatinine appears to be at baseline - repeat labs in AM #. Other chronic medical conditions: GERD, HLD, anemia, SSS, bipolar disorder [manic depression], anxiety disorder, primary)", Continue with/resume home medication as and when appropriate. DVT Prophylaxis: Heparin drip Code Status: Full code Admission and Anticipated Discharge Date Admission Date: April 23, 2021 Subjective Patient seen and examined at bedside as a follow-up of hypertensive emergency, pulmonary edema and paroxysmal atrial fibrillation. Patient was lying in bed, on room air, NAD, no new acute events overnight. Patient denies any headache/dizziness/chest pain/palpitations/any funny sensation in the chest. Telemetry review shows that patient went into atrial fibrillation at 8:30 AM today. Overnight, her rhythm was atrial paced. Patient denies cough/sore throat/belly pain/acute changes in bowel or bladder habits/other review of symptoms. Physical Exam Physical Exam: GENERAL: Alert and oriented x3. NAD, on RA. HEENT: No pallor, no icterus. Pupils equal, round and reactive to light. Oral mucosa moist. NECK: No JVD, no neck masses. HEART: S1 and S2 heard. irregular rate and rhythm. No murmur, no gallop. RESPIRATORY SYSTEM: Normal AP diameter. No accessory muscle use. No wheezing, no crackles. ABDOMEN: Soft, bowel sounds present, nontender, no distention. CENTRAL NERVOUS SYSTEM: No facial droop. Speech is clear. Obeys simple commands. Moves extremities. EXTREMITIES: No edema, no erythema seen. Results & Data Results & Data ([facility]) Vital Signs (Past 12 Hours) Vital Signs Temp Pulse Pulse Resp BP Pulse Ox 04/24/21 11:51 36.4 C L 78 16 113/75 94 04/24/21 08:06 36.8 C 67 18 163/95 H 93 04/24/21 06:14 74 04/24/21 03:01 36.6 C 67 18 169/94 H 96
[2021-04-24 16:36] LABS: Partial Thromboplastin Ratio 1.6; Partial Thromboplastin Time 44.4 Seconds (21.0-31.0)
[2021-04-24] MEDS: ATORVASTATIN 20 MG TAB PO SCH (21:08)
[2021-04-24 23:21] LABS: Troponin I 0.04 ng/ml (0-0.04)
[2021-04-24 23:25] LABS: Partial Thromboplastin Ratio 1.7
[2021-04-24 23:27] LABS: Partial Thromboplastin Time 47.7 Seconds (21.0-31.0)
[2021-04-24 23:39] LABS: Magnesium 1.8 mg/dl (1.7-2.4)
[2021-04-25] MEDS ORDERED: MAGNESIUM SULFATE / D5W 1 GM/100 ML BAG IV ONE (00:23)
[2021-04-25] MEDS ORDERED: ALBUMIN 25% 100 mL 25 GM/100 ML VIAL IV ONE (00:24)
[2021-04-25 00:43] LABS: Basophils # (auto) 0.01 K/uL (0-0.2); Basophils % (auto) 0.2 %; Eosinophils # (auto) 0.13 K/uL (0-0.5); Hematocrit (blood only) 30.8 % (37-47); Hemoglobin 10.3 g/dL (12.0-16.0); Immature Granulocytes # (auto) 0.01 K/uL (0.00-0.02); Immature Granulocytes % (auto) 0.2 %; Lymphocytes # (auto) 1.53 K/uL (1.2-3.4); Lymphocytes % (auto) 35.1 %; Mean Corpuscular Hemoglobin 30.1 pg (25-34); Mean Corpuscular Hgb Conc 33.4 g/dL (32-36); Mean Corpuscular Volume 90.1 fL (80-100); Monocytes # (auto) 0.59 K/uL (0.11-0.59); Monocytes % (auto) 13.5 %; Neutrophils # (auto) 2.09 K/uL (1.4-6.5); Platelet Count 122 K/uL (130-400); RDW Coefficient of Variation 15.1 % (11.5-14.5); RDW Standard Deviation 49.4 fL (36.4-46.3); Red Blood Count 3.42 M/uL (4.2-5.4); White Blood Count 4.36 K/uL (4.8-10.8)
[2021-04-25 01:01] LABS: BUN Creatinine Ratio 22.7 (10-20); Calcium 9.7 mg/dl (8.5-10.1); Creatinine Clr Calc Pharmacy 26.3 ml/min; Est GFR (Non-African American) 24.2 ml/min; Phosphorus 3.3 mg/dl (2.5-4.9); Potassium 4.4 mmol/L (3.5-5.1)
[2021-04-25] MEDS: HEPARIN SODIUM/DEXTROSE 25,000 UNITS/500 ML BAG IV SCH (05:02)
[2021-04-25] MEDS: LEVOTHYROXINE SODIUM 150 MCG TABLET PO SCH (05:02)
[2021-04-25 07:21] LABS: Partial Thromboplastin Ratio 1.8; Partial Thromboplastin Time 49.8 Seconds (21.0-31.0)
[2021-04-25] MEDS: busPIRone 15 MG TAB PO SCH ×2 (08:02→20:36)
[2021-04-25] MEDS: cloNIDine HCL 0.3 MG TAB PO SCH ×2 (08:02→20:36)
[2021-04-25] MEDS: lamoTRIgine 100 MG TAB PO SCH ×2 (08:02→20:38)
[2021-04-25] MEDS: carvediloL 12.5 MG TAB PO SCH ×2 (08:02→20:39)
[2021-04-25] MEDS: AMIODARONE 200 MG TAB PO SCH ×3 (08:03→16:25)
[2021-04-25] MEDS: OLANZAPINE 2.5 MG TAB PO SCH (08:03)
[2021-04-25] MEDS: CYANOCOBALAMIN (B-12) 500 MCG TABLET PO SCH (08:03)
[2021-04-25] MEDS: CHOLECALCIFEROL 1,000 UNITS 25 MCG TAB PO SCH (08:03)
[2021-04-25] MEDS: FOLIC ACID 1 MG TAB PO SCH (08:03)
[2021-04-25] MEDS: allopurinoL 300 MG TAB PO SCH (08:03)
[2021-04-25] MEDS: FUROSEMIDE 20 MG TAB PO SCH (08:03)
[2021-04-25] MEDS: FLUoxetine HCL 20 MG CAP PO SCH (08:03)
[2021-04-25] MEDS: MAGNESIUM OXIDE 400 MG TAB PO SCH (08:03)
[2021-04-25] MEDS: BRIMONIDINE TARTRATE-P 0.15% 5 ML BTL OPB SCH ×2 (08:04→20:40)
[2021-04-25] MEDS: TIMOLOL MALEATE 0.5% OP SOLN 5 ML BTL OP SCH (08:04)
--- NOTE | 2021-04-25 08:28 | Cardiology Progress Note ---
Date of Service April 25, 2021 Assessment & Plan (1) Bipolar disorder (manic depression): (2) Hypertensive cardiovascular-renal disease: (3) Anxiety attack: (4) (HFpEF) heart failure with preserved ejection fraction: (5) PAF (paroxysmal atrial fibrillation): Plan: I would continue with the amiodarone load through today. She will need anticoagulation after discharge and I think she should be on a reduced dose of Eliquis at 2.5 mg twice daily due to her creatinine and age. I have adjusted her Lasix to 40 mg daily. Echocardiogram indicates preserved left ventricular systolic function. Admission and Anticipated Discharge Date Admission Date: April 23, 2021 Subjective The patient feels well and has no ongoing complaints. Review of Systems Review of Systems: Review of Systems: See HPI for pertinent positives. All other 10 point review of systems are negative. Physical Exam Physical Exam: General: no acute distress and stated age Head: normocephalic, no masses, lesions, tenderness or abnormalities Eyes: conjunctiva are pink and non-injected, sclera clear Neck: supple, no adenopathy, no bruits, normal jugular venous pulse, no hepatojugular reflux Chest: normal shape and normal respiratory effort Lungs: clear to auscultation and percussion Cardiac Exam: - regular rate & rhythm, no murmurs gallops or rubs - normal S1, normal S2 Pulses: 2(+) throughout Abdomen: abdomen soft, non-tender, no abnormal masses and no hepatosplenomegaly Musculoskeletal: no gait disturbance, no joint inflammation, no deforming arthritis Extremities: no edema and no cyanosis Neuro: grossly normal exam Results & Data ([facility]) Vital Signs (Past 12 Hours) Vital Signs Temp Pulse Pulse Resp BP Pulse Ox 04/25/21 03:40 36.4 C L 84 20 109/51 L 96 04/25/21 00:03 96/46 L 04/24/21 23:49 36.5 C 62 18 94/48 L 93 04/24/21 22:20 60 Laboratory Results Laboratory Results - last 24 hr 04/24/21 04/24/21 04/24/21 08:19 08:19 08:57 WBC RBC Hgb Hct MCV MCH MCHC RDW Std Deviation RDW Coeff of Tank Plt Count MPV Immature Gran % (Auto) Neut % (Auto) Lymph % (Auto) [place] % (Auto) Eos % (Auto) Baso % (Auto) Neut # (Auto) Lymph # (Auto) [place] # (Auto) Eos # (Auto) Baso # (Auto) Immature Gran # (Auto) APTT PTT Ratio Sodium 138 Potassium 4.5 Chloride 110 H Carbon Dioxide 22 Anion Gap 6 BUN 38 H Creatinine 1.76 H Est Cr Clr Drug Dosing 29.0 Est GFR ( Amer) 31.6 Est GFR (Non-Af Amer) 27.2 BUN/Creatinine Ratio 21.6 H Glucose 192 H Lactate Calcium 9.4 Phosphorus Magnesium 1.1 L Total Bilirubin 0.5 AST 17 ALT 27 Alkaline Phosphatase 91 Troponin I 0.05 H* B-Natriuretic Peptide 225 H Total Protein 6.3 Albumin 3.9 Globulin 2.4 L Albumin/Globulin Ratio 1.6 Procalcitonin 0.11 04/24/21 04/24/21 04/24/21 14:54 16:16 22:42 WBC RBC Hgb Hct MCV MCH MCHC RDW Std Deviation RDW Coeff of Tank Plt Count MPV Immature Gran % (Auto) Neut % (Auto) Lymph % (Auto) [place] % (Auto) Eos % (Auto) Baso % (Auto) Neut # (Auto) Lymph # (Auto) [place] # (Auto) Eos # (Auto) Baso # (Auto) Immature Gran # (Auto) APTT 44.4 H PTT Ratio 1.6 Sodium Potassium Chloride Carbon Dioxide Anion Gap BUN Creatinine Est Cr Clr Drug Dosing Est GFR ( Amer) Est GFR (Non-Af Amer) BUN/Creatinine Ratio Glucose Lactate Calcium Phosphorus Magnesium 1.8 Total Bilirubin AST ALT Alkaline Phosphatase Troponin I 0.05 H* 0.04 B-Natriuretic Peptide Total Protein Albumin Globulin Albumin/Globulin Ratio Procalcitonin 04/24/21 04/25/21 04/25/21 22:42 00:35 00:35 WBC 4.36 L RBC 3.42 L Hgb 10.3 L Hct 30.8 L MCV 90.1 MCH 30.1 MCHC 33.4 RDW Std Deviation 49.4 H RDW Coeff of Tank 15.1 H Plt Count 122 L MPV 10.0 Immature Gran % (Auto) 0.2 Neut % (Auto) 48.0 Lymph % (Auto) 35.1 [place] % (Auto) 13.5 Eos % (Auto) 3.0 Baso % (Auto) 0.2 Neut # (Auto) 2.09 Lymph # (Auto) 1.53 [place] # (Auto) 0.59 Eos # (Auto) 0.13 Baso # (Auto) 0.01 Immature Gran # (Auto) 0.01 APTT 47.7 H* PTT Ratio 1.7 Sodium 136 Potassium 4.4 Chloride 106 Carbon Dioxide 26 Anion Gap 4 BUN 44 H Creatinine 1.94 H Est Cr Clr Drug Dosing 26.3 Est GFR ( Amer) 28.0 Est GFR (Non-Af Amer) 24.2 BUN/Creatinine Ratio 22.7 H Glucose 152 H Lactate Calcium 9.7 Phosphorus 3.3 Magnesium Total Bilirubin AST ALT Alkaline Phosphatase Troponin I B-Natriuretic Peptide Total Protein Albumin Globulin Albumin/Globulin Ratio Procalcitonin 04/25/21 04/25/21 00:35 06:42 WBC RBC Hgb Hct MCV MCH MCHC RDW Std Deviation RDW Coeff of Tank Plt Count MPV Immature Gran % (Auto) Neut % (Auto) Lymph % (Auto) [place] % (Auto) Eos % (Auto) Baso % (Auto) Neut # (Auto) Lymph # (Auto) [place] # (Auto) Eos # (Auto) Baso # (Auto) Immature Gran # (Auto) APTT 49.8 H* PTT Ratio 1.8 Sodium Potassium Chloride Carbon Dioxide Anion Gap BUN Creatinine Est Cr Clr Drug Dosing Est GFR ( Amer) Est GFR (Non-Af Amer) BUN/Creatinine Ratio Glucose Lactate 0.7 Calcium Phosphorus Magnesium Total Bilirubin AST ALT Alkaline Phosphatase Troponin I B-Natriuretic Peptide Total Protein Albumin Globulin Albumin/Globulin Ratio Procalcitonin Diagnostic Findings Review of telemetry indicates the patient is mostly in either a sinus rhythm or a paced. Occasionally a rate controlled atrial fibrillation Medications Administered Current Inpatient Medications Acetaminophen (Acetaminophen 325 Mg Tab) 650 mg PO Q4H PRN PRN Reason: Pain or Fever Stop: 05/23/21 12:17 Allopurinol (Allopurinol 300 Mg Tab) 300 mg PO QAM [facility] Stop: 05/24/21 08:59 Last Admin: 04/25/21 08:03 Dose: 300 mg Documented by: Amiodarone HCl (Amiodarone 200 Mg Tab) 200 mg PO TIDM [facility] Stop: 05/24/21 08:59 Last Admin: 04/25/21 08:03 Dose: 200 mg Documented by: Atorvastatin Calcium (Atorvastatin 20 Mg Tab) 20 mg PO PM [facility] Stop: 05/23/21 20:59 Last Admin: 04/24/21 21:08 Dose: 20 mg Documented by: Brimonidine Tartrate (Brimonidine Tartrate-P 0.15% 5 Ml Btl) 1 drops OPB BID [facility] Stop: 05/23/21 20:59 Last Admin: 04/25/21 08:04 Dose: 1 drops Documented by: Buspirone HCl (Buspirone 15 Mg Tab) 15 mg PO BID [facility] Stop: 05/23/21 20:59 Last Admin: 04/25/21 08:02 Dose: 15 mg Documented by: Carvedilol (Carvedilol 12.5 Mg Tab) 12.5 mg PO BID [facility] Stop: 05/23/21 20:59 Last Admin: 04/25/21 08:02 Dose: 12.5 mg Documented by: Clonidine HCl (Clonidine Hcl 0.3 Mg Tab) 0.3 mg PO BID [facility] Stop: 05/23/21 20:59 Last Admin: 04/25/21 08:02 Dose: 0.3 mg Documented by: Cyanocobalamin (Cyanocobalamin (B-12) 500 Mcg Tablet) 500 mcg PO QAM [facility] Stop: 05/24/21 08:59 Last Admin: 04/25/21 08:03 Dose: 500 mcg Documented by: Fluoxetine HCl (Fluoxetine Hcl 20 Mg Cap) 80 mg PO QAM [facility] Stop: 05/24/21 08:59 Last Admin: 04/25/21 08:03 Dose: 80 mg Documented by: Folic Acid (Folic Acid 1 Mg Tab) 1 mg PO QAM [facility] Stop: 05/24/21 08:59 Last Admin: 04/25/21 08:03 Dose: 1 mg Documented by: Furosemide (Furosemide 40 Mg Tab) 40 mg PO DAILY [facility] Stop: 05/25/21 08:59 Heparin Sodium/Dextrose (Heparin Sodium/Dextrose) 25,000 units in 500 mls @ 26 mls/hr IV .[id number] [facility]; Protocol Stop: 05/24/21 09:14 Last Titration: 04/25/21 07:17 Dose: 1,300 units/hr, 26 mls/hr Documented by: Labetalol HCl (Labetalol Hcl Iv 5 Mg/Ml 20ml) 10 mg IV ONE PRN PRN Reason: Blood Pressure - High Stop: 05/23/21 12:42 Last Admin: 04/23/21 21:18 Dose: 10 mg Documented by: Lamotrigine (Lamotrigine 100 Mg Tab) 100 mg PO BID [facility] Stop: 05/23/21 20:59 Last Admin: 04/25/21 08:02 Dose: 100 mg Documented by: Levothyroxine Sodium (Levothyroxine Sodium 150 Mcg Tablet) 150 mcg PO DAILYBB [facility] Stop: 05/24/21 06:29 Last Admin: 04/25/21 05:02 Dose: 150 mcg Documented by: Lorazepam (Lorazepam 1 Mg Tab) 1 mg PO DAILY PRN PRN Reason: Anxiety Stop: 05/23/21 13:56 Last Admin: 04/23/21 21:24 Dose: 1 mg Documented by: Magnesium Oxide (Magnesium Oxide 400 Mg Tab) 400 mg PO DAILY [facility] Stop: 05/24/21 08:59 Last Admin: 04/25/21 08:03 Dose: 400 mg Documented by: Olanzapine (Olanzapine 2.5 Mg Tab) 2.5 mg PO DAILY [facility] Stop: 05/24/21 08:59 Last Admin: 04/25/21 08:03 Dose: 2.5 mg Documented by: Timolol Maleate (Timolol Maleate 0.5% Op Soln 5 Ml Btl) 1 drops OP DAILY [facility] Stop: 05/24/21 08:59 Last Admin: 04/25/21 08:04 Dose: 1 drops Documented by: Vitamin D (Cholecalciferol 1,000 Units 25 Mcg Tab) 2,000 units PO DAILY [facility] Stop: 05/24/21 08:59 Last Admin: 04/25/21 08:03 Dose: 2,000 units Documented by:
[2021-04-25] MEDS ORDERED: SODIUM CHLORIDE 0.9% 1000ML 1,000 ML IV SCH (08:30)
[2021-04-25] MEDS: APIXABAN 2.5 MG TAB PO SCH ×2 (09:41→20:39)
[2021-04-25] MEDS: FUROSEMIDE 40 MG TAB PO SCH (09:41)
--- NOTE | 2021-04-25 18:23 | Hospitalist Progress Note ---
Date of Service April 25, 2021 Assessment & Plan (1) Hypertensive emergency: Plan: (1) Hypertensive emergency: (#) Anxiety Plan: Pt's BP has been variable over the past several months [employer] - most recently cardiology adjusted BP meds to Coreg 12.5 mg BID c/w telemetry PRN Labetalol if SBP >180 Cardiology on board, appreciate recommendation Blood pressure has been variable, mostly under control. Patient reports that she lost her almost a year ago in March She reports her anxiety had been getting better lately, her medication has been changed by her psychiatrist 3 weeks ago [employer] per her. She reports having some anxiety in the ED at presentation after being told that her blood pressure elevation might be due to her anxiety. Will continue w/ OP meds, behavioral health liasion on board, appreciate recs. #. Pulmonary edema #. Acute on HFpEF (after recent ECHO) Admitting CXR positive for cardiomegaly with pulmonary edema, mild bibasilar consolidation. WBC and pro Kumar negative at presentation. At admission BNP elevated at 225. Received multiple doses of Lasix IV on the day of admission. 01/10/2021 ECHO: EF 40 to 45%, LV systolic function reduced. 04/25/21 ECHO: EF 60-65%, LV systolic function is normal Likely secondary to PAF. Clinically, no crackles appreciated on auscultation today. Cardiology on board, Lasix 40 mg daily, amiodarone, appreciate recommendation #. Paroxysmal atrial fibrillation Admitting EKG was atrial paced rhythm. Patient went into A. fib at 8:30 AM 04/24. 04/24 EKG: Atrial flutter with variable AV block. Cardiology on board, heparin changed to CEL[facility] drew communicated for cost/insurance auth for patient. #. CKD (chronic kidney disease) stage 3, GFR 30-59 ml/min: Plan: Creatinine appears to be at baseline - repeat labs in AM #. Other chronic medical conditions: GERD, HLD, anemia, SSS, bipolar disorder [ manic depression], anxiety disorder, primary)", Continue with/resume home medication as and when appropriate. DVT Prophylaxis: Heparin drip Code Status: Full code Disposition: PT/OT, CM to assist with DC planning. Likely DC in next 1 day. Admission and Anticipated Discharge Date Admission Date: April 23, 2021 Subjective Patient seen and examined at bedside as a follow-up of hypertensive emergency, pulmonary edema and paroxysmal atrial fibrillation. Patient was lying in bed, on room air, NAD, no new acute events overnight. Patient denies any headache/dizziness/chest pain/palpitations/any funny sensation in the chest. Telemetry review shows that patient in paced rhythm overnight. Patient denies cough/sore throat/belly pain/acute changes in bowel or bladder habits/other review of symptoms. Physical Exam Physical Exam: GENERAL: Alert and oriented x3. NAD, on RA. HEENT: No pallor, no icterus. Pupils equal, round and reactive to light. Oral mucosa moist. NECK: No JVD, no neck masses. HEART: S1 and S2 heard. irregular rate and rhythm. No murmur, no gallop. RESPIRATORY SYSTEM: Normal AP diameter. No accessory muscle use. No wheezing, no crackles. ABDOMEN: Soft, bowel sounds present, nontender, no distention. CENTRAL NERVOUS SYSTEM: No facial droop. Speech is clear. Obeys simple commands. Moves extremities. EXTREMITIES: No edema, no erythema seen. Results & Data Results & Data ([facility]) Vital Signs (Past 12 Hours) Vital Signs Temp Pulse Pulse Resp BP Pulse Ox 04/25/21 17:35 61 04/25/21 16:44 36.9 C 63 18 135/76 98 04/25/21 12:36 36.6 C 60 18 100/54 L 94 04/25/21 07:30 36.9 C 64 19 170/74 H 94
[2021-04-25] MEDS: ATORVASTATIN 20 MG TAB PO SCH (20:36)
[2021-04-26] MEDS: LEVOTHYROXINE SODIUM 150 MCG TABLET PO SCH (05:47)
[2021-04-26 06:39] LABS: Hematocrit (blood only) 32.8 % (37-47); Mean Corpuscular Hgb Conc 33.5 g/dL (32-36); Mean Corpuscular Volume 89.4 fL (80-100); Mean Platelet Volume 10.7 fL (7.4-10.4); Platelet Count 141 K/uL (130-400); RDW Coefficient of Variation 14.8 % (11.5-14.5); RDW Standard Deviation 48.2 fL (36.4-46.3); Red Blood Count 3.67 M/uL (4.2-5.4); White Blood Count 4.56 K/uL (4.8-10.8)
[2021-04-26 07:15] LABS: BUN Creatinine Ratio 27.7 (10-20); Calcium 9.8 mg/dl (8.5-10.1); Creatinine Clr Calc Pharmacy 24.7 ml/min; Est GFR (African American) 26.1 ml/min; Est GFR (Non-African American) 22.5 ml/min; Magnesium 1.9 mg/dl (1.7-2.4); Phosphorus 3.5 mg/dl (2.5-4.9); Potassium 5.2 mmol/L (3.5-5.1)
[2021-04-26] MEDS: FUROSEMIDE 40 MG TAB PO SCH (08:15)
[2021-04-26] MEDS: FLUoxetine HCL 20 MG CAP PO SCH (08:15)
[2021-04-26] MEDS: APIXABAN 2.5 MG TAB PO SCH (08:15)
[2021-04-26] MEDS: TIMOLOL MALEATE 0.5% OP SOLN 5 ML BTL OP SCH (08:15)
[2021-04-26] MEDS: BRIMONIDINE TARTRATE-P 0.15% 5 ML BTL OPB SCH (08:15)
[2021-04-26] MEDS: CYANOCOBALAMIN (B-12) 500 MCG TABLET PO SCH (08:16)
[2021-04-26] MEDS: MAGNESIUM OXIDE 400 MG TAB PO SCH (08:16)
[2021-04-26] MEDS: OLANZAPINE 2.5 MG TAB PO SCH (08:16)
[2021-04-26] MEDS: carvediloL 12.5 MG TAB PO SCH (08:16)
[2021-04-26] MEDS: busPIRone 15 MG TAB PO SCH (08:16)
[2021-04-26] MEDS: FOLIC ACID 1 MG TAB PO SCH (08:16)
[2021-04-26] MEDS: CHOLECALCIFEROL 1,000 UNITS 25 MCG TAB PO SCH (08:16)
[2021-04-26] MEDS: AMIODARONE 200 MG TAB PO SCH (08:16)
[2021-04-26] MEDS: cloNIDine HCL 0.3 MG TAB PO SCH (08:16)
[2021-04-26] MEDS: allopurinoL 300 MG TAB PO SCH (08:16)
[2021-04-26] MEDS: lamoTRIgine 100 MG TAB PO SCH (08:16)
--- NOTE | 2021-04-26 10:59 | Cardiology Progress Note ---
Date of Service April 26, 2021 Assessment & Plan (1) Bipolar disorder (manic depression): (2) Hypertensive cardiovascular-renal disease: (3) Anxiety attack: (4) (HFpEF) heart failure with preserved ejection fraction: (5) PAF (paroxysmal atrial fibrillation): Plan: The patient is doing well and is clinically stable enough to be discharged home with outpatient follow-up. She should return home on amiodarone 200 mg twice daily. I will arrange follow-up with our clinic at which time we will adjust her amiodarone further. Admission and Anticipated Discharge Date Admission Date: April 23, 2021 Subjective The patient had an uneventful night. No new cardiac complaints today. Review of Systems Review of Systems: Review of Systems: See HPI for pertinent positives. All other 10 point review of systems are negative. Physical Exam Physical Exam: General: no acute distress and stated age Head: normocephalic, no masses, lesions, tenderness or abnormalities Eyes: conjunctiva are pink and non-injected, sclera clear Neck: supple, no adenopathy, no bruits, normal jugular venous pulse, no hepatojugular reflux Chest: normal shape and normal respiratory effort Lungs: clear to auscultation and percussion Cardiac Exam: - regular rate & rhythm, no murmurs gallops or rubs - normal S1, normal S2 Pulses: 2(+) throughout Abdomen: abdomen soft, non-tender, no abnormal masses and no hepatosplenomegaly Musculoskeletal: no gait disturbance, no joint inflammation, no deforming arthritis Extremities: no edema and no cyanosis Neuro: grossly normal exam Results & Data ([facility]) Vital Signs (Past 12 Hours) Vital Signs Temp Pulse Pulse Resp BP Pulse Ox 04/26/21 07:43 36.6 C 61 17 164/87 H 94 04/26/21 03:57 36.9 C 65 17 152/85 H 95 04/25/21 23:23 36.7 C 58 L 18 104/55 L 93 04/25/21 22:26 62 Laboratory Results Laboratory Results - last 24 hr 04/26/21 04/26/21 06:10 06:10 WBC 4.56 L RBC 3.67 L Hgb 11.0 L Hct 32.8 L MCV 89.4 MCH 30.0 MCHC 33.5 RDW Std Deviation 48.2 H RDW Coeff of Tank 14.8 H Plt Count 141 MPV 10.7 H Sodium 137 Potassium 5.2 H Chloride 106 Carbon Dioxide 25 Anion Gap 6 BUN 57 H Creatinine 2.06 H Est Cr Clr Drug Dosing 24.7 Est GFR ( Amer) 26.1 Est GFR (Non-Af Amer) 22.5 BUN/Creatinine Ratio 27.7 H Glucose 119 H Calcium 9.8 Phosphorus 3.5 Magnesium 1.9 Medications Administered Current Inpatient Medications Acetaminophen (Acetaminophen 325 Mg Tab) 650 mg PO Q4H PRN PRN Reason: Pain or Fever Stop: 05/23/21 12:17 Allopurinol (Allopurinol 300 Mg Tab) 300 mg PO QAM [facility] Stop: 05/24/21 08:59 Last Admin: 04/26/21 08:16 Dose: 300 mg Documented by: Amiodarone HCl (Amiodarone 200 Mg Tab) 200 mg PO BIDM [facility] Stop: 05/26/21 16:59 Apixaban (Apixaban 2.5 Mg Tab) 2.5 mg PO BID [facility] Stop: 05/25/21 08:59 Last Admin: 04/26/21 08:15 Dose: 2.5 mg Documented by: Atorvastatin Calcium (Atorvastatin 20 Mg Tab) 20 mg PO PM [facility] Stop: 05/23/21 20:59 Last Admin: 04/25/21 20:36 Dose: 20 mg Documented by: Brimonidine Tartrate (Brimonidine Tartrate-P 0.15% 5 Ml Btl) 1 drops OPB BID [facility] Stop: 05/23/21 20:59 Last Admin: 04/26/21 08:15 Dose: 1 drops Documented by: Buspirone HCl (Buspirone 15 Mg Tab) 15 mg PO BID [facility] Stop: 05/23/21 20:59 Last Admin: 04/26/21 08:16 Dose: 15 mg Documented by: Carvedilol (Carvedilol 12.5 Mg Tab) 12.5 mg PO BID [facility] Stop: 05/23/21 20:59 Last Admin: 04/26/21 08:16 Dose: 12.5 mg Documented by: Clonidine HCl (Clonidine Hcl 0.3 Mg Tab) 0.3 mg PO BID [facility] Stop: 05/23/21 20:59 Last Admin: 04/26/21 08:16 Dose: 0.3 mg Documented by: Cyanocobalamin (Cyanocobalamin (B-12) 500 Mcg Tablet) 500 mcg PO QAM [facility] Stop: 05/24/21 08:59 Last Admin: 04/26/21 08:16 Dose: 500 mcg Documented by: Fluoxetine HCl (Fluoxetine Hcl 20 Mg Cap) 80 mg PO QAM [facility] Stop: 05/24/21 08:59 Last Admin: 04/26/21 08:15 Dose: 80 mg Documented by: Folic Acid (Folic Acid 1 Mg Tab) 1 mg PO QAM [facility] Stop: 05/24/21 08:59 Last Admin: 04/26/21 08:16 Dose: 1 mg Documented by: Furosemide (Furosemide 40 Mg Tab) 40 mg PO DAILY [facility] Stop: 05/25/21 08:59 Last Admin: 04/26/21 08:15 Dose: 40 mg Documented by: Labetalol HCl (Labetalol Hcl Iv 5 Mg/Ml 20ml) 10 mg IV ONE PRN PRN Reason: Blood Pressure - High Stop: 05/23/21 12:42 Last Admin: 04/23/21 21:18 Dose: 10 mg Documented by: Lamotrigine (Lamotrigine 100 Mg Tab) 100 mg PO BID [facility] Stop: 05/23/21 20:59 Last Admin: 04/26/21 08:16 Dose: 100 mg Documented by: Levothyroxine Sodium (Levothyroxine Sodium 150 Mcg Tablet) 150 mcg PO DAILYBB [facility] Stop: 05/24/21 06:29 Last Admin: 04/26/21 05:47 Dose: 150 mcg Documented by: Lorazepam (Lorazepam 1 Mg Tab) 1 mg PO DAILY PRN PRN Reason: Anxiety Stop: 05/23/21 13:56 Last Admin: 04/23/21 21:24 Dose: 1 mg Documented by: Magnesium Oxide (Magnesium Oxide 400 Mg Tab) 400 mg PO DAILY [facility] Stop: 05/24/21 08:59 Last Admin: 04/26/21 08:16 Dose: 400 mg Documented by: Olanzapine (Olanzapine 2.5 Mg Tab) 2.5 mg PO DAILY [facility] Stop: 05/24/21 08:59 Last Admin: 04/26/21 08:16 Dose: 2.5 mg Documented by: Timolol Maleate (Timolol Maleate 0.5% Op Soln 5 Ml Btl) 1 drops OP DAILY [facility] Stop: 05/24/21 08:59 Last Admin: 04/26/21 08:15 Dose: 1 drops Documented by: Vitamin D (Cholecalciferol 1,000 Units 25 Mcg Tab) 2,000 units PO DAILY [facility] Stop: 05/24/21 08:59 Last Admin: 04/26/21 08:16 Dose: 2,000 units Documented by:
--- NOTE | 2021-04-26 12:12 | Discharge Summary ---
Date of Service April 26, 2021 Admission HPI Per Admitting Provider This is a 80 y/o female with a PMH of HTN, CKD3b (baseline creatinine ~1.5), bipolar d/o, anxiety, gout, prior parathyroidectomy, SSS s/p PPM, glaucoma, hypothyroidism, dyslipidemia, and depression who presented to the ED today via EMS with palpitations, shortness of breath, and OLSEN. Pt reports that she woke up to go to the bathroom this morning around 6:20 am and noted that the top of her head hurt. While in the bathroom, she developed palpitation. She tried to lie down to see if this would help here symptoms but instead they worsened with shortness of breath, ROMERO, and chest heaviness so she called the ambulance. She also felt flushed. She denies chest pain, dizziness, syncope. She noted nothing unusual last night when she went to bed. She does note that she started last fall with anxiety and panic attacks. 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 She is following with psychiatry for anxiety, bipolar, and depression and notes that mao gan was recently started on Zyprexa, which she feels has helped dramatically. She is sleeping well and anxiety is much improved. Currently, in the ED, she reports feeling dramatically improved with better control of her BP. The only residual symptom she has at present is mild SOB. Of note, pt had a similar episode in Dec for which she was admitted. Admission Exam Per Admitting Provider Constitutional: well developed and well nourished; no acute distress Eyes: + anicteric sclerae Neck: trachea midline Respiratory: no respiratory distress and no labored breathing Auscultation: + crackles (bibasilar - otherwise clear) Cardiovascular: Rate/Rhythm: regular rate and regular rhythm Vessels: dorsalis pedis pulses present and radial pulses present Extremities: no pedal edema Gastrointestinal (Abdomen): Inspection/Auscultation: normal bowel sounds; abdomen not distended Percussion/Palpation: abdomen soft; abdomen nontender Musculoskeletal: Head/Neck/Chest: normocephalic, head atraumatic and neck supple Skin: no jaundice Neurologic: moves all extremities; no focal motor deficits Psychiatric: A+Ox3, euthymic affect Principal Diagnosis Uncontrolled hypertension Anxiety Acute on chronic CHF [HFpEF] Paroxysmal A. fib Discharge Exam GENERAL: Alert and oriented x3. NAD, on RA. HEENT: No pallor, no icterus. Pupils equal, round and reactive to light. Oral mucosa moist. NECK: No JVD, no neck masses. HEART: S1 and S2 heard. irregular rate and rhythm. No murmur, no gallop. RESPIRATORY SYSTEM: Normal AP diameter. No accessory muscle use. No wheezing, no crackles. ABDOMEN: Soft, bowel sounds present, nontender, no distention. CENTRAL NERVOUS SYSTEM: No facial droop. Speech is clear. Obeys simple commands. Moves extremities. EXTREMITIES: No edema, no erythema seen. Discharge Data Allergies Allergy/AdvReac Type Severity Reaction Status Date / Time No Known Allergies Allergy Unknown Verified 04/23/21 11:23 Consultations 04/23/21 10:03 ED Decision to Admit Stat 04/23/21 12:18 Consult Cardiology Routine 04/23/21 14:34 Consult Behavioral Health Liaison Routine Hospital Course (1) Hypertensive emergency: 80 yo F, she was managed for the following: (1) Hypertensive emergency: (#) Anxiety Plan: Pt's BP has been variable over the past several months [employer] - most recently cardiology adjusted BP meds to Coreg 12.5 mg BID Cardiology evaluated, appreciate recommendation Blood pressure has been variable, mostly under control. Patient reports that she lost her almost a year ago in March She reports her anxiety had been getting better lately, her medication has been changed by her psychiatrist 3 weeks ago [employer] per her. She reports having some anxiety in the ED at presentation after being told that her blood pressure elevation might be due to her anxiety. Will continue w/ OP meds, behavioral health liasion on board, appreciate recs. Pt to f/u with her outpatient psychiatry. Pt to f/u with cardiology and PCP upon Discharge. #. Pulmonary edema #. Acute on CHF- HFpEF (after recent ECHO) Admitting CXR positive for cardiomegaly with pulmonary edema, mild bibasilar consolidation. WBC and pro Kumar negative at presentation. At admission BNP elevated at 225. Received multiple doses of Lasix IV on the day of admission. 01/10/2021 ECHO: EF 40 to 45%, LV systolic function reduced. 04/25/21 ECHO: EF 60-65%, LV systolic function is normal Likely secondary to PAF. Clinically, no crackles appreciated on auscultation today. Cardiology on board, Lasix 40 mg daily, amiodarone, appreciate recommendation #. Paroxysmal atrial fibrillation Admitting EKG was atrial paced rhythm. Patient went into A. fib at 8:30 AM 04/24. 04/24 EKG: Atrial flutter with variable AV block. Cardiology on board, heparin changed to eliquis. #. CKD (chronic kidney disease) stage 3, GFR 30-59 ml/min: Plan: Creatinine appears to be at baseline. #. Other chronic medical conditions: GERD, HLD, anemia, SSS, bipolar disorder [manic depression], anxiety disorder, primary)", Continue with/resume home medication as and when appropriate. Code Status: Full code Patient evaluated by PT/OT, patient declined home therapy per CM. Patient is being discharged to home with following instruction at the point of discharge: Follow-up with your primary care physician within a week time. Follow-up with your psychiatry doctor in few weeks time. Cardiology evaluated you while inpatient, because of your atrial fibrillation you are being placed on Eliquis and amiodarone, follow-up with cardiology as an outpatient for further evaluation and necessary dose adjustment on amiodarone. If you will be on a long-term amiodarone, you will need monitoring of various parameters, further discussion/management from your cardiology/PCP doctor. For your acute on chronic heart failure, you are started on Lasix while inpatient. Get your blood work BMP done in a week time. Take medications as prescribed. Total Time Total Time Spent Total Time Spent (In Minutes): 35 Discharge Plan Discharge Items Patient Disposition: Home - Self-Care Reason For Visit: HTN EMERGENCY, HYPOXIA Discharge Diagnosis: Uncontrolled hypertension Anxiety Acute on chronic CHF [HFpEF] Paroxysmal A. fib Activity: Resume your previous activity Non-emergency contact: Primary Care Provider Call non-emergency contact if: you have any medication questions, your symptoms worsen and your temperature is above 101 Follow-up/Referrals: Leticia Crandall DO [Primary Care Provider] - Diet: Heart Healthy Addtl Attending Provider Instructions: Follow-up with your primary care physician within a week time. Follow-up with your psychiatry doctor in few weeks time. Cardiology evaluated you while inpatient, because of your atrial fibrillation you are being placed on Eliquis and amiodarone, follow-up with cardiology as an outpatient for further evaluation and necessary dose adjustment on amiodarone. If you will be on a long-term amiodarone, you will need monitoring of various parameters, further discussion/management from your cardiology/PCP doctor. For your acute on chronic heart failure, you are started on Lasix while inpatient. Get your blood work BMP done in a week time. Take medications as prescribed. Pending Studies at Discharge: No Stand-Alone Forms: My [facility], Smoking Cessation Medications and DC Order Prescriptions: New Eliquis 2.5 mg Tablet 2.5 mg PO BID Qty: 60 RF: 0 amiodarone 200 mg Tablet 200 mg PO BIDM Qty: 60 RF: 0 furosemide 40 mg Tablet 40 mg PO DAILY Qty: 30 RF: 0 Continued allopurinol 300 mg tablet 300 mg PO QAM RF: 0 atorvastatin 20 mg tablet 20 mg PO PM RF: 0 levothyroxine 150 mcg tablet 150 mcg PO QAM RF: 0 clonidine HCl 0.3 mg tablet 0.3 mg PO BID RF: 0 buspirone 15 mg tablet 15 mg PO BID RF: 0 brimonidine 0.15 % drops 1 drp OPB BID RF: 0 lamotrigine 100 mg tablet 100 mg PO BID RF: 0 timolol maleate 0.5 % drops 1 drp OPB DAILY RF: 0 fluoxetine 40 mg capsule 80 mg PO QAM RF: 0 cyanocobalamin (vitamin B-12) 500 mcg Tablet 500 mcg PO QAM Qty: 30 RF: 0 folic acid 1 mg Tablet 1 mg PO QAM Qty: 30 RF: 0 magnesium oxide 400 mg (241.3 mg magnesium) tablet 400 mg PO DAILY Qty: 10 RF: 0 carvedilol 12.5 mg tablet 12.5 mg PO BID RF: 0 olanzapine 2.5 mg tablet 2.5 mg PO DAILY RF: 0 lorazepam 1 mg tablet 1 mg PO DAILY PRN (Reason: Anxiety) RF: 0 cholecalciferol (vitamin D3) [Vitamin D3] 50 mcg (2,000 unit) Capsule 50 mcg PO DAILY RF: 0 Discharge Orders: Discharge Order (Routine); Ordered 04/26/21 Ordered By: Kat Macedo Admission Data Admit Date/Time: 04/23/21 10:45 Attending Provider: Kat Macedo Admit Provider: Jason Dodge Primary Care Provider: Leticia Crandall Other Providers: Jason Dodge ; Dimitry Alves
[2021-04-26] MEDS ORDERED: AMIODARONE 200 MG TAB PO SCH (17:00)
== END 2021-04-26 14:23 | disposition home or self-care (01) | DRG 291 ==
LOC: ED 08:50 → 2E 10:45 → SUATTDRO 10:45 → 2E 11:28

== ENCOUNTER 2021-06-03 13:26 | Observation (INO) ==
[2021-06-03] MEDS ORDERED: hydrOXYzine HCl 25 MG TAB PO STA (14:40)
--- NOTE | 2021-06-03 14:48 | Emergency Department Note ---
Impression & Plan Hypertensive urgency, Anxiety, Withdrawal syndrome ED Provider Note NAME: COLIN MCKENNA AGE: 80 SEX: F : 1940 ARRIVES VIA: Walk-In INFORMANT: [Patient] ED PROVIDER(S): [Bal Segovia MD] CHIEF COMPLAINT: Anxiety, high blood pressure HISTORY OF PRESENT ILLNESS: The patient is a 80-year-old female with a history of anxiety and hypertension. She is on medications for hypertension and is taking them as she should. Lately, she has had some increasing anxiety issues and some hard nights. She just cannot sleep. The patient is not sure exactly what has been triggering her anxiety. Her just over a year ago so may be, that has been bothering her. She is not suicidal. The patient was on a short course of Ativan, this has helped. She has been out of the Ativan for the last 2 days and feels worse. There has been no chest pain or shortness of breath. No fever or chills. Patient was concerned because of her elevated blood pressure and ongoing anxiety. REVIEW OF SYSTEMS: See HPI for pertinent positives and negatives. A total of ten systems were reviewed and were otherwise negative. PMHx/PSHx: See Below SOCIAL HISTORY: See Below. PHYSICAL EXAM: GENERAL: Patient is in no acute distress. Slightly anxious. HEENT: No acute trauma, normocephalic atraumatic, mucous membranes moist, no nasal congestion, no scleral icterus. NECK: No stridor, no adenopathy, no meningismus, trachea is midline. LUNGS: Clear to auscultation bilaterally, no wheeze, no rhonchi, breath sounds equal. HEART: Subtle systolic murmur, regular rate and rhythm. ABDOMEN: Soft, nontender, bowel sounds positive, no hernias, no peritonitis. EXTREMITIES: No cyanosis or edema, full range of motion of all the joints without pain or difficulty, no signs for acute trauma. NEUROLOGIC: Oriented x 3, no acute motor or sensory deficits, no focal weakness. SKIN: No rash, no jaundice, no diaphoresis. Psychiatric: Slightly anxious, cooperative, not suicidal. DIFFERENTIAL DIAGNOSIS: Infection, UTI, dehydration, metabolic abnormality, hypo/hyperglycemia, electrolyte disturbance, anemia, hypoxia, cardiac sources, anxiety, medication noncompliance, thyroid disorder, as well as other pathologies. EMERGENCY DEPARTMENT COURSE/PROCEDURES: ECG: Indication was hypertension. The ECG shows an atrial pacemaker with a prolonged AV conduction. The rate is 61. LVH is present. There is no concerning ST elevation, there are no PVCs. The QTc is 459. Continuous Cardiac Monitoring: An order was placed for continuous cardiac monitoring. The monitor shows a rate of 60 with an atrial pacemaker. Critical Care Note: I have personally spent 41 minutes of critical care time in the direct management of this patient. This includes bedside care, interpretation of diagnostic studies, and testing, discussion with consultants, patient, and family members, and other required patient management activities. This 41 minutes is in excess of all separately billable procedures. MEDICAL DECISION MAKING: There is no leukocytosis, in fact, the white count is slightly low. No worrisome anemia. There is a normal platelet count. There is evidence for some renal insufficiency with a creatinine of 2.03, this is baseline. No electrolyte abnormality in need of emergent correction. No liver enzyme elevation. The p atient appeared to be in a euthyroid state. ECG shows a functioning pacemaker, no obvious ischemia. Cardiac enzyme testing x2 appears slightly elevated but stable. Urinalysis does not show infection. On exam, the patient did seem somewhat anxious. She denied being suicidal. The patient was seen by psychiatry case management, she did not require a psychiatric admission. Outpatient follow-up was suggested and the psychiatry team was able to get an appointment for her tomorrow if she was discharged. The patient's blood pressure continued to elevate while here in the ED. She became more and more anxious. She was given oral hydroxyzine with minimal result. She was given sublingual Ativan with minimal result. Her blood pressure went up to 240 systolic. She was given IV Ativan and IV hydralazine. This did bring her blood pressure down to a more normal range, I suspect the IV Ativan was the most beneficial. I talked to the patient. She is uncomfortable going home. I am concerned about sending her home. I feel that she is suffering from Ativan withdrawal. Things have markedly worsened for her since stopping the Ativan just 2 days ago. The patient has underlying hypertension and has been admitted to our facility before for issues with her blood pressure. She is now anxious and out of Ativan. I believe she is having some withdrawal symptoms. I did speak with case management, the on-call hospitalist was consulted. Of note, since receiving the last dose of IV Ativan, she is resting, she is comfortable, she is sleepy, her blood pressure is controlled. Past Med/Surg History Medical History Anxiety Bipolar disorder (manic depression) CKD (chronic kidney disease) stage 3, GFR 30-59 ml/min Depression Dyslipidemia GERD (gastroesophageal reflux disease) HTN (hypertension) Kidney problem Lyme disease Mitral regurgitation Primary angle-closure glaucoma SSS (sick sinus syndrome) Tricuspid regurgitation Surgical History H/O parathyroidectomy History of blepharoplasty History of permanent cardiac pacemaker placement History of tubal ligation Family History Other Heart disease Denies family history of Cancer Social History Smoking Status: Never smoker Hx Alcohol Use: No Hx Substance Use: No Preferred Language: Greek Communication Ability: Effective [employer]crete Buildings [employer] Required: No Beliefs That Will Affect Care: None marital status: Current Living Situation: Alone Feels Safe at Home: Yes Assistive Devices: Glasses Allergies Allergies Allergy/AdvReac Type Severity Reaction Status Date / Time No Known Allergies Allergy Unknown Verified 06/03/21 17:14 Home Meds Home Medications Medication Instructions Recorded Confirmed allopurinol 300 mg tablet 300 mg PO QAM 04/21/19 06/03/21 atorvastatin 20 mg tablet 20 mg PO PM 04/21/19 06/03/21 brimonidine 0.15 % eye drops 1 drp OPB BID 04/21/19 06/03/21 buspirone 15 mg tablet 15 mg PO BID 04/21/19 06/03/21 clonidine HCl 0.3 mg tablet 0.3 mg PO BID 04/21/19 06/03/21 fluoxetine 40 mg capsule 40 mg PO QAM 04/21/19 06/03/21 lamotrigine 100 mg tablet 100 mg PO BID 04/21/19 06/03/21 levothyroxine 150 mcg tablet 150 mcg PO QAM 04/21/19 06/03/21 timolol maleate 0.5 % eye drops 1 drp OPB DAILY 04/21/19 06/03/21 carvedilol 12.5 mg tablet 12.5 mg PO BID 04/23/21 06/03/21 cholecalciferol (vitamin D3) 50 50 mcg PO DAILY 04/23/21 06/03/21 mcg (2,000 unit) capsule (Vitamin D3) lorazepam 1 mg tablet 1 mg PO DAILY PRN 04/23/21 06/03/21 olanzapine 2.5 mg tablet 2.5 mg PO DAILY 04/23/21 06/03/21 fluoxetine 10 mg capsule 10 mg PO QAM 06/03/21 06/03/21 Previous Rx's Medication Instructions Recorded cyanocobalamin (vitamin B-12) 500 500 mcg PO QAM #30 tab 07/13/20 mcg tablet folic acid 1 mg tablet 1 mg PO QAM #30 tab 07/13/20 magnesium oxide 400 mg (241.3 mg 400 mg PO DAILY #10 tab 07/13/20 magnesium) tablet amiodarone 200 mg tablet 200 mg PO BIDM #60 tab 04/26/21 apixaban 2.5 mg tablet (Eliquis) 2.5 mg PO BID #60 tab 04/26/21 furosemide 40 mg tablet 40 mg PO DAILY #30 tab 04/26/21 Results & Data (ED) Vital Signs Vital Signs - 24 hr 06/03/21 13:29 06/03/21 14:26 06/03/21 14:40 Temperature 36.6 C Temperature Source Temporal Artery Scan Pulse Rate 76 67 Pulse Rate [Apical] 60 Pulse Rhythm [Apical] Pulse Strength [Apical] Respiratory Rate 20 18 14 Respiratory Effort / Characteristics Non-Labored Spontaneous Non-Labored Respiratory Depth Normal Normal Respiratory Pattern Regular Regular Blood Pressure 161/96 H Blood Pressure [Right Arm] 181/88 H Blood Pressure Mean 117 Blood Pressure Mean [Right Arm] 119 Pulse Oximetry 97 97 97 Oxygen Delivery Method Room Air Room Air Room Air Sepsis Recent Fever Within 48 Hours No Sepsis New/Unexplained Change in Mental Status No Sepsis Action Taken by Nursing No Action Required 06/03/21 16:00 06/03/21 18:00 06/03/21 18:08 Temperature Temperature Source Pulse Rate Pulse Rate [Apical] 61 75 Pulse Rhythm [Apical] Regular Pulse Strength [Apical] Normal Respiratory Rate 21 19 Respiratory Effort / Characteristics Non-Labored Respiratory Depth Normal Respiratory Pattern Blood Pressure Blood Pressure [Right Arm] 172/81 H 179/81 H 242/110 H Blood Pressure Mean Blood Pressure Mean [Right Arm] 111 113 154 Pulse Oximetry 100 96 Oxygen Delivery Method Room Air Sepsis Recent Fever Within 48 Hours Sepsis New/Unexplained Change in Mental Status Sepsis Action Taken by Nursing 06/03/21 18:32 Temperature Temperature Source Pulse Rate Pulse Rate [Apical] 62 Pulse Rhythm [Apical] Pulse Strength [Apical] Respiratory Rate 21 Respiratory Effort / Characteristics Respiratory Depth Respiratory Pattern Blood Pressure Blood Pressure [Right Arm] 126/73 Blood Pressure Mean Blood Pressure Mean [Right Arm] 90 Pulse Oximetry 96 Oxygen Delivery Method Room Air Sepsis Recent Fever Within 48 Hours Sepsis New/Unexplained Change in Mental Status Sepsis Action Taken by [facility] Medications Current Medication List: was personally reviewed by me Laboratory Data Attestation: I reviewed the patient's lab results. Result diagrams: 06/03/21 14:44 06/03/21 14:44 Lab Results 06/03/21 06/03/21 06/03/21 Range/Units 14:44 14:44 14:44 WBC 4.60 L (4.8-10.8) K/uL RBC 3.78 L (4.2-5.4) M/uL Hgb 11.4 L (12.0-16.0) g/dL Hct 34.8 L (37-47) % MCV 92.1 (80-100) fL MCH 30.2 (25-34) pg MCHC 32.8 (32-36) g/dL RDW Std Deviation 49.3 H (36.4-46.3) fL RDW Coeff of Tank 14.7 H (11.5-14.5) % Plt Count 195 (130-400) K/uL MPV 11.0 H (7.4-10.4) fL Immature Gran % (Auto) 0.0 % Neut % (Auto) 62.8 % Lymph % (Auto) 28.9 % [place] % (Auto) 7.2 % Eos % (Auto) 0.7 % Baso % (Auto) 0.4 % Neut # (Auto) 2.89 (1.4-6.5) K/uL Lymph # (Auto) 1.33 (1.2-3.4) K/uL [place] # (Auto) 0.33 (0.11-0.59) K/uL Eos # (Auto) 0.03 (0-0.5) K/uL Baso # (Auto) 0.02 (0-0.2) K/uL Immature Gran # (Auto) 0.00 (0.00-0.02) K/uL Sodium 138 (136-145) mmol/L Potassium 4.3 (3.5-5.1) mmol/L Chloride 106 (98-107) mmol/L Carbon Dioxide 25 (21-32) mmol/L Anion Gap 7 (3-11) BUN 33 H (6-23) mg/dl Creatinine 2.03 H (0.6-1.2) mg/dl Est Cr Clr Drug Dosing 24.9 ml/min Est GFR ( Amer) 26.5 ml/min Est GFR (Non-Af Amer) 22.9 ml/min BUN/Creatinine Ratio 16.3 (10-20) Glucose 121 H (70-99(Fasting)) mg/dl Calcium 10.6 H (8.5-10.1) mg/dl Magnesium 1.7 (1.7-2.4) mg/dl Total Bilirubin 0.6 (0.2-1.0) mg/dl AST 20 (13-39) U/L ALT 27 (7-52) U/L Alkaline Phosphatase 93 (34-104) U/L Troponin I High Sens 31.8 H (0-14) pg/ml Total Protein 7.2 (6.0-8.3) gm/dl Albumin 4.3 (3.4-5.0) gm/dl Globulin 2.9 (2.5-4.0) gm/dl Albumin/Globulin Ratio 1.5 (0.9-2) TSH (0.300-4.500) uIu/ml Urine Color Urine Appearance (Clear) Urine pH (4.5-7.5) Ur Specific [place] (1.000-1.030) Urine Protein (Negative) Urine Glucose (UA) (Negative) Urine Ketones (Negative) Urine Blood (Negative) Urine Nitrite (Negative) Urine Bilirubin (Negative) Urine Urobilinogen (Negative) Ur Leukocyte Esterase (Negative) 06/03/21 06/03/21 06/03/21 Range/Units 14:44 16:45 17:31 WBC (4.8-10.8) K/uL RBC (4.2-5.4) M/uL Hgb (12.0-16.0) g/dL Hct (37-47) % MCV (80-100) fL MCH (25-34) pg MCHC (32-36) g/dL RDW Std Deviation (36.4-46.3) fL RDW Coeff of Tank (11.5-14.5) % Plt Count (130-400) K/uL MPV (7.4-10.4) fL Immature Gran % (Auto) % Neut % (Auto) % Lymph % (Auto) % [place] % (Auto) % Eos % (Auto) % Baso % (Auto) % Neut # (Auto) (1.4-6.5) K/uL Lymph # (Auto) (1.2-3.4) K/uL [place] # (Auto) (0.11-0.59) K/uL Eos # (Auto) (0-0.5) K/uL Baso # (Auto) (0-0.2) K/uL Immature Gran # (Auto) (0.00-0.02) K/uL Sodium (136-145) mmol/L Potassium (3.5-5.1) mmol/L Chloride (98-107) mmol/L Carbon Dioxide (21-32) mmol/L Anion Gap (3-11) BUN (6-23) mg/dl Creatinine (0.6-1.2) mg/dl Est Cr Clr Drug Dosing ml/min Est GFR ( Amer) ml/min Est GFR (Non-Af Amer) ml/min BUN/Creatinine Ratio (10-20) Glucose (70-99(Fasting)) mg/dl Calcium (8.5-10.1) mg/dl Magnesium (1.7-2.4) mg/dl Total Bilirubin (0.2-1.0) mg/dl AST (13-39) U/L ALT (7-52) U/L Alkaline Phosphatase (34-104) U/L Troponin I High Sens 31.6 H (0-14) pg/ml Total Protein (6.0-8.3) gm/dl Albumin (3.4-5.0) gm/dl Globulin (2.5-4.0) gm/dl Albumin/Globulin Ratio (0.9-2) TSH 0.434 (0.300-4.500) uIu/ml Urine Color Yellow Urine Appearance Clear (Clear) Urine pH 6.0 (4.5-7.5) Ur Specific [place] 1.006 (1.000-1.030) Urine Protein Negative (Negative) Urine Glucose (UA) Negative (Negative) Urine Ketones Negative (Negative) Urine Blood Negative (Negative) Urine Nitrite Negative (Negative) Urine Bilirubin Negative (Negative) Urine Urobilinogen Negative (Negative) Ur Leukocyte Esterase Negative (Negative) Administered Medications Discontinued Medications Hydralazine HCl (Hydralazine Hcl 20 Mg/Ml Vial) 10 mg IV NOW STA Stop: 06/03/21 18:12 Last Admin: 06/03/21 18:25 Dose: 10 mg Documented by: [id number] Hydroxyzine HCl (Hydroxyzine Hcl 25 Mg Tab) 25 mg PO NOW STA Stop: 06/03/21 14:41 Last Admin: 06/03/21 14:53 Dose: 25 mg Documented by: [id number] Lorazepam (Lorazepam 1 Mg Tab) 1 mg SL NOW STA Stop: 06/03/21 16:53 Last Admin: 06/03/21 16:54 Dose: 1 mg Documented by: [id number] Lorazepam (Lorazepam 2 Mg/1 Ml Vial) 1 mg IV NOW STA Stop: 06/03/21 18:12 Last Admin: 06/03/21 18:26 Dose: 1 mg Documented by: [id number] Discharge Plan Visit Data Chief Complaint: Hypertension Stated Complaint: ELEVATED BLOOD PRESSURE ED Provider: Bal Segovia Discharge Problem: Hypertensive urgency, Anxiety, Withdrawal syndrome Patient Disposition: Admitted As Inpatient Condition: Fair Forms Stand Alone Forms: My [facility] Prescriptions Prescriptions: No Action allopurinol 300 mg tablet 300 mg PO QAM RF: 0 atorvastatin 20 mg tablet 20 mg PO PM RF: 0 levothyroxine 150 mcg tablet 150 mcg PO QAM RF: 0 clonidine HCl 0.3 mg tablet 0.3 mg PO BID RF: 0 buspirone 15 mg tablet 15 mg PO BID RF: 0 brimonidine 0.15 % drops 1 drp OPB BID RF: 0 lamotrigine 100 mg tablet 100 mg PO BID RF: 0 timolol maleate 0.5 % drops 1 drp OPB DAILY RF: 0 fluoxetine 40 mg capsule 40 mg PO QAM RF: 0 cyanocobalamin (vitamin B-12) 500 mcg Tablet 500 mcg PO QAM Qty: 30 RF: 0 folic acid 1 mg Tablet 1 mg PO QAM Qty: 30 RF: 0 magnesium oxide 400 mg (241.3 mg magnesium) tablet 400 mg PO DAILY Qty: 10 RF: 0 carvedilol 12.5 mg tablet 12.5 mg PO BID RF: 0 olanzapine 2.5 mg tablet 2.5 mg PO DAILY RF: 0 lorazepam 1 mg tablet 1 mg PO DAILY PRN (Reason: Anxiety) RF: 0 cholecalciferol (vitamin D3) [Vitamin D3] 50 mcg (2,000 unit) Capsule 50 mcg PO DAILY RF: 0 Eliquis 2.5 mg Tablet 2.5 mg PO BID Qty: 60 RF: 0 amiodarone 200 mg Tablet 200 mg PO BIDM Qty: 60 RF: 0 furosemide 40 mg Tablet 40 mg PO DAILY Qty: 30 RF: 0 fluoxetine 10 mg capsule 10 mg PO QAM RF: 0 Referrals Referrals: [facility] ([place], [place]) [Outside] - 06/04/21 8:00 am (Appt with Aaliyah at [facility] office) Leticia Crandall DO [Primary Care Provider] -
[2021-06-03 14:58] LABS: Basophils # (auto) 0.02 K/uL (0-0.2); Basophils % (auto) 0.4 %; Eosinophils # (auto) 0.03 K/uL (0-0.5); Eosinophils % (auto) 0.7 %; Hematocrit (blood only) 34.8 % (37-47); Hemoglobin 11.4 g/dL (12.0-16.0); Lymphocytes # (auto) 1.33 K/uL (1.2-3.4); Lymphocytes % (auto) 28.9 %; Mean Corpuscular Hemoglobin 30.2 pg (25-34); Mean Corpuscular Hgb Conc 32.8 g/dL (32-36); Mean Corpuscular Volume 92.1 fL (80-100); Monocytes # (auto) 0.33 K/uL (0.11-0.59); Monocytes % (auto) 7.2 %; Neutrophils # (auto) 2.89 K/uL (1.4-6.5); Neutrophils % (auto) 62.8 %; Platelet Count 195 K/uL (130-400); RDW Coefficient of Variation 14.7 % (11.5-14.5); RDW Standard Deviation 49.3 fL (36.4-46.3); Red Blood Count 3.78 M/uL (4.2-5.4)
[2021-06-03 15:15] LABS: Albumin Globulin Ratio 1.5 (0.9-2); Albumin Level 4.3 gm/dl (3.4-5.0); BUN Creatinine Ratio 16.3 (10-20); Bilirubin,Total 0.6 mg/dl (0.2-1.0); Calcium 10.6 mg/dl (8.5-10.1); Creatinine Clr Calc Pharmacy 24.9 ml/min; Est GFR (African American) 26.5 ml/min; Est GFR (Non-African American) 22.9 ml/min; Globulin 2.9 gm/dl (2.5-4.0); Magnesium 1.7 mg/dl (1.7-2.4); Potassium 4.3 mmol/L (3.5-5.1); Total Protein 7.2 gm/dl (6.0-8.3)
[2021-06-03] MEDS ORDERED: LORazepam 1 MG TAB SL STA (16:52)
[2021-06-03 16:55] LABS: Appearance Urine Clear (Clear); Bilirubin Urine Negative (Negative); Blood Urine Negative (Negative); Color Urine Yellow; Glucose Urine UA Negative (Negative); Ketones Urine Negative (Negative); Leukocyte Esterase Urine Negative (Negative); Nitrite Urine Negative (Negative); Protein Urine Negative (Negative); Specific Gravity Urine 1.006 (1.000-1.030); Urobilinogen Urine Negative (Negative)
[2021-06-03] MEDS ORDERED: LORazepam 2 MG/1 ML VIAL IV STA (18:11)
[2021-06-03] MEDS ORDERED: hydrALAZINE HCL 20 MG/ML VIAL IV STA (18:11)
--- NOTE | 2021-06-03 18:47 | History & Physical Report ---
Date of Service June 03, 2021 Assessment & Plan (1) Hypertensive urgency: Plan: Patient is a 80-year-old female with PMH HTN, CKD IV, bipolar depression, anxiety, sick sinus syndrome s/p pacemaker, paroxysmal atrial fibrillation on Eliquis, gout presented to ER with complaint of anxiety and high blood pressure. Reported home SBP's running in the 150s. Denies chest pain, shortness of breath In ER initial BP 161/96 up to 242/110 down to 122/61 after hydroxyzine and hydralazine, ativan given in ER. Suspect anxiety causing elevated BPs Continue carvedilol, Lasix On Clonidine 0.3 mg twice daily, was recommended by nephrology to taper to 0.1 mg twice daily secondary to low BP in clinic last week, however patient reports continued taking 0.3 mg twice daily Will taper to clonidine 0.2mg BID Troponin I: 31.8--> 31.6. EKG paced rhythm Trend troponin Recent echo in 04/2021: EF: 60-65% (2) Anxiety: Plan: H/O Bipolar Depression Recent increased anxiety. Reports is anxious being at home by herself. She is anxious about how she can keep her self busy. Patient reports has started going to a grieving group, has been doing word finding puzzles. Denies suicidal or homicidal ideations Follows with outpatient psychiatry - [facility] Continue fluoxetine, lamotrigine, olanzapine, buspirone. (Patient reports buspirone was increased from twice daily to 3 times daily at the end of April 2021) Continue as needed Ativan, however 0.5mg instead of 1mg. Patient prescribed Ativan once daily as needed. She reports she is given 20 pills once a month however her last pill 3 days ago. PDMP checked (3) PAF (paroxysmal atrial fibrillation): Plan: Continue carvedilol, amiodarone, Eliquis (4) CKD (chronic kidney disease), stage IV: Plan: Cr: 2.0. New baseline 2.1-2.4 Monitor renal functions Avoid nephrotoxic agents when possible (5) SSS (sick sinus syndrome): Plan: S/p pacemaker Paced rhythm on EKG (6) Hypothyroidism: Plan: Continue levothyroxine DVT Prophylaxis On Eliquis Full Code as per discussion with pt Follows with Dr Crandall for routine care Pt was seen and care coordinated with Dr Alvarez. See addendum History of Present Illness Chief Complaint: HTN, anxiety Primary Care Provider: Leticia Crandall DO Patient is a 80-year-old female with PMH HTN, CKD IV, bipolar depression, anxiety, sick sinus syndrome s/p pacemaker, paroxysmal atrial fibrillation on Eliquis, gout presented to ER with complaint of anxiety and high blood pressure. Patient reports she has been taking her blood pressures at home and they have been running SBP's in the 150s. Patient with history labile hypertension. Patient with history hospital admission 04/2021 for anxiety and hypertension, had episode of atrial fibrillation and was started on amiodarone, Eliquis, and carvedilol was started. Followed up with nephrology-Dr. Nicole 05/28/2021 and BP was on the lower side at that time and her clonidine was to be reduced from 0.3mg twice daily to taper to 0.1mg twice daily, however patient states she is still taking 0.3mg tabs. Patient reports taking Lasix 40 mg on Tuesday and Fridays. She denies missed medication doses. She states this past week has been having increased anxiety. Last night reports was very anxious and was unable to sleep. Patient states anxiety continued throughout today which prompted her to come to ER. Denies suicidal or homicidal ideations. Patient following with patient psychiatry-[facility]. She reports she is given 20 tablets of Ativan approximately once a month for the last several months. Patient states that the Ativan seems to help with her anxiety. Last took Ativan 3 days ago as she reports is out of Ativan. She reports follow-up with psychiatry 06/05/2021. Patient denies chest pain, shortness of breath, palpitations. History Echo 04/25/21: EF: 60-65%. Denies fever/chills, diaphoresis, N/V/D/C, OLSEN, dizziness, syncope, vision changes, neck pain, orthopnea, cough, sore throat, choking, otalgia, rhinorrhea, abdominal pain, paresthesias, weakness, extremity edema, rashes, urinary symptoms. Allergies Allergy/AdvReac Type Severity Reaction Status Date / Time No Known Allergies Allergy Unknown Verified 06/03/21 17:14 Home Medications Medication Instructions Recorded Confirmed Type allopurinol 300 mg tablet 300 mg PO QAM 04/21/19 06/03/21 History atorvastatin 20 mg tablet 20 mg PO PM 04/21/19 06/03/21 History brimonidine 0.15 % eye drops 1 drp OPB BID 04/21/19 06/03/21 History fluoxetine 40 mg capsule 40 mg PO QAM 04/21/19 06/03/21 History lamotrigine 100 mg tablet 100 mg PO BID 04/21/19 06/03/21 History levothyroxine 150 mcg tablet 150 mcg PO QAM 04/21/19 06/03/21 History timolol maleate 0.5 % eye drops 1 drp OPB DAILY 04/21/19 06/03/21 History cyanocobalamin (vitamin B-12) 500 500 mcg PO QAM #30 tab 07/13/20 06/03/21 Rx mcg tablet folic acid 1 mg tablet 1 mg PO QAM #30 tab 07/13/20 06/03/21 Rx magnesium oxide 400 mg (241.3 mg 400 mg PO DAILY #10 tab 07/13/20 06/03/21 Rx magnesium) tablet carvedilol 12.5 mg tablet 12.5 mg PO BID 04/23/21 06/03/21 History cholecalciferol (vitamin D3) 50 50 mcg PO DAILY 04/23/21 06/03/21 History mcg (2,000 unit) capsule (Vitamin D3) lorazepam 1 mg tablet 1 mg PO DAILY PRN 04/23/21 06/03/21 History olanzapine 2.5 mg tablet 2.5 mg PO DAILY 04/23/21 06/03/21 History apixaban 2.5 mg tablet (Eliquis) 2.5 mg PO BID #60 tab 04/26/21 06/03/21 Rx amiodarone 200 mg tablet 200 mg PO DAILY 06/03/21 06/03/21 History buspirone 15 mg tablet 15 mg PO TID 06/03/21 06/03/21 History clonidine HCl 0.3 mg tablet 0.3 mg PO BID 06/03/21 06/03/21 History fluoxetine 10 mg capsule 10 mg PO QAM 06/03/21 06/03/21 History furosemide 40 mg tablet 40 mg PO UD 06/03/21 06/03/21 History Past Med/Surg History Medical History (Updated 06/03/21 @ 19:33 by Samira Watts PA-C) Anxiety Bipolar disorder (manic depression) CKD (chronic kidney disease) stage 3, GFR 30-59 ml/min CKD (chronic kidney disease), stage IV Depression Dyslipidemia GERD (gastroesophageal reflux disease) HTN (hypertension) Kidney problem Lyme disease Mitral regurgitation Primary angle-closure glaucoma SSS (sick sinus syndrome) Tricuspid regurgitation Surgical History H/O parathyroidectomy History of blepharoplasty History of permanent cardiac pacemaker placement History of tubal ligation Family History Other Heart disease Denies family history of Cancer Social History Smoking Status: Never smoker Hx Alcohol Use: No Hx Substance Use: No Preferred Language: Yi Communication Ability: Effective Garageman Required: No Beliefs That Will Affect Care: None marital status: Current Living Situation: Alone Feels Safe at Home: Yes Assistive Devices: Glasses Review of Systems Review of Systems: All systems reviewed & are unremarkable except as noted in HPI & below Physical Exam Physical Exam: General: no distress, WDWN Head: normocephalic, atraumatic Eyes: PERRL, EOM's intact, conjunctiva non-injected, anicteric ENT: normal inspection external ears, nose, mucous membranes moist Neck: supple, trachea midline Lungs: clear, no respiratory distress, no wheezing/rhonchi/rales CV: RRR, no pretibial edema Abd: normal BS, soft, non-tender Ext: no cyanosis, no calf tenderness Neuro: A&O x 3, no focal deficits noted, currently calm Skin: warm, dry Results & Data Results & Data ([facility]) Vital Signs (Past 12 Hours) Vital Signs Temp Pulse Pulse Resp BP BP Pulse Ox 06/03/21 18:32 62 21 126/73 96 06/03/21 18:08 242/110 H 06/03/21 18:00 75 19 179/81 H 96 06/03/21 16:00 61 21 172/81 H 100 06/03/21 14:40 67 14 97 06/03/21 14:26 60 18 181/88 H 97 06/03/21 13:29 36.6 C 76 20 161/96 H 97 Laboratory Results Short CBC 06/03/21 Range/Units 14:44 WBC 4.60 L (4.8-10.8) K/uL Hgb 11.4 L (12.0-16.0) g/dL Hct 34.8 L (37-47) % Plt Count 195 (130-400) K/uL BMP 06/03/21 14:44 Sodium 138 Potassium 4.3 Chloride 106 Carbon Dioxide 25 BUN 33 H Creatinine 2.03 H Glucose 121 H Calcium 10.6 H Liver Function 06/03/21 Range/Units 14:44 Total Bilirubin 0.6 (0.2-1.0) mg/dl AST 20 (13-39) U/L ALT 27 (7-52) U/L Alkaline Phosphatase 93 (34-104) U/L Albumin 4.3 (3.4-5.0) gm/dl Urine 06/03/21 Range/Units 16:45 Urine Color Yellow Urine Appearance Clear (Clear) Urine pH 6.0 (4.5-7.5) Ur Specific [place] 1.006 (1.000-1.030) Urine Protein Negative (Negative) Urine Glucose (UA) Negative (Negative) Diagnostic Findings Chest X-Ray 06/03/21 18:38 XR chest 1V portable CLINICAL HISTORY: HTN TECHNIQUE: Single frontal radiograph of the chest was obtained. Comparison: Comparison is made to chest radiograph 04/23/2021 FINDINGS: Dual lead pacemaker is seen. The cardiomediastinal silhouette is normal. The lungs are clear. No evidence of pleural effusion or pneumothorax. IMPRESSION: No acute chest disease. ACT 112: Negative or not required by law. Electronically signed by: Steven Forman M.D. 06/03/2021 7:18 PM Code Status & VTE Plan VTE Prophylaxis Plan VTE Prophylaxis will be ordered: Yes Supervising Physician Co-Signing Physician Notes I have seen and examined the patient and have discussed the case with the provider above. I agree with the assessment and plan as stated with the following exception. 80-year-old female with severe apparently uncontrolled anxiety presents with elevated blood pressure related to recent withdrawal from Ativan. She sees a psychiatrist regularly and has been on Ativan fluoxetine and BuSpar for couple of months. Fluoxetine and BuSpar doses were adjusted and patient states this was not doing much for her. She subsequently ran out of Ativan early although states she only took 1 daily, and was denied additional refills by her psychiatrist. She subsequently ran out 3 days ago and began having sleeplessness and severe anxiety. After receiving Ativan and some hydroxyzine here she is now sleepy, and grateful for this, and her blood pressure is much improved. Per nephrology outpatient notes she is to wean on her clonidine, however she has maintained her historic 0.3 mg twice daily dosing. Physical exam reveals a somnolent elderly female in no acute distress who is oriented and easily awakens. She is a good historian and has good insight into her issues. Lungs are clear to auscultation throughout all almanza. Cardiac auscultation reveals regular rate and rhythm with S1/S12 heard and no evidence of murmurs gallops or rubs. Abdomen is soft nontender nondistended. She has no gross neurological deficits and there is no gross focal deficits in her strength. Lab work is grossly unremarkable with mild anemia, a white blood cell count of 4.6, normal chemistry with creatinine 2.0. This is around her baseline of 1.8 and she was recently changed to Lasix 1 month ago. She is followed closely with nephrology. Calcium slightly elevated at 10.6 corrected to 10.3 which may be related to dehydration. With elevated blood pressure, it is not ideal to give her fluids. Encourage p.o. intake and recheck in a.m. Will also add a PTH, vitamin D at that time. Urinalysis is negative. Chest x-ray reveals no acute disease. EKG was nonischemic with atrial paced rhythm, left anterior fascicular block and a rate of 61 bpm. Overall this patient's hypertensive urgency was likely related to withdrawal from Ativan in addition to severe uncontrolled anxiety. Strongly recommend patient go back to her psychiatrist and rework the plan including a new plan for her fluoxetine and buspirone which are not currently helping her like they were before. Also, 1 mg of Ativan is not insignificant and should likely be throughout the day for more consistent, less potent effect. I also suspect that with her admission of the failure of her SSRI and BuSpar, she may have been depending on this Ativan more recently. Blood pressure is now within normal range, patient is improved from an anxiety standpoint and will hopefully get sleep overnight with potential discharge to home tomorrow. Antonio, DO
--- NOTE | 2021-06-03 19:20 | XRay Report ---
XR chest 1V portable CLINICAL HISTORY: HTN TECHNIQUE: Single frontal radiograph of the chest was obtained. Comparison: Comparison is made to chest radiograph 04/23/2021 FINDINGS: Dual lead pacemaker is seen. The cardiomediastinal silhouette is normal. The lungs are clear. No evid ence of pleural effusion or pneumothorax. IMPRESSION: No acute chest disease. ACT 112: Negative or not required by law. Electronically signed by: Steven Forman M.D. 06/03/2021 7:18 PM
[2021-06-03] MEDS ORDERED: LORazepam 0.5 MG TAB PO PRN ×2 (21:20→21:41)
[2021-06-03] MEDS ORDERED: ONDANSETRON INJ 2 MG/ML 2 ML VIAL IV PRN (21:26)
[2021-06-03] MEDS ORDERED: POLYETHYLENE (MIRALAX) 17 GM PACK PO PRN (21:26)
[2021-06-03] MEDS ORDERED: ACETAMINOPHEN 325 MG TAB PO PRN (21:26)
[2021-06-03] MEDS: lamoTRIgine 100 MG TAB PO SCH (22:37)
[2021-06-03] MEDS: ATORVASTATIN 20 MG TAB PO SCH (22:38)
[2021-06-03] MEDS: carvediloL 12.5 MG TAB PO SCH (22:38)
[2021-06-03] MEDS: busPIRone 15 MG TAB PO SCH (22:38)
[2021-06-03] MEDS: BRIMONIDINE TARTRATE-P 0.15% 5 ML BTL OPB SCH (22:39)
[2021-06-03] MEDS: APIXABAN 2.5 MG TAB PO SCH (22:39)
[2021-06-04] MEDS: LEVOTHYROXINE SODIUM 150 MCG TABLET PO SCH (06:28)
[2021-06-04 07:30] LABS: Hematocrit (blood only) 33.4 % (37-47); Hemoglobin 10.8 g/dL (12.0-16.0); Mean Corpuscular Hemoglobin 29.7 pg (25-34); Mean Corpuscular Hgb Conc 32.3 g/dL (32-36); Mean Corpuscular Volume 91.8 fL (80-100); Mean Platelet Volume 10.7 fL (7.4-10.4); Platelet Count 144 K/uL (130-400); RDW Standard Deviation 50.4 fL (36.4-46.3); Red Blood Count 3.64 M/uL (4.2-5.4)
[2021-06-04] MEDS: carvediloL 12.5 MG TAB PO SCH ×2 (08:13→21:18)
[2021-06-04] MEDS: FOLIC ACID 1 MG TAB PO SCH (08:13)
[2021-06-04] MEDS: busPIRone 15 MG TAB PO SCH ×3 (08:13→21:17)
[2021-06-04] MEDS: APIXABAN 2.5 MG TAB PO SCH ×2 (08:13→21:17)
[2021-06-04] MEDS: cloNIDine HCL 0.1 MG TAB PO SCH ×2 (08:13→21:18)
[2021-06-04 08:14] LABS: Troponin I High Sensitivity 31.3 pg/ml (0-14)
[2021-06-04] MEDS: OLANZAPINE 2.5 MG TAB PO SCH (08:14)
[2021-06-04] MEDS: FLUoxetine HCL 20 MG CAP PO SCH (08:14)
[2021-06-04] MEDS: lamoTRIgine 100 MG TAB PO SCH ×2 (08:14→21:19)
[2021-06-04] MEDS: FLUoxetine HCL 10 MG CAP PO SCH (08:14)
[2021-06-04] MEDS: AMIODARONE 200 MG TAB PO SCH (08:14)
[2021-06-04] MEDS: CYANOCOBALAMIN (B-12) 500 MCG TABLET PO SCH (08:14)
[2021-06-04] MEDS: BRIMONIDINE TARTRATE-P 0.15% 5 ML BTL OPB SCH ×2 (08:15→21:19)
[2021-06-04] MEDS: allopurinoL 300 MG TAB PO SCH (08:15)
[2021-06-04 08:16] LABS: BUN Creatinine Ratio 15.1 (10-20); Calcium 9.9 mg/dl (8.5-10.1); Creatinine Clr Calc Pharmacy 17.7 ml/min; Est GFR (African American) 17.7 ml/min; Est GFR (Non-African American) 15.3 ml/min
[2021-06-04] MEDS: TIMOLOL MALEATE 0.5% OP SOLN 5 ML BTL OPB SCH (08:16)
[2021-06-04] MEDS ORDERED: CHOLECALCIFEROL 1,000 UNITS 25 MCG TAB PO SCH (09:00)
[2021-06-04] MEDS: SODIUM CHLORIDE 0.9% 1000ML 1,000 ML IV SCH ×2 (09:12→22:40)
[2021-06-04] MEDS: MAGNESIUM OXIDE 400 MG TAB PO SCH (11:58)
--- NOTE | 2021-06-04 15:19 | Hospitalist Progress Note ---
Date of Service June 04, 2021 Assessment & Plan (1) Hypertensive urgency: (2) Anxiety: Plan: 80-year-old female with PMH of HTN, CKD IV, bipolar depression, anxiety, sick sinus syndrome s/p pacemaker, paroxysmal atrial fibrillation on Eliquis, gout presented to ER 06/03 with complaint of anxiety and high blood pressure. Reported home SBP's running in the 150s. Denies chest pain, shortness of breath. She is being managed for the following: #. Hypertensive urgency In ER initial BP 161/96 up to 242/110 down to 122/61 after hydroxyzine and hydralazine, ativan given in ER. Suspect anxiety causing elevated BPs Continue carvedilol, Lasix On Clonidine 0.3 mg twice daily, was recommended by nephrology to taper to 0.1 mg twice daily secondary to low BP in clinic last week, however patient reports continued taking 0.3 mg twice daily Will taper to clonidine 0.2mg BID --> taper down to 0.1 mg twice daily upon discharge. Recent echo in 04/2021: EF: 60-65% Blood pressure fairly under control, patient will need outpatient follow-up with nephrology. #. Anxiety: H/O Bipolar Depression Recent increased anxiety. She reports he gets anxious being at home by herself. She is anxious about how she can keep her self busy. Patient reports has started going to a grieving group, has been doing word finding puzzles. Denies suicidal or homicidal ideations Follows with outpatient psychiatry - [facility] Continue fluoxetine, lamotrigine, olanzapine, buspirone. (Patient reports buspirone was increased from twice daily to 3 times daily at the end of April 2021) Continue as needed Ativan, however 0.5mg instead of 1mg. Patient prescribed Ativan once daily as needed. She reports she is given 20 pills once a month however her last pill 3 days ago [employer]. Ativan refill upon discharge. Follow-up with outpatient psychiatry. #. Mild KAT over CKD IV Baseline creatinine around 2.1-2.4 Admitting creatinine of 2.03, up trended to 2.84 Gentle IV fluid, BMP in AM. #. Other chronic medical conditions: PAF, CKD stage IV, SSS, hypothyroidism Continue with/resume home meds as and when appropriate. #. DVT prophylaxis: Eliquis Full code #. Disposition: Likely DC tomorrow if no new issues arise overnight. Follows with Dr Crandall for routine care Admission and Anticipated Discharge Date Admission Date: June 03, 2021 Subjective Patient seen and examined at bedside for follow-up of hypertensive urgency and anxiety attacks. Patient is lying in bed, on room air, NAD, no new acute events overnight. Per patient, she had minor anxiety 2 times in the morning. Patient reports feeling better. Patient reports eating okay and moving bowels okay. Patient reports feeling anxious mostly when she is alone. Patient denies fever/headache/chills/sore throat/cough/chest pain/palpitations/other review of symptoms. Physical Exam Physical Exam: GENERAL: Alert and oriented x3. NAD, on RA. HEENT: No pallor, no icterus. Pupils equal, round and reactive to light. Oral mucosa moist. NECK: No JVD, no neck masses. HEART: S1 and S2 heard. Regular rate and rhythm. No murmur, no gallop. RESPIRATORY SYSTEM: Normal AP diameter. No accessory muscle use. No wheezing, no crackles. ABDOMEN: Soft, bowel sounds present, nontender, no distention. CENTRAL NERVOUS SYSTEM: No facial droop. Speech is clear. Obeys simple commands. Moves extremities. EXTREMITIES: No edema, no erythema seen. Results & Data Results & Data ([facility]) Vital Signs (Past 12 Hours) Vital Signs Temp Pulse Pulse Resp BP Pulse Ox 06/04/21 14:45 36.8 C 60 18 109/68 96 06/04/21 11:18 36.7 C 65 18 95/47 L 96 06/04/21 07:42 36.5 C 81 18 128/78 94 06/04/21 07:07 60 06/04/21 04:00 36.7 C 71 18 113/61 96
--- NOTE | 2021-06-04 16:54 | Psychiatric Consultation ---
Date of Consultation June 04, 2021 Impression / Recommendations Impression 80 yo woman with history of BPAD, paroxysmal afib and worsening anxiety admitted medically. Diagnostically consistent with BELLA versus anxiety 2/2 afib. Acute risk is low given denial of SI and HI. She feels well supported by her outpatient providers including psych provider, therapist and grief group. She is not in need of nor does she desire inpt psych tx. Anxiety treatment is challenging, especially in those over age 65 as benzos carry high risks and she has history of misuse in the past and olanzapine can work well off-label for anxiety and for BPAD but carries it's own risks in elderly pts. She likes her current medications so wouldn't recommend any changes at this time. Could taper of ativan at discharge since she's been getting it while admitted and will likely have anxiety spike again if it is abruptly stopped. (1) Anxiety: (2) PAF (paroxysmal atrial fibrillation): (3) Bipolar disorder (manic depression): -consider ativan taper of 0.25 mg BID prn for 7 days then reduce to 0.25 mg daily prn for 7 days then 0.125 mg daily prn for 7 days then stop -has psych f/up as outpt for further/ongoing management of anxiety Psych History Identifying Data 80 yo woman with history of BPAD, depression, anxiety admitted medically for HTN urgency. Psychiatry was consulted for anxiety. Chief Complaint "My anxiety has been getting worse". History of Present Illness Josette endorses worsening anxiety over the last few weeks. Her outpatient psych provider recently stopping her ativan and started her on olanzapine to help with this. Josette says the plan is to slowly taper her fluoxetine and go up on the zyprexa. She notes her anxious thoughts can be spurred "by anything" and tend to be worst case thinking with fears that "I'll have to get placed into a home because I won't get better or that I'll be drugged up". However she tries to distract from these thoughts and currently feels "good" and is observed talking on the phone with a friend and smiling. She denies SI and HI. Denies any current symptoms of ben nor psychosis. Notes that her recent hospitalization for cardiac reasons has made it more difficult for her to reassure herself when she feels anxious because sometimes she worries her anxiety could be because she's gone into afib. However, she feels well supported by her outpatient providers and feels her medications are working well. PHQ-9 score of 6 and Q9 0. Further history per psych liason note 06/04/21: "Met with patient on consult for initial assessment. She is known to consult service from last admission. She is pleasant and talkative. Patient reports increased anxiety for the past couple weeks. Denies SI/HI/hallucinations, reports intrusive negative thoughts like the word "kill" - denies any thoughts to harm others. Patient reports long standing history of Bipolar disorder and follows with [facility] for medication management and therapy. She recalls some changes being made - believes Prozac was decreased (was taking 80mg) and was started on Zyprexa. Patient signed KIARA's for [facility] and daughterBrianna- will call for collateral and fax for records from [facility]. Patient continues to struggle with loss of her and reports feeling lonely at times; she enjoys her talk therapy weekly as well as weekly grief group. She looks forward to asking ladies from grief group to go to lunch. She also visits with her twin sister every Tuesday. Patient reports having a close relationship with her daughter and sees her once a week (lives near [place]), they talk often on the phone. Patient scored low of the depression scale and feels her anxiety is well controlled currently. She is a pickett the psychiatrist will see her today. Will continue to round on patient." Allergies Allergy/AdvReac Type Severity Reaction Status Date / Time No Known Allergies Allergy Unknown Verified 06/03/21 17:14 Home Medications Medication Instructions Recorded Confirmed Type allopurinol 300 mg tablet 300 mg PO QAM 04/21/19 06/03/21 History atorvastatin 20 mg tablet 20 mg PO PM 04/21/19 06/03/21 History brimonidine 0.15 % eye drops 1 drp OPB BID 04/21/19 06/03/21 History fluoxetine 40 mg capsule 40 mg PO QAM 04/21/19 06/03/21 History lamotrigine 100 mg tablet 100 mg PO BID 04/21/19 06/03/21 History levothyroxine 150 mcg tablet 150 mcg PO QAM 04/21/19 06/03/21 History timolol maleate 0.5 % eye drops 1 drp OPB DAILY 04/21/19 06/03/21 History cyanocobalamin (vitamin B-12) 500 500 mcg PO QAM #30 tab 07/13/20 06/03/21 Rx mcg tablet folic acid 1 mg tablet 1 mg PO QAM #30 tab 07/13/20 06/03/21 Rx magnesium oxide 400 mg (241.3 mg 400 mg PO DAILY #10 tab 07/13/20 06/03/21 Rx magnesium) tablet carvedilol 12.5 mg tablet 12.5 mg PO BID 04/23/21 06/03/21 History cholecalciferol (vitamin D3) 50 50 mcg PO DAILY 04/23/21 06/03/21 History mcg (2,000 unit) capsule (Vitamin D3) lorazepam 1 mg tablet 1 mg PO DAILY PRN 04/23/21 06/03/21 History olanzapine 2.5 mg tablet 2.5 mg PO DAILY 04/23/21 06/03/21 History apixaban 2.5 mg tablet (Eliquis) 2.5 mg PO BID #60 tab 04/26/21 06/03/21 Rx amiodarone 200 mg tablet 200 mg PO DAILY 06/03/21 06/03/21 History buspirone 15 mg tablet 15 mg PO TID 06/03/21 06/03/21 History clonidine HCl 0.3 mg tablet 0.3 mg PO BID 06/03/21 06/03/21 History fluoxetine 10 mg capsule 10 mg PO QAM 06/03/21 06/03/21 History furosemide 40 mg tablet 40 mg PO UD 06/03/21 06/03/21 History Personal History Living Arrangements: Home Beliefs That Will Affect Care: None Patient History Medical History Anxiety Bipolar disorder (manic depression) CKD (chronic kidney disease) stage 3, GFR 30-59 ml/min CKD (chronic kidney disease), stage IV Depression Dyslipidemia GERD (gastroesophageal reflux disease) HTN (hypertension) Kidney problem Lyme disease Mitral regurgitation Primary angle-closure glaucoma SSS (sick sinus syndrome) Tricuspid regurgitation Surgical History H/O parathyroidectomy History of blepharoplasty History of permanent cardiac pacemaker placement History of tubal ligation Family History Other Heart disease Denies family history of Cancer Social History Smoking Status: Never smoker Hx Alcohol Use: No Hx Substance Use: Yes Preferred Language: Ukrainian Communication Ability: Effective Gun Repair Clerk Required: No Beliefs That Will Affect Care: None marital status: Current Living Situation: Alone Other Information That Helps Us Care for You: No Feels Safe at Home: Yes Safety Concerns: Feels Safe At This Time Assistive Devices: None Physical Exam Psychiatric: Orientation: alert and oriented x 3 Apperance: appropriately dressed and appropriately groomed Eye Contact: good eye contact Motor Behavior: no abnormal motor movements Speech: normal rate/rhythm/volume of speech Affect: euthymic affect Mood: + anxious mood; no depressed mood Thought Process: goal directed thought process Thought Content: reality based without delusions Suicidal Thoughts: denies suicidal thoughts Homicidal Thoughts: denies homicidal thoughts Hallucinations: no auditory hallucinations and no visual hallucinations Cognition: recent memory grossly intact, remote memory grossly intact, attention grossly intact and language grossly intact Estimated Intelligence: consistent with education level Insight: + fair insight Judgement: + fair judgement Vital Signs (Past 24 Hours): Last Vital Signs Temp 36.8 C 06/04/21 14:45 Pulse 60 06/04/21 14:45 Resp 18 06/04/21 14:45 BP 109/68 06/04/21 14:45 Pulse Ox 96 06/04/21 14:45 Review of Systems All systems reviewed & are unremarkable except as noted in HPI & below Results & Data (PSY) Medications Administered Allopurinol (Allopurinol 300 Mg Tab) 150 mg PO QAM CASSIE Stop: 07/04/21 08:59 Last Admin: 06/04/21 08:15 Dose: 150 mg Documented by: [id number] Amiodarone HCl (Amiodarone 200 Mg Tab) 200 mg PO DAILY CASSIE Stop: 07/04/21 08:59 Last Admin: 06/04/21 08:14 Dose: 200 mg Documented by: [id number] Apixaban (Apixaban 2.5 Mg Tab) 2.5 mg PO BID CASSIE Stop: 07/03/21 21:25 Last Admin: 06/04/21 08:13 Dose: 2.5 mg Documented by: [id number] Admin: 06/03/21 22:39 Dose: 2.5 mg Documented by: [id number] Atorvastatin Calcium (Atorvastatin 20 Mg Tab) 20 mg PO PM CASSIE Stop: 07/03/21 21:25 Last Admin: 06/03/21 22:38 Dose: 20 mg Documented by: [id number] Brimonidine Tartrate (Brimonidine Tartrate-P 0.15% 5 Ml Btl) 1 drops OPB BID CASSIE Stop: 07/03/21 21:25 Last Admin: 06/04/21 08:15 Dose: 1 drops Documented by: [id number] Admin: 06/03/21 22:39 Dose: 1 drops Documented by: [id number] Buspirone HCl (Buspirone 15 Mg Tab) 15 mg PO TID CASSIE Stop: 07/03/21 21:25 Last Admin: 06/04/21 13:46 Dose: 15 mg Documented by: [id number] Admin: 06/04/21 08:13 Dose: 15 mg Documented by: [id number] Admin: 06/03/21 22:38 Dose: 15 mg Documented by: [id number] Carvedilol (Carvedilol 12.5 Mg Tab) 12.5 mg PO BID CASSIE Stop: 07/03/21 21:25 Last Admin: 06/04/21 08:13 Dose: 12.5 mg Documented by: [id number] Admin: 06/03/21 22:38 Dose: 12.5 mg Documented by: [id number] Clonidine HCl (Clonidine Hcl 0.1 Mg Tab) 0.2 mg PO BID CASSIE Stop: 07/04/21 08:59 Last Admin: 06/04/21 08:13 Dose: 0.2 mg Documented by: [id number] Cyanocobalamin (Cyanocobalamin (B-12) 500 Mcg Tablet) 500 mcg PO QAM CASSIE Stop: 07/04/21 08:59 Last Admin: 06/04/21 08:14 Dose: 500 mcg Documented by: [id number] Fluoxetine HCl (Fluoxetine Hcl 10 Mg Cap) 10 mg PO QAM CASSIE Stop: 07/04/21 08:59 Last Admin: 06/04/21 08:14 Dose: 10 mg Documented by: [id number] Fluoxetine HCl (Fluoxetine Hcl 20 Mg Cap) 40 mg PO QAM [facility] Stop: 07/04/21 08:59 Last Admin: 06/04/21 08:14 Dose: 40 mg Documented by: [id number] Folic Acid (Folic Acid 1 Mg Tab) 1 mg PO QAM CASSIE Stop: 07/04/21 08:59 Last Admin: 06/04/21 08:13 Dose: 1 mg Documented by: [id number] Sodium Chloride (Nss 1000ml) 1,000 mls @ 75 mls/hr IV .[id number] CASSIE Stop: 06/05/21 11:39 Last Admin: 06/04/21 09:12 Dose: 75 mls/hr Documented by: [id number] Lamotrigine (Lamotrigine 100 Mg Tab) 100 mg PO BID CASSIE Stop: 07/03/21 21:25 Last Admin: 06/04/21 08:14 Dose: 100 mg Documented by: [id number] Admin: 06/03/21 22:37 Dose: 100 mg Documented by: [id number] Levothyroxine Sodium (Levothyroxine Sodium 150 Mcg Tablet) 150 mcg PO DAILYBB [facility] Stop: 07/04/21 06:29 Last Admin: 06/04/21 06:28 Dose: 150 mcg Documented by: [id number] Magnesium Oxide (Magnesium Oxide 400 Mg Tab) 400 mg PO DAILY@1130 [facility] Stop: 07/04/21 11:29 Last Admin: 06/04/21 11:58 Dose: 400 mg Documented by: [id number] Olanzapine (Olanzapine 2.5 Mg Tab) 2.5 mg PO DAILY [facility] Stop: 07/04/21 08:59 Last Admin: 06/04/21 08:14 Dose: 2.5 mg Documented by: [id number] Timolol Maleate (Timolol Maleate 0.5% Op Soln 5 Ml Btl) 1 drops OPB DAILY [facility] Stop: 07/04/21 08:59 Last Admin: 06/04/21 08:16 Dose: 1 drops Documented by: [id number] Coding Level of Care Code 39877 Inpt Consult Level 3 Diagnoses Anxiety F41.9 PAF (paroxysmal atrial fibrillation) I48.0 Bipolar disorder (manic depression) F31.9
[2021-06-04] MEDS ORDERED: LORazepam 0.5 MG TAB PO PRN (16:55)
--- NOTE | 2021-06-04 17:55 | Electrocardiogram Report ---
Test Reason : Blood Pressure : / mmHG Vent. Rate : 061 BPM Atrial Rate : 061 BPM P-R Int : 238 ms QRS Dur : 102 ms QT Int : 456 ms P-R-T Axes : 000 -52 026 degrees QTc Int : 459 ms Atrial-paced rhythm with prolonged AV conduction Left anterior fascicular block Voltage criteria for left ventricular hypertrophy Poor R wave progression, consider anterior CO vs. lead placement vs. LVH Abnormal ECG When compared with ECG of 24-APR-2021 10:06, Electronic atrial pacemaker has replaced Atrial flutter Vent. rate has decreased BY 37 BPM Confirmed by Joseph Connelly ([id number]) on 06/04/2021 5:55:03 PM Referred By: REFERRED SELF Confirmed By:Iain Connelly
--- NOTE | 2021-06-04 18:03 | Electrocardiogram Report ---
Test Reason : Blood Pressure : / mmHG Vent. Rate : 061 BPM Atrial Rate : 061 BPM P-R Int : 256 ms QRS Dur : 096 ms QT Int : 468 ms P-R-T Axes : 038 -41 025 degrees QTc Int : 471 ms Atrial-paced rhythm with prolonged AV conduction Left axis deviation Moderate voltage criteria for LVH, may be normal variant Abnormal ECG When compared with ECG of 03-JUN-2021 14:23, (unconfirmed) No significant change was found Confirmed by Joseph Connelly ([id number]) on 06/04/2021 6:03:29 PM Referred By: REFERRED SELF Confirmed By:Iain Connelly
[2021-06-04] MEDS: ATORVASTATIN 20 MG TAB PO SCH (21:17)
[2021-06-04] MEDS ORDERED: MELATONIN 3 MG TAB PO PRN (22:44)
[2021-06-05] MEDS: LEVOTHYROXINE SODIUM 150 MCG TABLET PO SCH (05:31)
[2021-06-05 07:28] LABS: Hematocrit (blood only) 31.9 % (37-47); Hemoglobin 10.4 g/dL (12.0-16.0); Mean Corpuscular Hgb Conc 32.6 g/dL (32-36); Mean Corpuscular Volume 91.9 fL (80-100); Mean Platelet Volume 10.7 fL (7.4-10.4); Platelet Count 143 K/uL (130-400); RDW Coefficient of Variation 14.8 % (11.5-14.5); RDW Standard Deviation 49.7 fL (36.4-46.3); Red Blood Count 3.47 M/uL (4.2-5.4); White Blood Count 3.32 K/uL (4.8-10.8)
[2021-06-05 07:51] LABS: BUN Creatinine Ratio 19.6 (10-20); Calcium 9.7 mg/dl (8.5-10.1); Creatinine Clr Calc Pharmacy 18.7 ml/min; Est GFR (African American) 18.7 ml/min; Est GFR (Non-African American) 16.2 ml/min; Magnesium 1.9 mg/dl (1.7-2.4); Potassium 4.5 mmol/L (3.5-5.1)
[2021-06-05] MEDS: allopurinoL 300 MG TAB PO SCH (08:00)
[2021-06-05] MEDS: AMIODARONE 200 MG TAB PO SCH (08:00)
[2021-06-05] MEDS: APIXABAN 2.5 MG TAB PO SCH (08:01)
[2021-06-05] MEDS: busPIRone 15 MG TAB PO SCH (08:01)
[2021-06-05] MEDS: cloNIDine HCL 0.1 MG TAB PO SCH (08:01)
[2021-06-05] MEDS: lamoTRIgine 100 MG TAB PO SCH (08:01)
[2021-06-05] MEDS: carvediloL 12.5 MG TAB PO SCH (08:01)
[2021-06-05] MEDS: FOLIC ACID 1 MG TAB PO SCH (08:01)
[2021-06-05] MEDS: BRIMONIDINE TARTRATE-P 0.15% 5 ML BTL OPB SCH (08:01)
[2021-06-05] MEDS: FLUoxetine HCL 10 MG CAP PO SCH (08:01)
[2021-06-05] MEDS: CYANOCOBALAMIN (B-12) 500 MCG TABLET PO SCH (08:01)
[2021-06-05] MEDS: TIMOLOL MALEATE 0.5% OP SOLN 5 ML BTL OPB SCH (08:02)
[2021-06-05] MEDS: OLANZAPINE 2.5 MG TAB PO SCH (08:03)
[2021-06-05] MEDS: FLUoxetine HCL 20 MG CAP PO SCH (08:03)
[2021-06-05] MEDS ORDERED: FUROSEMIDE 40 MG TAB PO SCH (09:00)
[2021-06-05] MEDS: MAGNESIUM OXIDE 400 MG TAB PO SCH (11:38)
--- NOTE | 2021-06-05 11:38 | Discharge Summary ---
Date of Service June 05, 2021 Admission HPI Per Admitting Provider Patient is a 80-year-old female with PMH HTN, CKD IV, bipolar depression, anxiety, sick sinus syndrome s/p pacemaker, paroxysmal atrial fibrillation on Eliquis, gout presented to ER with complaint of anxiety and high blood pressure. Patient reports she has been taking her blood pressures at home and they have been running SBP's in the 150s. Patient with history labile hypertension. Patient with history hospital admission 04/2021 for anxiety and hypertension, had episode of atrial fibrillation and was started on amiodarone, Eliquis, and carvedilol was started. Followed up with nephrology-Dr. Nicole 05/28/2021 and BP was on the lower side at that time and her clonidine was to be reduced from 0.3mg twice daily to taper to 0.1mg twice daily, however patient states she is still taking 0.3mg tabs. Patient reports taking Lasix 40 mg on Tuesday and Fridays. She denies missed medication doses. She states this past week has been having increased anxiety. Last night reports was very anxious and was u nable to sleep. Patient states anxiety continued throughout today which prompted her to come to ER. Denies suicidal or homicidal ideations. Patient following with patient psychiatry-[facility]. She reports she is given 20 tablets of Ativan approximately once a month for the last several months. Patient states that the Ativan seems to help with her anxiety. Last took Ativan 3 days ago as she reports is out of Ativan. She reports follow-up with psychiatry 06/05/2021. Patient denies chest pain, shortness of breath, palpitations. History Echo 04/25/21: EF: 60-65%. Denies fever/chills, diaphoresis, N/V/D/C, OLSEN, dizziness, syncope, vision changes, neck pain, orthopnea, cough, sore throat, choking, otalgia, rhinorrhea, abdominal pain, paresthesias, weakness, extremity edema, rashes, urinary symptoms. Admission Exam Per Admitting Provider General: no distress, WDWN Head: normocephalic, atraumatic Eyes: PERRL, EOM's intact, conjunctiva non-injected, anicteric ENT: normal inspection external ears, nose, mucous membranes moist Neck: supple, trachea midline Lungs: clear, no respiratory distress, no wheezing/rhonchi/rales CV: RRR, no pretibial edema Abd: normal BS, soft, non-tender Ext: no cyanosis, no calf tenderness Neuro: A&O x 3, no focal deficits noted, currently calm Skin: warm, dry Principal Diagnosis Hypertensive urgency Anxiety Discharge Exam GENERAL: Alert and oriented x3. NAD, on RA. HEENT: No pallor, no icterus. Pupils equal, round and reactive to light. Oral mucosa moist. NECK: No JVD, no neck masses. HEART: S1 and S2 heard. Regular rate and rhythm. No murmur, no gallop. RESPIRATORY SYSTEM: Normal AP diameter. No accessory muscle use. No wheezing, no crackles. ABDOMEN: Soft, bowel sounds present, nontender, no distention. CENTRAL NERVOUS SYSTEM: No facial droop. Speech is clear. Obeys simple commands. Moves extremities. EXTREMITIES: No edema, no erythema seen. Discharge Data Allergies Allergy/AdvReac Type Severity Reaction Status Date / Time No Known Allergies Allergy Unknown Verified 06/03/21 17:14 Consultations 06/03/21 18:25 ED Decision to Admit Stat 06/04/21 07:36 Consult Psychiatry Routine Hospital Course (1) Hypertensive urgency: (2) Anxiety: 80-year-old female with PMH of HTN, CKD IV, bipolar depression, anxiety, sick sinus syndrome s/p pacemaker, paroxysmal atrial fibrillation on Eliquis, gout presented to ER 06/03 with complaint of anxiety and high blood pressure. Reported home SBP's running in the 150s. Denies chest pain, shortness of breath. She was managed for the following: #. Hypertensive urgency In ER initial BP 161/96 up to 242/110 down to 122/61 after hydroxyzine and hydralazine, ativan given in ER. Suspect anxiety causing elevated BPs Continue carvedilol, Lasix On Clonidine 0.3 mg twice daily, was recommended by nephrology to taper to 0.1 mg twice daily secondary to low BP in clinic last week, however patient reports continued taking 0.3 mg twice daily Will taper to clonidine 0.2mg BID --> tapered down to 0.1 mg twice daily upon discharge. Recent echo in 04/2021: EF: 60-65% Blood pressure fairly under control, patient will need outpatient follow-up with nephrology. Patient made aware of clonidine dose change and nephrology follow- up requirement. #. Anxiety: H/O Bipolar Depression Recent increased anxiety. She reports he gets anxious being at home by herself. She is anxious about how she can keep her self busy. Patient reports has started going to a grieving group, has been doing word finding puzzles. Denies suicidal or homicidal ideations Follows with outpatient psychiatry - [facility] Continue fluoxetine, lamotrigine, olanzapine, buspirone. (Patient reports buspirone was increased from twice daily to 3 times daily at the end of April 2021) Psychiatry evaluated while inpatient, appreciate recommendation. Ativan will be slowly tapered down, 0.25 mg twice daily as needed for 7 days and then 0.25 mg daily as needed for 7 days and then 0.125 mg daily as needed for 7 days and then stop. Patient made aware of close follow-up with psychiatry requirement and tapering dose of Ativan. Patient provided with 7 days worth of Ativan, for further Ativan prescriptions she will need to contact her PCP/psychiatry. Pt aware. #. Mild KAT over CKD IV Baseline creatinine around 2.1-2.4 Status post IV fluid, creatinine improving. Get blood work BMP done in a week time upon discharge and have the results forwarded to primary care physician. #. Other chronic medical conditions: PAF, CKD stage IV, SSS, hypothyroidism Continue with/resume home meds as and when appropriate. #. DVT prophylaxis: Daquan Full code Follows with Dr Crandall for routine care Following instructions were communicated to the patient at the point of discharge: Follow-up with your primary care physician within a week time. As discussed at the bedside, for your hypertension you will need to follow-up with your nephrology within a week time. Your clonidine will be tapered down 0.1 mg twice daily. As discussed at the bedside, for your anxiety, you will need to follow-up with psychiatry within a week time. Your Ativan dose has been tapered down [as discussed] as follows: 0.25 mg twice daily as needed for 7 days then 0.25 mg daily as needed for 7 days then 0.125 mg daily as needed for 7 days and stop. You will be discharged on few days worth of Ativan, for further prescription and Ativan you will need to get in touch with your primary care physician or psychiatry as an outpatient. Have your blood work BMP done in a week time and have the results forwarded to her primary care physician. Take your medications as prescribed. Total Time Total Time Spent Total Time Spent (In Minutes): 35 Discharge Plan Discharge Items Patient Disposition: Home - Self-Care Reason For Visit: HTN Discharge Diagnosis: Hypertensive urgency Anxiety Condition on Discharge: Fair Activity: Resume your previous activity Non-emergency contact: Primary Care Provider Call non-emergency contact if: you have any medication questions and your symptoms worsen Follow-up/Referrals: Leticia Crandall DO [Primary Care Provider] - (Date & Time 06/09/2021 11:00 AM Provider Leticia Crandall DO Department [facility] ) Aaliyah Goodwin PA-C [Physician Claim Representative] - (Date & Time 06/12/2021 2:00 PM Provider Aaliyah Goodwin PA-C Department Cardiology, [facility] ) Diet: Heart Healthy Addtl Attending Provider Instructions: Follow-up with your primary care physician within a week time. As discussed at the bedside, for your hypertension you will need to follow-up with your nephrology within a week time. Your clonidine will be tapered down 0.1 mg twice daily. As discussed at the bedside, for your anxiety, you will need to follow-up with psychiatry within a week time. Your Ativan dose has been tapered down [as discussed] as follows: 0.25 mg twice daily as needed for 7 days then 0.25 mg daily as needed for 7 days then 0.125 mg daily as needed for 7 days and stop. You will be discharged on few days worth of Ativan, for further prescription and Ativan you will need to get in touch with your primary care physician or psychiatry as an outpatient. Have your blood work BMP done in a week time and have the results forwarded to her primary care physician. Take your medications as prescribed. Pending Studies at Discharge: No Stand-Alone Forms: My [employer], Smoking Cessation Medications and DC Order Prescriptions: New clonidine HCl 0.1 mg tablet 0.1 mg PO BID Qty: 14 RF: 0 lorazepam 0.5 mg Tablet 0.25 mg PO Q12H PRN (Reason: anxiety) 7 Days Qty: 7 RF: 0 melatonin 3 mg Tablet 3 mg PO HS Qty: 30 RF: 0 Continued allopurinol 300 mg tablet 300 mg PO QAM RF: 0 atorvastatin 20 mg tablet 20 mg PO PM RF: 0 levothyroxine 150 mcg tablet 150 mcg PO QAM RF: 0 brimonidine 0.15 % drops 1 drp OPB BID RF: 0 lamotrigine 100 mg tablet 100 mg PO BID RF: 0 timolol maleate 0.5 % drops 1 drp OPB DAILY RF: 0 fluoxetine 40 mg capsule 40 mg PO QAM RF: 0 cyanocobalamin (vitamin B-12) 500 mcg Tablet 500 mcg PO QAM Qty: 30 RF: 0 folic acid 1 mg Tablet 1 mg PO QAM Qty: 30 RF: 0 magnesium oxide 400 mg (241.3 mg magnesium) tablet 400 mg PO DAILY Qty: 10 RF: 0 carvedilol 12.5 mg tablet 12.5 mg PO BID RF: 0 olanzapine 2.5 mg tablet 2.5 mg PO DAILY RF: 0 cholecalciferol (vitamin D3) [Vitamin D3] 50 mcg (2,000 unit) Capsule 50 mcg PO DAILY RF: 0 Eliquis 2.5 mg Tablet 2.5 mg PO BID Qty: 60 RF: 0 fluoxetine 10 mg capsule 10 mg PO QAM RF: 0 amiodarone 200 mg tablet 200 mg PO DAILY RF: 0 buspirone 15 mg tablet 15 mg PO TID RF: 0 furosemide 40 mg tablet 40 mg PO UD RF: 0 Discontinued lorazepam 1 mg tablet 1 mg PO DAILY PRN (Reason: Anxiety) RF: 0 clonidine HCl 0.3 mg tablet 0.3 mg PO BID RF: 0 Discharge Orders: Discharge Order (Routine); Ordered 06/05/21 Ordered By: Kat Macedo Admission Data Admit Date/Time: 06/03/21 18:43 Attending Provider: Bridget Alvarez Admit Provider: Bridget Alvarez Primary Care Provider: Leticia Crandall Other Providers: Kat Macedo ; Courtney Roberts ; Kathleen Mcmahon ; Janel Arriaga
== END 2021-06-05 13:42 | disposition home or self-care (01) ==
LOC: 2W 13:26 → ED 13:26 → 2W 20:42

== ENCOUNTER 2023-08-06 15:49 | Inpatient (IN) ==
--- OUTSIDE RECORDS SUMMARY | 2023-08-06 15:56 | External Medical Summary | Summary of Care ---
Author Name Unknown Organization [facility] Address [address] [address] [address] Phone [phone] Care Team Providers Care Thread Spooler Name Role Phone AmeliaTricia castanedayusuf Charles DO Primary Care Provider [phone] Reason for Visit * Reason Comments Outpatient Testing Encounter Details Date Type Department Care Team (Late st Contact Info) Description 08/05/2023 1:40 PM EDT Laboratory Laboratory, [place] [address] [place] [phone] [place], [facility] [address] [place], [place] [id number] Paroxysmal atrial fibrillation (HCC); Hypothyroidism; Hyperparathyroidism, primary (HCC); 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); LVH (left ventricular hypertrophy) Allergies Active Allergy Reactions Criticality Noted Date Comments Cephalexin 06/10/2022 documented as of this encounter (statuses as of 08/05/2023) Medications Medication Sig Dispensed Refills Start Date End Date Status Vitamin D3 50 MCG (1999) Oral CapsuleIndications:V itamin D deficiency Take 1 Cap by mouth daily. 30 Cap 5 07/16/2020 Active B-12 1000 MCG Oral Tablet Take 1 Tablet by mouth in the morning. Active Nystatin 741257 UNIT/GM External Powder (Nystop) Apply topically to affected area 3 times a day. 60 g 08/18/2022 Active Nystatin 990802 UNIT/GM External CreamIndications:Can didal skin infection Apply topically to affected area 2 times a day for two weeks. 60 g 1 08/18/2022 Active Eliquis 2.5 MG Oral Tablet Take 1 Tablet by mouth in the morning and 1 Tablet before bedtime. 180 Tablet 3 10/20/2022 Active Levothyroxine Sodium 150 MCG Oral Tablet (Levoxyl)Indications :Acquired hypothyroidism Take 1 Tablet by mouth in the morning. (at least 30 min prior to breakfast or other meds). 90 Tablet 3 12/14/2022 Active cloNIDine HCl 0.1 MG Oral Tablet (Catapres)Indication s:HTN, goal below 140/90 Take 1 Tablet by mouth in the morning and 1 Tablet before bedtime. 180 Tablet 3 12/14/2022 Active Allopurinol 300 MG Oral Tablet (Zyloprim)Indication s:Gouty arthropathy Take 1 Tablet by mouth in the morning. 90 Tablet 3 12/22/2022 Active Brimonidine Tartrate 0.15 % Ophthalmic Solution (Alphagan P) Instill 1 drop into each eye twice daily. 10 mL 6 02/09/2023 Active Timolol Maleate 0.5 % Ophthalmic Solution (Timoptic) Instill 1 drop into each eye in the morning. 5 mL 3 02/09/2023 Active Folic Acid 1 MG Oral Tablet TAKE ONE TABLET BY MOUTH EVERY DAY 90 Tablet 3 02/28/2023 02/28/2024 Active Carvedilol 25 MG Oral Tablet (Coreg) Take 1 Tablet by mouth in the morning and 1 Tablet before bedtime. with food. 100 Tablet 3 03/23/2023 Active OLANZapine 5 MG Oral Tablet (ZyPREXA) Take 1 Tablet by mouth at bedtime. Active NATURAL SUPPLEMENT Take by mouth daily. Magnesium - unsure of dose. Active Magnesium 100 MG Oral Capsule Take 1 Capsule by mouth in the morning and 1 Capsule before bedtime. 60 Capsule 1 07/19/2023 Active ARIPiprazole 5 MG Oral Tablet (Abilify) Take 1 Tablet by mouth in the morning. 30 Tablet 1 07/22/2023 08/24/2023 Active lamoTRIgine 25 MG Oral Tablet (LaMICtal) Take 2 Tablets by mouth in the morning. 60 Tablet 2 07/25/2023 08/24/2023 Active LORazepam 0.5 MG Oral Tablet (Ativan) Take 1 Tablet by mouth 2 times a day as needed for Anxiety. 60 Tablet 1 07/25/2023 Active clonazePAM 0.5 MG Oral Tablet (KlonoPIN) Take 1 Tablet by mouth every night at bedtime. 30 Tablet 1 07/25/2023 Active FLUoxetine HCl 40 MG Oral Capsule (PROzac)Indications: Bipolar disorder, current episode depressed, moderate (HCC) Take 2 Capsules by mouth in the morning. 180 Capsule 07/25/2023 Active hydrOXYzine HCl 25 MG Oral Tablet Take 1 Tablet by mouth 3 times a day as needed for Anxiety. 90 Tablet 2 08/01/2023 Active Amiodarone HCl 200 MG Oral Tablet (Cordarone) TAKE ONE TABLET BY MOUTH EVERY MORNING 90 Tablet 3 08/04/2023 08/03/2024 Active documented as of this encounter (statuses as of 08/05/2023) Active Problems Problem Noted Date Diagnosed Date Primary open-angle glaucoma, left eye, mild stag e 03/29/2023 Hypertensive heart and kidne y disease with chronic diastolic congestive heart failure and stage 4 chronic kidney disease 03/15/2022 Other atherosclerosis of nakul hai arteries of extremities, bilateral legs 11/13/2021 Hypertensive heart disease w ith chronic diastolic congestive heart failure 06/12/2021 Paroxysmal atrial fibrillation 05/08/2021 Chronic diastolic congestive heart failure 05/08 Hx of nonmelanoma skin cancer 09/18/2020 Overview: Atypical squamous proliferation (Yas ayers 2002) Major depressive disorder with single episode Bipolar disorder, current episode depressed, mod erate 02/26/2020 Hyperparathyroidism, secondary renal 02/26/2020 Primary open-angle glaucoma, right eye, severe s tage 02/26/2020 Gastroesophageal reflux disease without esophagi tis 02/26/2020 Anxiety, generalized 02/26/2020 Sinus node dysfunction 07/11/2018 Cardiac pacemaker in situ 07/24/2015 MITRAL VALVE REGURGE 12/18/2009 Tricuspid valve regurgitation 12/18/2009 Dyslipidemia, goal LDL below 100 10/02/2009 Primary angle-closure glaucoma 08/14/2009 Gouty arthropathy 01/22/2009 Vitamin D deficiency 01/14/2009 HTN, goal below 140/90 04/07/2007 BIPOLAR AFFEC, MIXED-MOD 03/25/1999 Hypothyroidism 10/22/1998 Hyperparathyroidism, primary documented as of this encounter (statuses as of 08/05/2023) Resolved Problems Problem Noted Date Diagnosed Date Resolved Date Other acute osteomyelitis, l eft ankle and foot 11/03/2021 03/29/2023 Chronic kidney disease, stage 3b 06/24/2020 03/09/2021 Overview: Per CKD protocol Duplicate Polyneuropathy in other dise ases classified elsewhere 02/26/2020 09/02/2020 Hypertensive kidney disease with stage 3b chronic kidney disease 12/24/2019 03/16/2022 Overview: Per CKD protocol Hypertensive kidney disease with chronic kidney disease stage III 04/06/2018 12/27/2019 Overview: Per CKD protocol Non-pressure chronic ulcer o f other part of left foot limited to breakdown of skin 12/31/2016 1 03/02/2016 Sinus node dysfunction 07/24/201504/10 Hyperuricemia 07/07/2015 07/04/2017 Kidney disease, chronic, sta ge III (GFR 30-59 ml/min) 02/05/2014 04/25/2018 CKD (chronic kidney disease) stage 4, GFR 15-29 ml/min 11/06/2013 02/04/2014 Urinary frequency 06/18/2011 07/04/2017 OBESITY, BMI= 31.55 07/28/10 2010 06/25/2016 SPRAINS AND STRAINS, WRIST, RIGHT 2010 06/25/2016 Pain in limb 2010 06/25/2016 BALANCE PROBLEMS 10/02/2009 06/25/2016 Senile nuclear cataract 08/14/200906/15 HTN, goal below 130/80 03/13/200907/28 Overview: Per HTN Taxonomy. Kidney disease, chronic, sta ge III (GFR 30-59 ml/min) 04/18/2007 11/06/2013 Overview: Added per CKD clinical protocol 1 HTN, goal below 140/90 04/07/200703/13 Overview: Per HTN Taxonomy. ADVANCE DIRECTIVE INFORMATION 06/28/2006 12/31/2016 Overview: Brochure given to pt. 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 Glaucoma 12/31/2016 documented as of this encounter (statuses as of 08/05/2023) Immunizations Name Administration Dates Next Due COVID-19 mRNA, LNP-s, No Pre serve, 2-Dose Series (Pfizer) 06/25/2020,06/02/2020 Pneumococcal Conjugate Vacc, 13 Valent (Prevnar) 11/18/2015 Pneumococcal Polysaccharide PPV23 (Pneumovax) 12/04/2007 Seasonal Influenza, PF, 6 M & above, IM , (FluLaval or Fluzone) 01/30/2018,12/31/2016 Seasonal Influenza, Quadriva lent Hd (Fluzone Hd) 11/02/2022,11/03/2021,11/12/2020 Seasonal Influenza, Quadriva lent, No Preserve, IM 11/18/2015 Seasonal Influenza, Split, I IV3, With Preserve, Inj 10/15/2014,02/04/2014,01/27/2012,12/03,12/21/2006 Seasonal Influenza, Trivalen t, Adjuvanted, 65+ yrs 11/09/2018 Seasonal Influenza, Trivalen t, High Dose, No Preserve, IM 10/29/2019 TD - Tetanus/Diptheria (ADULT) 02/14/2001 TDAP (age 10 and older)(Boostrix) 06/25/2016 Varicella Zoster Vaccine (Adult) 11/20/2014 Zoster Vaccine Recombinant (Shingrix) 10/01/2020 ,09/24/2019 documented as of this encounter Social History Tobacco Use Types Packs/Day Years Used Date Smoking Tobacco: Never Passive Smoke Exposure: Past Smokeless Tobacco: Never Alcohol Use Standard Drinks/Week Comments No 0 (1 standard drink = 0.6 oz pur e alcohol) PHQ-2 Answer Date Recorded PHQ Adult Total Score 13 07/19/2023 Hunger Vital Sign Answer Date Recorded Within the past 12 months, y ou worried that your food would run out before you got the money to buy more. Never true 02/01/20 23 Within the past 12 months, t he food you bought just didn't last and you didn't have money to get more. Never true 01/31/2023 Childcare Answer Date Recorded Do you feel overwhelmed with taking care of a child, family member or friend? No 01/31/2023 Does your family need help f inding childcare? (Household - for ages 0-17 years) Not on file 01/31/2023 Clothing Answer Date Recorded Have you been unable to get clothing when it was really needed? No 01/31/2023 Is your family able to get c lothes or diapers when needed? (Household - for ages 0-17 years) Not on file 01/31/2023 Personal Safety Answer Date Recorded Do you feel unsafe or have concerns for your saf ety? No 01/31/2023 Do you have concerns for you r family's safety? (Household - for ages 0-17 years) Not on file 01/31/2023 Utilities Answer Date Recorded Do you have trouble paying y our heating, water, or electric bill? No 01/31/2023 Is your family able to pay t he heat, water, or electric bill? (Household - for ages 0-17 years) Not on file 01/31/2023 Does your family have access to good internet? (Household - for ages 0-17 years) Not on file 01/31/2023 Employment Status Answer Date Recorded Are you unemployed or without regular income? No 01/31/2023 [address] the household have a [facility] source of income? (Household - for ages 0-17 years) Not on file 01/31/2023 Social Connections Answer Date Recorded How often do you feel lonely or isolated from th ose around you? Often 01/31/2023 Financial Resource Strain Answer Date R ecorded Do you have any trouble payi ng for your medications, or do you think you might in the future? No 01/31/2023 Does your family have troubl e paying for medicine? (Household - for ages 0-17 years) Not on file 01/31/2023 Transportation Needs Answer Date Record ed READ ONLY Do you have troubl e getting a ride to medical visits or work? Never True 01/31/2023 Does your family have a hard time getting a ride to doctors visits? (Household - for ages 0-17 years) Not on file 01/31/2023 Has lack of transportation k ept you from medical appointments, meetings, work, or from getting things needed for daily living? Check all that apply. (Adult - for ages 18 years and over) Not on file 01/31/2023 Do you (or your family) have trouble finding or paying for a ride (transportation)? (Household - for ages 0-17 years) Not on file 01/31/2023 Housing Stability Answer Date Recorded Do you currently live in a s helter or have no steady place to sleep at night? No 01/31/2023 READ ONLY Do you think you a re at risk of becoming homeless? No 01/31/2023 Does your family worry about paying for your home or becoming homeless? (Household - for ages 0-17 years) Not on file 1 04/03/2022 Are you homeless or worried that you might be in the future? (Adult - for ages 18 years and over) Not on file Are you (or your family) [place] or worried that you might be in the future? (Household - for ages 0-17 years) Not on file Food Insecurity Answer Date Recorded Do you need food for this week? No 01/31/2023 Are you able to get enough f ood for your family? (Household - for ages 0-17 years) Not on file 01/31/2023 Does your family need food t his week? (Household - for ages 0-17 years) Not on file 01/31/2023 Do you always have enough fo od for your family? (Household - for ages 0-17 years) Not on file 01/31/2023 Sex and Gender Information Value Date Recorded Sex Assigned at Female 09/01/2021 3:10 PM EDT Gender Identity Female 09/01/2021 3:10 PM EDT Sexual Orientation Straight 09/01/2021 3: 10 PM EDT Job Start Date Occupation Industry Not on file Not on file Not on file documented as of this encounter Plan of Treatment Upcoming Encounters Date Type Department Care Team (Late st Contact Info) Description 09/05/2023 1:40 PM EDT Office Visit Nephrology, [facility] [place] [address] Abhilash Nicole MD [address] [place] [address] 09/07/2023 3:00 PM EDT Telemedicine Psychiatry [facility] [place] [address] [place] [address] Nancy Metz MD [address] [place] [address] 09/09/2023 3:00 PM EDT Office Visit Family Practice [address] [facility] [address] [place] [address] Leticia Crandall, [address] [place] [address] 12/23/2023 1:20 PM EST Office Visit Rheumatology [address] [place] [address] Neil Rankin MD [address] [place] [address] 06/19/2024 1:00 PM EDT Nurse Only Ancillary [address] [address] College, Nurse Annual Wellness Visit [address] [place] [id number] Pending Results Name Type Priority Associated Diagnoses Date /Time BASIC METABOLIC PANEL Lab Routine Paroxysmal atrial fibrillation (HCC) Hypothyroidism Hyperparathyroidism, primary (HCC) 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) 08/05/2023 1:50 PM EDT MAGNESIUM Lab Routine Paroxysmal atrial fibrillation (HCC) Hypothyroidism Hyperparathyroidism, primary (HCC) 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) 08/05/2023 1:50 PM EDT TSH WITH FREE T4 IF INDICATED Lab Routine Paroxysmal atrial fibrillation (HCC) Hypothyroidism Hyperparathyroidism, primary (HCC) 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) 08/05/2023 1:50 PM EDT HEPATIC FUNCTION PANEL Lab Routine Paroxysmal atrial fibrillation (HCC) Hypothyroidism Hyperparathyroidism, primary (HCC) 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) 08/05/2023 1:50 PM EDT KAPPA/LAMBDA LIGHT CHAINS, FREE WITH RATIO, RANDOM URINE Lab Routine LVH (left ventricular hypertrophy) 08/05/2023 1:50 PM EDT SERUM IMMUNOFIXATION Lab Routine LVH (left ventricular hypertrophy) 08/05/2023 1:50 PM EDT URINE IMMUNOFIXATION, BENCE HARLEY PROTEIN, RANDOM URINE Lab Routine LVH (left ventricular hypertrophy) 08/05/2023 1:50 PM EDT Health Maintenance Due Date Last Done Comments Albumin/Creatinine Ratio 11/03/2023 023, 01/05/2022, 11/12/2020, Additional history exists TSH 12/03/2023 12/02/2022, 08/14, 07/15/2022, Additional history exists GFR 12/25/2023 06/24/2023, 04/14, 02/18/2023, Additional history exists Nephrology Referral 04/08/2024 04/08/2023, 07/08/2010, 12/02/2004 PTH 04/24/2024 04/25/2023, 06/2023, 07/08/2022, Additional history exists Hgb 06/23/2024 06/24/2023, 04/14, 02/18/2023, Additional history exists Phosphate 06/23/2024 06/24/2023, 04/14, 02/18/2023, Additional history exists Depression Monitoring 07/18/2024 07/19/2023 , 07/19/2023, 06/17/2023 DTaP,Tdap,and Td Vaccines (2 - Td or Tdap) 06/25/2026 06/25/2016, 02/14/2001 RETIRED - COLONOSCOPY-EVERY 5 YRS AGES 18-100 Discontinued 07/22/2014, 03/29/2008 Pneumococcal Vaccine: 65+ Years Completed 11/18/2015, 12/04/2007 COVID-19 Vaccine Discontinued 06/25/2020, 06/02/2020 Zoster Vaccines Completed 10/01/2020, 09/14, 11/20/2014 Influenza Vaccine (FLU shot) Completed 11/02/2022, 11/03/2021, 11/12/2020, Additional history exists GARDASIL-HPV IMMUNIZATION SERIES Aged Out No longer eligible based on patient's age to complete this topic Hepatitis B Aged Out No longer eligi ble based on patient's age to complete this topic MENINGOCOCCAL (MENACTRA/MENVEO) Aged Out No longer eligible based on patient's age to complete this topic documented as of this encounter Medical Devices Not on filedocumented as of this encounter Visit Diagnoses Diagnosis Paroxysmal atrial fibrillation (HCC) Atrial fibrillation Hypothyroidism Unspecified hypothyroidism Hyperparathyroidism, primary (HCC) Primary hyperparathyroidism 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) LVH (left ventricular hypertrophy) Cardiomegaly documented in this encounter Advance Directives * Full Code (Latest Code Status on File) Date Activated Date Inactivated Comments 09/12/2007 9:41 AM 09/13/2007 4:12 PM Healthcare Agents on File Name Relationship Healthcare Agent [facility] Communication [facility] Repr esentative (appointed verbally by patient or by statute hierarchy) Care Teams Thread Spooler Relationship Specialty Start Date End Date Leticia Crandall DO PCP - General Family Medicine 10/26/21 documented as of this encounter
--- OUTSIDE RECORDS SUMMARY | 2023-08-06 15:56 | External Medical Summary | Summary of Care ---
Author Name Unknown Organization [facility] Address [address] [place] [address] Phone [phone] Care Team Providers Care Bung Remover Name Role Phone AmeliaTricia castanedayusuf Charles DO Primary Care Provider [phone] Reason for Visit * Reason Comments Outpatient Testing Encounter Details Date Type Department Care Team (Late st Contact Info) Description 08/05/2023 1:40 PM EDT Laboratory Laboratory, [place] [address] [place] [phone] [place], [facility] [address] [place], [place] [phone] Paroxysmal atrial fibrillation (HCC); Hypothyroidism; Hyperparathyroidism, primary [...] by mouth in the morning. Active Nystatin 459589 UNIT/GM External Powder (Nystop) Apply topically to affected area 3 times a day. 60 g 08/18/2022 Active Nystatin 480885 UNIT/GM External CreamIndications:Can didal skin infection Apply [...] term Drug Mental Disorder Unspecified 06/25/2016 Overview: [place] toxicity - admitted 10/19 Glaucoma 12/31/2016 documented [...] No 01/31/2023 Does the household have a [facility] source of income? (Household - for ages [...] EDT Office Visit Nephrology, Roman [facility] [address] [facility] [place] [address] Abhilash Nicole MD 200 [facility] [place] [address] 09/07/2023 3:00 PM EDT Telemedicine Psychiatry [facility] [place] [address] [place] [address] Nancy Metz MD [address] [place] [address] 09/09/2023 3:00 PM EDT Office Visit Family Practice 65 [facility] [address] [place] [address] Leticia Crandall, [address] [place] [address] 12/23/2023 1:20 PM EST Office Visit Rheumatology [address] [place] [address] Neil Rankin MD [address] [place] [address] 06/19/2024 1:00 PM EDT Nurse Only Ancillary [address] [address] College, Nurse Annual Wellness Visit [address] [place] [phone] Pending Results Name Type Priority Associated Diagnoses [...] Agents on File Name Relationship Healthcare Agent [facility] Communication [facility] Repr esentative (appointed verbally by patient or by statute hierarchy) Care Teams Bung Remover Relationship Specialty Start Date End Date Leticia Crandall DO PCP - General Family Medicine 10/26/21 documented as of this encounter
--- OUTSIDE RECORDS SUMMARY | 2023-08-06 15:56 | External Medical Summary ---
Author Name Unknown Address Unknown Organization [id number]:LABORATORY [facility] [place] - [address] [place] [address] Laboratory Report Ordering Provider Test Date Status FRANCO TERRELL 08/05/2023 13:50:55 Final Observation Date Value Abnormality Reference (Units ) Status BUN 08/05/2023 13:50:55 52 Above high normal 6-20 (mg/dL) Final Creatinine 08/05/2023 13:50:55 3.5 Above high normal 0.5-1.0 (mg/dL) Final Glomerular filtration rate/1.73 sq M.predicted [Volume Rate/Area] in Serum, Plasma or Blood by Creatinine-based formula (CKD-EPI) 08/05/2023 13:50:55 13 Below low normal >=60 (mL/min) Final eGFR is calculated based on the CKD-EPI 2020 equation Sodium 08/05/2023 13:50:55 140 135-146 (m mol/L) Final Potassium 08/05/2023 13:50:55 5.0 3.5-5.1 (m mol/L) Final Cl 08/05/2023 13:50:55 106 98-107 (mm ol/L) Final CO2 08/05/2023 13:50:55 23 22-32 (mmo l/L) Final Anion gap 08/05/2023 13:50:55 11 7-15 (mmol /L) Final Glucose 08/05/2023 13:50:55 87 70-120 (mg /dL) Final Calcium 08/05/2023 13:50:55 11.0 Above high normal 8. 4-10.2 (mg/dL) Final Performing Location LABORATORY [facility] [place] - [address] [place] [address]
--- OUTSIDE RECORDS SUMMARY | 2023-08-06 15:56 | External Medical Summary ---
Author Name Unknown Address Unknown Organization [id number]:[facility] [place] [address] [place] [address] Laboratory Report Ordering Provider Test Date Status FRANCO TERRELL 08/05/2023 13:50:55 Final Observation Date Value Abnormality Reference (Units ) Status TSH 08/05/2023 13:50:55 2.49 0.27-4.20 (uIU/mL) Final Performing Location LABORATORY [facility] - [address] [place] [address]
--- OUTSIDE RECORDS SUMMARY | 2023-08-06 15:56 | External Medical Summary | Summary of Care ---
Author Name Unknown Organization [facility] Address [address] [facility] [place] [address] Phone [phone] Care Team Providers Care Seat Pack Inspector Name Role Phone Ameliatonya Leticiayusuf Charles DO Primary Care Provider + [phone] Reason for Visit * Reason Onset Date Comments Test Results 08/04/2023 Encounter Details Date Type Department Care Team (Late st Contact Info) Description 08/04/2023 Telephone Cardiology, [facility] [address] [place] [address] Aaliyah Goodwin PA-C [address] [place] [address] Test Results Allergies Active Allergy Reactions Criticality Noted Date [...] by mouth in the morning. Active Nystatin 031809 UNIT/GM External Powder (Nystop) Apply topically to affected area 3 times a day. 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 Never true 01/31/2023 Sex and Gender Information Value Date Recorded Sex Assigned at Female 09/01/2021 3:10 PM EDT Gender Identity Female 09/01/2021 3:10 PM EDT Sexual Orientation Straight 09/01/2021 3: 10 PM EDT Job Start Date Occupation Industry Not on file Not on file Not on file documented as of this encounter Miscellaneous Notes * Addendum Note - Lea Perez CRNP - 08/05/2023 7:14 AM EDTAddended by: LEA PEREZ on: 08/05/2023 07:14 AM Modules accepted: Orders * Telephone Encounter - Lea Perez CRNP - 08/05/2023 7:13 AM EDT Labs placed in coverage of Aaliyah Goodwin PA-C. Please have patient complete. HAYDE Pastor * Telephone Encounter - Lea Perez CRNP - 08/04/2023 12:59 PM EDT Noted. * Telephone Encounter - Jerry Freeman RN - 08/04/2023 12:32 PM EDT Called and spoke to the patient and reviewed the message with her and explained that she could takemedication to reduce her anxiety for the Cardiac MRI. She absolutely refused and she stated she hasclaustrophobia really bad and nothing will help. * Telephone Encounter - Jerry Freeman RN - 08/04/2023 10:00 AM EDT Called and spoke to the patient and reviewed the message with her from Aaliyah Goodwin in regards to her echo. She will not do the cardiac MRI. She stated she will never tolerate it due to her anxiety. She would like to get her lab work done today. Please add the lab you want done. * Telephone Encounter - Jerry Freeman RN - 08/04/2023 10:00 AM EDT ----- Message from Aaliyah Goodwin sent at 08/03/2023 10:00 PM EDT ----- Echo results reviewed. LV wall motion is normal. LV wall thickness has increased. Possibly from HTN. Would like her to have additional labs to r/o amyloid or other cause. Also would like her to have a possible cardiac MRI if she would tolerate it. (She has a lot of anxiety) Can we see if her pacemaker is MRI safe? No significant valvular disease. documented in this encounter Plan of Treatment Upcoming Encounters Date Type Department Care Team (Late st Contact Info) Description 09/05/2023 1:40 PM EDT Office Visit Nephrology, [place] 200 [facility] [place] [address] Abhilash Nicole MD 200 [facility] [place] [address] 09/07/2023 3:00 PM EDT Telemedicine Psychiatry [place] [address] [place] [phone] Nancy Metz MD [address] [place] [facility] [place] [address] 09/09/2023 3:00 PM EDT Office Visit Family Practice [address] [place] 293 [place] [phone] Leticia Crandall DO 293 [place] [address] 12/23/2023 1:20 PM EST Office Visit Rheumatology [address] [place] [address] Neil Rankin MD [facility] [place] [address] 06/19/2024 1:00 PM EDT Nurse Only Ancillary [address] [place] 293 [place] [address] College, Nurse Annual Wellness Visit [address] [place] [address] Scheduled Orders Name Type Priority Associated Diagnoses Orde r Schedule KAPPA/LAMBDA LIGHT CHAINS, FREE WITH RATIO, RANDOM URINE Lab Routine LVH (left ventricular hypertrophy) Expected: 08/05/2023, Expires: 08/04/2024 SERUM IMMUNOFIXATION Lab Routine LVH (left ventricular hypertrophy) Expected: 08/05/2023, Expires: 08/04/2024 URINE IMMUNOFIXATION, BENCE HARLEY PROTEIN, RANDOM URINE Lab Routine LVH (left ventricular hypertrophy) Expected: 08/05/2023, Expires: 08/04/2024 Health Maintenance Due Date Last Done Comments [...] as of this encounter Visit Diagnoses Diagnosis LVH (left ventricular hypertrophy)- Primary Cardiomegaly documented in this encounter Advance Directives * Full Code (Latest Code Status on File) Date Activated Date Inactivated Comments 09/12/2007 9:41 AM 09/13/2007 4:12 PM Healthcare Agents on File Name Relationship Healthcare Agent [facility] Communication [facility] Repr esentative (appointed verbally by patient or by statute hierarchy) Care Teams Seat Pack Inspector Relationship Specialty Start Date End Date Leticai Crandall DO PCP - General Family Medicine 10/26/21 documented as of this encounter
--- OUTSIDE RECORDS SUMMARY | 2023-08-06 15:56 | External Medical Summary ---
Author Name Unknown Address Unknown Organization K01:[facility] - [address] [place] [address] Laboratory Report Ordering Provider Test Date Status FRANCO TERRELL 08/05/2023 13:50:55 Final Observation Date Value Abnormality Reference (Units ) Status Albumin 08/05/2023 13:50:55 3.9 3.8-5.0 (g/dL) Final AST (Aspartate aminotransferase) 08/05/2023 13:50:55 36 Above high normal 10-35 (U/L) Final Alk Phos 08/05/2023 13:50:55 73 35-130 (U/L) Final ALT (Alanine aminotransferase) 08/05/2023 13:50:55 52 Above high normal 10-35 (U/L) Final Bilirubin, Total 08/05/2023 13:50:55 0.3 <=1.2 (mg/dL) Final Bilirubin, Direct 08/05/2023 13:50:55 <0.2 0.0-0.3 (mg/dL) Final Protein 08/05/2023 13:50:55 6.0 6.0-8.3 (g/dL) Final Performing Location [facility] - [address] [place] [address]
--- OUTSIDE RECORDS SUMMARY | 2023-08-06 15:56 | External Medical Summary ---
Author Name Unknown Address Unknown Organization K01:[facility] - [address] [place] [address] Laboratory Report Ordering Provider Test Date Status FRANCO TERRELL 08/05/2023 13:50:55 Final Observation Date Value Abnormality Reference (Units ) Status Magnesium 08/05/2023 13:50:55 1.8 1.5-2.6 (m g/dL) Final Performing Location [facility] - [address] [place] [address]
--- OUTSIDE RECORDS SUMMARY | 2023-08-06 15:56 | External Medical Summary | Summary of Care ---
Author Name Unknown Organization [facility] Address [address] [facility] [place] [address] Phone [phone] Care Team Providers Care Inside Trucker Name Role Phone AmeliaTricia castanedayusuf Charles DO Primary Care Provider [phone] Reason for Visit * Reason Comments Outpatient Testing Encounter Details Date Type Department Care Team (Late st Contact Info) Description 08/05/2023 1:40 PM EDT Laboratory Laboratory, [place] [address] [place] [phone] [place], Laboratory [address] [place], [place] [phone] Paroxysmal atrial fibrillation (HCC); Hypothyroidism; Hyperparathyroidism, primary [...] by mouth in the morning. Active Nystatin 534114 UNIT/GM External Powder (Nystop) Apply topically to affected area 3 times a day. 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 (Household - for [...] EDT Office Visit Nephrology, [place] 200 [facility] [place] [address] Abhilash Nicole MD 200 [facility] [place] [address] 09/07/2023 3:00 PM EDT Telemedicine Psychiatry [place] [address] [place] [address] Nancy Metz MD [address] [place] [address] 09/09/2023 3:00 PM EDT Office Visit Family Practice 65 [facility] 293 [place] [address] Leticia Crandall, 293 [place] [address] 12/23/2023 1:20 PM EST Office Visit Rheumatology [address] [place] [address] Neil Rankin MD [address] [place] [address] 06/19/2024 1:00 PM EDT Nurse Only Ancillary [address] [address] College, Nurse Annual Wellness Visit [address] [place] [address] Pending Results Name Type Priority Associated Diagnoses [...] Agents on File Name Relationship Healthcare Agent [facility] Communication [facility] Repr esentative (appointed verbally by patient or by statute hierarchy) Care Teams Inside Trucker Relationship Specialty Start Date End Date Leticia Crandall DO PCP - General Family Medicine 10/26/21 documented as of this encounter
--- OUTSIDE RECORDS SUMMARY | 2023-08-06 15:56 | External Medical Summary | Summary of Care ---
Author Name Unknown Organization [facility] Address [address] [facility] [place] [address] Phone [phone] Care Team Providers Care Gamb Cutter Name Role Phone AmeliaTricia castanedayusuf Charles DO Primary Care Provider [phone] Reason for Visit * Reason Comments Outpatient Testing Encounter Details Date Type Department Care Team (Late st Contact Info) Description 08/05/2023 1:40 PM EDT Laboratory Laboratory, [place] [address] [place] [phone] [place], Laboratory [address] [place], [place] [phone] Paroxysmal atrial fibrillation (HCC); Hypothyroidism; Hyperparathyroidism, primary [...] by mouth in the morning. Active Nystatin 645239 UNIT/GM External Powder (Nystop) Apply topically to affected area 3 times a day. 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 (Household - for ages [...] EDT Office Visit Nephrology, [place] 200 [facility] [place] [address] Abhilash Nicole MD 200 [facility] [place] [address] 09/07/2023 3:00 PM EDT Telemedicine Psychiatry [place] [address] [place] [address] Nancy Metz MD [address] [place] [address] 09/09/2023 3:00 PM EDT Office Visit Family Practice 65 [facility] 293 [place] [address] Leticia Crandall, 293 [place] [address] 12/23/2023 1:20 PM EST Office Visit Rheumatology [address] [place] [address] Neil Rankin MD 2520 [place] [address] 06/19/2024 1:00 PM EDT Nurse Only Ancillary [address] [address] College, Nurse Annual Wellness Visit [address] [place] [address] Pending Results Name Type Priority Associated Diagnoses [...] Agents on File Name Relationship Healthcare Agent [facility] Communication [facility] Repr esentative (appointed verbally by patient or by statute hierarchy) Care Teams Gamb Cutter Relationship Specialty Start Date End Date Leticia Crandall DO PCP - General Family Medicine 10/26/21 documented as of this encounter
--- OUTSIDE RECORDS SUMMARY | 2023-08-06 15:56 | External Medical Summary | Summary of Care ---
Author Name Unknown Organization [facility] Address [address] [facility] [place] [address] Phone [phone] Care Team Providers Care Anthropology Lecturer Name Role Phone Ameliatonya Leticiayusuf Charles DO Primary Care Provider [phone] Reason for Visit * Reason Onset Date Comments Test Results 08/04/2023 Encounter Details Date Type Department Care Team (Late st Contact Info) Description 08/04/2023 Telephone Cardiology, [facility] [address] [place] [address] Aaliyah Goodwin PA-C [address] [place] [address] Test Results Allergies Active [...] by mouth in the morning. Active Nystatin 887929 UNIT/GM External Powder (Nystop) Apply topically to affected area 3 times a day. 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 She stated she willgo [place] next week and have them drawn. * Addendum Note - Lea Perez CRNP [...] Description 09/05/2023 1:40 PM EDT Office Visit [place] [address] [place] [address] Abhilash Nicole MD [address] [place] [address] 09/07/2023 3:00 PM EDT Telemedicine Psychiatry [place] [address] [place] [address] Nancy Metz MD [address] [place] [address] 09/09/2023 3:00 PM EDT Office Visit Family Practice 65 [facility] 293 [place] [address] Leticia Crandall, 293 [place] [address] 12/23/2023 1:20 PM EST Office Visit Rheumatology [place] [address] [facility] [place] [address] Neil Rankin MD [facility] [employer] [place] [address] 06/19/2024 1:00 PM EDT Nurse Only Ancillary [address] [place] [address] College, Nurse Annual Wellness Visit [address] [place] [address] Scheduled Orders Name Type Priority Associated Diagnoses [...] Agents on File Name Relationship Healthcare Agent [facility] p Communication [facility] Repr esentative (appointed verbally by patient or by statute hierarchy) Care Teams Anthropology Lecturer Relationship Specialty Start Date End Date Leticia Crandall DO PCP - General Family Medicine 10/26/21 documented as of this encounter
--- OUTSIDE RECORDS SUMMARY | 2023-08-06 15:57 | External Medical Summary | Summary of Care ---
Author Name Unknown Organization [facility] Address [address] [facility] [place] [address] Phone [phone] Care Team Providers Care Vocational Rehabilitation Counselor Name Role Phone Leticia Crandall DO Primary Care Provider [phone] Reason for Visit * Reason Onset Date Comments Left Message 07/18/2023 Encounter Details Date Type Department Care Team (Late st Contact Info) Description 07/18/2023 Telephone Family Practice [address] [place] 293 [place] [phone] Leticia Crandall DO 293 [place], [place] [phone] Left Message Allergies Active Allergy Reactions Criticality Noted Date Comments Cephalexin 06/10/2022 documented as of this encounter (statuses as of 07/18/2023) Medications Medication Sig Dispensed Refills Start Date End Date Status Vitamin D3 50 MCG (1999) Oral CapsuleIndications:V itamin D deficiency Take 1 Cap by mouth daily. 30 Cap 5 07/16/2020 Active B-12 1000 MCG Oral Tablet Take 1 Tablet by mouth in the morning. Active Amiodarone HCl 200 MG Oral Tablet (Cordarone) TAKE ONE TABLET BY MOUTH EVERY MORNING 90 Tablet 3 08/02/2022 08/04/2023 Active Nystatin 313740 UNIT/GM External Powder (Nystop) Apply topically to affected area 3 times a day. 60 g 08/18/2022 Active Nystatin 462453 UNIT/GM External CreamIndications:Can didal skin infection Apply [...] with food. 100 Tablet 3 03/23/2023 Active lamoTRIgine 25 MG Oral Tablet (LaMICtal) Take 1 Tablet by mouth in the morning. 30 Tablet 1 06/02/2023 08/05/2023 Active FLUoxetine HCl 40 MG Oral Capsule (PROzac)Indications: Bipolar disorder, current episode depressed, moderate (HCC) Take 2 Capsules by mouth in the morning. 180 Capsule 06/08/2023 09/08/2023 Active LORazepam 0.5 MG Oral Tablet (Ativan) Take 1 Tablet by mouth 2 times a day as needed for Anxiety. Do not start before June 11, 2023. 60 Tablet 1 06/11/2023 07/21/2023 Active clonazePAM 0.5 MG Oral Tablet (KlonoPIN) Take 1 Tablet by mouth every night at bedtime. Do not start before June 18, 2023. 30 Tablet 1 06/18/2023 07/22/2023 Active OLANZapine 5 MG Oral Tablet (ZyPREXA) Take 1 Tablet by mouth at bedtime. 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 ? If she was using more than prescribed. Will see herat f/u but will ultimately need further evaluation and work-up through psychiatry. * Telephone Encounter - Kerry Wang OSA - 07/18/2023 10:45 AM EDT Jaida is reaching out about Patient. If someone could reach out to her at [phone] * Telephone Encounter - Susie Hutson LPN - 07/18/2023 10:32 AM EDT Received telephone call from [facility] ED CM Jaida reporting pt currently in ED with anxiety issues. Reports Dr. Mcfadden thinks pt is going through withdrawal from decrease in Lorazepam dose that was ordered by psych. Thinks she may be tapering off too quickly. Jaida wanted to notify Dr. Crandall as Pt is scheduled for OV with Dr. Rhodes tomorrow. documented in this encounter Plan of Treatment Upcoming Encounters Date Type Department Care Team (Late st Contact Info) Description 07/19/2023 11:40 AM EDT Office Visit Family Practice [address] [place] 293 [facility] [phone] Leticia Crandall DO 293 [facility] [place] [address] 07/25/2023 2:30 PM EDT Telemedicine Psychiatry [address] [place] [address] [place] [phone] Nancy Metz MD [address] [facility] [address] [place] [address] 2023 2:30 PM EDT Cardiac Studies Cardiac Studies, [facility] 132 [facility] [place] [address] 09/05/2023 1:40 PM EDT Office Visit Nephrology, [facility] 200 [facility] [place] [address] Abhilash Nicole MD 200 [facility] [place] [address] 12/23/2023 1:20 PM EST Office Visit Rheumatology [address] [place] [address] Niel Rankin MD [facility]0 [place] [address] 06/19/2024 1:00 PM EDT Nurse Only Ancillary 65 [facility] 293 [facility] [address] College, Nurse Annual Wellness Visit [address] [place] [address] Health Maintenance Due Date Last Done Comments Depression, Most Recent Score >= 10 (will fire each visit until score < 10) 06/18/2023 06/17/2023 Albumin/Creatinine Ratio 11/03/2023 023, 01/05/2022, 11/12/2020, Additional history exists TSH 12/03/2023 12/02/2022, 08/14, 07/15/2022, Additional history exists GFR 12/25/2023 06/24/2023, 04/14, 02/18/2023, Additional history exists Nephrology Referral 04/08/2024 04/08/2023, 07/08/2010, 12/02/2004 PTH 04/24/2024 04/25/2023, 06/2023, 07/08/2022, Additional history exists Hgb 06/23/2024 06/24/2023, 04/14, 02/18/2023, Additional history exists Phosphate 06/23/2024 06/24/2023, 04/14, 02/18/2023, Additional history exists DTaP,Tdap,and Td Vaccines (2 - Td or [...] Not on filedocumented as of this encounter Advance Directives * Full Code (Latest Code Status on File) Date Activated Date Inactivated Comments 09/12/2007 9:41 AM 09/13/2007 4:12 PM Healthcare Agents on File Name Relationship Healthcare Agent Relationshi p Communication [facility] Repr esentative (appointed verbally by patient or by statute hierarchy) Care Teams Vocational Rehabilitation Counselor Relationship Specialty Start Date End Date Leticia Crandall DO 293 [place] [address] PCP - General Family Medicine 10/26/21 documented as of this encounter
--- OUTSIDE RECORDS SUMMARY | 2023-08-06 15:57 | External Medical Summary | Summary of Care ---
Author Name Unknown Organization [facility] Address [address] [facility] [place] [address] Phone [phone] Care Team Providers Care Material Control Manager Name Role Phone Leticia Crandall DO Primary Care Provider [phone] Reason for Visit * Reason Comments Emergency Department Follow-Up Encounter Details Date Type Department Care Team (Late st Contact Info) Description 07/19/2023 11:40 AM EDT Office Visit Family Practice [address] [place] [address] [place] [address] Leticia Crandall [address] [place] [address] BIPOLAR AFFEC, MIXED-MOD*; Anxiety, generalized Allergies Active Allergy Reactions Criticality Noted Date Comments Cephalexin 06/10/2022 documented as of this encounter (statuses as of 07/20/2023) Medications Medication Sig Dispensed Refills Start Date [...] 90 Tablet 3 08/02/2022 08/04/2023 Active Nystatin 528935 UNIT/GM External Powder (Nystop) Apply topically to affected area 3 times a day. 60 g 08/18/2022 Active Nystatin 720901 UNIT/GM External CreamIndications:Can didal skin infection Apply [...] with food. 100 Tablet 3 03/23/2023 Active FLUoxetine HCl 40 MG Oral Capsule [...] June 18, 2023. 30 Tablet 1 06/18/2023 08/20/2023 Active OLANZapine 5 MG Oral Tablet (ZyPREXA) Take 1 Tablet by mouth at bedtime. Active lamoTRIgine 25 MG Oral Tablet (LaMICtal) Take 1 Tablet by mouth in the morning. 30 Tablet 1 07/18/2023 08/18/2023 Active NATURAL SUPPLEMENT Take by mouth daily. Magnesium - unsure of dose. Active Magnesium 100 MG Oral Capsule Take 1 Capsule by mouth in the morning and 1 Capsule before bedtime. 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: [place] toxicity - admitted 10/19 Glaucoma 12/31/2016 documented as of this encounter (statuses as of 07/20/2023) Immunizations Name Administration Dates Next Due COVID-19 [...] Passive Smoke Exposure: Past Smokeless Tobacco: Never Tobacco Cessation:Counseling Given: Yes Alcohol Use Standard Drinks/Week Comments No 0 [...] on file documented as of this encounter Last Filed Vital Signs Vital Sign Reading Time Taken Comments Blood Pressure 128/76 07/19/2023 11:54 AM EDT Pulse 70 07/19/2023 11:54 AM EDT Temperature 36.5 C (97.7 F) 07/19/2023 1 1:54 AM EDT Respiratory Rate 12 07/19/2023 11:5 4 AM EDT Oxygen Saturation 97% 07/19/2023 11: 54 AM EDT Inhaled Oxygen Concentration - - Weight 74.3 kg (163 lb 11.2 oz) 024 11:54 AM EDT Height 165.7 cm (5' 5.25") 07/19/2023 1 1:54 AM EDT Body Mass Index 27.03 07/19/2023 11:54 AM EDT documented in this encounter Progress Notes * Leticia Crandall, - 07/19/2023 11:51 AM EDT SUBJECTIVE: Chief Complaint Patient presents with Emergency Department Follow-Up HPI: Eva Tejeda is a 82 year old female who presents today for ED follow- up. Pt was seen with anxiety. The family reported she was down to taking 0.5mg of ativan a day. They felt she was not tolerating this. She was found to have low magnesium but work-up was otherwise negative, including thyroid. Urine was negative and renal function was at baseline. She was advised to take the 0.5mg twice daily and discharged to home. Pt states that she remains very anxious. Family is trying to get a once a week therapist to work with her as her current therapist cannot see her weekly. She apparently was only using the lorazepam daily. Unclear as to why. She states she is not hungry. She has had about 15lb weight loss since March. She was eating after she was picked up from the ED per granddaughter. She can make food at home but is living alone. She feels that she is handling her housework. Granddaughter asking if she should be tested for MTHFR gene as she apparently has this. PHM: Patient Active Problem List Diagnosis Hypothyroidism BIPOLAR AFFEC, MIXED-MOD Hyperparathyroidism, primary (HCC) Vitamin D deficiency Gouty arthropathy Primary angle-closure glaucoma Dyslipidemia, goal LDL below 100 MITRAL VALVE REGURGE Tricuspid valve regurgitation HTN, goal below 140/90 Cardiac pacemaker in situ Sinus node dysfunction (HCC) Bipolar disorder, current episode depressed, moderate (HCC) Hyperparathyroidism, secondary renal (HCC) Primary open-angle glaucoma, right eye, severe stage Gastroesophageal reflux disease without esophagitis Anxiety, generalized Major depressive disorder with single episode Hx of nonmelanoma skin cancer Paroxysmal atrial fibrillation (HCC) Chronic diastolic congestive heart failure (HCC) Hypertensive heart disease with chronic diastolic congestive heart failure (HCC) Other atherosclerosis of [place] arteries of extremities, bilateral legs (HCC) 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) Primary open-angle glaucoma, left eye, mild stage Current Outpatient Medications Medication Sig Dispense Refill Vitamin D3 50 MCG (2000 UT) Oral Capsule Take 1 Cap by mouth daily. 30 Cap 5 B-12 1000 MCG Oral Tablet Take 1 Tablet by mouth in the morning. Amiodarone HCl 200 MG Oral Tablet (Cordarone) TAKE ONE TABLET BY MOUTH EVERY MORNING 90 Tablet 3 Nystatin 588700 UNIT/GM External Powder (Nystop) Apply topically to affected area 3 times a day. 60g 0 Nystatin 607001 UNIT/GM External Cream Apply topically to affected area 2 times a day for two weeks. 60 g 1 Eliquis 2.5 MG Oral Tablet Take 1 Tablet by mouth in the morning and 1 Tablet before bedtime. 180 Tablet 3 Levothyroxine Sodium 150 MCG Oral Tablet (Levoxyl) Take 1 Tablet by mouth in the morning. (at least30 min prior to breakfast or other meds). 90 Tablet 3 cloNIDine HCl 0.1 MG Oral Tablet (Catapres) Take 1 Tablet by mouth in the morning and 1 Tablet before bedtime. 180 Tablet 3 Allopurinol 300 MG Oral Tablet (Zyloprim) Take 1 Tablet by mouth in the morning. 90 Tablet 3 Brimonidine Tartrate 0.15 % Ophthalmic Solution (Alphagan P) Instill 1 drop into each eye twice daily. 10 mL 6 Timolol Maleate 0.5 % Ophthalmic Solution (Timoptic) Instill 1 drop into each eye in the morning. 5mL 3 Folic Acid 1 MG Oral Tablet TAKE ONE TABLET BY MOUTH EVERY DAY 90 Tablet 3 Carvedilol 25 MG Oral Tablet (Coreg) Take 1 Tablet by mouth in the morning and 1 Tablet before bedtime. with food. 100 Tablet 3 FLUoxetine HCl 40 MG Oral Capsule (PROzac) Take 2 Capsules by mouth in the morning. 180 Capsule 0 LORazepam 0.5 MG Oral Tablet (Ativan) Take 1 Tablet by mouth 2 times a day as needed for Anxiety. Do not start before June 11, 2023. 60 Tablet 1 clonazePAM 0.5 MG Oral Tablet (KlonoPIN) Take 1 Tablet by mouth every night at bedtime. Do not start before June 18, 2023. 30 Tablet 1 lamoTRIgine 25 MG Oral Tablet (LaMICtal) Take 1 Tablet by mouth in the morning. 30 Tablet 1 NATURAL SUPPLEMENT Take by mouth daily. Magnesium - unsure of dose. OLANZapine 5 MG Oral Tablet (ZyPREXA) Take 1 Tablet by mouth at bedtime. (Patient not taking: Reported on 07/19/2023) No current facility-administered medications for this visit. Past Medical History: Diagnosis Date Bipolar I disorder, most recent episode mixed, moderate (HCC) Drug Mental Disorder Unspecified [place] toxicity - admitted 10/19 Glaucoma Gout HTN, goal below 140/90 04/07/2007 Hyperparathyroidism, primary (HCC) Hypothyroidism 10/22/1998 On levoxyl KIDNEY DZ,CHRONIC (GFR>30-59) STAGE III 04/18/2007 Added per CKD clinical protocol 1 Menopause Unspecified urinary incontinence VITAMIN D DEFICIENCY NOS 01/14/2009 Past Surgical History: Procedure Laterality Date BLEPH UPPER EYELID LOCAL December 2006 Surgery on both upper eyelids (Ptosis) COLONOSCOPY, DIAGNOSTIC (RECTUM) 07/22/2014 diverticulosis, repeat 5 yrs/[facility] CYSTOSCOPY 08/24/2011 EGD, FLEXIBLE, DIAGNOSTIC 06/15/2017 mild inflammatory changes, duodenitis/[facility] EXPLORE PARATHYROID GLANDS 09/12/07 PARATHYROIDECTOMY performed by MACARIO OROZCO at OR [facility] INFORMATION 09-08-2011 BLADDER COAPTITE INJECTION INFORMATION 05-24-2012 bladder coaptite injection x2 LIGATE/CUT OVIDUCT(S) 1977 Same time as ovarian cyst surgery OTHER 2002 or 2003 Removal of skin cancer from the face REMOVAL OF OVARIAN CYST(S) 1976 Removal of a left ovarian cyst REMOVE CATARACT, INSERT LENS PROSTH 2006 OS Review of patient's allergies indicates: Allergen Reactions Keflex [Cephalexin] Family History Problem Relation Name Age of Onset Heart Disorder Mother Heart Disorder Father Diabetes Grandmother (Paternal) Family Status Relation Status Mo at age 90 CHF Fa at age 96 CHF Sis Alive Sis Alive Bro Alive Chris Alive Chris Alive PGMA (Not Specified) Social History Tobacco Use Smoking status: Never Passive exposure: Past Smokeless tobacco: Never Substance Use Topics Alcohol use: No Vaping/E-Cigarette Use Vaping/E-Cigarette Use Never User Vaping/E-Cigarette Substances Vaping/E-Cigarette Devices REVIEW OF SYSTEMS: Review of Systems Constitutional: Negative for chills, fatigue, fever and unexpected weight change. Respiratory: Negative for cough, chest tightness, shortness of breath and wheezing. Cardiovascular: Negative for chest pain, palpitations and leg swelling. Gastrointestinal: Negative for abdominal pain, constipation, diarrhea, nausea and vomiting. Musculoskeletal: Negative for arthralgias, gait problem and joint swelling. Skin: Negative for color change, pallor and rash. Psychiatric/Behavioral: As per HPI OBJECTIVE: BP 128/76 (BP Site: Left Arm, BP Position: Sitting, BP Cuff Size: Regular) | Pulse 70 | Temp 36.5 C (97.7 F) (Tympanic) | Resp 12 | Ht 1.657 m (5' 5.25") | Wt 74.3 kg (163 lb 11.2 oz) | SpO2 97% | BMI 27.03 kg/m | BSA 1.85 m PHYSICAL EXAM: Physical Exam Constitutional: General: She is not in acute distress. Appearance: She is well-developed. Cardiovascular: Rate and Rhythm: Normal rate and regular rhythm. Heart sounds: Normal heart sounds. No murmur heard. No friction rub. No gallop. Pulmonary: Effort: Pulmonary effort is normal. No respiratory distress. Breath sounds: Normal breath sounds. No wheezing or rales. Abdominal: General: Bowel sounds are normal. There is no distension. Palpations: Abdomen is soft. Tenderness: There is no abdominal tenderness. There is no guarding. Musculoskeletal: General: No tenderness or deformity. Normal range of motion. Skin: General: Skin is warm and dry. Coloration: Skin is not pale. Findings: No erythema or rash. Neurological: Mental Status: She is alert and oriented to person, place, and time. Psychiatric: Mood and Affect: Affect is flat. Behavior: Behavior is slowed and withdrawn. ASSESSMENT/PLAN: (F31.62) BIPOLAR AFFEC, MIXED-MOD (primary encounter diagnosis) (F41.1) Anxiety, generalized Plan: Pt with ongoing mental health issues. Following with Dr. Metz. Reviewed medications today andmade sure she is taking correctly. Has had some weight loss but feels she is able to take care of things at home. Will message Dr. Metz for any recommendations. Granddaughter asking about testing forMTHFR gene. Follow-up: 6 weeks Total time today including reviewing chart before the visit, pertinent labs, imaging reports, face to face time, and documentation time was 35 minutes. Leticia Crandall DO documented in this encounter Nursing Notes * Susie Hutson LPN - 07/19/2023 11:53 AM EDT Patient here for follow up visit. Was seen in ED at [facility] yesterday. Reports she fell approx 1 monthago walking to at night. Fell onto buttocks - no injury reported. Reports she is to be taking Magnesium for 4 days - unsure of dose, needs to picking tech from pharmacy. Reports anxiety is not any better. documented in this encounter Plan of Treatment Upcoming Encounters Date Type Department Care Team (Late st Contact Info) Description 07/25/2023 2:30 PM EDT Telemedicine Psychiatry [facility] [address] [place] [address] Nancy Metz MD [address] [facility] [place] [address] 2023 2:30 PM EDT Cardiac Studies Cardiac Studies, [facility] [address] [facility] [place] [address] 09/05/2023 1:40 PM EDT Office Visit Nephrology, [facility] [address] [facility] [place] [place] [address] Abhilash Nicole MD 200 [place] [address] 09/09/2023 3:00 PM EDT Office Visit Family Practice [address] [facility] [address] [place] [address] Leticia Crandall DO 293 [place] [address] 12/23/2023 1:20 PM EST Office Visit Rheumatology [place] [address] [place] [address] Neil Rankin MD [address] [place] [address] 06/19/2024 1:00 PM EDT Nurse Only Ancillary 65 [facility] 293 [place] [address] College, Nurse Annual Wellness Visit [address] [place] [address] Health Maintenance Due Date Last Done Comments Depression, Most Recent Score >= 10 (will fire each visit until score < 10) 07/20/2023 07/19/2023, 07/19/2023, 06/17/2023 Albumin/Creatinine Ratio 11/03/2023 023, 01/05/2022, 11/12/2020, [...] as of this encounter Visit Diagnoses Diagnosis BIPOLAR AFFEC, MIXED-MOD- Primary Bipolar I disorder, most recent episode (or current) mixed, moderate Anxiety, generalized Generalized anxiety disorder documented in this encounter Advance Directives * Full Code (Latest Code Status on File) Date Activated Date Inactivated Comments 09/12/2007 9:41 AM 09/13/2007 4:12 PM Healthcare Agents on File Name Relationship Healthcare Agent Relationshi p Communication [facility] Repr esentative (appointed verbally by patient or by statute hierarchy) Care Teams Material Control Manager Relationship Specialty Start Date End Date Leticia Crandall DO [address] [facility] [place] [address] PCP - General Family Medicine 10/26/21 documented as of this encounter
--- OUTSIDE RECORDS SUMMARY | 2023-08-06 15:57 | External Medical Summary | Summary of Care ---
Author Name Unknown Organization [facility] Address [address] [facility] [place] [address] Phone [phone] Care Team Providers Care Clay Press Operator Name Role Phone Ameliatonya Leticiayusuf Charles DO Primary Care Provider [phone] Reason for Visit * Reason Onset Date Comments Test Results 08/04/2023 Encounter Details Date Type Department Care Team (Late st Contact Info) Description 08/04/2023 Telephone Cardiology, [facility] [address] [place] [address] Aaliyah Goodwin PA-C [address] [place] [address] Test Results Allergies Active Allergy Reactions Criticality Noted Date Comments Cephalexin 06/10/2022 documented as of this encounter (statuses as of 08/04/2023) Medications Medication Sig Dispensed Refills Start Date End Date Status Vitamin D3 50 MCG (1999) Oral CapsuleIndications:V itamin D deficiency Take 1 Cap by mouth daily. 30 Cap 5 07/16/2020 Active B-12 1000 MCG Oral Tablet Take 1 Tablet by mouth in the morning. Active Nystatin 705030 UNIT/GM External Powder (Nystop) Apply topically to affected area 3 times a day. 60 g 08/18/2022 Active Nystatin 133938 UNIT/GM External CreamIndications:Can didal skin infection Apply [...] as of this encounter (statuses as of 08/04/2023) Active Problems Problem Noted Date Diagnosed Date [...] as of this encounter (statuses as of 08/04/2023) Resolved Problems Problem Noted Date Diagnosed Date [...] term Drug Mental Disorder Unspecified 06/25/2016 Overview: [place] toxicity - admitted 10/19 Glaucoma 12/31/2016 documented as of this encounter (statuses as of 08/04/2023) Immunizations Name Administration Dates Next Due COVID-19 [...] encounter Miscellaneous Notes * Telephone Encounter - [place] Em CRNP - 08/04/2023 12:59 PM EDT Noted. * Telephone Encounter - Jerry Freeamn RN - 08/04/2023 12:32 PM EDT Called [...] 09/05/2023 1:40 PM EDT [facility] [place] [address] Abhilash Nicole MD 200 [place] [address] 09/07/2023 3:00 PM EDT Telemedicine Psychiatry [facility] [address] [place] [address] Nancy Metz MD [address] [place], [place] [id number] 09/09/2023 3:00 PM EDT Office Visit Family Practice [address] [facility] 293 [facility] [address] Leticia Crandall DO [address] [place] [address] 12/23/2023 1:20 PM EST Office Visit Rheumatology [facility] [address] [facility] [place], [place] [address] Neil Rankin MD [address] [facility] [place] [address] 06/19/2024 1:00 PM EDT Nurse Only Ancillary [address] [facility] 293 [place] [address] College, Nurse Annual Wellness Visit 65 [facility] 293 [facility] [address] Health Maintenance Due Date Last Done Comments [...] Name Relationship Healthcare Agent Relationshi p Communication [facility] Repr esentative (appointed verbally by patient or by statute hierarchy) Care Teams Clay Press Operator Relationship Specialty Start Date End Date Leticia Crandall DO PCP - General Family Medicine 10/26/21 documented as of this encounter
--- OUTSIDE RECORDS SUMMARY | 2023-08-06 15:57 | External Medical Summary | Summary of Care ---
Author Name Unknown Organization [facility] Address [address] [facility] [place] [address] Phone [phone] Care Team Providers Care Laboratory Inspector Name Role Phone Leticia Crandall DO Primary Care Provider [phone] Reason for Visit * Reason Onset Date Comments Left Message 07/18/2023 Encounter Details Date Type Department Care Team (Late st Contact Info) Description 07/18/2023 Telephone Family Practice [address] [place] [address] [place] [phone] Leticia Crandall DO [address] [place], [place] [phone] Left Message Allergies Active Allergy Reactions Criticality Noted Date Comments Cephalexin 06/10/2022 documented as of this encounter (statuses as of 07/18/2023) Medications Medication Sig Dispensed Refills Start Date End Date Status Vitamin D3 50 MCG (1999) Oral CapsuleIndications: Vitamin D deficiency Take 1 Cap by mouth daily. 30 Cap 5 07/16/2020 Active B-12 1000 MCG Oral Tablet Take 1 Tablet by mouth in the morning. Active Amiodarone HCl 200 MG Oral Tablet (Cordarone) TAKE ONE TABLET BY MOUTH EVERY MORNING 90 Tablet 3 08/02/2022 Active Nystatin 498421 UNIT/GM External Powder (Nystop) Apply topically to affected area 3 times a day. 60 g 08/18/2022 Active Nystatin 637402 UNIT/GM External CreamIndications:Ca ndidal skin infection Apply topically to affected area 2 times a day for two weeks. 60 g 1 08/18/2022 Active Eliquis 2.5 MG Oral Tablet Take 1 Tablet by mouth in the morning and 1 Tablet before bedtime. 180 Tablet 3 10/20/2022 Active Levothyroxine Sodium 150 MCG Oral Tablet (Levoxyl)Indication s:Acquired hypothyroidism Take 1 Tablet by mouth in the morning. (at least 30 min prior to breakfast or other meds). 90 Tablet 3 12/14/2022 Active cloNIDine HCl 0.1 MG Oral Tablet (Catapres)Indicatio ns:HTN, goal below 140/90 Take 1 Tablet by mouth in the morning and 1 Tablet before bedtime. 180 Tablet 3 12/14/2022 Active Allopurinol 300 MG Oral Tablet (Zyloprim)Indicatio ns:Gouty arthropathy Take 1 Tablet by mouth in [...] MOUTH EVERY DAY 90 Tablet 3 02/28/2023 5 Active Carvedilol 25 MG Oral Tablet (Coreg) Take 1 Tablet by mouth in the morning and 1 Tablet before bedtime. with food. 100 Tablet 3 03/23/2023 Active FLUoxetine HCl 40 MG Oral Capsule (PROzac)Indications :Bipolar disorder, current episode depressed, moderate (HCC) Take 2 Capsules by mouth in the morning. 180 Capsule 06/08/2023 4 Active LORazepam 0.5 MG Oral Tablet (Ativan) Take 1 Tablet by mouth 2 times a day as needed for Anxiety. Do not start before June 11, 2023. 60 Tablet 1 06/11/2023 4 Active clonazePAM 0.5 MG Oral Tablet (KlonoPIN) Take 1 Tablet by mouth every night at bedtime. Do not start before June 18, 2023. 30 Tablet 1 06/18/2023 4 Active OLANZapine 5 MG Oral Tablet (ZyPREXA) Take 1 Tablet by mouth at bedtime. Active lamoTRIgine 25 MG Oral Tablet (LaMICtal) Take 1 Tablet by mouth in the morning. 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 Addended on 07/18/23 at 5:45 PM by Nancy Metz MD There was no taper, just changed her ativan from 1 mg qd PRN to 0.5 mg bid PRN. She is also on klonopin 0.5 mg qhs, no changes were made to that medication. * Telephone Encounter - Kerry Wang OSA - 07/18/2023 10:45 AM EDT Jaida is reaching out about Patient. If someone could reach out to her at * Telephone Encounter - Susie Hutson LPN - 07/18/2023 10:32 AM EDT Received telephone call from [facility] ED CM Jaida reporting pt currently [...] 07/19/2023 11:40 AM EDT Office Visit Family [facility] 65 [facility] [address] [place] [address] Leticia Crandall DO [address] [place] [address] 07/25/2023 2:30 PM EDT Telemedicine Psychiatry Marie [facility], [place] [address] [place] [address] Nancy Metz MD [address] [place] [address] 2023 2:30 PM EDT Cardiac Studies Cardiac Studies, [facility] 132 [facility] [place] [address] 09/05/2023 1:40 PM EDT Office Visit Nephrology, [facility] 200 [facility] [place] [address] Abhilash Nicole MD 200 [facility] [place] [address] 12/23/2023 1:20 PM EST Office Visit Rheumatology [facility] [address] [facility] [place] [address] Neil Rankin MD [address] [place] [address] 06/19/2024 1:00 PM EDT Nurse Only Ancillary 65 [facility] [address] [place] [address] College, Nurse Annual Wellness Visit [address] [address] Health Maintenance Due Date Last Done Comments [...] Agents on File Name Relationship Healthcare Agent [facility] Communication [facility] Repr esentative (appointed verbally by patient or by statute hierarchy) Care Teams Laboratory Inspector Relationship Specialty Start Date End Date Leticia Crandall DO [address] [place] [address] PCP - General Family Medicine 10/26/21 documented as of this encounter
--- OUTSIDE RECORDS SUMMARY | 2023-08-06 15:57 | External Medical Summary | Summary of Care ---
Author Name Unknown Organization [facility] Address [address] [facility] [place] [address] Phone [phone] Care Team Providers Care Storm Door Maker Name Role Phone Ameliatonya Leticiayusuf Charles DO Primary Care Provider + [phone] Reason for Visit * Reason Onset Date Comments Test Results 08/04/2023 Encounter Details Date Type Department Care Team (Late st Contact Info) Description 08/04/2023 Telephone Cardiology, [facility] [address] [place] [address] Aaliyah Goodwin PA-C [address] [place] [address] Test Results Allergies Active Allergy Reactions [...] by mouth in the morning. Active Nystatin 049199 UNIT/GM External Powder (Nystop) Apply topically to affected area 3 times a day. 60 g 08/18/2022 Active Nystatin 312796 UNIT/GM External CreamIndications:Can didal skin infection Apply [...] term Drug Mental Disorder Unspecified 06/25/2016 Overview: [place] toxicity - admitted 10/19 Glaucoma 12/31/2016 documented [...] 09/05/2023 1:40 PM EDT [facility] [place] [address] Abhilash Nicole MD 200 [facility] [place] [address] 09/07/2023 3:00 PM EDT Telemedicine Psychiatry [facility] 9 [place] [address] Nancy Metz MD [address] [place], [place] [id number] 09/09/2023 3:00 PM EDT Office Visit Family Practice 65 [facility] 293 [place] [address] Leticia Crandall DO 293 [place] [address] 12/23/2023 1:20 PM EST Office Visit Rheumatology [facility] 2520 [facility] [place], [place] [address] Neil Rankin MD [address] [employer] [facility] [place] [address] 06/19/2024 1:00 PM EDT Nurse Only Ancillary 65 [facility] 293 [place] [address] College, Nurse Annual Wellness Visit 65 [facility] 293 [place] [address] Health Maintenance Due Date Last Done Comments [...] Name Relationship Healthcare Agent Relationshi p Communication [facility] Repr esentative (appointed verbally by patient or by statute hierarchy) Care Teams Storm Door Maker Relationship Specialty Start Date End Date Leticia Crandall DO PCP - General Family Medicine 10/26/21 documented as of this encounter
--- OUTSIDE RECORDS SUMMARY | 2023-08-06 15:57 | External Medical Summary | Summary of Care ---
Author Name Unknown Organization [facility] Address [address] [facility] [place] [address] Phone [phone] Care Team Providers Care Brand Analyst Name Role Phone Leticia Crandall DO Primary Care Provider Reason for Visit * Reason Comments Emergency Department Follow-Up Encounter Details Date Type Department Care Team (Late st Contact Info) Description 07/19/2023 11:40 AM EDT Office Visit Family Practice [address] [place] 293 [place] [address] Leticia Crandall 293 [place] [address] BIPOLAR AFFEC, MIXED-MOD*; Anxiety, generalized Allergies Active Allergy Reactions Criticality Noted Date Comments Cephalexin 06/10/2022 documented as of this encounter (statuses as of 07/21/2023) Medications Medication Sig Dispensed Refills Start Date [...] 90 Tablet 3 08/02/2022 08/04/2023 Active Nystatin 583890 UNIT/GM External Powder (Nystop) Apply topically to affected area 3 times a day. 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 60g 0 Nystatin 104800 UNIT/GM External Cream Apply topically to affected [...] mixed, moderate (HCC) Drug Mental Disorder Unspecified [place] toxicity - admitted 10/19 Glaucoma Gout HTN, [...] COLONOSCOPY, DIAGNOSTIC (RECTUM) 07/22/2014 diverticulosis, repeat 5 yrs/[facility] CYSTOSCOPY 08/24/2011 EGD, FLEXIBLE, DIAGNOSTIC 06/15/2017 mild inflammatory changes, duodenitis/[facility] EXPLORE PARATHYROID GLANDS 09/12/07 PARATHYROIDECTOMY performed by MACARIO OROZCO at OR [facility] INFORMATION 09-08-2011 BLADDER COAPTITE INJECTION INFORMATION 05-24-2012 [...] up visit. Was seen in ED at [facility] yesterday. Reports she fell approx 1 monthago walking to at night. Fell onto buttocks - no injury reported. Reports she is to be taking Magnesium for 4 days - unsure of dose, needs to pickle pumper from pharmacy. Reports anxiety is not any better. documented in this encounter Plan of Treatment Upcoming Encounters Date Type Department Care Team (Late st Contact Info) Description 07/25/2023 2:30 PM EDT Telemedicine Psychiatry Elizabeth [address] [place] [address] Nancy Metz MD [address] [facility] [place] [address] 2023 2:30 PM EDT Cardiac Studies Cardiac Studies, [facility] 132 [facility] [place] [address] 09/05/2023 1:40 PM EDT Office Visit Nephrology, Roman [place] 200 [place] [address] Abhilash Nicole MD 200 [facility] [address] 09/09/2023 3:00 PM EDT Office Visit Family Practice 65 [facility] 293 [place] [address] Leticia Crandall DO 293 [facility] [place] [address] 12/23/2023 1:20 PM EST Office Visit Rheumatology [place] [address] [employer] [place] [address] Neil Rankin MD [address] [place] [address] 06/19/2024 1:00 PM EDT Nurse Only Ancillary 65 [facility] 293 [place] [address] College, Nurse Annual Wellness Visit [address] [place] [address] Health Maintenance Due Date Last Done Comments [...] Name Relationship Healthcare Agent Relationshi p Communication [facility] Repr esentative (appointed verbally by patient or by statute hierarchy) Care Teams Brand Analyst Relationship Specialty Start Date End Date Leticia Crandall DO 293 [place] [address] PCP - General Family Medicine 10/26/21 documented as of this encounter
--- OUTSIDE RECORDS SUMMARY | 2023-08-06 15:57 | External Medical Summary | Summary of Care ---
Author Name Unknown Organization [facility] Address [address] [facility] [place] [address] Phone [phone] Care Team Providers Care Information Technology Professor Name Role Phone AmeliaLeticia castaneda Araceli HEATH Primary Care Provider [phone] Encounter Details Date Type Department Care Team (Late st Contact Info) Description 08/02/2023 Population Health External Data Unspecified Department Allergies Active Allergy Reactions Criticality Noted Date Comments Cephalexin 06/10/2022 documented as of this encounter (statuses as of 08/02/2023) Medications Medication Sig Dispensed Refills Start Date [...] 90 Tablet 3 08/02/2022 08/04/2023 Active Nystatin 509216 UNIT/GM External Powder (Nystop) Apply topically to affected area 3 times a day. 60 g 08/18/2022 Active Nystatin 572506 UNIT/GM External CreamIndications:Can didal skin infection Apply [...] for Anxiety. 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 - admitted 10/19 Glaucoma 12/31/2016 documented as of this encounter (statuses as of 08/02/2023) Immunizations Name Administration Dates Next Due COVID-19 [...] EDT Office Visit Nephrology, Roman [place] [address] [place] [address] Abhilash Nicole MD 200 [facility] [place] [address] 09/07/2023 3:00 PM EDT Telemedicine Psychiatry [address] [place] 9 [place] [address] Nancy Metz MD [address] [place] [address] 09/09/2023 3:00 PM EDT Office Visit Family Practice 65 [facility] 293 [facility] [place] [address] Leticia Crandall DO 293 [place] [address] 12/23/2023 1:20 PM EST Office Visit Rheumatology [place] [address] [facility] [place] [address] Neil Rankin MD [address] [employer] [facility] [place] [address] 06/19/2024 1:00 PM EDT Nurse Only Ancillary 65 [facility] 293 [place] [address] College, Nurse Annual Wellness Visit 65 [facility] 293 [facility] [place] [address] Health Maintenance Due Date Last Done Comments [...] Agents on File Name Relationship Healthcare Agent [facility] Communication [facility] Repr esentative (appointed verbally by patient or by statute hierarchy) Care Teams Information Technology Professor Relationship Specialty Start Date End Date Leticia Crandall DO PCP - General Family Medicine 10/26/21 documented as of this encounter
--- OUTSIDE RECORDS SUMMARY | 2023-08-06 15:57 | External Medical Summary | Summary of Care ---
Author Name Unknown Organization [facility] Address [address] [facility] [place] [address] Phone [phone] Care Team Providers Care Classroom Instructor Name Role Phone Leticia Crandall DO Primary Care Provider [phone] Reason for Visit * Reason Onset Date Comments Left Message 07/18/2023 Encounter Details Date Type Department Care Team (Late st Contact Info) Description 07/18/2023 Telephone Family Practice [address] [place] 293 [place] [address] Leticia Crandall DO 293 [place], [place] [phone] Left Message Allergies Active Allergy Reactions Criticality [...] 90 Tablet 3 08/02/2022 08/04/2023 Active Nystatin 156547 UNIT/GM External Powder (Nystop) Apply topically to affected area 3 times a day. 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 If someone could reach out to her at * Telephone Encounter - Susie Hutson LPN - 07/18/2023 10:32 AM EDT Received telephone call from [facility] ED CM Jaida reporting pt currently [...] AM EDT Office Visit Family Practice 65 [facility] 293 [place] [address] Leticia Crandall DO 293 [place] [address] 07/25/2023 2:30 PM EDT Telemedicine Psychiatry Elizabeth Moss [address] [place] [address] Nancy Metz MD 100 [address] [facility] [place] [address] 2023 2:30 PM EDT Cardiac Studies Cardiac Studies, [facility] 132 [facility] [place] [address] 09/05/2023 1:40 PM EDT Office Visit Nephrology, Roman [place] [address] [place] [address] Abhilash Nicole MD 200 [facility] [place], [place] [address] 12/23/2023 1:20 PM EST Office Visit Rheumatology [place] [address] [facility] [place], [place] [address] Neil Rankin MD [address] [employer] [place], [place] [address] 06/19/2024 1:00 PM EDT Nurse Only Ancillary 65 [facility] 293 [place] [address] College, Nurse Annual Wellness Visit 65 [facility] 293 [place] [address] Health Maintenance Due Date Last Done Comments [...] Name Relationship Healthcare Agent Relationshi p Communication [facility] Repr esentative (appointed verbally by patient or by statute hierarchy) Care Teams Classroom Instructor Relationship Specialty Start Date End Date Leticia Crandall DO 293 [place] [address] PCP - General Family Medicine 10/26/21 documented as of this encounter
--- OUTSIDE RECORDS SUMMARY | 2023-08-06 15:57 | External Medical Summary | Summary of Care ---
Author Name Unknown Organization [facility] Address [address] [facility] [place] [address] Phone [phone] Care Team Providers Care Railroad Shop Inspector Name Role Phone Ameliatonya Leticiayusuf Charles DO Primary Care Provider [phone] Reason for Visit * Reason Comments Medication Refill Encounter Details Date Type Department Care Team ([facility] Contact Info) Description 08/03/2023 [address] [place] [phone] Asad Feldman MD [address] [place] [address] Allergies Active Allergy Reactions Criticality Noted Date [...] by mouth in the morning. Active Nystatin 846370 UNIT/GM External Powder (Nystop) Apply topically to affected area 3 times a day. 60 g 08/18/2022 Active Nystatin 676160 UNIT/GM External CreamIndications:Ca ndidal skin infection Apply [...] in the morning. 30 Tablet 1 07/22/2023 4 Active lamoTRIgine 25 MG Oral Tablet (LaMICtal) Take 2 Tablets by mouth in the morning. 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 * Telephone Encounter - Lea Perez CRNP - 08/04/2023 9:13 AM EDT Signed Prescriptions: Disp Refills Amiodarone HCl 200 MG Oral Tablet (Cordaro*90 Tab*3 Sig: TAKE ONE TABLET BY MOUTH EVERY MORNING Authorizing Provider: LEA PEREZ * Telephone Encounter - Freida Avery [facility] - 08/03/2023 3:58 PM EDT Pending Prescriptions: Disp Refills Amiodarone HCl 200 MG Oral Tablet (Cordaro*90 Tab*3 Sig: TAKE ONE TABLET BY MOUTH EVERY MORNING documented in this encounter Plan of Treatment Upcoming Encounters Date Type Department Care Team (Late st Contact Info) Description 09/05/2023 1:40 PM EDT Office Visit Nephrology, Roman [place] [address] [place], [place] [address] Abhilash Nicole MD [address] [place] [address] 09/07/2023 3:00 PM EDT Telemedicine Psychiatry [place] [address] [place] [address] Nancy Metz MD [address] [place] [address] 09/09/2023 3:00 PM EDT Office Visit Family Practice 65 [facility] 293 [place] [address] Leticia Crandall DO 293 [place] [address] 12/23/2023 1:20 PM EST Office Visit Rheumatology [address] [place] [address] Neil Rankin MD [address] [place] [address] [place] [address] 06/19/2024 1:00 PM EDT Nurse Only Ancillary 65 [facility] 293 [place] [address] College, Nurse Annual Wellness Visit [address] [place] [address] Health Maintenance Due Date Last Done Comments [...] Name Relationship Healthcare Agent Relationshi p Communication [facility] Repr esentative (appointed verbally by patient or by statute hierarchy) Care Teams Railroad Shop Inspector Relationship Specialty Start Date End Date Leticia Crandall DO PCP - General Family Medicine 10/26/21 documented as of this encounter
--- OUTSIDE RECORDS SUMMARY | 2023-08-06 15:57 | External Medical Summary | Summary of Care ---
Author Name Unknown Organization [facility] Address [address] [facility] [place] [address] Phone [phone] Care Team Providers Care Fittings Tightener Name Role Phone AmeliaTricia castanedayusuf Charles DO Primary Care Provider [phone] Reason for Visit * Reason Comments Medication Refill Encounter Details Date Type Department Care Team ([facility] st Contact Info) Description 08/03/2023 [address] [phone] Asad Feldman MD [address] [place] [address] Paroxysmal atrial fibrillation (HCC)*; Hypothyroidism; Hyperparathyroidism, primary (HCC); 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 Active Nystatin 124461 UNIT/GM External Powder (Nystop) Apply topically to affected area 3 times a day. 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: [place] toxicity - admitted 10/19 Glaucoma 12/31/2016 documented as of this encounter (statuses as of 08/04/2023) Immunizations Name Administration Dates Next Due COVID-19 mRNA, LNP-s, No Pre serve, 2-Dose Series (SENSIMED) 06/25/2020,06/02/2020 Pneumococcal Conjugate Vacc, 13 Valent (Prevnar) [...] encounter Miscellaneous Notes * Addendum Note - Emma Moreno CMA - 08/04/2023 9:48 AM EDTAddended by: EMMA MORENO on: 08/04/2023 09:48 AM Modules accepted: Orders * Telephone Encounter - Emma Moreno CMA - 08/04/2023 9:48 AM EDT Patient notified by phone and will have labs drawn at [facility] lab. * Telephone Encounter - Lea Perez CRNP [...] * Telephone Encounter - Freida Avery [facility] - 08/03/2023 3:58 PM EDT Pending Prescriptions: Disp Refills Amiodarone HCl 200 MG Oral Tablet (Cordaro*90 Tab*3 Sig: TAKE ONE TABLET BY MOUTH EVERY MORNING documented in this encounter Plan of Treatment Upcoming Encounters Date Type Department Care Team (Late st Contact Info) Description 09/05/2023 1:40 PM EDT Office Visit Nephrology, Roman [place] [address] [place] [address] Abhilash Nicole MD 200 [facility] [place] [address] 09/07/2023 3:00 PM EDT Telemedicine Psychiatry Marie Fuentes [place] 9 [place] [address] Nancy Metz MD [address] [place] [address] 09/09/2023 3:00 PM EDT Office Visit Family Practice 65 [facility] [place] 293 [place] [phone] Leticia Crandall DO 293 [place] [address] 12/23/2023 1:20 PM EST Office Visit Rheumatology [facility] [address] [place] [address] Neil Rankin MD [address] [facility] [address] 06/19/2024 1:00 PM EDT Nurse Only Ancillary 65 [facility] 293 [place] [address] College, Nurse Annual Wellness Visit 65 [facility] 293 [place] [address] Scheduled Orders Name Type Priority Associated Diagnoses Orde r Schedule BASIC METABOLIC PANEL Lab Routine Paroxysmal atrial fibrillation (HCC) Hypothyroidism Hyperparathyroidism, primary (HCC) 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) Expected: 08/04/2023, Expires: 08/03/2024 MAGNESIUM Lab Routine Paroxysmal atrial fibrillation (HCC) Hypothyroidism Hyperparathyroidism, primary (HCC) 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) Expected: 08/04/2023, Expires: 08/03/2024 TSH WITH FREE T4 IF INDICATED Lab Routine Paroxysmal atrial fibrillation (HCC) Hypothyroidism Hyperparathyroidism, primary (HCC) 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) Expected: 08/04/2023, Expires: 08/03/2024 HEPATIC FUNCTION PANEL Lab Routine Paroxysmal atrial fibrillation (HCC) Hypothyroidism Hyperparathyroidism, primary (HCC) 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) Expected: 08/04/2023, Expires: 08/03/2024 Health Maintenance Due Date Last Done Comments [...] encounter Visit Diagnoses Diagnosis Paroxysmal atrial fibrillation (HCC)- Primary Atrial fibrillation Hypothyroidism Unspecified hypothyroidism Hyperparathyroidism, primary (HCC) Primary hyperparathyroidism 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
--- OUTSIDE RECORDS SUMMARY | 2023-08-06 15:57 | External Medical Summary | Summary of Care ---
Author Name Unknown Organization [facility] Address [address] [place] [address] Phone [phone] Care Team Providers Care Nurse Transition Name Role Phone AmeliaLeticia castaneda Primary Care Provider [phone] Reason for Visit * Reason Comments Medication Refill Encounter Details Date Type Department Care Team (Late st Contact Info) Description 07/17/2023 Refill [facility] [place] [address] [place] [address] Nancy Metz MD [address] [place] [address] Allergies Active Allergy Reactions Criticality Noted Date [...] EVERY MORNING 90 Tablet 3 08/02/2022 4 Active Nystatin 770616 UNIT/GM External Powder (Nystop) Apply topically to affected area 3 times a day. 60 g 08/18/2022 Active Nystatin 994490 UNIT/GM External CreamIndications:Ca ndidal skin infection Apply [...] in the morning. 30 Tablet 1 07/18/2023 4 Active lamoTRIgine 25 MG Oral Tablet [...] term Drug Mental Disorder Unspecified 06/25/2016 Overview: Justice toxicity - admitted 10/19 Glaucoma 12/31/2016 documented [...] encounter Miscellaneous Notes * Telephone Encounter - Nancy Metz MD - 07/18/2023 3:03 PM EDTSigned Prescriptions: Disp Refills lamoTRIgine 25 MG Oral Tablet (LaMICtal) 30 Tab*1 Sig: Take 1 Tablet by mouth in the morning. Authorizing Provider: NANCY METZ * Telephone Encounter - Ivy Huang MD - 07/18/2023 7:46 AM EDTPending Prescriptions: Disp Refills lamoTRIgine 25 MG Oral Tablet (LaMICtal) 30 Tab*1 Sig: Take 1 Tablet by mouth in the morning. documented in this encounter Plan of Treatment Upcoming Encounters Date Type Department Care Team (Late st Contact Info) Description 07/19/2023 11:40 AM EDT Office Visit Family Practice [address] [place] [address] [place] [phone] Leticia Crandall DO [address] [place] [address] 07/25/2023 2:30 PM EDT Telemedicine Psychiatry [address] [facility] [address] [place] [phone] Nancy Metz MD [address] [facility] [address] [place] [address] 2023 2:30 PM EDT Cardiac Studies Cardiac Studies, [facility] [address] [facility] [place] [address] 09/05/2023 1:40 PM EDT Office Visit Nephrology, [facility] [address] [facility] [place] [address] Abhilash Nicole MD [address] [facility] [place] [address] 12/23/2023 1:20 PM EST Office Visit Rheumatology [address] [place] [address] Neil Rankin MD [facility] [place] [address] 06/19/2024 1:00 PM EDT Nurse Only Ancillary 65 [facility] [address] [place] [address] College, Nurse Annual Wellness Visit [address] [place] [address] Health Maintenance Due Date Last Done Comments [...] Name Relationship Healthcare Agent Relationshi p Communication [facility] Repr esentative (appointed verbally by patient or by statute hierarchy) Care Teams Nurse Transition Relationship Specialty Start Date End Date Leticia Crandall DO [address] [facility] [place] [address] PCP - General Family Medicine 10/26/21 documented as of this encounter
--- OUTSIDE RECORDS SUMMARY | 2023-08-06 15:57 | External Medical Summary | Summary of Care ---
Author Name Unknown Organization [facility] Address [address] [place] [address] Phone [phone] Care Team Providers Care Addictions Counselor Name Role Phone EdnaLeticia cm Araceli HE[place] Primary Care Provider [phone] Reason for Visit * Reason Comments Follow Up Encounter Details Date Type Department Care Team (Late st Contact Info) Description 07/25/2023 2:30 PM EDT [facility] [address] [place] [address] Nancy Metz MD [address] [place] [address] Bipolar disorder, current episode depressed, moderate (HCC)*; Anxiety disorder, unspecified type Allergies Active Allergy Reactions Criticality Noted Date Comments Cephalexin 06/10/2022 documented as of this encounter (statuses as of 07/25/2023) Medications Medication Sig Dispensed Refills Start Date [...] MORNING 90 Tablet 3 08/02/2022 Active Nystatin 527061 UNIT/GM External Powder (Nystop) Apply topically to affected area 3 times a day. 60 g 08/18/2022 Active Nystatin 106482 UNIT/GM External CreamIndications:Ca ndidal skin infection Apply [...] in the morning. 180 Capsule 07/25/2023 Active FLUoxetine HCl 40 MG Oral Capsule (PROzac)Indications :Bipolar disorder, current episode depressed, moderate (HCC) Take 2 Capsules by mouth in the morning. 180 Capsule 06/08/2023 4 Discontinue d(Refill) LORazepam 0.5 MG Oral Tablet (Ativan) Take 1 Tablet by mouth 2 times a day as needed for Anxiety. Do not start before June 11, 2023. 60 Tablet 1 06/11/2023 4 Discontinue d(Refill) clonazePAM 0.5 MG Oral Tablet (KlonoPIN) Take 1 Tablet by mouth every night at bedtime. Do not start before June 18, 2023. 30 Tablet 1 06/18/2023 4 Discontinue d(Refill) lamoTRIgine 25 MG Oral Tablet (LaMICtal) Take 1 Tablet by mouth in the morning. 30 Tablet 1 07/18/2023 4 Discontinue d(Refill) documented as of this encounter (statuses as of 07/25/2023) Active Problems Problem Noted Date Diagnosed Date [...] as of this encounter (statuses as of 07/25/2023) Resolved Problems Problem Noted Date Diagnosed Date [...] term Drug Mental Disorder Unspecified 06/25/2016 Overview: Montreat toxicity - admitted 10/19 Glaucoma 12/31/2016 documented as of this encounter (statuses as of 07/25/2023) Immunizations Name Administration Dates Next Due COVID-19 mRNA, LNP-s, No Pre serve, 2-Dose Series (Soundflavor) 06/25/2020,06/02/2020 Pneumococcal Conjugate Vacc, 13 Valent (Prevnar) [...] on file documented as of this encounter Progress Notes * Nancy Metz MD - 07/25/2023 2:41 PM EDT Outpatient Psychiatry Follow Up Appointment Psychiatry and Behavioral Health [address] [address] Patient location: HOME. I was not in a hospital or clinic location. After connecting through [employer], patient was verified with two unique identifiers. Patient (or authorized legal exhibit display representative) was then informed that this was a Telemedicine visit and being conducted confidentially over secure lines. Methods to assure confidentiality were taken. Patient acknowledged consent and understanding of privacy and security of the Telemedicine visit. The patient agreed to participate. Interval History Eva Tejeda is a 82 year old individual with a history of Bipolar disorder and Unspecified Anxiety who presents for scheduled follow up and medication management. Pt reports poor control of her depression and anxiety. Her daughter confirms she has increased tearful episodes. She reports good sleep, energy and appetite, but continues to report sad mood. She joined the [facility] with 60 her y/o daughter, but admits she has not been going, but may start back. Her daughter said the plan is for her go daily, other than Tuesday when she has her bible study (which the pt states she enjoys a lot). Pt admits to worrying about her other daughter a lot. She reports better control of her anxiety when she's at her daughter's house and states it worsens whenever she returns to her own home, stating "I don't like this house anymore, the sun doesn't comeinto the window the way I like it." She states she is welcomed to move in with her daughter, but that she would feel like she's imposing. Pt is not forward thinking, but denies any suicidal ideations, intent or plan. She is agreeable to go to the ED if she develops any negative thoughts. Psychiatric History Outpatient treatment: Since 1974 saw psychiatrists on and off, recently followed with a [place]. Inpatient treatment: Once in [facility] (3 months) due to panic attacks ED presentations for psychiatric concerns: There is no history of ED presentations for psychiatric concerns. Self-injury and suicide attempts: There is no history of self-injury or a suicide attempt. Medication trials: Lexapro, Buspar, Zyprexa (increased anxiety), Ativan, Montreat (affected kidney),Prozac and Lamictal, Latuda (lowered BP), Atarax (did not help, morning grogginess) Updates to Medical, Family, Social, and Psychiatric History Primary care provider: Leticia Crandall, DO Mental Status Exam Appearance: well-groomed, casually dressed and appearing their stated age Strength and tone: unable to assess tone via telemedicine, but denied any subjective muscle discomfort or rigidity Gait and Station: normal gait and station Abnormal Movements: no abnormal movements Behavior: calm, cooperative, and appropriate Speech: normal in rate, rhythm, tone, and volume Mood: "anxious" Affect: euthymic Thought Process: logical, linear, and goal directed Thought Content: no abnormal thought content Hallucinations: no perceptual disturbances Suicidal ideation: no suicidal ideation or passive wish Orientation: orientated to self, time, place, and circumstances Attention: appropriate Insight: good Judgment: good Risk Assessment Acute Suicide Risk Factors: increased anxiety, hopelessness, feeling like a burden and significant financial strain Chronic Suicide Risk Factors: chronic mental illness Protective Factors: family, friend, or partner support, available access to mental health services,supportive medical and mental healthcare relationships, availability of consistent and high-qualityphysical and behavioral healthcare, cultural, spiritism, or moral objections to suicide, limited access to lethal means and effective coping and problem-solving skills Based on this assessment, the patient's safety risk is assessed to be: low acute risk and low chronic risk The least restrictive and most appropriate level of care for this patient at this time continues sridevi routine outpatient care. Formulation and Treatment Plan Pt is 82 year old F, , lives alone with 2 kittens, retired, PPHx of Bipolar Disorder, one U hospitalization, denies hx of self injurious behaviors or suicide attempts, PMH of Atrial fibrillation, CKD IV, CHF, HLD, HTN, denies hx of substance abuse, who presents for medication management. Pt has worsening depression and anxiety since the of her in 2019. She reports feelings of loneliness and financial stress about the house since she just bought it in 2018 and has a lot of work to do in it. She has supportive children and grand children, whom she sees multiple times throughout the week. She denies any manic episodes or SI. Bipolar disorder, current episode depressed, moderate (HCC) (Primary) Anxiety disorder, unspecified type Medication changes: Con't Prozac to 80 mg qd Con't Ativan 0.5 mg bid PRN anxiety. (last dispensed on 06/20 # 60 tabs per PDMP) Con't Klonopin 0.5 mg qhs (last dispensed 07/19 #30 tabs) --> pt advised to take klonopin at nightand ativan during the day. Increase Lamictal to 50 mg qd (started on 06/01, per pt's daughter, she did well in the past on Prozac/Abilify and Lamictal) --> increase to 100 mg next visit Start Abilify 5 mg qd Diagnostics: None indicated at this time Lab monitoring: None indicated at this time Therapy: Con't therapy with Leticia Osuna with [facility]. Return: 1 month Treatment options and alternatives were reviewed with the patient and they agree with the above plan. Information about current medications was provided to the patient including risks, benefits, indications, and side-effects. The patient is making an informed decision to follow the recommendations outlined in this note.The treatment plan will be provided to the patient via [employer]. We explicitly discussed the treatment plan and patient verbally agreed to participate in the plan. Crisis Planning I reviewed with the patient that in case of a psychiatric emergency they should call 911 or go to the nearest emergency room. The patient was able to verbalize understanding of the steps necessary toobtain help between appointments if needed, including requesting a phone call, requesting an appointment sooner, reaching clinic after hours, or accessing emergency mental health and medical serviceseither at a local emergency department or by activating mobile crisis teams and EMS. The patient was also provided with psychiatry emergency telephone numbers including crisis numbers, the text suicide hotline, and the suicide hotline. An individualized crisis plan will be reviewed at subsequent visits as necessary. Crisis Plan Step 1: Signs that I am doing worse: panic attacks, sad mood. Step 2: Initial Coping Strategies: learning or talking about Sammy Step 3: People whom I can ask for help: daughter Step 4: Professionals or agencies I can contact during a crisis: Local Crisis Services: For [facility] and [facility] [place] call TAPLine at . [facility] Emergency Number: National Suicide Prevention Lifeline: 988 National Crisis Text Line: Text HOME to 412777 Call 911 or proceed to the nearest emergency room [facility] Division of Psychiatry: [phone] Step 5: Keeping the environment safe: Plan for restricting access to lethal means including firearms and medications: denies access to lethal weapons. Treatment Planning Outpatient Adult Psychiatry Treatment Plan Treatment plan was developed on 09/24/22, treatment will continue to focus on goals below; Treatment update will occur when clinically indicated or by 03/22/2023. Patient's goals captured in patient's words: "get work done in the house" Patient/Family Received Copy of Treatment Plan: Yes Signature Obtained on Treatment Plan: Patient unable to sign Treatment Plan acknowledgement document. Signature will be obtained at the time or before [facility] bulletin extension expires. Expected family or significant other involvement: Participate in visits and Offer Support Patient strengths and facilitating factors to care:Seeking help, Manages multiple demands in life, Has hobbies, Good support system, Cultural/spiritual/spiritism and community involvement, Access to housing, Financial stability, Knowledge of medications, Cooperative, Able to care for own personal hygiene and Abstain from using alcohol and/or drugs Treatment Barriers: none identified Patient Identified Needs/Goals Interventions/Type of Service Duration of Treatment Frequency of Treatment Objective/ Discharge Criteria Problem/Need1: Medication Mangement Medication Management 2 year Q2 Months PHQ<5 and BELLA<5 Please choose a method to track patient's improvement based on clinical assessment: BELLA-7 Data [place] Suicide Screen Data Discharge Discussed with patient: Patient continues to need treatment Collaboration of Care: Yes, provider within [facility], information is shared automatically in medical record Billing and Coding Time Spent on Visit: 30 minutes Billing code: 33900 Please note >17 minutes of counseling time over and above medication management was spent with patient discussing utilization of positive coping mechanisms and supportive therapy. Billing code: 14022 Dr. Nancy Metz MD Adult Psychiatrist [facility] [phone] 07/25/2023 documented in this encounter Plan of Treatment Upcoming Encounters Date Type Department Care Team (Late st Contact Info) Description 2023 2:30 PM EDT Cardiac Studies Cardiac Studies, [facility] [address] [place], [place] [id number] 09/05/2023 1:40 PM EDT Office Visit Nephrology, [facility] [address] [place] [address] Abhilash Nicole MD [address] [place] [address] 09/07/2023 3:00 PM EDT Telemedicine Psychiatry [address] [place] [address] Nancy Metz MD [address] [facility] [place] [address] 09/09/2023 3:00 PM EDT Office Visit Family Practice 65 [facility] [address] [place] [address] Leticia Crandall DO [address] [place] [address] 12/23/2023 1:20 PM EST Office Visit Rheumatology [place] [id number] [facility] [place], [place] [address] Neil Rankin MD [address] [place] [address] 06/19/2024 1:00 PM EDT Nurse Only Ancillary 65 [facility] [address] [place] [address] College, Nurse Annual Wellness Visit [address] [place] [address] Health Maintenance Due Date Last Done Comments [...] as of this encounter Visit Diagnoses Diagnosis Bipolar disorder, current episode depressed, moderate (HCC)- Primary Bipolar I disorder, most recent episode (or current) depressed, moderate Anxiety disorder, unspecified type documented in this encounter Advance Directives * Full Code (Latest Code Status on File) Date Activated Date Inactivated Comments 09/12/2007 9:41 AM 09/13/2007 4:12 PM Healthcare Agents on File Name Relationship Healthcare Agent [facility] Communication [facility] Repr esentative (appointed verbally by patient or by statute hierarchy) Care Teams Addictions Counselor Relationship Specialty Start Date End Date Leticia Crandall DO [address] [place] [id number] PCP - General Family Medicine 10/26/21 documented as of this encounter
--- NOTE | 2023-08-06 16:15 | Emergency Department Note ---
Impression & Plan Acute on chronic renal insufficiency, Hypercalcemia, Weakness ED Provider Note NAME: COLIN MCKENNA AGE: 83 SEX: F : 1940 ARRIVES VIA: Walk-In INFORMANT: Patient ED PROVIDER(S): Robin Valdez MD CHIEF COMPLAINT: Abnormal labs, weakness PLAN: Disposition: Admit MEDICAL DECISION MAKING: The patient is a pleasant 83-year-old woman with past medical history of CKD, hypothyroidism paroxysmal atrial fibrillation on Eliquis, bipolar disorder, sick sinus syndrome, hypertension presents to the emergency department via walk-in, accompanied by her daughter for evaluation of worsening renal function in the setting of having outpatient blood work in preparation for upcoming outpatient visits with her 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 Patient reports that she had reviewed the test results in the [facility] patient portal and noticed her creatinine had worsened. She was concerned because she has noticed her mother being a bit more unsteady and confused and so brought her to the hospital. She denies any fevers, chills. She reports a mild chronic cough that is unchanged. She denies nausea or vomiting or diarrhea. She denies any constipation though admits she does not move her bowels often as she does not know much. On evaluation the patient is fatigued appearing but no distress, afebrile with blood pressure 160s/80s and vital signs otherwise stable. She appears clinically dry. She has no focal neurologic deficits. EKG without overt acute ischemia. CXR with question of mild congestive change. WBC 4.6K with out left shift, nonspecific. H/H similar to prior. Platelets within normal limits. Chemistry with creatinine of 3.1, increased from patient's baseline of 2.5-2.8. There is no metabolic acidosis. BUN is 59. Calcium is elevated at 11.4. Magnesium 1.7 electrolytes otherwise unremarkable. HS troponin 24.8, nonspecific and similar to prior. TSH was normal limits. UA without convincing evidence of infection. CT of the abdomen pelvis was performed and report is pending. Given the patient's acute on chronic renal sufficiency and symptomatic hypercalcemia they agree with plan for admission for further management. Patient treated with IV fluid hydration as well as calcitonin given she is symptomatic. Bisphosphonate deferred at this time given the patient's GFR. Case was discussed with Dr. Gonzalez, [facility] hospitalist, who will evaluate the patient for admission. Further management per admitting team. Triage Nursing notes reviewed and agree them. Prior/external medical records reviewed Vital Signs: reviewed Differential diagnosis: Infection, dehydration, metabolic abnormality, hypo/hyperglycemia, electrolyte disturbance, anemia, hypoxia, cardiac sources, intracerebral event, toxicologic, neurologic, as well as other pathologies. ER treatment provided: See below. Diagnostics interpreted by me: ECG: Atrial paced rhythm, 83 bpm, left anterior fascicular block, LVH, no overt acute ischemia. Cardiac Monitoring: An order for continuous cardiac monitoring was placed and demonstrated Atrial paced rhythm, 83 bpm, no ectopy. Laboratory studies: See below Imaging studies: See below Consultation(s): Case was discussed with Dr. Gonzalez, [facility] hospitalist, who will evaluate the patient for admission. HPI: The patient is a pleasant 83-year-old woman with past medical history of CKD, hypothyroidism paroxysmal atrial fibrillation on Eliquis, bipolar disorder, sick sinus syndrome, hypertension presents to the emergency department via walk- in, accompanied by her daughter for evaluation of worsening renal function in the setting of having outpatient blood work in preparation for upcoming outpatient visits with her 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 Patient reports that she had reviewed the test results in the [facility] patient portal and noticed her creatinine had worsened. She was concerned because she has noticed her mother being a bit more unsteady and confused and so brought her to the hospital. ROS: See above HPI for pertinent positives & negatives. A total of 10 systems reviewed and were otherwise negative. VITALS:See Below PHYSICAL EXAMINATION: GENERAL: Awake, alert, fatigued-appearing, in no distress HENT: Normocephalic, atraumatic. Oropharynx with dry mucous membranes and otherwise unremarkable. EYES: Normal conjunctiva. Sclera non-icteric. EOMI. No nystamgus. PEARRL. NECK: Supple. No nuchal rigidity. FROM. No JVD. RESPIRATORY: Clear to auscultation. CARDIAC: Regular rate, normal rhythm. Extremities warm and well perfused. Pulses equal. ABDOMEN: Soft, non-distended. No tenderness to palpation. No rebound or guarding. No masses. MUSCULOSKELETAL: Chest examination reveals no tenderness. The back is symmetrical on inspection without obvious abnormality. There is no CVA tenderness to palpation. No joint edema. LOWER EXTREMITIES: Calves are equal size bilaterally and non-tender. No edema. No discoloration. NEURO: No sensory or motor deficits noted. 5/5 strength and SILT x 4 extremities. SKIN: No rash or jaundice noted. ED COURSE: Critical Care: I have personally spent greater than 35 minutes of critical care time in the direct management of this patient. This includes bedside care, interpretation of diagnostic studies, and testing, discussion with consultants, patient, and family members, and other required patient management activities. This 35 minutes is in excess of all separately billable procedures. Robin Valdez MD Past Med/Surg History Problem List (Updated 08/07/23 @ 00:33 by Robin Valdez MD) Weakness (Acute) Hypercalcemia (Acute) Acute on chronic renal insufficiency (Acute) Hypothyroidism CKD (chronic kidney disease), stage IV Hypertensive urgency (Acute) Anxiety (Acute) Withdrawal syndrome (Acute) PAF (paroxysmal atrial fibrillation) (HFpEF) heart failure with preserved ejection fraction Hypoxemia (Acute) Hypertensive cardiovascular-renal disease Dyslipidemia Primary angle-closure glaucoma GERD (gastroesophageal reflux disease) Hypertensive emergency (Acute) CKD (chronic kidney disease) stage 3, GFR 30-59 ml/min (Acute) Bipolar disorder (manic depression) Anxiety attack Anemia SSS (sick sinus syndrome) Medical History Mitral regurgitation Tricuspid regurgitation Lyme disease HTN (hypertension) Depression Anxiety Kidney problem Surgical History History of permanent cardiac pacemaker placement History of tubal ligation History of blepharoplasty H/O parathyroidectomy Family History Other Heart disease Denies family history of Cancer Social History Smoking Status: Never smoker Second Hand Exposure: No; Do You Dip or Chew Tobacco: No; Tobacco Cessation Education Requested by Patient: No Hx Alcohol Use: No Hx Substance Use: No Preferred Language: Stateless Communication Ability: Effective Tai Chi Instructor Required: No Beliefs That Will Affect Care: None marital status: Current Living Situation: Alone Current Living Situation Comment: Lives at home alone Other Information That Helps Us Care for You: No Feels Safe at Home: Yes Safety Concerns: Feels Safe At This Time Assistive Devices: Cane Allergies Allergies Allergy/AdvReac Type Severity Reaction Status Date / Time cephalexin [From Keflex] Allergy Unknown Pt doesn't Unverified 08/06/23 17:17 remember reaction Home Meds Home Medications Medication Instructions Recorded Confirmed allopurinol 300 mg tablet 300 mg PO QAM 04/21/19 08/06/23 brimonidine 0.15 % eye drops 1 drp OPB BID 04/21/19 08/06/23 timolol maleate 0.5 % eye drops 1 drp OPB QAM 04/21/19 08/06/23 cholecalciferol (vitamin D3) 50 50 mcg PO QAM 04/23/21 08/06/23 mcg (2,000 unit) capsule (Vitamin D3) amiodarone 200 mg tablet 200 mg PO QAM 06/03/21 08/06/23 apixaban 2.5 mg tablet (Eliquis) 2.5 mg PO BID 07/18/23 08/06/23 carvedilol 25 mg tablet 25 mg PO BID 07/18/23 08/06/23 clonazepam 0.5 mg tablet 0.5 mg PO HS 07/18/23 08/06/23 fluoxetine 40 mg capsule 40 mg PO QAM 07/18/23 08/06/23 lamotrigine 25 mg tablet 25 mg PO QAM 07/18/23 08/06/23 levothyroxine 150 mcg tablet 150 mcg PO QAM 07/18/23 08/06/23 aripiprazole 5 mg tablet 10 mg PO DAILY 08/06/23 08/06/23 lorazepam 0.5 mg tablet 0.5 mg PO BID PRN Anxiety 08/06/23 08/06/23 Previous Rx's Medication Instructions Recorded cyanocobalamin (vitamin B-12) 500 500 mcg PO QAM #30 tabs 07/13/20 mcg tablet clonidine HCl 0.1 mg tablet 0.1 mg PO BID #14 tabs 06/05/21 Results & Data (ED) Vital Signs Vital Signs - 24 hr 08/06/23 15:56 08/06/23 16:21 08/06/23 16:34 Temperature 36.7 C Temperature Source Temporal Artery Scan Pulse Rate 65 61 Pulse Rate [Apical] 60 Pulse Rate from SpO2 Sensor Respiratory Rate 22 18 Respiratory Effort / Characteristics Non-Labored Spontaneous Respiratory Depth Normal Respiratory Pattern Regular Blood Pressure 118/74 Blood Pressure [Left Arm] 167/87 H Blood Pressure Mean 88 Blood Pressure Mean [Left Arm] 113 Blood Pressure Position Sitting Pulse Oximetry 95 93 Oxygen Delivery Method Room Air Sepsis Recent Fever Within 48 Hours No Sepsis New/Unexplained Change in Mental Status No Sepsis Action Taken by Nursing No Action Required 08/06/23 16:34 08/06/23 19:00 08/06/23 19:12 Temperature Temperature Source Pulse Rate 73 63 Pulse Rate [Apical] Pulse Rate from SpO2 Sensor 73 63 Respiratory Rate 16 16 Respiratory Effort / Characteristics Respiratory Depth Respiratory Pattern Blood Pressure Blood Pressure [Left Arm] Blood Pressure Mean Blood Pressure Mean [Left Arm] Blood Pressure Position Pulse Oximetry 93 94 95 Oxygen Delivery Method Room Air Sepsis Recent Fever Within 48 Hours Sepsis New/Unexplained Change in Mental Status Sepsis Action Taken by Nursing 08/06/23 19:27 08/06/23 19:30 08/06/23 19:45 Temperature Temperature Source Pulse Rate 67 67 64 Pulse Rate [Apical] Pulse Rate from SpO2 Sensor 67 67 64 Respiratory Rate 25 H 22 31 H Respiratory Effort / Characteristics Respiratory Depth Respiratory Pattern Blood Pressure Blood Pressure [Left Arm] Blood Pressure Mean Blood Pressure Mean [Left Arm] Blood Pressure Position Pulse Oximetry 94 93 93 Oxygen Delivery Method Sepsis Recent Fever Within 48 Hours Sepsis New/Unexplained Change in Mental Status Sepsis Action Taken by Nursing 08/06/23 19:51 08/06/23 20:06 Temperature Temperature Source Pulse Rate 60 63 Pulse Rate [Apical] Pulse Rate from SpO2 Sensor 60 63 Respiratory Rate 21 15 Respiratory Effort / Characteristics Respiratory Depth Respiratory Pattern Blood Pressure Blood Pressure [Left Arm] Blood Pressure Mean Blood Pressure Mean [Left Arm] Blood Pressure Position Pulse Oximetry 95 95 Oxygen Delivery Method Sepsis Recent Fever Within 48 Hours Sepsis New/Unexplained Change in Mental Status Sepsis Action Taken by Nursing Laboratory Data Attestation: I reviewed the patient's lab results. 08/06/23 16:15 08/06/23 16:15 Lab Results 08/06/23 08/06/23 Range/Units 16:15 18:17 WBC 4.61 L (4.8-10.8) K/ul RBC 3.68 L (4.20-5.40) M/uL Hgb 10.9 L (12.0-16.0) g/dl Hct 33.3 L (37.0-47.0) % MCV 90.5 (80.0-100.0) fL MCH 29.6 (25.0-34.0) pg MCHC 32.7 (32.0-36.0) g/dL RDW Std Deviation 47.7 H (36.4-46.3) fL RDW Coeff of Tank 14.6 H (11.5-14.5) % Plt Count 150 (130-400) K/uL MPV 11.3 (9.4-12.4) fL Immature Gran % (Auto) 0.7 % Neut % (Auto) 64.6 % Lymph % (Auto) 18.4 % [place] % (Auto) 12.8 % Eos % (Auto) 2.4 % Baso % (Auto) 1.1 % Neut # (Auto) 2.98 (1.40-6.50) K/uL Lymph # (Auto) 0.85 L (1.20-3.40) K/uL [place] # (Auto) 0.59 (0.11-0.59) K/uL Eos # (Auto) 0.11 (0.00-0.50) K/uL Baso # (Auto) 0.05 (0.00-0.20) K/uL Immature Gran # (Auto) 0.03 (0.01-0.20) K/uL PT 11.3 (9.0-12.0) Seconds INR 1.0 (0.9-1.1) Sodium 139 (136-145) mmol/L Potassium 4.7 (3.5-5.1) mmol/L Chloride 108 H (98-107) mmol/L Carbon Dioxide 26 (21-32) mmol/L Anion Gap 5 (3-11) BUN 59 H (6-23) mg/dl Creatinine 3.12 H (0.6-1.2) mg/dl Est Cr Clr Drug Dosing 14.9 ml/min Est GFR ( Amer) 15.5 ml/min Est GFR (Non-Af Amer) 13.3 ml/min BUN/Creatinine Ratio 18.9 (10-20) Glucose 93 (70-99(Fasting)) mg/dl Calcium 11.4 H (8.6-10.3) mg/dl Phosphorus 3.7 (2.5-4.9) mg/dl Magnesium 1.7 (1.7-2.4) mg/dl Total Bilirubin 0.4 (0.2-1.0) mg/dl AST 33 (13-39) U/L ALT 39 (7-52) U/L Alkaline Phosphatase 65 (34-104) U/L Total Creatine Kinase 76 (26-192) U/L Troponin I High Sens 24.8 H (0-14) pg/ml Total Protein 6.6 (6.0-8.3) gm/dl Albumin 3.9 (3.4-5.0) gm/dl Globulin 2.7 (2.5-4.0) gm/dl Albumin/Globulin Ratio 1.4 (0.9-2) TSH 2.318 (0.300-4.500) uIu/ml Urine Color Yellow Urine Appearance Clear (Clear) Urine pH 5.5 (4.5-7.5) Ur Specific [place]ver 1.014 (1.000-1.030) Urine Protein Trace H (Negative) Urine Glucose (UA) Negative (Negative) Urine Ketones Negative (Negative) Urine Blood Negative (Negative) Urine Nitrite Negative (Negative) Urine Bilirubin Negative (Negative) Urine Urobilinogen Negative (Negative) Ur Leukocyte Esterase 1+ H (Negative) Urine WBC (Auto) 0-5 (0-5) /hpf Urine RBC (Auto) 0-2 (0-2) /hpf U Hyaline Cast (Auto) 0-2 (0-2) /lpf U Epithel Cells (Auto) 0-2 (0-2) /hpf Urine Bacteria (Auto) None Seen (None Seen) Administered Medications Acetaminophen (Acetaminophen 325 Mg Tab) 650 mg PO Q4H PRN PRN Reason: Pain or Fever Stop: 09/05/23 23:41 Last Admin: 08/07/23 00:28 Dose: 650 mg Documented By: SND Brimonidine Tartrate (Brimonidine Tartrate-P 0.15% 5 Ml Btl) 1 drops OPB BID [facility] Stop: 09/05/23 23:41 Last Admin: 08/07/23 00:29 Dose: 1 drops Documented By: SNMatthew Carvedilol (Carvedilol 25 Mg Tab) 25 mg PO BID [facility] Stop: 09/05/23 23:41 Last Admin: 08/07/23 00:27 Dose: 25 mg Documented By: SNMatthew Clonidine HCl (Clonidine Hcl 0.1 Mg Tab) 0.1 mg PO BID [facility] Stop: 09/05/23 23:41 Last Admin: 08/07/23 00:27 Dose: 0.1 mg Documented By: SND Sodium Chloride (Nss) 1,000 mls @ 150 mls/hr IV .Q6H40M [facility] Stop: 09/05/23 23:41 Last Admin: 08/07/23 00:28 Dose: 150 mls/hr Documented By: SND Discontinued Medications Calcitonin [place] (Calcitonin [place] 400 Units/2 Ml) 320 units SQ NOW STA Stop: 08/06/23 18:39 Last Admin: 08/06/23 19:59 Dose: 320 units Documented By: KG Clonazepam (Clonazepam 0.5 Mg Tab) 0.5 mg PO NOW STA Stop: 08/06/23 20:11 Last Admin: 08/06/23 20:19 Dose: 0.5 mg Documented By: KG Sodium Chloride (Nss) 500 mls @ 999 mls/hr IV .Q31M ONE Stop: 08/06/23 16:40 Last Infusion: 08/06/23 20:04 Dose: Infused Documented By: Admin: 08/06/23 16:33 Dose: 999 mls/hr Documented By: WILIAM Imaging Data Radiologist's Impression: Chest X-Ray 08/06/23 16:09 SINGLE VIEW CHEST CLINICAL HISTORY: Generalized weakness. FINDINGS: An AP, portable, upright chest radiograph is compared to study dated 06/03/2021 and correlated with chest CT dated 01/10/2021. A 2-lead cardiac pacemaker is unchanged in position. The heart is enlarged denoting atherosclerotic calcification of the thoracic aorta. There is pulmonary vascular congestion with evidence of interstitial edema. Scarring/atelectasis is noted at the lung bases. No large pleural effusion or pneumothorax is seen. The skeletal structures are osteopenic. The bony thorax is grossly intact. IMPRESSION: Cardiomegaly and cardiac pacemaker with evidence of congestive failure and mild pulmonary edema. Radiographic follow-up to resolution is recommended. ACT 112: Negative or not required by law. Electronically signed by: Bal Ruvalcaba M.D. 08/06/2023 6:01 PM Abdomen/Pelvis CT 08/06/23 17:18 CT SCAN OF THE ABDOMEN AND PELVIS WITHOUT IV CONTRAST CLINICAL HISTORY: Acute on chronic renal insufficiency. COMPARISON STUDY: Chest CT dated 01/10/2021. TECHNIQUE: CT scan of the abdomen and pelvis is performed from the lung bases to the proximal femora. Images are reviewed in the axial, sagittal, and coronal planes. IV contrast was not administered for this examination due to poor renal function. Note that the examination is suboptimal without oral and IV contrast. A dose lowering technique was utilized adhering to the principles of ALARA. CT DOSE: 873.59 mGy.cm FINDINGS: Lung bases: The heart is enlarged and without pericardial effusion. Pacemaker leads are in place. There is diminished attenuation of the cardiac blood pool as compared to the myocardium suggesting anemia. Probable scarring and groundglass opacities are seen at both lung bases. No pleural effusion is identified. Liver: The unenhanced liver is normal in size and contour. The liver appears hyperdense. There is no intrahepatic biliary ductal dilatation. Gallbladder: Unremarkable. Spleen: Normal in size and attenuation. Pancreas: Unremarkable. Adrenal glands: Unremarkable. Kidneys: The unenhanced kidneys demonstrate mild cortical atrophy and are without hydronephrosis. There is a 2 mm nonobstructing right renal calculus. No left renal calculi are identified and no ureteral stone is seen. There is no evidence of contour deforming renal mass lesion. Abdominal vasculature: There is advanced atherosclerotic calcification and mild ectasia of the abdominal aorta. Bowel: There is moderate colonic fecal attention. No bowel obstruction is seen. The appendix is well-visualized and normal. Peritoneum: There is trace nonspecific free fluid in the pelvis. No intervertebral free air is seen. There is a small fat-containing umbilical hernia. Lymphadenopathy: None. Pelvic viscera: The bladder is decompressed, and the wall appears thickened with mild surrounding infiltration. The uterus and adnexa are normal as visualized. Skeletal structures: The skeletal structures are osteopenic. There is moderate to advanced lumbosacral spondylosis. Sclerotic changes noted in the sacroiliac joints and pubic symphysis. No lytic or blastic lesions are seen. IMPRESSION: 1. The bladder wall appears thickened with surrounding infiltration. Correlate with clinical findings and urinalysis for evidence of cystitis. 2. Moderate colonic fecal retention. 3. The liver appears hyperdense, which could potentially be seen with amiodarone therapy or iron overload. Correlate clinically. 4. Foci of parenchymal scarring and groundglass opacities are seen at both lung bases. Groundglass opacities are new from a [address] Correlate clinically for evidence of a nonspecific infectious/inflammatory pneumonitis. 5. There is trace nonspecific free fluid in the pelvis. 6. Additional findings as above. ACT 112: Negative or not required by law. Electronically signed by: Bal Ruvalcaba M.D. 08/06/2023 7:[address] 08/06/23 17:18 CT SCAN OF THE BRAIN WITHOUT IV CONTRAST CLINICAL HISTORY: Dizziness. COMPARISON STUDY: CT of the brain dated 12/13/2020. TECHNIQUE: Unenhanced axial CT scan of the brain is performed from the vertex to the skull base. A dose lowering technique was utilized adhering to the principles of ALARA. CT DOSE: 547.75 mGy.cm FINDINGS: Brain parenchyma: There is age-related involutional change noting moderate subcortical and periventricular microangiopathic disease. There is no hemorrhage, mass effect, or evidence of acute territorial ischemia by CT criteria. Escalante-white matter differentiation is preserved. No extra-axial fluid collection is seen. Ventricles, sulci, cisterns: Prominent secondary to involutional change. Intracranial vasculature: There is atherosclerotic calcification of the cavernous carotid arteries. Calvarium: Unremarkable. Sinuses and mastoids: There is trace mucosal thickening in the left sphenoid sinus. The remaining visualized paranasal sinuses are clear. The mastoid air cells are well pneumatized. Orbits: The bony orbits are grossly intact. There are bilateral ocular lens implants. IMPRESSION: There is no hemorrhage, mass effect, or evidence of acute territorial ischemia by CT criteria. ACT 112: Negative or not required by law. Electronically signed by: Bal Ruvalcaba M.D. 08/06/2023 6:07 PM Discharge Plan Visit Data Chief Complaint: Abnormal Labs/Diagnostic Testing Stated Complaint: ABNORMAL KIDNEY FUNCTIONS, ANXIETY ED Provider: Robin Valdez Discharge Problem: Acute on chronic renal insufficiency, Hypercalcemia, Weakness Patient Disposition: Admitted As Inpatient Discharge Instructions Interventions: ED Discharge Assessment Last Done: 08/06/23 23:35
[2023-08-06 16:29] LABS: Basophils # (auto) 0.05 K/uL (0.00-0.20); Basophils % (auto) 1.1 %; Eosinophils # (auto) 0.11 K/uL (0.00-0.50); Eosinophils % (auto) 2.4 %; Hematocrit (blood only) 33.3 % (37.0-47.0); Hemoglobin 10.9 g/dl (12.0-16.0); Immature Granulocytes # (auto) 0.03 K/uL (0.01-0.20); Immature Granulocytes % (auto) 0.7 %; Lymphocytes # (auto) 0.85 K/uL (1.20-3.40); Lymphocytes % (auto) 18.4 %; Mean Corpuscular Hemoglobin 29.6 pg (25.0-34.0); Mean Corpuscular Hgb Conc 32.7 g/dL (32.0-36.0); Mean Corpuscular Volume 90.5 fL (80.0-100.0); Mean Platelet Volume 11.3 fL (9.4-12.4); Monocytes # (auto) 0.59 K/uL (0.11-0.59); Monocytes % (auto) 12.8 %; Neutrophils # (auto) 2.98 K/uL (1.40-6.50); Neutrophils % (auto) 64.6 %; Platelet Count 150 K/uL (130-400); RDW Coefficient of Variation 14.6 % (11.5-14.5); RDW Standard Deviation 47.7 fL (36.4-46.3); Red Blood Count 3.68 M/uL (4.20-5.40); White Blood Count 4.61 K/ul (4.8-10.8)
[2023-08-06] MEDS: SODIUM CHLORIDE 0.9% 500 ML IV ONE (16:33)
[2023-08-06 16:47] LABS: Albumin Globulin Ratio 1.4 (0.9-2); Albumin Level 3.9 gm/dl (3.4-5.0); BUN Creatinine Ratio 18.9 (10-20); Bilirubin,Total 0.4 mg/dl (0.2-1.0); Calcium 11.4 mg/dl (8.6-10.3); Creatinine Clr Calc Pharmacy 14.9 ml/min; Est GFR (African American) 15.5 ml/min; Est GFR (Non-African American) 13.3 ml/min; Globulin 2.7 gm/dl (2.5-4.0); Magnesium 1.7 mg/dl (1.7-2.4); Phosphorus 3.7 mg/dl (2.5-4.9); Potassium 4.7 mmol/L (3.5-5.1); Total Protein 6.6 gm/dl (6.0-8.3)
[2023-08-06 16:54] LABS: Troponin I High Sensitivity 24.8 pg/ml (0-14)
[2023-08-06 16:57] LABS: Prothrombin Time 11.3 Seconds (9.0-12.0)
[2023-08-06 17:03] LABS: Thyroid Stimulating Hormone 2.318 uIu/ml (0.300-4.500)
--- NOTE | 2023-08-06 18:03 | XRay Report ---
SINGLE VIEW CHEST CLINICAL HISTORY: Generalized weakness. FINDINGS: An AP, portable, upright chest radiograph is compared to study dated 06/03/2021 and correlat ed with chest CT dated 01/10/2021. A 2-lead cardiac pacemaker is unchanged in position. The heart is enlarged denoting atherosclerotic calcification of the thoracic aorta. There is pulmonary vascular co ngestion with evidence of interstitial edema. Scarring/atelectasis is noted at the lung bases. No lar ge pleural effusion or pneumothorax is seen. The skeletal structures are osteopenic. The bony thorax is grossly intact. IMPRESSION: Cardiomegaly and cardiac pacemaker with evidence of congestive failure and mild pulmonary edema. Radiographic follow-up to resolution is recommended. ACT 112: Negative or not required by law. Electronically signed by: Bal Ruvalcaba M.D. 08/06/2023 6:01 PM
--- NOTE | 2023-08-06 18:09 | CT Scan Report ---
CT SCAN OF THE BRAIN WITHOUT IV CONTRAST CLINICAL HISTORY: Dizziness. COMPARISON STUDY: CT of the brain dated 12/13/2020. TECHNIQUE: Unenhanced axial CT scan of the brain is performed from the vertex to the skull base. A do se lowering technique was utilized adhering to the principles of ALARA. CT DOSE: 547.75 mGy.cm FINDINGS: Brain parenchyma: There is age-related involutional change noting moderate subcortical and periventri cular microangiopathic disease. There is no hemorrhage, mass effect, or evidence of acute territorial ischemia by CT criteria. Escalante-white matter differentiation is preserved. No extra-axial fluid collec tion is seen. Ventricles, sulci, cisterns: Prominent secondary to involutional change. Intracranial vasculature: There is atherosclerotic calcification of the cavernous carotid arteries. Calvarium: Unremarkable. Sinuses and mastoids: There is trace mucosal thickening in the left sphenoid sinus. The remaining vis ualized paranasal sinuses are clear. The mastoid air cells are well pneumatized. Orbits: The bony orbits are grossly intact. There are bilateral ocular lens implants. IMPRESSION: There is no hemorrhage, mass effect, or evidence of acute territorial ischemia by CT rachel garrett. ACT 112: Negative or not required by law. Electronically signed by: Bal Ruvalcaba M.D. 08/06/2023 6:07 PM
[2023-08-06 18:45] LABS: Appearance Urine Clear (Clear); Bacteria Urine Automated None Seen (None Seen); Bilirubin Urine Negative (Negative); Blood Urine Negative (Negative); Cast Urine Automated 0-2 /lpf (0-2); Color Urine Yellow; Epithelial Cell Urine Auto 0-2 /hpf (0-2); Glucose Urine UA Negative (Negative); Ketones Urine Negative (Negative); Leukocyte Esterase Urine 1+ (Negative); Nitrite Urine Negative (Negative); Protein Urine Trace (Negative); RBC Urine Automated 0-2 /hpf (0-2); Specific Gravity Urine 1.014 (1.000-1.030); Urobilinogen Urine Negative (Negative); WBC Urine Automated 0-5 /hpf (0-5); pH Urine 5.5 (4.5-7.5)
--- NOTE | 2023-08-06 19:37 | CT Scan Report ---
CT SCAN OF THE ABDOMEN AND PELVIS WITHOUT IV CONTRAST CLINICAL HISTORY: Acute on chronic renal insufficiency. COMPARISON STUDY: Chest CT dated 01/10/2021. TECHNIQUE: CT scan of the abdomen and pelvis is performed from the lung bases to the proximal femora. Images are reviewed in the axial, sagittal, and coronal planes. IV contrast was not administered for this examination due to poor renal function. Note that the examination is suboptimal without oral an d IV contrast. A dose lowering technique was utilized adhering to the principles of ALARA. CT DOSE: 873.59 mGy.cm FINDINGS: Lung bases: The heart is enlarged and without pericardial effusion. Pacemaker leads are in place. The re is diminished attenuation of the cardiac blood pool as compared to the myocardium suggesting anemi a. Probable scarring and groundglass opacities are seen at both lung bases. No pleural effusion is id entified. Liver: The unenhanced liver is normal in size and contour. The liver appears hyperdense. There is no intrahepatic biliary ductal dilatation. Gallbladder: Unremarkable. Spleen: Normal in size and attenuation. Pancreas: Unremarkable. Adrenal glands: Unremarkable. Kidneys: The unenhanced kidneys demonstrate mild cortical atrophy and are without hydronephrosis. The re is a 2 mm nonobstructing right renal calculus. No left renal calculi are identified and no uretera l stone is seen. There is no evidence of contour deforming renal mass lesion. Abdominal vasculature: There is advanced atherosclerotic calcification and mild ectasia of the abdomi nal aorta. Bowel: There is moderate colonic fecal attention. No bowel obstruction is seen. The appendix is well -visualized and normal. Peritoneum: There is trace nonspecific free fluid in the pelvis. No intervertebral free air is seen. There is a small fat-containing umbilical hernia. Lymphadenopathy: None. Pelvic viscera: The bladder is decompressed, and the wall appears thickened with mild surrounding inf iltration. The uterus and adnexa are normal as visualized. Skeletal structures: The skeletal structures are osteopenic. There is moderate to advanced lumbosacra l spondylosis. Sclerotic changes noted in the sacroiliac joints and pubic symphysis. No lytic or jesus tic lesions are seen. IMPRESSION: 1. The bladder wall appears thickened with surrounding infiltration. Correlate with clinical findings and urinalysis for evidence of cystitis. 2. Moderate colonic fecal retention. 3. The liver appears hyperdense, which could potentially be seen with amiodarone therapy or iron over load. Correlate clinically. 4. Foci of parenchymal scarring and groundglass opacities are seen at both lung bases. Groundglass op acities are new from a [address] Correlate clinically for evidence of a nonspecific infectious/i nflammatory pneumonitis. 5. There is trace nonspecific free fluid in the pelvis. 6. Additional findings as above. ACT 112: Negative or not required by law. Electronically signed by: Bal Ruvalcaba M.D. 08/06/2023 7:35 PM
[2023-08-06] MEDS: CALCITONIN SALMON 400 UNITS/2 ML SQ STA (19:59)
[2023-08-06] MEDS: clonazePAM 0.5 MG TAB PO STA (20:19)
--- NOTE | 2023-08-06 20:31 | History & Physical Report ---
Date of Service August 06, 2023 Assessment & Plan (1) Acute on chronic renal insufficiency: Plan: 83-year-old female with past medical history significant for hypothyroidism, primary Hyperparathyroidism, hyperlipidemia, secondary hyperparathyroidism, paroxysmal atrial fibrillation, chronic diastolic CHF, mitral wall regurgitation, tricuspid valve regurgitation, sinus node dysfunction status post pacemaker, hypertension, CKD stage IV, gout, primary angle-closure glaucoma, bipolar disorder, anxiety generalized, depression, who lives alone at home and ambulates with a cane comes because of ongoing anxiety and not feeling well and outpatient labs showed KAT and came to ER and in the ER labs showed creatinine of 3.1 and calcium of 11.4. Currently patient resting comfortably. Alert and oriented. Family is in the room. Family thinks patient may be dehydrated. But lately she is having anxiety issues and her doctor changed Abilify to 10 mg and cut down on Prozac to 40 mg daily Just today. Patient denies any headache. No dizziness currently. No blurred visions. No runny nose or sore throat currently. No headaches. No cough. No fevers. No difficulty swallowing. No chest pain or shortness of breath. No nausea. No abdominal pain. Normal bowel and bladder movements. Denies any rash. Sleeping okay. Hemodynamics are okay. KAT on CKD stage IV baseline creatinine around 2.5 presented with creatinine of 3.1 avoid nephrotoxic agents getting fluids will follow repeat labs in a.m. nephrology consult in a.m. for further recommendations hypercalcemia calcium of 11.4 possibly from dehydration will check vitamin D levels getting calcitonin in ER will continue with IV fluids normal saline at 150 mill per hour follow repeat labs in a.m. nephrology consulted chronic diastolic CHF getting fluids monitor for volume overload anxiety generalized bipolar disorder depression psych meds have been adjusted recently patient and family okay for psych consult inpatient paroxysmal atrial fibrillation sick sinus syndrome status post pacemaker on amiodarone, Coreg and Eliquis will monitor hypertension on Coreg and clonidine we will monitor glaucoma will continue home eyedrops gout on allopurinol DVT prophylaxis on Eliquis disposition telemetry full code History of Present Illness Chief Complaint: KAT and-hypercalcemia Primary Care Provider: Leticia Crandall DO 83-year-old female with past medical history significant for hypothyroidism, primary Hyperparathyroidism, hyperlipidemia, secondary hyperparathyroidism, paroxysmal atrial fibrillation, chronic diastolic CHF, mitral wall regurgitation, tricuspid valve regurgitation, sinus node dysfunction status post pacemaker, hypertension, CKD stage IV, gout, primary angle-closure glaucoma, bipolar disorder, anxiety generalized, depression, who lives alone at home and ambulates with a cane comes because of ongoing anxiety and not feeling well and outpatient labs showed KAT and came to ER and in the ER labs showed creatinine of 3.1 and calcium of 11.4. Currently patient resting comfortably. Alert and oriented. Family is in the room. Family thinks patient may be dehydrated. But lately she is having anxiety issues and her doctor changed Abilify to 10 mg and cut down on Prozac to 40 mg daily Just today. Patient denies any headache. No dizziness currently. No blurred visions. No runny nose or sore throat currently. No headaches. No cough. No fevers. No difficulty swallowing. No chest pain or shortness of breath. No nausea. No abdominal pain. Normal bowel and bladder movements. Denies any rash. Sleeping okay. Hemodynamics are okay. Past medical history. As mentioned above Past surgical history. Surgery on both upper eyelids for ptosis. Colonoscopy. Cystoscopy and EGD. Parathyroidectomy. Ligation of oviduct. Removal of skin cancer from the face. Removal of left ovarian cyst. Cataract. Social history. . No smoking. No alcohol use. No drug use. Family history. Paternal grandmother had diabetes. Father had heart disorder. Mother had heart disorder. Allergies Allergy/AdvReac Type Severity Reaction Status Date / Time cephalexin [From Keflex] Allergy Unknown Pt doesn't Unverified 08/06/23 17:17 remember reaction Home Medications Medication Instructions Recorded Confirmed Type allopurinol 300 mg tablet 300 mg PO QAM 04/21/19 08/06/23 History brimonidine 0.15 % eye drops 1 drp OPB BID 04/21/19 08/06/23 History timolol maleate 0.5 % eye drops 1 drp OPB QAM 04/21/19 08/06/23 History cyanocobalamin (vitamin B-12) 500 500 mcg PO QAM #30 tabs 07/13/20 08/06/23 Rx mcg tablet cholecalciferol (vitamin D3) 50 50 mcg PO QAM 04/23/21 08/06/23 History mcg (2,000 unit) capsule (Vitamin D3) amiodarone 200 mg tablet 200 mg PO QAM 06/03/21 08/06/23 History clonidine HCl 0.1 mg tablet 0.1 mg PO BID #14 tabs 06/05/21 08/06/23 Rx apixaban 2.5 mg tablet (Eliquis) 2.5 mg PO BID 07/18/23 08/06/23 History carvedilol 25 mg tablet 25 mg PO BID 07/18/23 08/06/23 History clonazepam 0.5 mg tablet 0.5 mg PO HS 07/18/23 08/06/23 History fluoxetine 40 mg capsule 40 mg PO QAM 07/18/23 08/06/23 History lamotrigine 25 mg tablet 25 mg PO QAM 07/18/23 08/06/23 History levothyroxine 150 mcg tablet 150 mcg PO QAM 07/18/23 08/06/23 History aripiprazole 5 mg tablet 10 mg PO DAILY 08/06/23 08/06/23 History lorazepam 0.5 mg tablet 0.5 mg PO BID PRN Anxiety 08/06/23 08/06/23 History Past Med/Surg History Problem List (Updated 08/07/23 @ 00:33 by Robin Valdez MD) Weakness (Acute) Hypercalcemia (Acute) Acute on chronic renal insufficiency (Acute) Hypothyroidism CKD (chronic kidney disease), stage IV Hypertensive urgency (Acute) Anxiety (Acute) Withdrawal syndrome (Acute) PAF (paroxysmal atrial fibrillation) (HFpEF) heart failure with preserved ejection fraction Hypoxemia (Acute) Hypertensive cardiovascular-renal disease Dyslipidemia Primary angle-closure glaucoma GERD (gastroesophageal reflux disease) Hypertensive emergency (Acute) CKD (chronic kidney disease) stage 3, GFR 30-59 ml/min (Acute) Bipolar disorder (manic depression) Anxiety attack Anemia SSS (sick sinus syndrome) Medical History Mitral regurgitation Tricuspid regurgitation Lyme disease HTN (hypertension) Depression Anxiety Kidney problem Surgical History History of permanent cardiac pacemaker placement History of tubal ligation History of blepharoplasty H/O parathyroidectomy Family History Other Heart disease Denies family history of Cancer Social History Smoking Status: Never smoker Second Hand Exposure: No; Do You Dip or Chew Tobacco: No; Tobacco Cessation Education Requested by Patient: No Hx Alcohol Use: No Hx Substance Use: No Preferred Language: Kyrgyz Communication Ability: Effective Gallery Host Required: No Beliefs That Will Affect Care: None marital status: Current Living Situation: Alone Current Living Situation Comment: Lives at home alone Other Information That Helps Us Care for You: No Feels Safe at Home: Yes Safety Concerns: Feels Safe At This Time Assistive Devices: Cane Review of Systems Review of Systems: All systems reviewed & are unremarkable except as noted in HPI & below Physical Exam Physical Exam: General- Not in distress Head- atraumatic Eyes- PERRL. ENT- oropharynx clear Neck- supple, no JVD. Lungs- clear to auscultation no wheezing or crackles. Heart- regular rate and rhythm; no murmur, no gallop. Abdomen- normal bowel sounds, soft, nontender, no distension. Extremities- no pretibial edema, no erythema seen. Neuro- alert, oriented x 3; PERRL,no facial palsy; no dysarthria; moves extremities. Skin- warm & dry Results & Data Results & Data Vital Signs (Past 12 Hours) Vital Signs Temp Pulse Pulse Resp BP BP Pulse Ox 08/06/23 20:12 60 08/06/23 16:34 93 08/06/23 16:34 60 18 167/87 H 93 08/06/23 16:21 61 08/06/23 15:56 36.7 C 65 22 118/74 95 O2 Del Method 08/06/23 20:12 08/06/23 16:34 Room Air 08/06/23 16:34 08/06/23 16:21 08/06/23 15:56 Room Air Diagnostic Findings Laboratory Results WBC 4.61 K/ul (4.8-10.8) L 08/06/23 16:15 RBC 3.68 M/uL (4.20-5.40) L 08/06/23 16:15 Hgb 10.9 g/dl (12.0-16.0) L 08/06/23 16:15 Hct 33.3 % (37.0-47.0) L 08/06/23 16:15 MCV 90.5 fL (80.0-100.0) 08/06/23 16:15 MCH 29.6 pg (25.0-34.0) 08/06/23 16:15 MCHC 32.7 g/dL (32.0-36.0) 08/06/23 16:15 RDW Std Deviation 47.7 fL (36.4-46.3) H 08/06/23 16:15 RDW Coeff of Tank 14.6 % (11.5-14.5) H 08/06/23 16:15 Plt Count 150 K/uL (130-400) 08/06/23 16:15 MPV 11.3 fL (9.4-12.4) 08/06/23 16:15 Immature Gran % (Auto) 0.7 % 08/06/23 16:15 Neut % (Auto) 64.6 % 08/06/23 16:15 Lymph % (Auto) 18.4 % 08/06/23 16:15 [place] % (Auto) 12.8 % 08/06/23 16:15 Eos % (Auto) 2.4 % 08/06/23 16:15 Baso % (Auto) 1.1 % 08/06/23 16:15 Neut # (Auto) 2.98 K/uL (1.40-6.50) 08/06/23 16:15 Lymph # (Auto) 0.85 K/uL (1.20-3.40) L 08/06/23 16:15 [place] # (Auto) 0.59 K/uL (0.11-0.59) 08/06/23 16:15 Eos # (Auto) 0.11 K/uL (0.00-0.50) 08/06/23 16:15 Baso # (Auto) 0.05 K/uL (0.00-0.20) 08/06/23 16:15 Immature Gran # (Auto) 0.03 K/uL (0.01-0.20) 08/06/23 16:15 PT 11.3 Seconds (9.0-12.0) 08/06/23 16:15 INR 1.0 (0.9-1.1) 08/06/23 16:15 Sodium 139 mmol/L (136-145) 08/06/23 16:15 Potassium 4.7 mmol/L (3.5-5.1) 08/06/23 16:15 Chloride 108 mmol/L (98-107) H 08/06/23 16:15 Carbon Dioxide 26 mmol/L (21-32) 08/06/23 16:15 Anion Gap 5 (3-11) 08/06/23 16:15 BUN 59 mg/dl (6-23) H 08/06/23 16:15 Creatinine 3.12 mg/dl (0.6-1.2) H 08/06/23 16:15 Est Cr Clr Drug Dosing 14.9 ml/min 08/06/23 16:15 Est GFR ( Amer) 15.5 ml/min 08/06/23 16:15 Est GFR (Non-Af Amer) 13.3 ml/min 08/06/23 16:15 BUN/Creatinine Ratio 18.9 (10-20) 08/06/23 16:15 Glucose 93 mg/dl (70-99(Fasting)) 08/06/23 16:15 Calcium 11.4 mg/dl (8.6-10.3) H 08/06/23 16:15 Phosphorus 3.7 mg/dl (2.5-4.9) 08/06/23 16:15 Magnesium 1.7 mg/dl (1.7-2.4) 08/06/23 16:15 Total Bilirubin 0.4 mg/dl (0.2-1.0) 08/06/23 16:15 AST 33 U/L (13-39) 08/06/23 16:15 ALT 39 U/L (7-52) 08/06/23 16:15 Alkaline Phosphatase 65 U/L (34-104) 08/06/23 16:15 Total Creatine Kinase 76 U/L (26-192) 08/06/23 16:15 Troponin I High Sens 24.8 pg/ml (0-14) H 08/06/23 16:15 Total Protein 6.6 gm/dl (6.0-8.3) 08/06/23 16:15 Albumin 3.9 gm/dl (3.4-5.0) 08/06/23 16:15 Globulin 2.7 gm/dl (2.5-4.0) 08/06/23 16:15 Albumin/Globulin Ratio 1.4 (0.9-2) 08/06/23 16:15 TSH 2.318 uIu/ml (0.300-4.500) 08/06/23 16:15 Urine Color Yellow 08/06/23 18:17 Urine Appearance Clear (Clear) 08/06/23 18:17 Urine pH 5.5 (4.5-7.5) 08/06/23 18:17 Ur Specific [place] 1.014 (1.000-1.030) 08/06/23 18:17 Urine Protein Trace (Negative) H 08/06/23 18:17 Urine Glucose (UA) Negative (Negative) 08/06/23 18:17 Urine Ketones Negative (Negative) 08/06/23 18:17 Urine Blood Negative (Negative) 08/06/23 18:17 Urine Nitrite Negative (Negative) 08/06/23 18:17 Urine Bilirubin Negative (Negative) 08/06/23 18:17 Urine Urobilinogen Negative (Negative) 08/06/23 18:17 Ur Leukocyte Esterase 1+ (Negative) H 08/06/23 18:17 Urine WBC (Auto) 0-5 /hpf (0-5) 08/06/23 18:17 Urine RBC (Auto) 0-2 /hpf (0-2) 08/06/23 18:17 U Hyaline Cast (Auto) 0-2 /lpf (0-2) 08/06/23 18:17 U Epithel Cells (Auto) 0-2 /hpf (0-2) 08/06/23 18:17 Urine Bacteria (Auto) None Seen (None Seen) 08/06/23 18:17 Impressions Chest X-Ray 08/06/23 16:09 SINGLE VIEW CHEST CLINICAL HISTORY: Generalized weakness. FINDINGS: An AP, portable, upright chest radiograph is compared to study dated 06/03/2021 and correlated with chest CT dated 01/10/2021. A 2-lead cardiac pacemaker is unchanged in position. The heart is enlarged denoting atherosclerotic calcification of the thoracic aorta. There is pulmonary vascular congestion with evidence of interstitial edema. Scarring/atelectasis is noted at the lung bases. No large pleural effusion or pneumothorax is seen. The skeletal structures are osteopenic. The bony thorax is grossly intact. IMPRESSION: Cardiomegaly and cardiac pacemaker with evidence of congestive fa ilure and mild pulmonary edema. Radiographic follow-up to resolution is recommended. ACT 112: Negative or not required by law. Electronically signed by: Bal Ruvalcaba M.D. 08/06/2023 6:01 PM Abdomen/Pelvis CT 08/06/23 17:18 CT SCAN OF THE ABDOMEN AND PELVIS WITHOUT IV CONTRAST CLINICAL HISTORY: Acute on chronic renal insufficiency. COMPARISON STUDY: Chest CT dated 01/10/2021. TECHNIQUE: CT scan of the abdomen and pelvis is performed from the lung bases to the proximal femora. Images are reviewed in the axial, sagittal, and coronal planes. IV contrast was not administered for this examination due to poor renal function. Note that the examination is suboptimal without oral and IV contrast. A dose lowering technique was utilized adhering to the principles of ALARA. CT DOSE: 873.59 mGy.cm FINDINGS: Lung bases: The heart is enlarged and without pericardial effusion. Pacemaker leads are in place. There is diminished attenuation of the cardiac blood pool as compared to the myocardium suggesting anemia. Probable scarring and groundglass opacities are seen at both lung bases. No pleural effusion is identified. Liver: The unenhanced liver is normal in size and contour. The liver appears hyperdense. There is no intrahepatic biliary ductal dilatation. Gallbladder: Unremarkable. Spleen: Normal in size and attenuation. Pancreas: Unremarkable. Adrenal glands: Unremarkable. Kidneys: The unenhanced kidneys demonstrate mild cortical atrophy and are without hydronephrosis. There is a 2 mm nonobstructing right renal calculus. No left renal calculi are identified and no ureteral stone is seen. There is no evidence of contour deforming renal mass lesion. Abdominal vasculature: There is advanced atherosclerotic calcification and mild ectasia of the abdominal aorta. Bowel: There is moderate colonic fecal attention. No bowel obstruction is seen. The appendix is well-visualized and normal. Peritoneum: There is trace nonspecific free fluid in the pelvis. No intervertebral free air is seen. There is a small fat-containing umbilical hernia. Lymphadenopathy: None. Pelvic viscera: The bladder is decompressed, and the wall appears thickened with mild surrounding infiltration. The uterus and adnexa are normal as visualized. Skeletal structures: The skeletal structures are osteopenic. There is moderate to advanced lumbosacral spondylosis. Sclerotic changes noted in the sacroiliac joints and pubic symphysis. No lytic or blastic lesions are seen. IMPRESSION: 1. The bladder wall appears thickened with surrounding infiltration. Correlate with clinical findings and urinalysis for evidence of cystitis. 2. Moderate colonic fecal retention. 3. The liver appears hyperdense, which could potentially be seen with amiodarone therapy or iron overload. Correlate clinically. 4. Foci of parenchymal scarring and groundglass opacities are seen at both lung bases. Groundglass opacities are new from a [address] Correlate clinically for evidence of a nonspecific infectious/inflammatory pneumonitis. 5. There is trace nonspecific free fluid in the pelvis. 6. Additional findings as above. ACT 112: Negative or not required by law. Electronically signed by: Bal Ruvalcaba M.D. 08/06/2023 7:[address] 08/06/23 17:18 CT SCAN OF THE BRAIN WITHOUT IV CONTRAST CLINICAL HISTORY: Dizziness. COMPARISON STUDY: CT of the brain dated 12/13/2020. TECHNIQUE: Unenhanced axial CT scan of the brain is performed from the vertex to the skull base. A dose lowering technique was utilized adhering to the principles of ALARA. CT DOSE: 547.75 mGy.cm FINDINGS: Brain parenchyma: There is age-related involutional change noting moderate subcortical and periventricular microangiopathic disease. There is no hemorrhage, mass effect, or evidence of acute territorial ischemia by CT criteria. [place]-white matter differentiation is preserved. No extra-axial fluid collection is seen. Ventricles, sulci, cisterns: Prominent secondary to involutional change. Intracranial vasculature: There is atherosclerotic calcification of the cavernous carotid arteries. Calvarium: Unremarkable. Sinuses and mastoids: There is trace mucosal thickening in the left sphenoid sinus. The remaining visualized paranasal sinuses are clear. The mastoid air cells are well pneumatized. Orbits: The bony orbits are grossly intact. There are bilateral ocular lens implants. IMPRESSION: There is no hemorrhage, mass effect, or evidence of acute territorial ischemia by CT criteria. ACT 112: Negative or not required by law. Electronically signed by: Bal Ruvalcaba M.D. 08/06/2023 6:07 PM ECG Additional Comments: ECG. Atrial paced rhythm rate of 83. Left anterior fascicle block. Moderate voltage cardia for LVH may be normal variant. Code Status & VTE Plan VTE Prophylaxis Plan VTE Prophylaxis will be ordered: Yes
[2023-08-06] MEDS ORDERED: NITROGLYCERIN SL 0.4 MG/TAB TAB SL PRN (23:42)
[2023-08-06] MEDS ORDERED: POLYETHYLENE (MIRALAX) 17 GM PACK PO PRN (23:42)
[2023-08-07] MEDS: cloNIDine HCL 0.1 MG TAB PO SCH (00:27)
[2023-08-07] MEDS: carvediloL 25 MG TAB PO SCH (00:27)
[2023-08-07] MEDS: SODIUM CHLORIDE 0.9% 1,000 ML IV SCH (00:28)
[2023-08-07] MEDS: ACETAMINOPHEN 325 MG TAB PO PRN (00:28)
[2023-08-07] MEDS: BRIMONIDINE TARTRATE-P 0.15% 5 ML BTL OPB SCH (00:29)
[2023-08-07] MEDS: APIXABAN 2.5 MG TAB PO SCH (01:27)
[2023-08-07] MEDS: LEVOTHYROXINE SODIUM 150 MCG TABLET PO SCH (06:31)
[2023-08-07] MEDS: LORazepam 0.5 MG TAB PO PRN (06:34)
--- NOTE | 2023-08-07 06:58 | Hospitalist Progress Note ---
Date of Service August 07, 2023 Assessment & Plan (1) Acute on chronic renal insufficiency: Plan: Ms. Tejeda is an 83-year-old female with past medical history significant for hypothyroidism, primary Hyperparathyroidism, hyperlipidemia, secondary hyperparathyroidism, paroxysmal atrial fibrillation, chronic diastolic CHF, mitral wall regurgitation, tricuspid valve regurgitation, sinus node dysfunction status post pacemaker, hypertension, CKD stage IV, gout, primary angle-closure glaucoma, bipolar disorder, anxiety generalized, depression, who lives alone at home and ambulates with a cane comes admitted for KAT on CKD IV Patient's admission labs revealed creatinine of 3.1 and calcium of 11.4. Both have resolved. #KAT on CKD stage IV baseline creatinine around 2.5 presented with creatinine of 3.1, 2.5 as of this am avoid nephrotoxic agents getting fluids, reduced rate per nephrology recommendations will follow repeat labs in a.m. nephrology consult -IVF as above, plan to d/c in am #hypercalcemia calcium of 11.4, s/p calcitonin in ED possibly from dehydration will check vitamin D levels IVF as above Repeat CMP in am # chronic diastolic CHF getting fluids, stable monitor for volume overload #anxiety generalized #bipolar disorder #depression psych meds have been adjusted recently appreciate psychiatry recommendations -Mirtazipine 7.5mg daily -Reduced klonipin paroxysmal atrial fibrillation0.5-> 0.25 #sick sinus syndrome status post pacemaker on amiodarone, Coreg and Eliquis will monitor #hypertension on Coreg and clonidine stable #glaucoma will continue home eyedrops #gout on allopurinol DVT prophylaxis on Eliquis disposition telemetry full code Admission and Anticipated Discharge Date Admission Date: August 06, 2023 Subjective NAEO Patient reports feeling better since admission Reports living at home alone (support from daughter), but feeling uncomfortab le/anxious in general, she notes loss of appetite and overall uneasiness. Denies any new or acute concerns Physical Exam Constitutional: WD/WN, vitals as above Respiratory: normal respiratory effort, lungs clear to auscultation Cardiovascular: RRR, no murmur, no edema Gastrointestinal (Abdomen): normal bowel sounds, soft, nontender, no hepatosplenomegaly Results & Data Results & Data Vital Signs (Past 12 Hours) Vital Signs Temp Pulse Pulse Resp BP BP BP 08/07/23 02:56 36.4 C L 68 18 146/74 H 08/07/23 01:21 167/67 H 08/06/23 23:46 08/06/23 23:43 36.7 C 61 18 181/88 H 08/06/23 23:42 61 08/06/23 21:45 85 18 159/78 H 08/06/23 21:24 62 17 08/06/23 21:15 60 22 08/06/23 20:36 68 25 H 08/06/23 20:33 63 17 08/06/23 20:12 61 24 08/06/23 20:12 60 08/06/23 20:06 63 15 08/06/23 19:51 60 21 08/06/23 19:45 64 31 H 08/06/23 19:30 67 22 08/06/23 19:27 67 25 H 08/06/23 19:12 63 16 08/06/23 19:00 73 16 Pulse Ox O2 Del Method 08/07/23 02:56 93 Room Air 08/07/23 01:21 08/06/23 23:46 Room Air 08/06/23 23:43 92 Room Air 08/06/23 23:42 08/06/23 21:45 90 08/06/23 21:24 92 08/06/23 21:15 93 08/06/23 20:36 94 08/06/23 20:33 94 08/06/23 20:12 94 08/06/23 20:12 08/06/23 20:06 95 08/06/23 19:51 95 08/06/23 19:45 93 08/06/23 19:30 93 08/06/23 19:27 94 08/06/23 19:12 95 08/06/23 19:00 94
[2023-08-07 07:28] LABS: Basophils # (auto) 0.04 K/uL (0.00-0.20); Eosinophils # (auto) 0.04 K/uL (0.00-0.50); Hematocrit (blood only) 30.3 % (37.0-47.0); Hemoglobin 9.9 g/dl (12.0-16.0); Immature Granulocytes # (auto) 0.02 K/uL (0.01-0.20); Immature Granulocytes % (auto) 0.5 %; Lymphocytes # (auto) 0.81 K/uL (1.20-3.40); Lymphocytes % (auto) 19.3 %; Mean Corpuscular Hemoglobin 29.6 pg (25.0-34.0); Mean Corpuscular Hgb Conc 32.7 g/dL (32.0-36.0); Mean Corpuscular Volume 90.7 fL (80.0-100.0); Monocytes # (auto) 0.51 K/uL (0.11-0.59); Monocytes % (auto) 12.1 %; Neutrophils # (auto) 2.78 K/uL (1.40-6.50); Neutrophils % (auto) 66.1 %; Platelet Count 133 K/uL (130-400); RDW Coefficient of Variation 14.6 % (11.5-14.5); Red Blood Count 3.34 M/uL (4.20-5.40)
[2023-08-07 07:34] LABS: BUN Creatinine Ratio 18.9 (10-20); Calcium 10.1 mg/dl (8.6-10.3); Creatinine Clr Calc Pharmacy 19.9 ml/min; Est GFR (African American) 20.9 ml/min; Magnesium 1.5 mg/dl (1.7-2.4); Potassium 4.8 mmol/L (3.5-5.1)
[2023-08-07] MEDS: lamoTRIgine 25 MG TAB PO SCH (08:18)
[2023-08-07] MEDS: FLUoxetine HCL 20 MG CAP PO SCH (08:19)
[2023-08-07] MEDS: AMIODARONE 200 MG TAB PO SCH (08:19)
[2023-08-07] MEDS: allopurinoL 300 MG TAB PO SCH (08:19)
[2023-08-07] MEDS: ARIPiprazole 10 MG TAB PO SCH (08:20)
[2023-08-07] MEDS: CHOLECALCIFEROL 25 MCG (1000 UNITS) TAB PO SCH (08:20)
[2023-08-07] MEDS: CYANOCOBALAMIN (B-12) 500 MCG TABLET PO SCH (08:20)
[2023-08-07] MEDS: TIMOLOL MALEATE 0.5% OP SOLN 5 ML BTL OP SCH (08:21)
--- NOTE | 2023-08-07 09:05 | Electrocardiogram Report ---
Test Reason : Blood Pressure : / mmHG Vent. Rate : 083 BPM Atrial Rate : 083 BPM P-R Int : 000 ms QRS Dur : 102 ms QT Int : 386 ms P-R-T Axes : -09 -49 046 degrees QTc Int : 453 ms Atrial-paced rhythm Left anterior fascicular block Moderate voltage criteria for LVH, may be normal variant ( R in aVL , Mondamin product ) Possible Old Septal infarct Abnormal ECG When compared with ECG of 18-JUL-2023 09:51, Borderline Criteria for Septal infarct is now Present Confirmed by Malik Thomas ([id number]) on 08/07/2023 9:04:58 AM Referred By: Leticia Crandall Confirmed By:Malik Thomas
--- NOTE | 2023-08-07 10:13 | Electrocardiogram Report ---
Test Reason : Blood Pressure : / mmHG Vent. Rate : 065 BPM Atrial Rate : 625 BPM P-R Int : 260 ms QRS Dur : 104 ms QT Int : 436 ms P-R-T Axes : 000 -38 032 degrees QTc Int : 453 ms Atrial-paced rhythm with prolonged AV conduction Left axis deviation Minimal voltage criteria for LVH, may be normal variant Possible Old Septal infarct (cited on or before 06-AUG-2023) Abnormal ECG When compared with ECG of 06-AUG-2023 16:12, No significant change Confirmed by Malik Thomas ([id number]) on 08/07/2023 10:12:53 AM Referred By: Leticia Crandall Confirmed By:Malik Thomas
--- NOTE | 2023-08-07 13:58 | Psychiatric Consultation ---
Date of Consultation August 07, 2023 Impression / Recommendations Impression Eva has a history of bipolar affective disorder and BELLA with panic attacks admitted for KAT. She continues to have prominent symptoms of anxiety and depression despite a robust pharmacological regimen and ongoing therapy. Recent medication adjustments to her abilify dose may offer benefit over time. Discussed alternative options including eventual goal of reducing benzodiazepine use. She is interested in trying mirtazapine at bedtime, which neither she nor her daughter recall having been tried in the past, to help with insomnia, anxiety and depression. Given addition of sedating medication recommend reduction of Klonopin. She has outpatient psychiatric follow-up for ongoing adjustments over time. Reviewed importance of ongoing therapy and she is on the list for more frequent, in-person therapy at [facility] with goal of working on CBT strategies to address anxiety and mood symptoms. Overall, I spent a total of 60 minutes with this case including review of chart records, review of labwork, review of EKG QTc, direct evaluation of the patient at bedside, counseling the patient, discussion of the patient with the hospitalist provider, discussion with the psychiatric liason during clinical rounds, review of collateral historian information from the family and documentation in the electronic health record. (1) Anxiety: (2) Bipolar disorder (manic depression): Plan -Decrease Klonopin to 0.25mg HS -Start mirtazapine 7.5mg HS -Continue abilify, lamictal and fluoxetine as ordered Psych History Identifying Data 83 yo woman with a history of multiple medical conditions, bipolar disorder, BELLA with panic attacks, insomnia admitted for KAT. Psychiatry consulted for recommendations for anxiety. Chief Complaint "I get overwhelmed with not knowing what to do". History of Present Illness Tory is seen at bedside and joined by her daughter who helps provide collateral history. She reports ongoing depression and anxiety despite recent medication changes. Two days ago she saw her outpatient psychiatrist who lowered her fluoxetine dose due to concern for possible mixed episode mood symptoms contributing to anxiety and abilify was increased for mood stabilization. She experiences difficulty in the mornings, feeling overwhelmed by a lack of structure and not knowing what to do. Her anxiety is not well-controlled with the current benzodiazepines, Klonopin and Ativan, and she reports that these medications are not as effective as they used to be. She also experiences panic attacks and has a history of negative side effects with various medications. She has been attending therapy at [facility] every two weeks and receiving psychiatric care at [facility]. Her anxiety manifests as physical sensations, such as burning, which worsen when she focuses on them. She has tried grounding strategies and physical activity to help manage her anxiety but continues to struggle. Reviewed strategies to distract from these thoughts. Allergies Allergy/AdvReac Type Severity Reaction Status Date / Time cephalexin [From Keflex] Allergy Unknown Pt doesn't Unverified 08/06/23 17:17 remember reaction Home Medications Medication Instructions Recorded Confirmed Type allopurinol 300 mg tablet 300 mg PO QAM 04/21/19 08/06/23 History brimonidine 0.15 % eye drops 1 drp OPB BID 04/21/19 08/06/23 History timolol maleate 0.5 % eye drops 1 drp OPB QAM 04/21/19 08/06/23 History cyanocobalamin (vitamin B-12) 500 500 mcg PO QAM #30 tabs 07/13/20 08/06/23 Rx mcg tablet cholecalciferol (vitamin D3) 50 50 mcg PO QAM 04/23/21 08/06/23 History mcg (2,000 unit) capsule (Vitamin D3) amiodarone 200 mg tablet 200 mg PO QAM 06/03/21 08/06/23 History clonidine HCl 0.1 mg tablet 0.1 mg PO BID #14 tabs 06/05/21 08/06/23 Rx apixaban 2.5 mg tablet (Eliquis) 2.5 mg PO BID 07/18/23 08/06/23 History carvedilol 25 mg tablet 25 mg PO BID 07/18/23 08/06/23 History clonazepam 0.5 mg tablet 0.5 mg PO HS 07/18/23 08/06/23 History fluoxetine 40 mg capsule 40 mg PO QAM 07/18/23 08/06/23 History lamotrigine 25 mg tablet 25 mg PO QAM 07/18/23 08/06/23 History levothyroxine 150 mcg tablet 150 mcg PO QAM 07/18/23 08/06/23 History aripiprazole 5 mg tablet 10 mg PO DAILY 08/06/23 08/06/23 History lorazepam 0.5 mg tablet 0.5 mg PO BID PRN Anxiety 08/06/23 08/06/23 History Patient History Medical History Mitral regurgitation Tricuspid regurgitation Lyme disease HTN (hypertension) Depression Anxiety Kidney problem Surgical History History of permanent cardiac pacemaker placement History of tubal ligation History of blepharoplasty H/O parathyroidectomy Family History Other Heart disease Denies family history of Cancer Social History Smoking Status: Never smoker Second Hand Exposure: No; Do You Dip or Chew Tobacco: No; Tobacco Cessation Education Requested by Patient: No Hx Alcohol Use: No Hx Substance Use: No Preferred Language: Armenian Communication Ability: Effective Rug Setter Velvet Required: No Beliefs That Will Affect Care: None marital status: Current Living Situation: Alone Current Living Situation Comment: Lives at home alone Other Information That Helps Us Care for You: No Feels Safe at Home: Yes Safety Concerns: Feels Safe At This Time Assistive Devices: Cane Physical Exam Psychiatric: Orientation: alert and oriented x 3 Apperance: appropriately dressed Eye Contact: good eye contact Motor Behavior: no abnormal motor movements Speech: normal rate/rhythm/volume of speech Affect: + anxious affect Mood: + depressed mood and + anxious mood Thought Process: goal directed thought process Thought Content: reality based without delusions Suicidal Thoughts: denies suicidal thoughts Homicidal Thoughts: denies homicidal thoughts Hallucinations: no auditory hallucinations and no visual hallucinations Insight: + fair insight Judgment: + fair judgement Vital Signs (Past 24 Hours): Last Vital Signs Temp 36.5 C 08/07/23 11:17 Pulse 62 08/07/23 11:17 Resp 18 08/07/23 11:17 BP 129/85 08/07/23 11:17 Pulse Ox 94 08/07/23 11:17 O2 Del Method Room Air 08/07/23 11:17 Results & Data (PSY) Medications Administered Acetaminophen (Acetaminophen 325 Mg Tab) 650 mg PO Q4H PRN PRN Reason: Pain or Fever Stop: 09/05/23 23:41 Last Admin: 08/07/23 00:28 Dose: 650 mg Documented By: SND Allopurinol (Allopurinol 300 Mg Tab) 300 mg PO QAM [facility] Stop: 09/06/23 08:59 Last Admin: 08/07/23 08:19 Dose: 300 mg Documented By: SHANTHI Amiodarone HCl (Amiodarone 200 Mg Tab) 200 mg PO QAM [facility] Stop: 09/06/23 08:59 Last Admin: 08/07/23 08:19 Dose: 200 mg Documented By: SHANTHI Apixaban (Apixaban 2.5 Mg Tab) 2.5 mg PO BID [facility] Stop: 09/05/23 23:41 Last Admin: 08/07/23 08:18 Dose: 2.5 mg Documented By: Admin: 08/07/23 01:27 Dose: 2.5 mg Documented By: ADAMA Aripiprazole (Aripiprazole 10 Mg Tab) 10 mg PO DAILY [facility] Stop: 09/06/23 08:59 Last Admin: 08/07/23 08:20 Dose: 10 mg Documented By: SHANTHI Brimonidine Tartrate (Brimonidine Tartrate-P 0.15% 5 Ml Btl) 1 drops OPB BID [facility] Stop: 09/05/23 23:41 Last Admin: 08/07/23 08:21 Dose: 1 drops Documented By: Admin: 08/07/23 00:29 Dose: 1 drops Documented By: ADAMA Carvedilol (Carvedilol 25 Mg Tab) 25 mg PO BID [facility] Stop: 09/05/23 23:41 Last Admin: 08/07/23 08:20 Dose: 25 mg Documented By: Admin: 08/07/23 00:27 Dose: 25 mg Documented By: ADAMA Clonidine HCl (Clonidine Hcl 0.1 Mg Tab) 0.1 mg PO BID [facility] Stop: 09/05/23 23:41 Last Admin: 08/07/23 08:20 Dose: 0.1 mg Documented By: Admin: 08/07/23 00:27 Dose: 0.1 mg Documented By: ADAMA Cyanocobalamin (Cyanocobalamin (B-12) 500 Mcg Tablet) 500 mcg PO QAM [facility] Stop: 09/06/23 08:59 Last Admin: 08/07/23 08:20 Dose: 500 mcg Documented By: SHANTHI Fluoxetine HCl (Fluoxetine Hcl 20 Mg Cap) 40 mg PO QAM [facility] Stop: 07/23/24 08:59 Last Admin: 08/07/23 08:19 Dose: 40 mg Documented By: SHANTHI Sodium Chloride (Nss) 1,000 mls @ 150 mls/hr IV .Q6H40M [facility] Stop: 09/05/23 23:41 Last Admin: 08/07/23 07:46 Dose: 150 mls/hr Documented By: Infusion: 08/07/23 07:09 Dose: Infused Documented By: Admin: 08/07/23 00:28 Dose: 150 mls/hr Documented By: ADAMA Lamotrigine (Lamotrigine 25 Mg Tab) 25 mg PO [facility]; Protocol Stop: 09/06/23 08:59 Last Admin: 08/07/23 08:18 Dose: 25 mg Documented By: SHANTHI Levothyroxine Sodium (Levothyroxine Sodium 150 Mcg Tablet) 150 mcg PO DAILYBB [facility] Stop: 09/06/23 06:29 Last Admin: 08/07/23 06:31 Dose: 150 mcg Documented By: ADAMA Lorazepam (Lorazepam 0.5 Mg Tab) 0.5 mg PO BID PRN PRN Reason: Anxiety Stop: 09/05/23 23:41 Last Admin: 08/07/23 06:34 Dose: 0.5 mg Documented By: ADAMA Timolol Maleate (Timolol Maleate 0.5% Op Soln 5 Ml Btl) 1 drops OP [facility] Stop: 09/06/23 08:59 Last Admin: 08/07/23 08:21 Dose: 1 drops Documented By: SHANTHI Vitamin D (Cholecalciferol 25 Mcg (1000 Units) Tab) 50 mcg PO [facility] Stop: 09/06/23 08:59 Last Admin: 08/07/23 08:20 Dose: 50 mcg Documented By: SHANTHI Coding Level of Care Code 95842 IN/OBS CONSULT LVL 4,60M Diagnoses Anxiety F41.9 Bipolar disorder (manic depression) F31.9
--- NOTE | 2023-08-07 14:45 | Nephrology Consultation ---
Date of Consultation August 07, 2023 Assessment & Plan (1) Acute on chronic renal insufficiency: Baseline creatinine around 2.5, ckd 4 Admitted with creatinine of 3.1, this has improved with Iv Fluids>> continue this for one more day, Decrease rate to 100 mls /hr - Low threshold for stopping if her o2 demands increase Hypertension - Continue on CO-REG and clonidine - (2) Hypercalcemia: Likley 2/ Volume depletion - She got calcitonin in ER--and has been on IV fluids>>> improving Order PTH and VD levels -continue with IV fluids as above (3) (HFpEF) heart failure with preserved ejection fraction: Careful Iv fluids for now. Appears comfortbale at the moment History of Present Illness Attending Physician: Wilda Gomez MD History of Present Illness 83-year-old female with a/w " not feeling well". 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 PMH- hypothyroidism, primary Hyperparathyroidism, hyperlipidemia, secondary hyperparathyroidism, paroxysmal atrial fibrillation, chronic diastolic CHF, mitral wall regurgitation, tricuspid valve regurgitation, sinus node dysfunction status post pacemaker, hypertension, CKD stage IV, gout, primary angle-closure glaucoma, bipolar disorder, anxiety generalized, depression, Allergies Allergy/AdvReac Type Severity Reaction Status Date / Time cephalexin [From Keflex] Allergy Unknown Pt doesn't Unverified 08/06/23 17:17 remember reaction Home Medications Medication Instructions Recorded Confirmed Type allopurinol 300 mg tablet 300 mg PO QAM 04/21/19 08/06/23 History brimonidine 0.15 % eye drops 1 drp OPB BID 04/21/19 08/06/23 History timolol maleate 0.5 % eye drops 1 drp OPB QAM 04/21/19 08/06/23 History cyanocobalamin (vitamin B-12) 500 500 mcg PO QAM #30 tabs 07/13/20 08/06/23 Rx mcg tablet cholecalciferol (vitamin D3) 50 50 mcg PO QAM 04/23/21 08/06/23 History mcg (2,000 unit) capsule (Vitamin D3) amiodarone 200 mg tablet 200 mg PO QAM 06/03/21 08/06/23 History clonidine HCl 0.1 mg tablet 0.1 mg PO BID #14 tabs 06/05/21 08/06/23 Rx apixaban 2.5 mg tablet (Eliquis) 2.5 mg PO BID 07/18/23 08/06/23 History carvedilol 25 mg tablet 25 mg PO BID 07/18/23 08/06/23 History clonazepam 0.5 mg tablet 0.5 mg PO HS 07/18/23 08/06/23 History fluoxetine 40 mg capsule 40 mg PO QAM 07/18/23 08/06/23 History lamotrigine 25 mg tablet 25 mg PO QAM 07/18/23 08/06/23 History levothyroxine 150 mcg tablet 150 mcg PO QAM 07/18/23 08/06/23 History aripiprazole 5 mg tablet 10 mg PO DAILY 08/06/23 08/06/23 History lorazepam 0.5 mg tablet 0.5 mg PO BID PRN Anxiety 08/06/23 08/06/23 History Patient History Medical History Mitral regurgitation Tricuspid regurgitation Lyme disease HTN (hypertension) Depression Anxiety Kidney problem Surgical History History of permanent cardiac pacemaker placement History of tubal ligation History of blepharoplasty H/O parathyroidectomy Family History Other Heart disease Denies family history of Cancer Social History Smoking Status: Never smoker Second Hand Exposure: No; Do You Dip or Chew Tobacco: No; Tobacco Cessation Education Requested by Patient: No Hx Alcohol Use: No Hx Substance Use: No Preferred Language: British Communication Ability: Effective Tractor Driver Required: No Beliefs That Will Affect Care: None marital status: Current Living Situation: Alone Current Living Situation Comment: Lives at home alone Other Information That Helps Us Care for You: No Feels Safe at Home: Yes Safety Concerns: Feels Safe At This Time Assistive Devices: Cane Review of Systems 2 Review of Systems: Comfortable , but very anxious. Physical Exam 2 Physical Exam: General- Not in distress, very anxious Lungs- clear to auscultation no wheezing or crackles. Heart- regular rate and rhythm; no murmur, no gallop. Abdomen- normal bowel sounds, soft, nontender, no distension. Extremities- no pretibial edema, no erythema seen. Neuro- alert, oriented x 3; PERRL,no facial palsy; no dysarthria; moves extremities. Results & Data Vital Signs (Past 12 Hours) Vital Signs Temp Pulse Pulse Resp BP Pulse Ox O2 Del Method 08/07/23 11:17 36.5 C 62 18 129/85 94 Room Air 08/07/23 09:00 60 08/07/23 07:51 36.6 C 80 22 158/89 H 94 Room Air 08/07/23 02:56 36.4 C L 68 18 146/74 H 93 Room Air Laboratory Results 08/07/23 07:03 08/07/23 07:03
[2023-08-07] MEDS: MAGNESIUM SULFATE / D5W 1 GM/100 ML BAG IV ONE (14:59)
[2023-08-07] MEDS: clonazePAM 0.5 MG TAB PO SCH (20:23)
[2023-08-07] MEDS: MIRTAZAPINE TAB 15 MG TAB PO SCH (20:23)
[2023-08-07] MEDS ORDERED: clonazePAM 0.5 MG TAB PO SCH (21:00)
[2023-08-07] MEDS: hydrALAZINE HCL 20 MG/ML VIAL IV PRN (23:03)
[2023-08-08 07:12] LABS: Hematocrit (blood only) 31.8 % (37.0-47.0); Hemoglobin 10.3 g/dl (12.0-16.0); Mean Corpuscular Hemoglobin 29.3 pg (25.0-34.0); Mean Corpuscular Hgb Conc 32.4 g/dL (32.0-36.0); Mean Corpuscular Volume 90.6 fL (80.0-100.0); Mean Platelet Volume 11.5 fL (9.4-12.4); Platelet Count 125 K/uL (130-400); RDW Coefficient of Variation 14.5 % (11.5-14.5); RDW Standard Deviation 47.9 fL (36.4-46.3); Red Blood Count 3.51 M/uL (4.20-5.40); White Blood Count 4.69 K/ul (4.8-10.8)
[2023-08-08 07:30] LABS: Phosphorus 1.9 mg/dl (2.5-4.9)
[2023-08-08 07:31] LABS: BUN Creatinine Ratio 15.9 (10-20); Calcium 9.7 mg/dl (8.6-10.3); Creatinine Clr Calc Pharmacy 20.8 ml/min; Est GFR (African American) 22.1 ml/min; Est GFR (Non-African American) 19.1 ml/min; Magnesium 1.5 mg/dl (1.7-2.4); Potassium 4.4 mmol/L (3.5-5.1)
[2023-08-08] MEDS ORDERED: SODIUM PHOSPHATE 3 MMOL/1 ML INFUSION IV STA (07:40)
[2023-08-08 07:50] LABS: Folate (Folic Acid),Ser orPlas > 22.30 ng/ml (>5.38)
[2023-08-08 07:51] LABS: Vitamin B12 > 1500 pg/ml (180-914)
[2023-08-08 07:52] LABS: Ferritin 46.3 ng/ml (8-388)
[2023-08-08] MEDS: SODIUM PHOSPHATE 21 MMOL in SODIUM CHLORIDE 0.9% 500 ML IV ONE (08:01)
[2023-08-08] MEDS: MAGNESIUM SULFATE / D5W 1 GM/100 ML BAG IV SCH (08:35)
--- NOTE | 2023-08-08 08:41 | Nephrology Progress Note ---
Date of Service August 08, 2023 Assessment & Plan (1) Acute on chronic renal insufficiency: Plan: stage 1 nonoliguric prerenal KAT on CKD4. Baseline creatinine around 2.5. Sees Dr Nicole in CKD clinic Admitted with creatinine of 3.1, this has improved with Iv Fluids>> these are now appropriately stopped and renal function back to baseline Hypertension controlled with CO-REG and clonidine; some situational HTN with her lithium use hx she will be very sensitive to volume depletion Will sign off NEPHRO d/c recs: -hospital d/c appt w/ Dr Nicole, her OP satellite technician in 4-6 wks -renal nurse to order BMP, phos, mag, pth, 25 OHD, albumin, ACR, UACM, CBC to be done no more than 72 hrs before OV -no change to home meds -avoid NPO situations or/and update medical teams if these arise; encourage fluid intake at least 50 oz daily care coordinated w/ dr vijaya oconnor, d/c plan, lab updates (2) Hypercalcemia: Plan: Marycarmen 2/2 Volume depletion versus HPTH in the wake of chronic lithium therapy; even after lithium stopped these calcium metabolism issues can unfortunately persist particularly in setting of CKD Calcium normalized today -agree w/ phosphate supplement > encourage po intake as well -PTH elevated and 25 OHD more than adequate, both expected (3) (HFpEF) heart failure with preserved ejection fraction: Plan: volume status ok for now; no further IVF and no initiation of diuretic indicated Appears comfortable at the moment Admission and Anticipated Discharge Date Admission Date: August 06, 2023 Subjective no interval events. up in chair looking out window. 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 Review of Systems 2 Review of Systems: All systems reviewed & are unremarkable except as noted in Subjective Physical Exam 2 Constitutional: well developed and well nourished Eyes: EOM intact bilaterally ENMT: Ears: no external ear abnormality Nose: no external nose abnormality Mouth: + dry oral mucous membranes Neck: no nuchal rigidity Respiratory: normal respiratory effort Auscultation: + diminished lung sounds Gastrointestinal (Abdomen): Inspection/Auscultation: normal bowel sounds P ercussion/Palpation: abdomen soft; abdomen nontender Musculoskeletal: Extremities: strength 5/5 throughout Skin: no rashes, warm and dry Neurologic: curtis, fluent speech, no tremor Results & Data Vital Signs (Past 12 Hours) Vital Signs Temp Pulse Pulse Resp BP Pulse Ox O2 Del Method 08/08/23 07:41 36.7 C 66 18 150/88 H 97 Room Air 08/08/23 07:26 60 08/08/23 03:47 144/70 H 08/08/23 03:37 36.7 C 76 18 179/95 H 90 Room Air 08/07/23 23:33 155/84 H 08/07/23 22:54 36.7 C 68 16 183/97 H 96 Room Air 08/07/23 22:00 61 Laboratory Results 08/08/23 06:29 08/08/23 06:29 Ca 9.7 Phos 1.9 PTH 109 25 OHD 57
--- NOTE | 2023-08-08 11:39 | Electrocardiogram Report ---
Test Reason : Blood Pressure : / mmHG Vent. Rate : 067 BPM Atrial Rate : 067 BPM P-R Int : 258 ms QRS Dur : 098 ms QT Int : 450 ms P-R-T Axes : 000 -41 016 degrees QTc Int : 475 ms Atrial-paced rhythm with prolonged AV conduction Left axis deviation Minimal voltage criteria for LVH, may be normal variant Abnormal ECG When compared with ECG of 07-AUG-2023 06:41, Criteria for Septal infarct are no longer Present Confirmed by Malik Thomas ([id number]) on 08/08/2023 11:39:17 AM Referred By: Leticia Crandall Confirmed By:Malik Thomas
--- NOTE | 2023-08-08 13:55 | Hospitalist Progress Note ---
Date of Service August 08, 2023 Assessment & Plan (1) Acute on chronic renal insufficiency: Plan: Ms. Tejeda is an 83-year-old female with past medical history significant for hypothyroidism, primary Hyperparathyroidism, hyperlipidemia, secondary hyperparathyroidism, paroxysmal atrial fibrillation, chronic diastolic CHF, mitral wall regurgitation, tricuspid valve regurgitation, sinus node dysfunction status post pacemaker, hypertension, CKD stage IV, gout, primary angle-closure glaucoma, bipolar disorder, anxiety generalized, depression, who lives alone at home and ambulates with a cane comes admitted for KAT on CKD IV Patient's admission labs revealed creatinine of 3.1 and calcium of 11.4. Both have resolved. Patient doing well this morning without acute concerns. #KAT on CKD stage IV baseline creatinine around 2.5 presented with creatinine of 3.1, 2.5 as of this am avoid nephrotoxic agents getting fluids, reduced rate per nephrology recommendations will follow repeat labs in a.m. nephrology consult -discontinue fluids -replace lytes -Follow up nephro OP 4-6 weeks upon dc with labs Plan: Marycarmen 2/2 Volume depletion versus HPTH in the wake of chronic lithium therapy; even after lithium stopped these calcium metabolism issues can unfortunately persist particularly in setting of CKD Calcium normalized today -agree w/ phosphate supplement > encourage po intake as well #hypercalcemia calcium of 11.4, s/p calcitonin in ED resolved possibly from dehydration v chronic lithium therapy sequelae -PTH elevated and 25 OHD more than adequate, both expected dc IVF, encourage po Repeat CMP in am # chronic diastolic CHF getting fluids, stable monitor for volume overload #anxiety generalized #bipolar disorder #depression psych meds have been adjusted recently appreciate psychiatry recommendations -Mirtazipine 7.5mg daily -Reduced klonipin paroxysmal atrial fibrillation0.5-> 0.25 #sick sinus syndrome status post pacemaker on amiodarone, Coreg and Eliquis will monitor #hypertension on Coreg and clonidine stable #glaucoma will continue home eyedrops #gout on allopurinol DVT prophylaxis on Eliquis disposition telemetry full code Admission and Anticipated Discharge Date Admission Date: August 06, 2023 Subjective NAEO Reports pleasant morning, eager to work with PT Physical Exam Constitutional: WD/WN, vitals as above Respiratory: normal respiratory effort, lungs clear to auscultation Cardiovascular: RRR, no murmur, no edema Gastrointestinal (Abdomen): normal bowel sounds, soft, nontender, no hepatosplenomegaly Results & Data Results & Data Vital Signs (Past 12 Hours) Vital Signs Temp Pulse Pulse Resp BP Pulse Ox O2 Del Method 08/08/23 12:02 36.6 C 60 18 170/92 H 94 Room Air 08/08/23 07:41 36.7 C 66 18 150/88 H 97 Room Air 08/08/23 07:26 60 08/08/23 03:47 144/70 H 08/08/23 03:37 36.7 C 76 18 179/95 H 90 Room Air Laboratory Results Short CBC 08/08/23 Range/Units 06:29 WBC 4.69 L (4.8-10.8) K/ul Hgb 10.3 L (12.0-16.0) g/dl Hct 31.8 L (37.0-47.0) % Plt Count 125 L (130-400) K/uL BMP 08/08/23 06:29 Sodium 142 Potassium 4.4 Chloride 113 H Carbon Dioxide 25 BUN 37 H Creatinine 2.32 H Glucose 116 H Calcium 9.7 Medications Administered Home Medications Medication Instructions Recorded Confirmed Last Taken allopurinol 300 mg tablet 300 mg PO QAM 04/21/19 08/06/23 07/18/23 brimonidine 0.15 % eye drops 1 drp OPB BID 04/21/19 08/06/23 07/18/23 timolol maleate 0.5 % eye drops 1 drp OPB QAM 04/21/19 08/06/23 07/18/23 cyanocobalamin (vitamin B-12) 500 500 mcg PO QAM #30 tabs 07/13/20 08/06/23 07/18/23 mcg tablet cholecalciferol (vitamin D3) 50 50 mcg PO QAM 04/23/21 08/06/23 07/18/23 mcg (2,000 unit) capsule (Vitamin D3) amiodarone 200 mg tablet 200 mg PO QAM 06/03/21 08/06/23 07/18/23 clonidine HCl 0.1 mg tablet 0.1 mg PO BID #14 tabs 06/05/21 08/06/23 07/18/23 apixaban 2.5 mg tablet (Eliquis) 2.5 mg PO BID 07/18/23 08/06/23 08/06/23 09:00 carvedilol 25 mg tablet 25 mg PO BID 07/18/23 08/06/23 07/18/23 clonazepam 0.5 mg tablet 0.5 mg PO HS 07/18/23 08/06/23 Unknown fluoxetine 40 mg capsule 40 mg PO QA 07/18/23 08/06/23 07/18/23 lamotrigine 25 mg tablet 25 mg PO QAM 07/18/23 08/06/23 07/18/23 levothyroxine 150 mcg tablet 150 mcg PO QAM 07/18/23 08/06/23 07/18/23 aripiprazole 5 mg tablet 10 mg PO DAILY 08/06/23 08/06/23 Unknown lorazepam 0.5 mg tablet 0.5 mg PO BID PRN Anxiety 08/06/23 08/06/23 Unknown Active Medications Generic Name Dose Route Start Last Admin Trade Name Freq PRN Reason Stop Dose Admin Acetaminophen 650 mg 08/06/23 23:42 08/07/23 00:28 Acetaminophen 325 Mg Tab PO 09/05/23 23:41 650 mg Q4H PRN Administration Pain or Fever Allopurinol 300 mg 08/07/23 09:00 08/08/23 07:47 Allopurinol 300 Mg Tab PO 09/06/23 08:59 300 mg QAM CASSIE Administration Amiodarone HCl 200 mg 08/07/23 09:00 08/08/23 07:49 Amiodarone 200 Mg Tab PO 09/06/23 08:59 200 mg QAM CASSIE Administration Apixaban 2.5 mg 08/06/23 23:42 08/08/23 07:47 Apixaban 2.5 Mg Tab PO 09/05/23 23:41 2.5 mg BID CASSIE Administration Aripiprazole 10 mg 08/07/23 09:00 08/08/23 07:48 Aripiprazole 10 Mg Tab PO 09/06/23 08:59 10 mg DAILY CASSIE Administration Brimonidine Tartrate 1 drops 08/06/23 23:42 08/08/23 07:49 Brimonidine Tartrate-P 0.15% 5 Ml Btl OPB 09/05/23 23:41 1 drops BID CASSIE Administration Carvedilol 25 mg 08/06/23 23:42 08/08/23 07:47 Carvedilol 25 Mg Tab PO 09/05/23 23:41 25 mg BID CASSIE Administration Clonazepam 0.25 mg 08/07/23 21:00 08/07/23 20:23 Clonazepam 0.5 Mg Tab PO 09/06/23 20:59 0.25 mg HS CASSIE Administration Clonidine HCl 0.1 mg 08/06/23 23:42 08/08/23 08:55 Clonidine Hcl 0.1 Mg Tab PO 09/05/23 23:41 0.1 mg BID CASSIE Administration Cyanocobalamin 500 mcg 08/07/23 09:00 08/08/23 07:48 Cyanocobalamin (B-12) 500 Mcg Tablet PO 09/06/23 08:59 500 mcg QAM CASSIE Administration Fluoxetine HCl 40 mg 08/07/23 09:00 08/08/23 07:48 Fluoxetine Hcl 20 Mg Cap PO 09/06/23 08:59 40 mg QAM CASSIE Administration Hydralazine HCl 7.5 mg 08/07/23 01:23 08/07/23 23:03 Hydralazine Hcl 20 Mg/Ml Vial IV 09/06/23 01:22 7.5 mg Q6H PRN Administration Hypertension Lamotrigine 25 mg 08/07/23 09:00 08/08/23 07:48 Lamotrigine 25 Mg Tab PO 09/06/23 08:59 25 mg QAM CASSIE Administration Protocol Levothyroxine Sodium 150 mcg 08/07/23 06:30 08/08/23 05:52 Levothyroxine Sodium 150 Mcg Tablet PO 09/06/23 06:29 150 mcg DAILYBB CASSIE Administration Lorazepam 0.5 mg 08/06/23 23:42 08/08/23 07:47 Lorazepam 0.5 Mg Tab PO 09/05/23 23:41 0.5 mg BID PRN Administration Anxiety Mirtazapine 7.5 mg 08/07/23 21:00 08/07/23 20:23 Mirtazapine Tab 15 Mg Tab PO 09/06/23 20:59 7.5 mg HS CASSIE Administration Timolol Maleate 1 drops 08/07/23 09:00 08/08/23 07:49 Timolol Maleate 0.5% Op Soln 5 Ml Btl OP 09/06/23 08:59 1 drops QAM CASSIE Administration Vitamin D 50 mcg 08/07/23 09:00 08/08/23 07:48 Cholecalciferol 25 Mcg (1000 Units) Tab PO 09/06/23 08:59 50 mcg QAM CASSIE Administration
--- NOTE | 2023-08-08 16:01 | Discharge Summary ---
Discharge Summary Date of Service August 08, 2023 Principal Dx & Hospital Course #1 = Principal Diagnosis (1) Acute on chronic renal insufficiency: Ms. Tejeda is an 83-year-old female with past medical history significant for hypothyroidism, primary Hyperparathyroidism, hyperlipidemia, secondary hyperparathyroidism, paroxysmal atrial fibrillation, chronic diastolic CHF, mitral wall regurgitation, tricuspid valve regurgitation, sinus node dysfunction status post pacemaker, hypertension, CKD stage IV, gout, primary angle-closure glaucoma, bipolar disorder, anxiety generalized, depression, who lives alone at home and ambulates with a cane comes admitted for KAT on CKD IV Patient's admission labs revealed creatinine of 3.1 and calcium of 11.4. Both have resolved. Patient doing well this morning without acute concerns. #KAT on CKD stage IV *resolved baseline creatinine around 2.5 presented with creatinine of 3.1, 2.32 as of this am avoid nephrotoxic agents getting fluids, reduced rate per nephrology recommendations will follow repeat labs in a.m. nephrology consult -discontinue fluids -replace lytes -Follow up nephro OP 4-6 weeks upon dc with labs #hypercalcemia *resolved calcium of 11.4, s/p calcitonin in ED resolved possibly from dehydration v chronic lithium therapy sequelae -PTH elevated and 25 OHD more than adequate, both expected dc IVF, encourage po # chronic diastolic CHF getting fluids, stable monitor for volume overload #anxiety generalized #bipolar disorder #depression psych meds have been adjusted recently appreciate psychiatry recommendations -Mirtazipine 7.5mg daily -Reduced klonipin #sick sinus syndrome status post pacemaker on amiodarone, Coreg and Eliquis will monitor #hypertension on Coreg and clonidine stable #glaucoma will continue home eyedrops #gout on allopurinol Patient to discharge with PT/OT Notes For Next Care Provider Medication Changes From Visit Klonipin decreased to 0.25mg qhs Started Mirtazipine 7.5 mg qhs Admission HPI Per Admitting Provider 83-year-old female with past medical history significant for hypothyroidism, primary Hyperparathyroidism, hyperlipidemia, secondary hyperparathyroidism, paroxysmal atrial fibrillation, chronic diastolic CHF, mitral wall regurgitation, tricuspid valve regurgitation, sinus node dysfunction status post pacemaker, hypertension, CKD stage IV, gout, primary angle-closure glaucoma, bipolar disorder, anxiety generalized, depression, who lives alone at home and ambulates with a cane comes because of ongoing anxiety and not feeling well and outpatient labs showed KAT and came to ER and in the ER labs showed creatinine of 3.1 and calcium of 11.4. Currently patient resting comfortably. Alert and oriented. Family is in the room. Family thinks patient may be dehydrated. But lately she is having anxiety issues and her doctor changed Abilify to 10 mg and cut down on Prozac to 40 mg daily Just today. Patient denies any headache. No dizziness currently. No blurred visions. No runny nose or sore throat currently. No headaches. No cough. No fevers. No difficulty swallowing. No chest pain or shortness of breath. No nausea. No abdominal pain. Normal bowel and bladder movements. Denies any rash. Sleeping okay. Hemodynamics are okay. Past medical history. As mentioned above Past surgical history. Surgery on both upper eyelids for ptosis. Colonoscopy. Cystoscopy and EGD. Parathyroidectomy. Ligation of oviduct. Removal of skin cancer from the face. Removal of left ovarian cyst. Cataract. Social history. . No smoking. No alcohol use. No drug use. Family history. Paternal grandmother had diabetes. Father had heart disorder. Mother had heart disorder. Admission Exam Per Admitting Provider General- Not in distress Head- atraumatic Eyes- PERRL. ENT- oropharynx clear Neck- supple, no JVD. Lungs- clear to auscultation no wheezing or crackles. Heart- regular rate and rhythm; no murmur, no gallop. Abdomen- normal bowel sounds, soft, nontender, no distension. Extremities- no pretibial edema, no erythema seen. Neuro- alert, oriented x 3; PERRL,no facial palsy; no dysarthria; moves extremities. Skin- warm & dry Discharge Exam Constitutional WD/WN, vitals as above Respiratory normal respiratory effort, lungs clear to auscultation Cardiovascular RRR, no murmur, no edema Gastrointestinal (Abdomen) normal bowel sounds, soft, nontender, no hepatosplenomegaly Musculoskeletal no cyanosis or clubbing, extremities motor strength 5/5 Updated Medication List Medication Instructions Recorded Confirmed Type allopurinol 300 mg tablet 300 mg PO QAM 04/21/19 08/06/23 History brimonidine 0.15 % eye drops 1 drp OPB BID 04/21/19 08/06/23 History timolol maleate 0.5 % eye drops 1 drp OPB QAM 04/21/19 08/06/23 History cyanocobalamin (vitamin B-12) 500 500 mcg PO QAM #30 tabs 07/13/20 08/06/23 Rx mcg tablet cholecalciferol (vitamin D3) 50 50 mcg PO QAM 04/23/21 08/06/23 History mcg (2,000 unit) capsule (Vitamin D3) amiodarone 200 mg tablet 200 mg PO QAM 06/03/21 08/06/23 History clonidine HCl 0.1 mg tablet 0.1 mg PO BID #14 tabs 06/05/21 08/06/23 Rx apixaban 2.5 mg tablet (Eliquis) 2.5 mg PO BID 07/18/23 08/06/23 History carvedilol 25 mg tablet 25 mg PO BID 07/18/23 08/06/23 History fluoxetine 40 mg capsule 40 mg PO QAM 07/18/23 08/06/23 History lamotrigine 25 mg tablet 25 mg PO QAM 07/18/23 08/06/23 History levothyroxine 150 mcg tablet 150 mcg PO QAM 07/18/23 08/06/23 History aripiprazole 5 mg tablet 10 mg PO DAILY 08/06/23 08/06/23 History lorazepam 0.5 mg tablet 0.5 mg PO BID PRN Anxiety 08/06/23 08/06/23 History clonazepam 0.5 mg tablet 0.25 mg (1/2 x 0.5 mg) PO HS #30 08/08/23 Rx tabs mirtazapine 15 mg tablet 7.5 mg (1/2 x 15 mg) PO HS #15 tabs 08/08/23 Rx Hospital Stay Data Consultations 08/06/23 18:38 ED Decision to Admit Stat 08/07/23 08:00 Consult Nephrology Routine 08/07/23 08:07 Consult Psychiatry Routine Diagnostic Imagining Performed 08/06/23 17:18 CT abd pelvis wo con Stat CT head/brain wo con Stat Pending Results Patient Have Any Pending Studies at Discharge: No Discharge Instructions Given to Patient (Per Discharging Provider) You were admitted for acute kidney injury in setting of chronic kidney disease. You were noted to be very dehydrated. Your kidney function improved with fluids. Nephrology evaluated you and determined no changes to medications, but encour ed continue hydration with at least 50oz fluid daily. Your medications for mood were updated as well: -Your klonipin was decreased to 0.25 mg at bedtime -Mirtazipine 7.5mg at bedtime was added Please follow up with nephrology in 4-6 weeks Please follow up with Psychiatrist for further medication management Total Time Total Time Spent Total Time Spent (In Minutes): 45
== END 2023-08-08 17:30 | disposition home or self-care (01) | DRG 683 ==
LOC: ED 15:49 → 2E 20:10

== ENCOUNTER 2023-08-30 20:43 | Observation (INO) ==
[2023-08-30 22:06] LABS: Anion Gap 8 (3-11); Bilirubin,Total 0.4 mg/dl (0.2-1.0); Calcium 10.5 mg/dl (8.6-10.3); Carbon Dioxide 22 mmol/L (21-32); Chloride 104 mmol/L (98-107); Potassium 4.5 mmol/L (3.5-5.1); Sodium 134 mmol/L (136-145)
[2023-08-30 22:07] LABS: Basophils # (auto) 0.04 K/uL (0.00-0.20); Basophils % (auto) 0.8 %; Eosinophils # (auto) 0.06 K/uL (0.00-0.50); Eosinophils % (auto) 1.1 %; Hematocrit (blood only) 31.3 % (37.0-47.0); Hemoglobin 10.1 g/dl (12.0-16.0); Immature Granulocytes # (auto) 0.04 K/uL (0.01-0.20); Immature Granulocytes % (auto) 0.8 %; Lymphocytes % (auto) 15.2 %; Mean Corpuscular Hemoglobin 29.1 pg (25.0-34.0); Mean Corpuscular Hgb Conc 32.3 g/dL (32.0-36.0); Mean Corpuscular Volume 90.2 fL (80.0-100.0); Mean Platelet Volume 11.7 fL (9.4-12.4); Monocytes # (auto) 0.59 K/uL (0.11-0.59); Monocytes % (auto) 11.2 %; Neutrophils # (auto) 3.74 K/uL (1.40-6.50); Neutrophils % (auto) 70.9 %; Platelet Count 142 K/uL (130-400); RDW Coefficient of Variation 14.9 % (11.5-14.5); RDW Standard Deviation 48.8 fL (36.4-46.3); Red Blood Count 3.47 M/uL (4.20-5.40); White Blood Count 5.27 K/ul (4.8-10.8)
[2023-08-30 22:12] LABS: Alanine Aminotransferase 26 U/L (7-52); Albumin Globulin Ratio 1.5 (0.9-2); Alkaline Phosphatase 70 U/L (34-104); Aspartate Aminotransferase 24 U/L (13-39); BUN Creatinine Ratio 17.8 (10-20); Blood Urea Nitrogen 48 mg/dl (6-23); Est GFR (African American) 18.5 ml/min; Globulin 2.6 gm/dl (2.5-4.0); Glucose 90 mg/dl (70-99(Fasting)); Total Protein 6.6 gm/dl (6.0-8.3)
[2023-08-30 22:22] LABS: Acetaminophen < 3 ug/ml (10-30); Salicylate < 3.0 mg/dl (3.0-30)
[2023-08-30 22:25] LABS: Thyroid Stimulating Hormone 2.572 uIu/ml (0.300-4.500)
--- NOTE | 2023-08-30 23:14 | Emergency Department Note ---
History of Present Illness General Chief complaint: Anxiety Stated complaint: ANXIETY, CAN'T SLEEP, SHUFFLING/NOT WALKING Time Seen by Provider: 08/30/23 22:55 Source: patient, family (Multiple family members who are at the bedside), RN notes reviewed and old records reviewed (Discharge summary from 624 when she was admitted for similar) Mode of arrival: ambulatory Limitations: no limitations History of Present Illness This patient 83-year-old female who has multiple medical problems including anxiety/bipolar comes in after feeling very anxious she does live alone she has Ativan at home but is afraid to take it. She denies that she has any chest pain numbness or weakness she does feel short of breath when she gets anxious. She was seen here last for similar complaints and received Ativan and went home her family is concerned about her inability to care for herself at home she is very anxious on exam saying "help me" .denies fall or trauma. Home Medications Medication Instructions Recorded Confirmed Type allopurinol 300 mg tablet 300 mg PO QAM 04/21/19 08/31/23 History brimonidine 0.15 % eye drops 1 drp OPB BID 04/21/19 08/31/23 History timolol maleate 0.5 % eye drops 1 drp OPB QAM 04/21/19 08/31/23 History cholecalciferol (vitamin D3) 50 50 mcg PO QAM 04/23/21 08/31/23 History mcg (2,000 unit) capsule (Vitamin D3) amiodarone 200 mg tablet 200 mg PO QAM 06/03/21 08/31/23 History clonidine HCl 0.1 mg tablet 0.1 mg PO BID #14 tabs 06/05/21 08/31/23 Rx apixaban 2.5 mg tablet (Eliquis) 2.5 mg PO BID 07/18/23 08/31/23 History carvedilol 25 mg tablet 25 mg PO BID 07/18/23 08/31/23 History fluoxetine 40 mg capsule 80 mg PO QAM 07/18/23 08/31/23 History lamotrigine 25 mg tablet 50 mg PO QAM 07/18/23 08/31/23 History levothyroxine 150 mcg tablet 150 mcg PO QAM 07/18/23 08/31/23 History lorazepam 0.5 mg tablet 0.5 mg PO BID PRN Anxiety 08/06/23 08/31/23 History aripiprazole 10 mg tablet 10 mg PO QAM 08/31/23 08/31/23 History clonazepam 0.5 mg tablet 0.5 mg PO HS 08/31/23 08/31/23 History cyanocobalamin (vitamin B-12) 1,000 mcg PO DAILY 08/31/23 08/31/23 History 1,000 mcg tablet (Vitamin B-12) folic acid 1 mg tablet 1 mg PO DAILY 08/31/23 08/31/23 History hydroxyzine HCl 25 mg tablet 25 mg PO TID PRN Anxiety 08/31/23 08/31/23 History magnesium glycinate 100 mg (as 100 mg PO DAILY 08/31/23 08/31/23 History glycinate) tablet mirtazapine 15 mg tablet 7.5 mg PO HS 08/31/23 08/31/23 History nystatin 100,000 unit/gram topical 1 applic topical DIRECTED PRN 08/31/23 08/31/23 History cream Skin Irritation nystatin 100,000 unit/gram topical 1 applic topical DIRECTED PRN 08/31/23 08/31/23 History powder Skin Irritation Allergies Allergy/AdvReac Type Severity Reaction Status Date / Time cephalexin [From Keflex] Allergy Unknown Pt doesn't Verified 08/31/23 00:18 remember reaction Past Med/Surg History Problem List (Updated 08/31/23 @ 01:47 by Neil Laureano MD) HTN (hypertension) (Acute) SOB (shortness of breath) (Acute) Hypomagnesemia (Acute) Insomnia (Acute) Anxiety (Acute) Acute on chronic renal insufficiency (Acute) Hypothyroidism CKD (chronic kidney disease), stage IV Hypertensive urgency (Acute) Anxiety (Acute) Withdrawal syndrome (Acute) PAF (paroxysmal atrial fibrillation) (HFpEF) heart failure with preserved ejection fraction Hypoxemia (Acute) Hypertensive cardiovascular-renal disease Dyslipidemia Primary angle-closure glaucoma GERD (gastroesophageal reflux disease) Hypertensive emergency (Acute) CKD (chronic kidney disease) stage 3, GFR 30-59 ml/min (Acute) Bipolar disorder (manic depression) (Acute) Anxiety attack (Acute) Anemia SSS (sick sinus syndrome) Medical History Weakness Hypercalcemia Mitral regurgitation Tricuspid regurgitation Lyme disease HTN (hypertension) Depression Anxiety Kidney problem Surgical History History of permanent cardiac pacemaker placement History of tubal ligation History of blepharoplasty H/O parathyroidectomy Family History Other Heart disease Denies family history of Cancer Social History Smoking Status: Never smoker Second Hand Exposure: No; Do You Dip or Chew Tobacco: No; Hx Alcohol Use: No Hx Substance Use: No Preferred Language: [place]atian Communication Ability: Effective Stone Rougher Required: No Beliefs That Will Affect Care: None marital status: Current Living Situation: Alone Current Living Situation Comment: Lives at home alone Feels Safe at Home: Yes Assistive Devices: Cane Review of Systems A total of 10 systems reviewed and were otherwise negative Physical Exam Vital Signs Vital Signs - 24 hr 08/30/23 20:45 08/30/23 20:46 08/30/23 23:35 Temperature 36.3 C L Temperature Source Temporal Artery Scan Pulse Rate 63 62 Pulse Rate [Apical] Respiratory Rate 18 Respiratory Effort / Characteristics Non-Labored Spontaneous Respiratory Depth Normal Blood Pressure 201/97 H Blood Pressure [Right Arm] Blood Pressure Mean 131 Blood Pressure Mean [Right Arm] Pulse Oximetry 96 Oxygen Delivery Method Room Air Room Air Oxygen Flow Rate Sepsis Recent Fever Within 48 Hours No Sepsis New/Unexplained Change in Mental Status No Sepsis Action Taken by Nursing No Action Required 08/30/23 23:44 08/30/23 23:46 08/31/23 00:18 Temperature Temperature Source Pulse Rate Pulse Rate [Apical] 69 Respiratory Rate 18 Respiratory Effort / Characteristics Respiratory Depth Blood Pressure 215/121 H 215/122 H Blood Pressure [Right Arm] 215/121 H Blood Pressure Mean 155 Blood Pressure Mean [Right Arm] 152 Pulse Oximetry 93 Oxygen Delivery Method Room Air Oxygen Flow Rate Sepsis Recent Fever Within 48 Hours Sepsis New/Unexplained Change in Mental Status Sepsis Action Taken by Nursing 08/31/23 01:00 08/31/23 01:03 08/31/23 01:04 Temperature Temperature Source Pulse Rate 70 Pulse Rate [Apical] 74 Respiratory Rate 20 Respiratory Effort / Characteristics Respiratory Depth Blood Pressure 194/112 H Blood Pressure [Right Arm] 194/112 H Blood Pressure Mean Blood Pressure Mean [Right Arm] 139 Pulse Oximetry 87 L 94 Oxygen Delivery Method Room Air Nasal Cannula Oxygen Flow Rate 2 Sepsis Recent Fever Within 48 Hours Sepsis New/Unexplained Change in Mental Status Sepsis Action Taken by Nursing General: Well developed well nourished anxious appearing older female who appears in no acute distress, breathing comfortably on room air. Normal speech HEENT: Normal cephalic atraumatic. Pupils are equal round and reactive to light. Extraocular movements are intact. Oropharynx is pink with moist mucous membranes. No swelling of the mouth lips or tongue. Neck: Supple with a midline trachea. No meningeal signs or stiffness, no JVD or bruits. No Stridor. Chest: Clear to auscultation bilaterally. No wheezes or rhonchi. No increased work of breathing. Heart: Regular rate and rhythm without murmurs or gallops. Abdomen: Soft nontender, nondistended without rebound guarding or rigidity. Extremities: No cyanosis clubbing or edema. No calf tenderness or assymetry Spine/Back. Non tender to palpation. No CVA tenderness Skin: Good turgor without rashes. Neurologic exam: Cranial nerves two through 12 are intact. Motor and sensation are intact and symmetrical throughout. Course Administered Medications Discontinued Medications Sodium Chloride (Nss) 250 mls @ 999 mls/hr IV .Q16M ONE Stop: 08/30/23 23:22 Last Infusion: 08/31/23 00:05 Dose: Infused Documented By: Admin: 08/30/23 23:26 Dose: 999 mls/hr Documented By: KERWIN Lorazepam 0.25 mg/ Syringe 0.25 mls @ 2 mls/min IV NOW STA Stop: 08/31/23 00:34 Last Admin: 08/31/23 00:43 Dose: 2 mls/min Documented By: KERWIN Acetaminophen (Ofirmev) 1,000 mg in 100 mls @ 400 mls/hr IV NOW STA Stop: 08/31/23 00:45 Last Infusion: 08/31/23 01:40 Dose: Infused Documented By: Admin: 08/31/23 00:44 Dose: 400 mls/hr Documented By: KERWIN Labetalol HCl (Labetalol Hcl Iv 5 Mg/Ml 20ml) 10 mg IV NOW STA Stop: 08/31/23 00:03 Last Admin: 08/31/23 00:18 Dose: 10 mg Documented By: KERWIN Co-signed By: LATISHA Lorazepam (Lorazepam 1 Mg Tab) 0.5 mg SL NOW STA Stop: 08/30/23 23:09 Last Admin: 08/30/23 23:26 Dose: 0.5 mg Documented By: KERWIN Medical Decision Making Differential Diagnosis Anxiety, depression, toxicologic, metabolic, dehydration, cardiac disease, pulmonary disease Medical Records Attestation: I reviewed the patient's medical records. Home Medications Current Medication List: was personally reviewed by me Laboratory Data Attestation: I reviewed the patient's lab results. 08/30/23 21:19 08/30/23 21:19 Lab Results 08/30/23 08/30/23 08/31/23 Range/Units 21:19 23:17 Unknown WBC 5.27 (4.8-10.8) K/ul RBC 3.47 L (4.20-5.40) M/uL Hgb 10.1 L (12.0-16.0) g/dl Hct 31.3 L (37.0-47.0) % MCV 90.2 (80.0-100.0) fL MCH 29.1 (25.0-34.0) pg MCHC 32.3 (32.0-36.0) g/dL RDW Std Deviation 48.8 H (36.4-46.3) fL RDW Coeff of Tank 14.9 H (11.5-14.5) % Plt Count 142 (130-400) K/uL MPV 11.7 (9.4-12.4) fL Immature Gran % (Auto) 0.8 % Neut % (Auto) 70.9 % Lymph % (Auto) 15.2 % [place] % (Auto) 11.2 % Eos % (Auto) 1.1 % Baso % (Auto) 0.8 % Neut # (Auto) 3.74 (1.40-6.50) K/uL Lymph # (Auto) 0.80 L (1.20-3.40) K/uL [place] # (Auto) 0.59 (0.11-0.59) K/uL Eos # (Auto) 0.06 (0.00-0.50) K/uL Baso # (Auto) 0.04 (0.00-0.20) K/uL Immature Gran # (Auto) 0.04 (0.01-0.20) K/uL APTT 26 (21-31) Seconds PTT Ratio 1.0 Sodium 134 L (136-145) mmol/L Potassium 4.5 (3.5-5.1) mmol/L Chloride 104 (98-107) mmol/L Carbon Dioxide 22 (21-32) mmol/L Anion Gap 8 (3-11) BUN 48 H (6-23) mg/dl Creatinine 2.69 H (0.6-1.2) mg/dl Est Cr Clr Drug Dosing Not Reportable Est GFR ( Amer) 18.5 ml/min Est GFR (Non-Af Amer) 16.0 ml/min BUN/Creatinine Ratio 17.8 (10-20) Glucose 90 (70-99(Fasting)) mg/dl Calcium 10.5 H (8.6-10.3) mg/dl Phosphorus 3.0 (2.5-4.9) mg/dl Magnesium 1.9 (1.7-2.4) mg/dl Total Bilirubin 0.4 (0.2-1.0) mg/dl AST 24 (13-39) U/L ALT 26 (7-52) U/L Alkaline Phosphatase 70 (34-104) U/L Troponin I High Sens 27.2 H 27.3 H (0-14) pg/ml B-Natriuretic Peptide 176 H (0-100) pg/ml Total Protein 6.6 (6.0-8.3) gm/dl Albumin 4.0 (3.4-5.0) gm/dl Globulin 2.6 (2.5-4.0) gm/dl Albumin/Globulin Ratio 1.5 (0.9-2) TSH 2.572 (0.300-4.500) uIu/ml PTH Intact 162.3 H (12.0-88.0) pg/ml Urine Color Yellow Urine Appearance Clear (Clear) Urine pH 6.5 (4.5-7.5) Ur Specific [place] 1.005 (1.000-1.030) Urine Protein Trace H (Negative) Urine Glucose (UA) Negative (Negative) Urine Ketones Negative (Negative) Urine Blood Negative (Negative) Urine Nitrite Negative (Negative) Urine Bilirubin Negative (Negative) Urine Urobilinogen Negative (Negative) Ur Leukocyte Esterase Negative (Negative) Urine WBC (Auto) 0-5 (0-5) /hpf Urine RBC (Auto) 0-2 (0-2) /hpf U Hyaline Cast (Auto) 0-2 (0-2) /lpf U Epithel Cells (Auto) 0-2 (0-2) /hpf Urine Bacteria (Auto) None Seen (None Seen) Salicylates < 3.0 L (3.0-30) mg/dl Urine Opiates Screen Neg (Neg) Ur Methadone, Qual Neg (Neg) Urine Fentanyl Screen Neg (Neg) Acetaminophen < 3 L (10-30) ug/ml Urine Barbiturates Neg (Neg) Ur Phencyclidine (PCP) Neg (Neg) U Amphetamin/Meth Scrn Neg (Neg) MDMA (Ecstasy) Screen Neg (Neg) U Benzodiazepines Scrn Neg (Neg) Ur Cocaine Metabolite Neg (Neg) U Marijuana (THC) Screen Neg (Neg) Ethyl Alcohol mg/dL < 10.0 (<10.0) mg/dl Imaging Data Attestation: I personally reviewed and interpreted this imaging study as follows: My Impression: Chest x-raythere is a mild increased interstitial markings there may be a CHF component. No pneumothorax seen ECG Data Attestation: I personally reviewed and interpreted this ECG as follows: Indication: + SOB/dyspnea Rate (beats per minute): 60 Rhythm: + other (Atrial paced rhythm) ECG Intervals/blocks: + Normal QRS and + Normal QT ECG [place]: + Left axis deviation ECG ST segments: + Normal ST segments ECG Findings: + LVH; no PACs or no PVCs Comparison ECG Date: from (08/25/23) Change: no significant change MDM Narrative This patient comes in described above on my exam she is very anxious saying help me. Her blood pressure is high and she does have underlying hypertension but there is certainly a large anxiety component she was given 0.5 mg Ativan p.o. which is what she had before. She does not appear to be in any distress otherwise. Blood work was obtained her BUN and creatinine are up again show she was hydrated with 250 cc normal saline bolus a cardiac work was also obtained with a chest x-ray EKG cardiac biomarkers and BNP. She was reassessed she still says she feels anxious. EKG shows a paced rhythm. Troponin was mildly elevated 27 and repeat was also 27. BNP is elevated and her chest x-ray may have a congestive heart component as well. That could be causing her pressure to be elevated although I think the main reason her blood pressure is elevated is from anxiety and stress. The Ativan helped a little bit. Her kidney function is also elevated she could be a little dry as well. She was given a small fluid bolus. Her O2 sat was in the high 80s at one point but seems to hover in the low 90s. She did not appear in respiratory distress. I do think she needs to be admitted/observed for medical reasons but also psychiatric reasons and may also need placement. I discussed the case at length with Dr. Szymanski who saw the patient ER for these measures Continuous court monitor: Orders placed in EMR for continuous cardiac monitoring: Upon my evaluation patient was noted to be in a paced rhythm with a rate of 60 Impression & Plan SOB (shortness of breath), Bipolar disorder (manic depression), Anxiety attack, Hypoxemia, HTN (hypertension) Discharge Plan Visit Data Chief Complaint: Anxiety Stated Complaint: ANXIETY, CAN'T SLEEP, SHUFFLING/NOT WALKING ED Provider: Neil Laureano Discharge Problem: SOB (shortness of breath), Bipolar disorder (manic depression), Anxiety attack, Hypoxemia, HTN (hypertension) Forms Stand Alone Forms: My [facility], Suicide Prevention Resources Prescriptions Prescriptions: No Action allopurinol 300 mg tablet 300 mg PO QAM brimonidine 0.15 % drops 1 drp OPB BID timolol maleate 0.5 % drops 1 drp OPB QAM cholecalciferol (vitamin D3) [Vitamin D3] 50 mcg (2,000 unit) Capsule 50 mcg PO QAM Rx Instructions: PER PT "HAVEN'T BEEN TAKING". amiodarone 200 mg tablet 200 mg PO QAM clonidine HCl 0.1 mg tablet 0.1 mg PO BID Qty: 14 0RF fluoxetine 40 mg capsule 80 mg PO QAM carvedilol 25 mg tablet 25 mg PO BID lamotrigine 25 mg tablet 50 mg PO QAM levothyroxine 150 mcg tablet 150 mcg PO QAM Eliquis 2.5 mg tablet 2.5 mg PO BID lorazepam 0.5 mg tablet 0.5 mg PO BID PRN (Reason: Anxiety) cyanocobalamin (vitamin B-12) [Vitamin B-12] 1,000 mcg Tablet 1,000 mcg PO DAILY nystatin 100,000 unit/gram cream 1 applic TOPICAL DIRECTED PRN (Reason: Skin Irritation) folic acid 1 mg Tablet 1 mg PO DAILY hydroxyzine HCl 25 mg tablet 25 mg PO TID PRN (Reason: Anxiety) nystatin 100,000 unit/gram Powder 1 applic TOPICAL DIRECTED PRN (Reason: Skin Irritation) aripiprazole 10 mg tablet 10 mg PO QAM magnesium glycinate 100 mg Tablet 100 mg PO DAILY clonazepam 0.5 mg tablet 0.5 mg PO HS mirtazapine 15 mg tablet 7.5 mg PO HS Rx Instructions: PER PT "DIDN'T LIKE THE WAY IT MADE ME FEEL, SO I QUIT TAKING IT". Referrals Referrals: Leticia Crandall DO [Primary Care Provider] - Discharge Problem: Bipolar disorder (manic depression) Qualifiers: Active/Remission status: remission status unspecified Qualified Code(s): F31.9 - Bipolar disorder, unspecified HTN (hypertension) Qualifiers: Hypertension type: unspecified Qualified Code(s): I10 - Essential (primary) hypertension
[2023-08-30] MEDS: SODIUM CHLORIDE 0.9% 250 ML IV ONE (23:26)
[2023-08-30] MEDS: LORazepam 1 MG TAB SL STA (23:26)
[2023-08-30 23:33] LABS: Magnesium 1.9 mg/dl (1.7-2.4)
[2023-08-30 23:41] LABS: Troponin I High Sensitivity 27.2 pg/ml (0-14)
[2023-08-31] MEDS: LABETALOL HCL IV 5 MG/ML 20ML IV STA (00:18)
[2023-08-31 00:37] LABS: Troponin I High Sensitivity 27.3 pg/ml (0-14)
[2023-08-31] MEDS: LORazepam 0.25 MG in SYRINGE 0.125 ML IV STA ×2 (00:43→02:00)
[2023-08-31] MEDS: ACETAMINOPHEN 1,000 MG/100 ML VIAL IV STA (00:44)
[2023-08-31 01:06] LABS: Appearance Urine Clear (Clear); Bacteria Urine Automated None Seen (None Seen); Bilirubin Urine Negative (Negative); Blood Urine Negative (Negative); Cast Urine Automated 0-2 /lpf (0-2); Color Urine Yellow; Epithelial Cell Urine Auto 0-2 /hpf (0-2); Glucose Urine UA Negative (Negative); Ketones Urine Negative (Negative); Leukocyte Esterase Urine Negative (Negative); Nitrite Urine Negative (Negative); Protein Urine Trace (Negative); RBC Urine Automated 0-2 /hpf (0-2); Specific Gravity Urine 1.005 (1.000-1.030); Urobilinogen Urine Negative (Negative); WBC Urine Automated 0-5 /hpf (0-5); pH Urine 6.5 (4.5-7.5)
[2023-08-31 01:24] LABS: Amphetamines+Metham, Urine Neg (Neg); Barbiturates, Urine Neg (Neg); Benzodiazepine, Urine Neg (Neg); Cocaine, Urine Neg (Neg); Fentanyl, Urine Neg (Neg); MDMA (Ecstacy), Urine Neg (Neg); Marijuana, Urine Neg (Neg); Methadone, Urine Neg (Neg); Opiate, Urine Neg (Neg); Phencyclidine, Urine Neg (Neg)
[2023-08-31 01:28] LABS: Partial Thromboplastin Time 26 Seconds (21-31)
--- NOTE | 2023-08-31 02:06 | History & Physical Report ---
Date of Service August 31, 2023 Assessment & Plan (1) Hypertensive crisis: Plan: Secondary to overwhelming anxiety chronic diastolic heart failure (EF 50%, TTE 2023), some congestion on imaging SSS status post PPM on Eliquis Hypercalcemia, hx primary hyperparathyroidism status post incomplete surgery as per patient account hypothyroidism, euthyroid as of today's TSH CRI, kidney function at baseline chronic anemia, hemoglobin at baseline Ambulatory dysfunction OBS PCU Add amlodipine to regimen Hydroxyzine as needed anxiety Psych consult re: overwhelming anxiety PT OT eval DVT prophylaxis. Eliquis Full code Patient daughter requesting updates providers. Ms. Brianna Randhawa, contact #[phone]. Text document was generated using Kived[employer] voice recognition software. It may contain grammatical or spelling errors. Kindly contact undersigned for clarification of any documentation item in question. History of Present Illness Chief Complaint: Worsening anxiety, neck pain Primary Care Provider: Leticia Crandall, History obtained from patient, family, and records. Medical history significant for chronic diastolic heart failure (EF 50%, TTE 2023), SSS status post PPM on Eliquis, trace MR, hypertension, primary hyperparathyroidism status post incomplete surgery, hypothyroidism, CRI (baseline creatinine 2s), chronic anemia (baseline hemoglobin of 9-10), anxiety/mood disorder, gout. Recent confinement last month for anxiety, ARF on CKD. Kidney function back to baseline on discharge. Psychiatry recommended continuing Abilify, Lamictal and fluoxetine home medications. Mirtazapine started with eventual goal of reducing Klonopin home Rx. Uncontrolled anxiety at home. Denies suicidality. Patient returned to ER last week but subsequently sent home. Patient restless and pacing nonstop at home and shaky. Fall at home resulting in neck pain without head trauma as per patient. No LOC. Concern for Abilify making patient's symptoms worse. Patient consulted ER for worsening anxiety and neck pain complaints. Anxiety making her too weak to walk. Neck pain does not radiate to arms. Patient denies chest pain, SOB, headache symptoms. Patient compliant with medications. Highest SBP of 215 documented at the ER. 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 Allergies Allergy/AdvReac Type Severity Reaction Status Date / Time cephalexin [From Keflex] Allergy Unknown Pt doesn't Verified 08/31/23 00:18 remember reaction Home Medications Medication Instructions Recorded Confirmed Type allopurinol 300 mg tablet 300 mg PO QAM 04/21/19 08/31/23 History brimonidine 0.15 % eye drops 1 drp OPB BID 04/21/19 08/31/23 History timolol maleate 0.5 % eye drops 1 drp OPB QAM 04/21/19 08/31/23 History cholecalciferol (vitamin D3) 50 50 mcg PO QAM 04/23/21 08/31/23 History mcg (2,000 unit) capsule (Vitamin D3) amiodarone 200 mg tablet 200 mg PO QAM 06/03/21 08/31/23 History clonidine HCl 0.1 mg tablet 0.1 mg PO BID #14 tabs 06/05/21 08/31/23 Rx apixaban 2.5 mg tablet (Eliquis) 2.5 mg PO BID 07/18/23 08/31/23 History carvedilol 25 mg tablet 25 mg PO BID 07/18/23 08/31/23 History fluoxetine 40 mg capsule 80 mg PO QAM 07/18/23 08/31/23 History lamotrigine 25 mg tablet 50 mg PO QAM 07/18/23 08/31/23 History levothyroxine 150 mcg tablet 150 mcg PO QAM 07/18/23 08/31/23 History lorazepam 0.5 mg tablet 0.5 mg PO BID PRN Anxiety 08/06/23 08/31/23 History aripiprazole 10 mg tablet 10 mg PO QAM 08/31/23 08/31/23 History clonazepam 0.5 mg tablet 0.5 mg PO HS 08/31/23 08/31/23 History cyanocobalamin (vitamin B-12) 1,000 mcg PO DAILY 08/31/23 08/31/23 History 1,000 mcg tablet (Vitamin B-12) folic acid 1 mg tablet 1 mg PO DAILY 08/31/23 08/31/23 History hydroxyzine HCl 25 mg tablet 25 mg PO TID PRN Anxiety 08/31/23 08/31/23 History magnesium glycinate 100 mg (as 100 mg PO DAILY 08/31/23 08/31/23 History glycinate) tablet mirtazapine 15 mg tablet 7.5 mg PO HS 08/31/23 08/31/23 History nystatin 100,000 unit/gram topical 1 applic topical DIRECTED PRN 08/31/23 08/31/23 History cream Skin Irritation nystatin 100,000 unit/gram topical 1 applic topical DIRECTED PRN 08/31/23 08/31/23 History powder Skin Irritation Past Med/Surg History Problem List (Updated 08/31/23 @ 03:59 by Addison Sepulveda MD) Hypertensive crisis HTN (hypertension) (Acute) SOB (shortness of breath) (Acute) Hypomagnesemia (Acute) Insomnia (Acute) Anxiety (Acute) Acute on chronic renal insufficiency (Acute) Hypothyroidism CKD (chronic kidney disease), stage IV Hypertensive urgency (Acute) Anxiety (Acute) Withdrawal syndrome (Acute) PAF (paroxysmal atrial fibrillation) (HFpEF) heart failure with preserved ejection fraction Hypoxemia (Acute) Hypertensive cardiovascular-renal disease Dyslipidemia Primary angle-closure glaucoma GERD (gastroesophageal reflux disease) Hypertensive emergency (Acute) CKD (chronic kidney disease) stage 3, GFR 30-59 ml/min (Acute) Bipolar disorder (manic depression) (Acute) Anxiety attack (Acute) Anemia SSS (sick sinus syndrome) Medical History Weakness Hypercalcemia Mitral regurgitation Tricuspid regurgitation Lyme disease HTN (hypertension) Depression Anxiety Kidney problem Surgical History History of permanent cardiac pacemaker placement History of tubal ligation History of blepharoplasty H/O parathyroidectomy Family History Other Heart disease Denies family history of Cancer Social History Smoking Status: Never smoker Second Hand Exposure: No; Do You Dip or Chew Tobacco: No; Hx Alcohol Use: No Hx Substance Use: No Preferred Language: Montserratian Communication Ability: Effective Rod Mill Operator Required: No Beliefs That Will Affect Care: None marital status: Current Living Situation: Alone Current Living Situation Comment: Lives at home alone Feels Safe at Home: Yes Assistive Devices: Denture - Upper, Glasses and Walker Review of Systems Review of Systems: As per HPI, all other systems reviewed and negative Physical Exam Physical Exam: GENERAL: uncomfortable, anxious, no respiratory distress SKIN: Pallor, warm HEENT: Pale palpebral conjunctivae, no ptosis, dry buccal mucosa NECK : Some limitation in motion, minimal cervical tenderness CHEST : CTA, no tenderness HEART : RRR, systolic murmur ABDOMEN: Some distention, nontender EXTREMITIES : No LE swelling/tenderness, no other conspicuous deformities noted NEUROLOGIC : Coherent, no facial asymmetry, no other gross focality Results & Data Results & Data Vital Signs (Past 12 Hours) Vital Signs Temp Pulse Pulse Resp BP BP Pulse Ox 08/31/23 01:04 70 194/112 H 08/31/23 01:03 74 20 194/112 H 94 08/31/23 01:00 87 L 08/31/23 00:18 215/122 H 08/30/23 23:46 69 18 215/121 H 93 08/30/23 23:44 215/121 H 08/30/23 23:35 62 08/30/23 20:46 36.3 C L 63 18 201/97 H 96 08/30/23 20:45 O2 Del Method O2 Flow Rate 08/31/23 01:04 08/31/23 01:03 Nasal Cannula 2 08/31/23 01:00 Room Air 08/31/23 00:18 08/30/23 23:46 Room Air 08/30/23 23:44 08/30/23 23:35 08/30/23 20:46 Room Air 08/30/23 20:45 Room Air Laboratory Results Laboratory Results WBC 5.27 K/ul (4.8-10.8) 08/30/23 21:19 RBC 3.47 M/uL (4.20-5.40) L 08/30/23 21:19 Hgb 10.1 g/dl (12.0-16.0) L 08/30/23 21:19 Hct 31.3 % (37.0-47.0) L 08/30/23 21:19 MCV 90.2 fL (80.0-100.0) 08/30/23 21:19 MCH 29.1 pg (25.0-34.0) 08/30/23 21:19 MCHC 32.3 g/dL (32.0-36.0) 08/30/23 21:19 RDW Std Deviation 48.8 fL (36.4-46.3) H 08/30/23 21:19 RDW Coeff of Tank 14.9 % (11.5-14.5) H 08/30/23 21:19 Plt Count 142 K/uL (130-400) 08/30/23 21:19 MPV 11.7 fL (9.4-12.4) 08/30/23 21:19 Immature Gran % (Auto) 0.8 % 08/30/23 21:19 Neut % (Auto) 70.9 % 08/30/23 21:19 Lymph % (Auto) 15.2 % 08/30/23 21:19 Garrett % (Auto) 11.2 % 08/30/23 21:19 Eos % (Auto) 1.1 % 08/30/23 21:19 Baso % (Auto) 0.8 % 08/30/23 21:19 Neut # (Auto) 3.74 K/uL (1.40-6.50) 08/30/23 21:19 Lymph # (Auto) 0.80 K/uL (1.20-3.40) L 08/30/23 21:19 Garrett # (Auto) 0.59 K/uL (0.11-0.59) 08/30/23 21:19 Eos # (Auto) 0.06 K/uL (0.00-0.50) 08/30/23 21:19 Baso # (Auto) 0.04 K/uL (0.00-0.20) 08/30/23 21:19 Immature Gran # (Auto) 0.04 K/uL (0.01-0.20) 08/30/23 21:19 APTT 26 Seconds (21-31) 08/30/23 21:19 PTT Ratio 1.0 08/30/23 21:19 Sodium 134 mmol/L (136-145) L 08/30/23 21:19 Potassium 4.5 mmol/L (3.5-5.1) 08/30/23 21:19 Chloride 104 mmol/L (98-107) 08/30/23 21:19 Carbon Dioxide 22 mmol/L (21-32) 08/30/23 21:19 Anion Gap 8 (3-11) 08/30/23 21:19 BUN 48 mg/dl (6-23) H 08/30/23 21:19 Creatinine 2.69 mg/dl (0.6-1.2) H 08/30/23 21:19 Est Cr Clr Drug Dosing Not Reportable 08/30/23 21:19 Est GFR ( Amer) 18.5 ml/min 08/30/23 21:19 Est GFR (Non-Af Amer) 16.0 ml/min 08/30/23 21:19 BUN/Creatinine Ratio 17.8 (10-20) 08/30/23 21:19 Glucose 90 mg/dl (70-99(Fasting)) 08/30/23 21:19 Calcium 10.5 mg/dl (8.6-10.3) H 08/30/23 21:19 Phosphorus 3.0 mg/dl (2.5-4.9) 08/30/23 23:17 Magnesium 1.9 mg/dl (1.7-2.4) 08/30/23 21:19 Total Bilirubin 0.4 mg/dl (0.2-1.0) 08/30/23 21:19 AST 24 U/L (13-39) 08/30/23 21:19 ALT 26 U/L (7-52) 08/30/23 21:19 Alkaline Phosphatase 70 U/L (34-104) 08/30/23 21:19 Troponin I High Sens 27.3 pg/ml (0-14) H 08/30/23 23:17 B-Natriuretic Peptide 176 pg/ml (0-100) H 08/30/23 23:17 Total Protein 6.6 gm/dl (6.0-8.3) 08/30/23 21:19 Albumin 4.0 gm/dl (3.4-5.0) 08/30/23 21:19 Globulin 2.6 gm/dl (2.5-4.0) 08/30/23 21:19 Albumin/Globulin Ratio 1.5 (0.9-2) 08/30/23 21:19 TSH 2.572 uIu/ml (0.300-4.500) 08/30/23 21:19 PTH Intact 162.3 pg/ml (12.0-88.0) H 08/30/23 23:17 Urine Color Yellow 08/31/23 Unknown Urine Appearance Clear (Clear) 08/31/23 Unknown Urine pH 6.5 (4.5-7.5) 08/31/23 Unknown Ur Specific Poca 1.005 (1.000-1.030) 08/31/23 Unknown Urine Protein Trace (Negative) H 08/31/23 Unknown Urine Glucose (UA) Negative (Negative) 08/31/23 Unknown Urine Ketones Negative (Negative) 08/31/23 Unknown Urine Blood Negative (Negative) 08/31/23 Unknown Urine Nitrite Negative (Negative) 08/31/23 Unknown Urine Bilirubin Negative (Negative) 08/31/23 Unknown Urine Urobilinogen Negative (Negative) 08/31/23 Unknown Ur Leukocyte Esterase Negative (Negative) 08/31/23 Unknown Urine WBC (Auto) 0-5 /hpf (0-5) 08/31/23 Unknown Urine RBC (Auto) 0-2 /hpf (0-2) 08/31/23 Unknown U Hyaline Cast (Auto) 0-2 /lpf (0-2) 08/31/23 Unknown U Epithel Cells (Auto) 0-2 /hpf (0-2) 08/31/23 Unknown Urine Bacteria (Auto) None Seen (None Seen) 08/31/23 Unknown Salicylates < 3.0 mg/dl (3.0-30) L 08/30/23 21:19 Urine Opiates Screen Neg (Neg) 08/31/23 Unknown Ur Methadone, Qual Neg (Neg) 08/31/23 Unknown Urine Fentanyl Screen Neg (Neg) 08/31/23 Unknown Acetaminophen < 3 ug/ml (10-30) L 08/30/23 21:19 Urine Barbiturates Neg (Neg) 08/31/23 Unknown Ur Phencyclidine (PCP) Neg (Neg) 08/31/23 Unknown U Amphetamin/Meth Scrn Neg (Neg) 08/31/23 Unknown MDMA (Ecstasy) Screen Neg (Neg) 08/31/23 Unknown U Benzodiazepines Scrn Neg (Neg) 08/31/23 Unknown Ur Cocaine Metabolite Neg (Neg) 08/31/23 Unknown U Marijuana (THC) Screen Neg (Neg) 08/31/23 Unknown Ethyl Alcohol mg/dL < 10.0 mg/dl (<10.0) 08/30/23 21:19 CT cervical spine: No evidence of acute cervical spine pathology. Diagnostic Findings Chest x-ray as per my interpretation cardiomegaly, congestion EKG as per my interpretation : Rate 60, paced rhythm
[2023-08-31] MEDS ORDERED: PROMETHAZINE HCL 6.25 MG in SODIUM CHLORIDE 0.9% 50 ML IV PRN (02:46)
[2023-08-31] MEDS: cloNIDine HCL 0.1 MG TAB PO ONE (02:52)
--- NOTE | 2023-08-31 03:09 | CT Scan Report ---
Exam(s): CT C SPINE EXAM: CT Cervical Spine Without Intravenous Contrast CLINICAL HISTORY: Reason for exam: neck pain, eliquis. TECHNIQUE: Axial computed tomography images of the cervical spine without intravenous contrast. CTDI is 20.45 mGy and DLP is 377.74 mGy-cm. Automated exposure control was utilized for the study. A dose lowering technique was utilized adhering to the principles of ALARA. COMPARISON: No relevant prior studies available. FINDINGS: Vertebrae: Unremarkable. No acute fracture. Discs/spinal canal/neural foramina: No acute findings. Moderate spinal canal stenosis at C6-7. Soft tissues: Unremarkable. IMPRESSION: No evidence of acute cervical spine pathology. Electronically signed by: Yaa Hays MD 08/31/23 03:08 AM
[2023-08-31] MEDS: hydrOXYzine HCl 25 MG TAB PO PRN (03:19)
[2023-08-31] MEDS: traMADol HCL 50 MG TABLET PO PRN (03:19)
[2023-08-31] MEDS: MAGNESIUM SULFATE / D5W 1 GM/100 ML BAG IV ONE (04:09)
[2023-08-31] MEDS: amLODIPine BESYLATE 5 MG TAB PO ONE (04:10)
[2023-08-31] MEDS: hydrALAZINE HCL 20 MG/ML VIAL IV STA (04:11)
[2023-08-31] MEDS: hydrALAZINE HCL 20 MG/ML VIAL ONE (04:12)
[2023-08-31] MEDS: HYDROmorphone INJ 0.5 MG/0.5 ML SYR IV STA (05:24)
[2023-08-31] MEDS: LEVOTHYROXINE SODIUM 150 MCG TABLET PO SCH (05:24)
[2023-08-31] MEDS: hydrOXYzine HCl 25 MG TAB PO STA (05:25)
[2023-08-31] MEDS: carvediloL 25 MG TAB PO ONE (05:25)
--- OUTSIDE RECORDS SUMMARY | 2023-08-31 07:38 | External Medical Summary | Summary of Care ---
Author Name Unknown Organization [facility] Address [address] [place] [address] Phone [phone] Care Team Providers Care Cleaning Porter Name Role Phone Leticia Crandall Primary Care Provider [phone] Reason for Visit * Reason Onset Date Comments MyCode Nonconsent - Not interested at this time 08/30/2023 Encounter Details Date Type Department Care Team (Late st Contact Info) Description 08/30/2023 Orders Only Outcomes Research Department [address] [place], [place] [id number] Nay Bridges CHRA MyCode Nonconsent Documentation Allergies Active Allergy Reactions Criticality Noted Date Comments Cephalexin 06/10/2022 documented as of this encounter (statuses as of 08/30/2023) Medications Medication Sig Dispensed Refills Start Date End Date Status Vitamin D3 50 MCG (1999) Oral CapsuleIndications:V itamin D deficiency Take 1 Cap by mouth daily. 30 Cap 5 07/16/2020 Active B-12 1000 MCG Oral Tablet Take 1 Tablet by mouth in the morning. Active Nystatin 138049 UNIT/GM External Powder (Nystop) Apply topically to affected area 3 times a day. 60 g 08/18/2022 Active Nystatin 949984 UNIT/GM External CreamIndications:Can didal skin infection Apply [...] MOUTH EVERY DAY 90 Tablet 3 02/28/2023 Active Carvedilol 25 MG Oral Tablet (Coreg) Take 1 Tablet by mouth in the morning and 1 Tablet before bedtime. with food. 100 Tablet 3 03/23/2023 Active OLANZapine 5 MG Oral Tablet (ZyPREXA) Take 1 Tablet by mouth at bedtime. Active Magnesium 100 MG Oral Capsule Take 1 Capsule by mouth in the morning and 1 Capsule before bedtime. 60 Capsule 1 07/19/2023 Active lamoTRIgine 25 MG Oral Tablet (LaMICtal) Take 2 Tablets by mouth in the morning. 60 Tablet 2 07/25/2023 Active Additional Information Patient taking differently: 25 mgOral Daily(AM), Reported on 08/09/2023 LORazepam 0.5 MG Oral Tablet (Ativan) Take [...] in the morning. 180 Capsule 07/25/2023 Active Additional Information Patient taking differently: 40 mgOral Daily(AM), Reported on 08/09/2023 hydrOXYzine HCl 25 MG Oral Tablet Take 1 Tablet by mouth 3 times a day as needed for Anxiety. 90 Tablet 2 08/01/2023 Active Amiodarone HCl 200 MG Oral Tablet (Cordarone) TAKE ONE TABLET BY MOUTH EVERY MORNING 90 Tablet 3 08/04/2023 5 Active ARIPiprazole 10 MG Oral Tablet (Abilify) Take 1 Tablet by mouth in the morning. 30 Tablet 2 08/05/2023 4 Active Mirtazapine 15 MG Oral Tablet (Remeron) Take 0.5 (one-half) tablet by mouth at bedtime. 15 Tablet 08/08/2023 Active Additional Information Patient not taking.Reported on 08/09/2023 Benztropine Mesylate 0.5 MG Oral Tablet (Cogentin) Take 1 Tablet by mouth in the morning and 1 Tablet before bedtime. 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 (Household - for ages [...] as of this encounter Progress Notes * Nay Bridges CHRA - 08/30/2023 2:07 PM EDT MyCode Nonconsent Documentation Eva Tejeda was approached in the clinic regarding participation in the MyCode Project and did not consent. documented in this encounter Plan of Treatment Upcoming Encounters Date Type Department Care Team (Late st Contact Info) Description 09/02/2023 11:40 AM EDT Office Visit Nephrology, [facility] [address] [place] [address] Abhilash Nicole MD [address] [place] [address] 09/07/2023 3:00 PM EDT Telemedicine Psychiatry [facility] [address] [place] [phone] Nancy Metz MD [address] [place] [address] 09/09/2023 3:00 PM EDT Office Visit Family Practice [address] [facility] [address] [place] [address] Leticia Crandall DO [address] [place] [address] 12/23/2023 1:20 PM EST Office Visit Rheumatology [place] [address] [place] [address] Neil Rankin MD [address] [place] [address] 06/19/2024 1:00 PM EDT Nurse Only Ancillary [address] [facility] [address] [place] [address] College, Nurse Annual Wellness Visit [address] [facility] [address] Health Maintenance Due Date Last Done Comments Influenza Vaccine (FLU shot) (#1) 2023 11/02/2022, 11/03/2021, 11/12/2020, Additional history exists Albumin/Creatinine Ratio 11/03/2023 023, 01/05/2022, 11/12/2020, Additional history exists GFR 02/04/2024 08/05/2023, 06/14, 04/25/2023, Additional history exists Nephrology Referral 04/08/2024 04/08/2023, 07/08/2010, 12/02/2004 PTH 04/24/2024 04/25/2023, 06/2023, 07/08/2022, Additional history exists Hgb 06/23/2024 06/24/2023, 04/14, 02/18/2023, Additional history exists Phosphate 06/23/2024 06/24/2023, 04/14, 02/18/2023, Additional history exists Depression Monitoring 07/18/2024 07/19/2023 , 07/19/2023, 06/17/2023 TSH 08/04/2024 08/05/2023, 11/14, 08/26/2022, Additional history exists DTaP,Tdap,and Td Vaccines (2 - Td or Tdap) 06/25/2026 06/25/2016, 02/14/2001 RETIRED - COLONOSCOPY-EVERY 5 YRS AGES 18-100 Discontinued 07/22/2014, 03/29/2008 Pneumococcal Vaccine: 65+ Years Completed 11/18/2015, 12/04/2007 COVID-19 Vaccine Discontinued 06/25/2020, 06/02/2020 Zoster Vaccines Completed 10/01/2020, 09/14, 11/20/2014 HPV (Gardasil) Vaccine Aged Out No lo nger eligible based on patient's age to complete this topic Hepatitis B Vaccine Aged Out No longe r eligible based on patient's age to complete [...] on File Name Relationship Healthcare Agent Relationshi Communication [facility] Repr esentative (appointed verbally by patient or by statute hierarchy) Care Teams Cleaning Porter Relationship Specialty Start Date End Date Leticia Crandall DO [address] [place] [address] PCP - General Family Medicine 10/26/21 documented as of this encounter
--- OUTSIDE RECORDS SUMMARY | 2023-08-31 07:39 | External Medical Summary | Summary of Care ---
Author Name Unknown Organization [facility] Address [address] [facility] [address] Phone [phone] Care Team Providers Care M48 [id number] Armor Crewman Name Role Phone AmeliaTricia castanedayusuf Charles DO Primary Care Provider [phone] Reason for Visit * Reason Comments Outpatient Testing Encounter Details Date Type Department Care Team (Late st Contact Info) Description 08/30/2023 1:20 PM EDT Laboratory Laboratory, [place] [address] [place] [phone] [place], Laboratory [address], [place] [phone] 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); Vitamin D deficiency Allergies Active Allergy Reactions Criticality Noted Date [...] by mouth in the morning. Active Nystatin 531349 UNIT/GM External Powder (Nystop) Apply topically to affected area 3 times a day. 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 [address] [place] [phone] Leticia Crandall DO [address] [place] [address] 12/23/2023 1:20 PM EST Office Visit Rheumatology [facility] [address] [place] [address] Neil Rankin MD [address] [place] [address] 06/19/2024 1:00 PM EDT Nurse Only Ancillary [address] [facility] 293 [place] [address] College, Nurse Annual Wellness Visit [address] [address] Pending Results Name Type Priority Associated Diagnoses Date /Time BASIC METABOLIC PANEL Lab Routine 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) 08/30/2023 1:21 PM EDT PHOSPHORUS Lab Routine 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) 08/30/2023 1:21 PM EDT MAGNESIUM Lab Routine 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) 08/30/2023 1:21 PM EDT PTH Lab Routine 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) 08/30/2023 1:21 PM EDT ALBUMIN Lab Routine 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) 08/30/2023 1:21 PM EDT CBC Lab Routine 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 failure and stage 4 chronic kidney disease ([facility]) 08/30/2023 1:21 PM EDT 25-HYDROXY VITAMIN D Lab Routine 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 failure and stage 4 chronic kidney disease ([facility]) Vitamin D deficiency 08/30/2023 1:21 PM EDT ALBUMIN / CREATININE RATIO, URINE Lab Routine 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) 08/30/2023 1:41 PM EDT URINALYSIS WITH MICROSCOPIC EXAM Lab Routine 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) 08/30/2023 1:41 PM EDT Health Maintenance Due Date Last [...] as of this encounter Visit Diagnoses Diagnosis 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) Vitamin D deficiency Unspecified vitamin D deficiency documented in this encounter Advance Directives * Full Code (Latest Code Status on File) Date Activated Date Inactivated Comments 09/12/2007 9:41 AM 09/13/2007 4:12 PM Healthcare Agents on File Name Relationship Healthcare Agent [facility] Communication [facility] Repr esentative (appointed verbally by patient or by statute hierarchy) Care Teams [id number] [id number] Armor Crewman Relationship Specialty Start Date End Date Leticia Crandall DO [address] [place] [address] PCP - General Family Medicine 10/26/21 documented as of this encounter
--- OUTSIDE RECORDS SUMMARY | 2023-08-31 07:39 | External Medical Summary | Summary of Care ---
Author Name Unknown Organization [facility] Address [address] [facility] [address] Phone [phone] Care Team Providers Care Building Rigger Name Role Phone AmeliaTricia castanedayusuf Charles DO Primary Care Provider [phone] Reason for Visit * Reason Comments Outpatient Testing Encounter Details Date Type Department Care Team (Late st Contact Info) Description 08/30/2023 1:20 PM EDT Laboratory Laboratory, [place] [address] [place] [phone] [place] [address], [place] [id number] Hypertensive heart and kidney disease with chronic [...] by mouth in the morning. Active Nystatin 847133 UNIT/GM External Powder (Nystop) Apply topically to affected area 3 times a day. 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 - admitted 10/19 Glaucoma 12/31/2016 documented [...] Visit Nephrology, [facility] [address] [place] [address] Abhilash Nicole MD [address] [place] [address] 09/07/2023 3:00 PM EDT Telemedicine Psychiatry Marie Rogers [address] [place] [address] Nancy Metz MD [address], [place] [id number] 09/09/2023 3:00 PM EDT Office Visit Family Practice [address] [facility] [address] [place] [phone] Leticia Crandall DO [address] [place] [address] 12/23/2023 1:20 PM EST Office Visit Rheumatology [facility] [address] [place] [address] Neil Rankin MD [address] [place] [address] 06/19/2024 1:00 PM EDT Nurse Only Ancillary 65 [facility] [address] [place] [address] College, Nurse Annual Wellness Visit [address] [address] Pending Results Name Type Priority Associated Diagnoses Date /Time BASIC METABOLIC PANEL Lab Routine 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) Vitamin D deficiency 08/30/2023 1:21 PM EDT Health Maintenance Due Date Last [...] Agents on File Name Relationship Healthcare Agent [facility] Communication [facility] Repr esentative (appointed verbally by patient or by statute hierarchy) Care Teams Building Rigger Relationship Specialty Start Date End Date Leticia Crandall DO [address] [facility] [place] [address] PCP - General Family Medicine 10/26/21 documented as of this encounter
--- NOTE | 2023-08-31 07:42 | XRay Report ---
XR chest 1V portable CLINICAL HISTORY: sob TECHNIQUE: Single frontal radiograph of the chest was obtained. Comparison: Comparison is made to chest radiograph 08/06/2023 FINDINGS: An implanted pacemaker is seen. Cardiomegaly is noted. There is prominence and cephalization of the v asculature with Michael B lines seen. No evidence of pleural effusion or pneumothorax. IMPRESSION: Moderate pulmonary edema. This represents an increase from prior exam. ACT 112: Negative or not required by law. Electronically signed by: Steven Forman M.D. 08/31/2023 7:40 AM
[2023-08-31 08:40] LABS: Basophils # (auto) 0.03 K/uL (0.00-0.20); Basophils % (auto) 0.7 %; Eosinophils # (auto) 0.05 K/uL (0.00-0.50); Eosinophils % (auto) 1.2 %; Hematocrit (blood only) 30.7 % (37.0-47.0); Immature Granulocytes # (auto) 0.03 K/uL (0.01-0.20); Immature Granulocytes % (auto) 0.7 %; Lymphocytes # (auto) 0.72 K/uL (1.20-3.40); Lymphocytes % (auto) 16.6 %; Mean Corpuscular Hemoglobin 29.4 pg (25.0-34.0); Mean Corpuscular Hgb Conc 32.6 g/dL (32.0-36.0); Mean Corpuscular Volume 90.3 fL (80.0-100.0); Monocytes # (auto) 0.37 K/uL (0.11-0.59); Monocytes % (auto) 8.5 %; Neutrophils # (auto) 3.14 K/uL (1.40-6.50); Neutrophils % (auto) 72.3 %; Platelet Count 129 K/uL (130-400); RDW Coefficient of Variation 14.9 % (11.5-14.5); RDW Standard Deviation 48.9 fL (36.4-46.3); White Blood Count 4.34 K/ul (4.8-10.8)
[2023-08-31 08:54] LABS: BUN Creatinine Ratio 17.5 (10-20); Calcium 10.5 mg/dl (8.6-10.3); Creatinine Clr Calc Pharmacy 17.2 ml/min; Est GFR (Non-African American) 16.4 ml/min; Potassium 4.4 mmol/L (3.5-5.1)
[2023-08-31] MEDS ORDERED: carvediloL 25 MG TAB PO SCH (09:00)
[2023-08-31] MEDS: LACTATED RINGER'S 500 ML IV ONE (09:15)
[2023-08-31] MEDS: allopurinoL 300 MG TAB PO SCH (09:23)
[2023-08-31] MEDS: AMIODARONE 200 MG TAB PO SCH (09:23)
[2023-08-31] MEDS: APIXABAN 2.5 MG TAB PO SCH (09:23)
[2023-08-31] MEDS: lamoTRIgine 25 MG TAB PO SCH ×2 (09:24→20:29)
[2023-08-31] MEDS: CYANOCOBALAMIN (B-12) 500 MCG TABLET PO SCH (09:24)
[2023-08-31] MEDS: FLUoxetine HCL 20 MG CAP PO SCH (09:24)
--- OUTSIDE RECORDS SUMMARY | 2023-08-31 09:30 | External Medical Summary ---
Author Name Unknown Address Unknown Organization [id number] - [address] [place] [address] Laboratory Report Ordering Provider Test Date Status CYDNEY RYDER 08/30/2023 13:21:32 Final Deficient: <20 ng/mL
Ins ufficient: 20-29 ng/mL
Recommended/Optimum:30-50 ng/mL

Vitamin D intoxication is rare. If suspicious of Vitamin D toxicity, evaluation of serum Calcium and PTH is recommended. Observation Date Value Abnormality Reference (Units ) Status 25-OH Vitamin D total 08/30/2023 13:21:32 44 >19 (ng/mL) Final Performing Location [facility] - [address] [place] [address]
--- OUTSIDE RECORDS SUMMARY | 2023-08-31 09:30 | External Medical Summary ---
Author Name Unknown Address Unknown Organization [id number] [place] [address] [place] [address] Laboratory Report Ordering Provider Test Date Status CYDNEY RYDER 08/30/2023 13:21:32 Final Observation Date Value Abnormality Reference (Units ) Status Parathyrin.intact [Mass/volume] in Serum or Plasma 08/30/2023 13:21:32 144 Above high normal 15-65 (pg/mL) Final Performing Location [facility] [place] [address] [place] [address]
--- OUTSIDE RECORDS SUMMARY | 2023-08-31 09:30 | External Medical Summary ---
Author Name Unknown Address Unknown Organization [id number]:[facility]AT[facility] [place] - [address] [place] [address] Laboratory Report Ordering Provider Test Date Status CYDNEY RYDER 08/30/2023 13:21:32 Final Observation Date Value Abnormality Reference (Units ) Status WBC, Total 08/30/2023 13:21:32 3.48 Below low normal 4.00-10.80 (K/uL) Final RBC 08/30/2023 13:21:32 3.09 3.85-5.15 (M/uL) Final Hemoglobin 08/30/2023 13:21:32 9.3 Below low normal 12.0-15.3 (g/dL) Final HCT 08/30/2023 13:21:32 29.6 Below low normal 36.0-45.2 (%) Final MCV 08/30/2023 13:21:32 95.8 81.5-97.5 (fL) Final MCH 08/30/2023 13:21:32 30.1 27.0-34.0 (pg) Final MCHC 08/30/2023 13:21:32 31.4 32.0-36.0 (g/dL) Final RDW 08/30/2023 13:21:32 15.1 11.5-15.5 (%) Final Platelets 08/30/2023 13:21:32 131 Below low normal 140-400 (K/uL) Final MPV 08/30/2023 13:21:32 11.9 6.6-11.1 (fL) Final Nucleated erythrocytes/100 leukocytes [Ratio] in Blood by Automated count 08/30/2023 13:21:32 0 <=0 (/100 WBCs) Final Performing Location LABORATORY [facility] [place] - [address] [place] [address]
--- OUTSIDE RECORDS SUMMARY | 2023-08-31 09:30 | External Medical Summary ---
Author Name Unknown Address Unknown Organization [id number]:[facility]ORY [facility] [place] - [address] [place] [address] Laboratory Report Ordering Provider Test Date Status CYDNEY RYDER 08/30/2023 13:21:32 Final Observation Date Value Abnormality Reference (Units ) Status BUN 08/30/2023 13:21:32 47 Above high normal 6-20 (mg/dL) Final Creatinine 08/30/2023 13:21:32 2.7 Above high normal 0.5-1.0 (mg/dL) Final Glomerular filtration rate/1.73 sq M.predicted [Volume Rate/Area] in Serum, Plasma or Blood by Creatinine-based formula (CKD-EPI) 08/30/2023 13:21:32 17 Below low normal >=60 (mL/min) Final eGFR is calculated based on the CKD-EPI 2020 equation Sodium 08/30/2023 13:21:32 135 135-146 (m mol/L) Final Potassium 08/30/2023 13:21:32 4.7 3.5-5.1 (m mol/L) Final Cl 08/30/2023 13:21:32 103 98-107 (mm ol/L) Final CO2 08/30/2023 13:21:32 23 22-32 (mmo l/L) Final Anion gap 08/30/2023 13:21:32 9 7-15 (mmol /L) Final Glucose 08/30/2023 13:21:32 114 70-120 (mg /dL) Final Calcium 08/30/2023 13:21:32 10.1 8.4-10.2 ( mg/dL) Final Performing Location LAB[facility]ATORY [facility] [place] - [address] [place] [address]
--- OUTSIDE RECORDS SUMMARY | 2023-08-31 09:30 | External Medical Summary ---
Author Name Unknown Address Unknown Organization K[facility] - [address] [place] [address] Laboratory Report Ordering Provider Test Date Status CYDNEY RYDER 08/30/2023 13:21:32 Final Observation Date Value Abnormality Reference (Units ) Status Albumin 08/30/2023 13:21:32 3.6 Below low normal 3.8 -5.0 (g/dL) Final Performing Location [facility] - [address] [place] [address]
--- OUTSIDE RECORDS SUMMARY | 2023-08-31 09:30 | External Medical Summary ---
Author Name Unknown Address Unknown Organization [facility] - [address] [place] [address] Laboratory Report Ordering Provider Test Date Status CYDNEY RYDER 08/30/2023 13:21:32 Final Observation Date Value Abnormality Reference (Units ) Status Phosphate 08/30/2023 13:21:32 3.3 2.5-4.8 (m g/dL) Final Performing Location [facility] - [address] [place] [address]
--- OUTSIDE RECORDS SUMMARY | 2023-08-31 09:30 | External Medical Summary ---
Author Name Unknown Address Unknown Organization K[facility] [place] [address] [place] [address] Laboratory Report Ordering Provider Test Date Status CYDNEY RYDER 08/30/2023 13:41:27 Final Normal: <30 mg/g creatinine< br/>High: 30-300 mg/g creatinine
Very High: >300 mg/g creatinine
Nephrotic: >2200 mg/g creatinine Observation Date Value Abnormality Reference (Units ) Status Albumin, Urine 08/30/2023 13:41:27 8.78 (mg/dL) Final Creatinine, Urine 08/30/2023 13:41:27 92 (mg/dL) Final Albumin/Creatinine [Mass Ratio] in Urine 08/30/2023 13:41:27 95 Above high normal <30 (mg/g Creat) Final Performing Location [facility] [place] [address] [place] [place] [address]
--- OUTSIDE RECORDS SUMMARY | 2023-08-31 09:30 | External Medical Summary ---
Author Name Unknown Address Unknown Organization [facility] - [address] [place] [address] Laboratory Report Ordering Provider Test Date Status BRITNITINMARCELINO 08/30/2023 13:21:32 Final Observation Date Value Abnormality Reference (Units ) Status Magnesium 08/30/2023 13:21:32 2.0 1.5-2.6 (m g/dL) Final Performing Location [facility] - [address] [place] [address]
--- OUTSIDE RECORDS SUMMARY | 2023-08-31 09:30 | External Medical Summary ---
Author Name Unknown Address Unknown Organization K01:[facility]ATORY [facility] [place] - [address] [place] [address] Laboratory Report Ordering Provider Test Date Status CYDNEY RYDER 08/30/2023 13:41:27 Final Observation Date Value Abnormality Reference (Units ) Status Color of Urine by Auto 08/30/2023 13:41:27 Light Yellow Colorless, Light Yellow, Yellow, Dark Yellow Final Clarity, Urine 08/30/2023 13:41:27 Clear Clear Final Glucose [Mass/volume] in Urine by Automated test strip 08/30/2023 13:41:27 Negative Negative (mg/dL) Final Bilirubin.total [Presence] in Urine by Automated test strip 08/30/2023 13:41:27 Negative Negative Final Ketones [Mass/volume] in Urine by Automated test strip 08/30/2023 13:41:27 Negative Negative (mg/dL) Final Specific gravity, Urine 08/30/2023 13:41:27 1.014 1.003-1.030 Final Hemoglobin [Presence] in Urine by Automated test strip 08/30/2023 13:41:27 Negative Negative Final pH, Urine 08/30/2023 13:41:27 6.0 5.0-7.5 (Units) Final Protein [Mass/volume] in Urine by Automated test strip 08/30/2023 13:41:27 Trace Abnormal Negative (mg/dL) Final Urobilinogen [Mass/volume] in Urine by Automated test strip 08/30/2023 13:41:27 Normal Normal (mg/dL) Final Nitrite [Presence] in Urine by Automated test strip 08/30/2023 13:41:27 Negative Negative Final Leukocyte esterase [Presence] in Urine by Automated test strip 08/30/2023 13:41:27 Negative Negative Final RBC, Urine 08/30/2023 13:41:27 0-2 0-2 (/HPF) Final WBC, Urine 08/30/2023 13:41:27 0-2 0-2 (/HPF) Final Bacteria [#/area] in Urine sediment by Microscopy high power field 08/30/2023 13:41:27 0-25 0-25 (/HPF) Final Performing Location LABORATORY [facility] [place] - [facility] [address] [facility] [address]
[2023-08-31] MEDS ORDERED: NON-FORMULARY MEDICATION (Magnesium Glycinate 100 mg Tablet) PO SCH (09:45)
[2023-08-31] MEDS: TIMOLOL MALEATE 0.5% OP SOLN 5 ML BTL OP SCH (10:32)
[2023-08-31] MEDS: BRIMONIDINE TARTRATE-P 0.15% 5 ML BTL OPB SCH (10:32)
[2023-08-31] MEDS: cloNIDine HCL 0.1 MG TAB PO SCH (10:33)
[2023-08-31] MEDS: LORazepam 1 MG TAB PO STA ×2 (10:57→13:05)
[2023-08-31] MEDS: ARIPiprazole 10 MG TAB PO SCH (10:58)
--- NOTE | 2023-08-31 11:27 | Electrocardiogram Report ---
Test Reason : Blood Pressure : / mmHG Vent. Rate : 060 BPM Atrial Rate : 060 BPM P-R Int : 234 ms QRS Dur : 098 ms QT Int : 458 ms P-R-T Axes : 000 -40 031 degrees QTc Int : 458 ms Atrial-paced rhythm with prolonged AV conduction Left axis deviation Moderate voltage criteria for LVH, may be normal variant ( R in aVL ) Abnormal ECG When compared with ECG of 25-AUG-2023 12:58, Criteria for Septal infarct are no longer Present Nonspecific T wave abnormality no longer evident in Anterior leads Confirmed by Epifanio Pearce ([id number]) on 08/31/2023 11:27:26 AM Referred By: REFERRED SELF Confirmed By:Epifanio Pearce
[2023-08-31] MEDS: FOLIC ACID 1 MG TAB PO SCH (13:05)
[2023-08-31] MEDS: ACETAMINOPHEN 325 MG TAB PO PRN (13:16)
--- NOTE | 2023-08-31 16:27 | Communication Note ---
Date of Service: August 31, 2023 Evaluated patient at bedside, anxious and with low bp Patient reports worry about "going back to the way [she] was" Daughter at bedside, discussed plan #Hypotension #Hypertensive Urgency -likely low given IV management, improved anxiety -Held am dosing of meds, resume home regimen as able #Sever anxiety Psych evaluated patient discussed recommendations with Dr. Yee -Continue fluoxetine 40mg daily -Olanzapine 10mg qhs -Lamotrigine 50mg BID -Alprazolam 0.5mg BID prn anxiety/insomnia -If transition to HD in future, consider lithium -Avoid anticholingeric prn, discontinue abilitfy, lorazepam rest of plan per hp
--- NOTE | 2023-08-31 17:49 | Psychiatric Consultation ---
Date of Consultation August 31, 2023 Impression / Recommendations Impression 83-year-old female history of bipolar 2 disorder and generalized anxiety disorder Presents with complaints of increased anxiety and concern for associated somatic symptoms. Psychiatry consulted for evaluation and medication recommendations. Patient presents history of bipolar 2 depression and generalized anxiety disorder. Presents history of recent episodic depression with associated somatic symptoms of pressure and burning sensation and shortness of breath which are associated with feelings of frustration and anticipatory anxiety. Suspicious that burning sensation are somatic symptoms of anxiety given they are present mostly in the morning, associated with ruminative anxiety and appear episodic with depression. Completed thorough medication review with the patient and daughter. Recent abilify has been ineffective and recommend to d/c and restart Olanzapine 10mg HS. Given ineffectiveness of lorazepam for anxiety symptoms, recommend to d/c and start Alprazolam 0.5mg BID PRN. Has not been trialed on adequate dose of Lamotrigine and would recommend increase to 50mg BID with plan to titrate up on an outpatient basis. Decrease Fluoxetine to 40mg daily as patient did not improve on higher 80mg dose and is subject to more side effects. Recommend to limit anticholinergic PRNS. Patient historically did well on [place] and encouraged to discuss with outpatient physician about restarting when beginning dialysis. Overall, I spent a total of 60 minutes with this case including review of chart records, nursing report, review of lab work, direct evaluation of the patient at bedside, counseling the patient, discussion of the patient with the hospitalist provider, discussion with the psychiatric liaison during clinical rounds, and documentation in the electronic health record. (1) Somatic complaints, multiple: (2) Insomnia: (3) Bipolar 2 disorder, major depressive episode: (4) Generalized anxiety disorder: (5) CKD (chronic kidney disease), stage IV: Plan Recommend fluoxetine 40mg daily, olanzapine 10mg daily, lamotrigine 50mg bid, alprazolam 0.5mg bid prn for anxiety/insomnia. Discontinue abilify, lorazepam prn. Avoid klonopin. Conservative with anticholinergic prns. Psych History Identifying Data 83-year-old female history of bipolar 2 disorder and generalized anxiety disorder Presents with complaints of increased anxiety and concern for associated somatic symptoms. Psychiatry consulted for evaluation and medication recommendations. Chief Complaint "Burning sensation" History of Present Illness Chart review: Patient has history of bipolar disorder and generalized anxiety disorder. Last seen by psychiatry consulted in August 06 with concern for mixed episode and panic symptoms. Has [facility] outpatient psychiatry and therapy. Patient seen at bedside with daughter. Patient complains of burning sensation that initially started on her back and chest and spread to her stomach. Dissociated with being frustrated and not being able to complete a task and worse in the mornings. Associated with anticipatory anxiety. Feels like pressure. Associated shortness of breath, shaking. Has been occurring for the past 2-1/2 years. Denies it feeling like acid reflux. Reports recent trouble sleeping at night. Denies appetite changes or anhedonia. Complains of low energy and poor concentration. Denies memory changes and confirmed with mother. Seen laughing at times during the interview when a joke is presented. She denies suicidal ideation. Patient has upcoming therapy where she will engage in CBT. Patient reports a long history of bipolar 2 depression with historical hypomanic episodes. The depression causes most dysfunction. Reports lorazepam is no longer effective. Denies having excess sedation or confusion on janelle zepam. Reports having excess sedation on Klonopin. Patient lives alone and gets family assistance. Medications reviewed with patient and daughter. For 25 years was on lithium and had past success however was discontinued given worsening kidney function. Has been on Prozac since 2004 and initially effective. Was increased up to 80 mg however did not make a difference. 1 year ago was taken off Prozac for 6 months and switched to Lexapro however did not make a difference in symptoms and was restarted 6 months ago. Past olanzapine 20 mg at bedtime and was discontinued and Abilify was started 2 months ago; no change in symptoms. Lamotrigine has not been trialed past to 100 mg daily. Allergies Allergy/AdvReac Type Severity Reaction Status Date / Time cephalexin [From [employer]] Allergy Unknown Pt doesn't Verified 08/31/23 00:18 remember reaction Home Medications Medication Instructions Recorded Confirmed Type allopurinol 300 mg tablet 300 mg PO QAM 04/21/19 08/31/23 History brimonidine 0.15 % eye drops 1 drp OPB BID 04/21/19 08/31/23 History timolol maleate 0.5 % eye drops 1 drp OPB QAM 04/21/19 08/31/23 History cholecalciferol (vitamin D3) 50 50 mcg PO QAM 04/23/21 08/31/23 History mcg (2,000 unit) capsule (Vitamin D3) amiodarone 200 mg tablet 200 mg PO QAM 06/03/21 08/31/23 History clonidine HCl 0.1 mg tablet 0.1 mg PO BID #14 tabs 06/05/21 08/31/23 Rx apixaban 2.5 mg tablet (Eliquis) 2.5 mg PO BID 07/18/23 08/31/23 History carvedilol 25 mg tablet 25 mg PO BID 07/18/23 08/31/23 History fluoxetine 40 mg capsule 80 mg PO QAM 07/18/23 08/31/23 History lamotrigine 25 mg tablet 50 mg PO QAM 07/18/23 08/31/23 History levothyroxine 150 mcg tablet 150 mcg PO QAM 07/18/23 08/31/23 History lorazepam 0.5 mg tablet 0.5 mg PO BID PRN Anxiety 08/06/23 08/31/23 History aripiprazole 10 mg tablet 10 mg PO QAM 08/31/23 08/31/23 History clonazepam 0.5 mg tablet 0.5 mg PO HS 08/31/23 08/31/23 History cyanocobalamin (vitamin B-12) 1,000 mcg PO DAILY 08/31/23 08/31/23 History 1,000 mcg tablet (Vitamin B-12) folic acid 1 mg tablet 1 mg PO DAILY 08/31/23 08/31/23 History hydroxyzine HCl 25 mg tablet 25 mg PO TID PRN Anxiety 08/31/23 08/31/23 History magnesium glycinate 100 mg (as 100 mg PO DAILY 08/31/23 08/31/23 History glycinate) tablet mirtazapine 15 mg tablet 7.5 mg PO HS 08/31/23 08/31/23 History nystatin 100,000 unit/gram topical 1 applic topical DIRECTED PRN 08/31/23 08/31/23 History cream Skin Irritation nystatin 100,000 unit/gram topical 1 applic topical DIRECTED PRN 08/31/23 08/31/23 History powder Skin Irritation Patient History Medical History Weakness Hypercalcemia Mitral regurgitation Tricuspid regurgitation Lyme disease HTN (hypertension) Depression Anxiety Kidney problem Surgical History History of permanent cardiac pacemaker placement History of tubal ligation History of blepharoplasty H/O parathyroidectomy Family History Other Heart disease Denies family history of Cancer Social History Smoking Status: Never smoker Second Hand Exposure: No; Do You Dip or Chew Tobacco: No; Hx Alcohol Use: No Hx Substance Use: No Preferred Language: Uzbek Communication Ability: Effective [employer] R12 Developer Required: No Beliefs That Will Affect Care: None marital status: Current Living Situation: Alone Current Living Situation Comment: Lives at home alone Feels Safe at Home: Yes Assistive Devices: Denture - Upper, Glasses and Walker Physical Exam Mental Examination: appropriate appearance Eye Contact: Maintains Eye Contact Motor Behavior: Unremarkable Speech: Soft Mood: Euthymic Affect: Constricted Thought Process: Intact and Linear Thought Content: Intact Hallucinations: None Insight: Fair Judgement: Fair Vital Signs (Past 24 Hours): Last Vital Signs Temp 36.4 C L 08/31/23 14:50 Pulse 60 08/31/23 14:50 Resp 18 08/31/23 14:50 BP 126/76 08/31/23 14:50 Pulse Ox 93 08/31/23 14:50 O2 Del Method Room Air 08/31/23 14:50 O2 Flow Rate 2 08/31/23 02:00 Results & Data (PSY) Medications Administered Acetaminophen (Acetaminophen 325 Mg Tab) 650 mg PO QID PRN PRN Reason: pain/fever Stop: 09/30/23 02:45 Last Admin: 08/31/23 13:16 Dose: 650 mg Documented By: RAN Allopurinol (Allopurinol 300 Mg Tab) 300 mg PO QAM CASSIE Stop: 09/30/23 08:59 Last Admin: 08/31/23 09:23 Dose: 300 mg Documented By: RAN Amiodarone HCl (Amiodarone 200 Mg Tab) 200 mg PO QAM CASSIE Stop: 09/30/23 08:59 Last Admin: 08/31/23 09:23 Dose: 200 mg Documented By: RAN Apixaban (Apixaban 2.5 Mg Tab) 2.5 mg PO BID CASSIE Stop: 09/30/23 08:59 Last Admin: 08/31/23 09:23 Dose: 2.5 mg Documented By: RAN Brimonidine Tartrate (Brimonidine Tartrate-P 0.15% 5 Ml Btl) 1 drops OPB BID [facility] Stop: 09/30/23 08:59 Last Admin: 08/31/23 10:32 Dose: 1 drops Documented By: RAN Clonidine HCl (Clonidine Hcl 0.1 Mg Tab) 0.1 mg PO BID CASSIE Stop: 09/30/23 08:59 Last Admin: 08/31/23 10:33 Dose: 0.1 mg Documented By: [facility] Cyanocobalamin (Cyanocobalamin (B-12) 500 Mcg Tablet) 1,000 mcg PO DAILY CASSIE Stop: 09/30/23 08:59 Last Admin: 08/31/23 09:24 Dose: 1,000 mcg Documented By: Jean Marie Folic Acid (Folic Acid 1 Mg Tab) 1 mg PO DAILY CASSIE Stop: 09/30/23 08:59 Last Admin: 08/31/23 13:05 Dose: 1 mg Documented By: RAN Hydroxyzine HCl (Hydroxyzine Hcl 25 Mg Tab) 25 mg PO TID PRN PRN Reason: Anxiety Stop: 09/30/23 02:44 Last Admin: 08/31/23 03:19 Dose: 25 mg Documented By: Levothyroxine Sodium (Levothyroxine Sodium 150 Mcg Tablet) 150 mcg PO DAILYBB [facility] Stop: 09/30/23 06:29 Last Admin: 08/31/23 05:24 Dose: 150 mcg Documented By: [facility] Timolol Maleate (Timolol Maleate 0.5% Op Soln 5 Ml Btl) 1 drops OP QAM [facility] Stop: 09/30/23 08:59 Last Admin: 08/31/23 10:32 Dose: 1 drops Documented By: RAN Tramadol HCl (Tramadol Hcl 50 Mg Tablet) 25 - 50 mg PO Q4H PRN PRN Reason: Pain Stop: 09/30/23 02:45 Last Admin: 08/31/23 03:19 Dose: 50 mg Documented By: [place] [address] IN/OBS CONSULT LVL 4,60M Patient Type New History Comprehensive Exam Comprehensive Medical Decision Making High Complexity Diagnoses Somatic complaints, multiple R68.89 Insomnia G47.00 Bipolar 2 disorder, major depressive episode F31.81 Generalized anxiety disorder F41.1 CKD (chronic kidney disease), stage IV N18.4
[2023-08-31] MEDS: ALPRAZolam 0.5 MG TABLET PO PRN (19:26)
[2023-08-31] MEDS: carvediloL 25 MG TAB PO SCH (19:32)
[2023-08-31] MEDS: OLANZapine 10 MG TAB PO SCH (20:29)
[2023-08-31] MEDS ORDERED: clonazePAM 0.5 MG TAB PO SCH (21:00)
[2023-08-31] MEDS: LORazepam 0.5 MG TAB PO STA (23:00)
[2023-09-01] MEDS: LABETALOL HCL IV 5 MG/ML 20ML IV STA (00:04)
[2023-09-01] MEDS: hydrALAZINE HCL 20 MG/ML VIAL IV STA (03:22)
[2023-09-01 06:27] LABS: Hematocrit (blood only) 30.3 % (37.0-47.0); Hemoglobin 9.9 g/dl (12.0-16.0); Mean Corpuscular Hemoglobin 29.4 pg (25.0-34.0); Mean Corpuscular Hgb Conc 32.7 g/dL (32.0-36.0); Mean Corpuscular Volume 89.9 fL (80.0-100.0); Mean Platelet Volume 11.7 fL (9.4-12.4); Platelet Count 133 K/uL (130-400); RDW Coefficient of Variation 14.9 % (11.5-14.5); RDW Standard Deviation 48.7 fL (36.4-46.3); Red Blood Count 3.37 M/uL (4.20-5.40); White Blood Count 4.06 K/ul (4.8-10.8)
[2023-09-01 06:32] LABS: BUN Creatinine Ratio 17.5 (10-20); Calcium 10.3 mg/dl (8.6-10.3); Creatinine Clr Calc Pharmacy 16.1 ml/min; Est GFR (African American) 17.6 ml/min; Est GFR (Non-African American) 15.2 ml/min; Potassium 3.8 mmol/L (3.5-5.1)
[2023-09-01] MEDS: FLUoxetine HCL 20 MG CAP PO SCH (08:00)
[2023-09-01] MEDS: amLODIPine BESYLATE 5 MG TAB PO SCH (08:00)
--- NOTE | 2023-09-01 11:38 | Hospitalist Progress Note ---
Date of Service September 01, 2023 Assessment & Plan (1) Hypertensive crisis: Plan: Ms. Tejeda is an 83-year-old female with past medical history significant for hypothyroidism, primary Hyperparathyroidism, hyperlipidemia, secondary hyperparathyroidism, paroxysmal atrial fibrillation, chronic diastolic CHF, mitral wall regurgitation, tricuspid valve regurgitation, sinus node dysfunction status post pacemaker, hypertension, CKD stage IV, gout, primary angle-closure glaucoma, bipolar disorder, anxiety generalized, depression, who lives alone at home admitted for severe anxiety and hypertensive urgency. Patient very anxious and easily frustrated. Discussed possibility for rehab. Planning for family meeting at 1500 for dispo planning. Will coordinate with Case Management contingent on outcomes #Hypertensive urgency iso severe anxiety/agitation #hypertension on Coreg and clonidine Plan to address anxiety prior to IV medications given drastic fluctuations #anxiety generalized #bipolar disorder #depression psych meds have been adjusted recently, psych evaluated on 08/30 -Recommends fluoxetine 40mg, Lamictal 50mg bid, olanzapine 10qhs -Xanax prn #KAT on CKD stage IV baseline creatinine around 2.5 presented with creatinine of 3.1, 2.5 as of this am avoid nephrotoxic agents likley multifactorial iso poor po intake and drastic fluctations of BP Trend CMP small bolus, encourage po #hypercalcemia 10.5 on admission, resolving with fluids # chronic diastolic CHF stable monitor for volume overload # paroxysmal atrial fibrillation #sick sinus syndrome status post pacemaker on amiodarone, Coreg and Eliquis will monitor #glaucoma will continue home eyedrops #gout on allopurinol DVT prophylaxis on Eliquis disposition telemetry PT/OT recommends Rehab Plan for family discussion this afternoon to discuss dispo planning Repeat Cr in am for renal function full code Admission and Anticipated Discharge Date Admission Date: August 31, 2023 Subjective Reports severe anxiety overnight Denies any complaints, outside of general unease and upset. She reports wishing to go home but also reports not feeling ready. Spoke to daughter on phone who states she will discuss need for rehab and will determine best steps for patient this afternoon Physical Exam Constitutional: WD/WN, vitals as above (anxious ) Respiratory: normal respiratory effort, lungs clear to auscultation Cardiovascular: RRR, no murmur, no edema Gastrointestinal (Abdomen): normal bowel sounds, soft, nontender, no hepatosplenomegaly Results & Data Results & Data Vital Signs (Past 12 Hours) Vital Signs Temp Pulse Pulse Resp BP BP Pulse Ox 09/01/23 10:54 36.5 C 58 L 18 93/57 L 93 09/01/23 08:00 72 09/01/23 08:00 09/01/23 07:04 36.3 C L 66 18 167/79 H 94 09/01/23 03:41 81 109/66 92 09/01/23 02:43 36.3 C L 61 18 195/94 H 90 09/01/23 00:21 68 138/82 09/01/23 00:04 71 186/87 H 08/31/23 23:44 71 186/87 H O2 Del Method 09/01/23 10:54 Room Air 09/01/23 08:00 09/01/23 08:00 Room Air 09/01/23 07:04 Room Air 09/01/23 03:41 Room Air 09/01/23 02:43 Room Air 09/01/23 00:21 09/01/23 00:04 08/31/23 23:44 Laboratory Results Short CBC 09/01/23 Range/Units 05:24 WBC 4.06 L (4.8-10.8) K/ul Hgb 9.9 L (12.0-16.0) g/dl Hct 30.3 L (37.0-47.0) % Plt Count 133 (130-400) K/uL BMP 09/01/23 05:24 Sodium 138 Potassium 3.8 Chloride 107 Carbon Dioxide 24 BUN 49 H Creatinine 2.80 H Glucose 140 H Calcium 10.3 Medications Administered Home Medications Medication Instructions Recorded Confirmed Last Taken allopurinol 300 mg tablet 300 mg PO QA 04/21/19 08/31/23 08/30/23 brimonidine 0.15 % eye drops 1 drp OPB BID 04/21/19 08/31/23 08/30/23 08:00 timolol maleate 0.5 % eye drops 1 drp OPB QAM 04/21/19 08/31/23 08/30/23 cholecalciferol (vitamin D3) 50 50 mcg PO QAM 04/23/21 08/31/23 07/18/23 mcg (2,000 unit) capsule (Vitamin D3) amiodarone 200 mg tablet 200 mg PO QA 06/03/21 08/31/23 08/30/23 clonidine HCl 0.1 mg tablet 0.1 mg PO BID #14 tabs 06/05/21 08/31/23 08/30/23 apixaban 2.5 mg tablet (Eliquis) 2.5 mg PO BID 07/18/23 08/31/23 08/30/23 08:00 carvedilol 25 mg tablet 25 mg PO BID 07/18/23 08/31/23 08/30/23 08:00 fluoxetine 40 mg capsule 80 mg PO QAM 07/18/23 08/31/23 08/30/23 lamotrigine 25 mg tablet 50 mg PO QAM 07/18/23 08/31/23 08/30/23 levothyroxine 150 mcg tablet 150 mcg PO QAM 07/18/23 08/31/23 08/30/23 lorazepam 0.5 mg tablet 0.5 mg PO BID PRN Anxiety 08/06/23 08/31/23 Unknown aripiprazole 10 mg tablet 10 mg PO QAM 08/31/23 08/31/23 08/30/23 clonazepam 0.5 mg tablet 0.5 mg PO HS 08/31/23 08/31/23 08/29/23 cyanocobalamin (vitamin B-12) 1,000 mcg PO DAILY 08/31/23 08/31/23 08/30/23 1,000 mcg tablet (Vitamin B-12) folic acid 1 mg tablet 1 mg PO DAILY 08/31/23 08/31/23 08/30/23 hydroxyzine HCl 25 mg tablet 25 mg PO TID PRN Anxiety 08/31/23 08/31/23 Unknown magnesium glycinate 100 mg (as 100 mg PO DAILY 08/31/23 08/31/23 08/30/23 glycinate) tablet mirtazapine 15 mg tablet 7.5 mg PO HS 08/31/23 08/31/23 Unknown nystatin 100,000 unit/gram topical 1 applic topical DIRECTED PRN 08/31/23 08/31/23 Unknown cream Skin Irritation nystatin 100,000 unit/gram topical 1 applic topical DIRECTED PRN 08/31/23 08/31/23 Unknown powder Skin Irritation Active Medications Generic Name Dose Route Start Last Admin Trade Name Freq PRN Reason Stop Dose Admin Acetaminophen 650 mg 08/31/23 02:46 09/01/23 10:16 Acetaminophen 325 Mg Tab PO 09/30/23 02:45 650 mg QID PRN Administration pain/fever Allopurinol 300 mg 08/31/23 09:00 09/01/23 08:00 Allopurinol 300 Mg Tab PO 09/30/23 08:59 300 mg QAM CASSIE Administration Alprazolam 0.5 mg 08/31/23 16:27 08/31/23 19:26 Alprazolam 0.5 Mg Tablet PO 09/30/23 16:26 0.5 mg Q12H PRN Administration Anxiety/Insomnia Amiodarone HCl 200 mg 08/31/23 09:00 09/01/23 08:00 Amiodarone 200 Mg Tab PO 09/30/23 08:59 200 mg QAM CASSIE Administration Apixaban 2.5 mg 08/31/23 09:00 09/01/23 08:00 Apixaban 2.5 Mg Tab PO 09/30/23 08:59 2.5 mg BID CASSIE Administration Brimonidine Tartrate 1 drops 08/31/23 09:00 09/01/23 10:27 Brimonidine Tartrate-P 0.15% 5 Ml Btl OPB 09/30/23 08:59 1 drops BID CASSIE Administration Carvedilol 25 mg 08/31/23 21:00 09/01/23 08:00 Carvedilol 25 Mg Tab PO 09/30/23 20:59 25 mg BID CASSIE Administration Clonidine HCl 0.1 mg 08/31/23 09:00 09/01/23 08:00 Clonidine Hcl 0.1 Mg Tab PO 09/30/23 08:59 0.1 mg BID CASSIE Administration Cyanocobalamin 1,000 mcg 08/31/23 09:00 09/01/23 08:00 Cyanocobalamin (B-12) 500 Mcg Tablet PO 09/30/23 08:59 1,000 mcg DAILY CASSIE Administration Fluoxetine HCl 40 mg 09/01/23 09:00 09/01/23 08:00 Fluoxetine Hcl 20 Mg Cap PO 10/01/23 08:59 40 mg QAM CASSIE Administration Folic Acid 1 mg 08/31/23 09:00 09/01/23 08:00 Folic Acid 1 Mg Tab PO 09/30/23 08:59 1 mg DAILY CASSIE Administration Hydroxyzine HCl 25 mg 08/31/23 02:45 09/01/23 04:42 Hydroxyzine Hcl 25 Mg Tab PO 09/30/23 02:44 25 mg TID PRN Administration Anxiety Lamotrigine 50 mg 08/31/23 21:00 09/01/23 08:00 Lamotrigine 25 Mg Tab PO 09/30/23 20:59 50 mg BID CASSIE Administration Protocol Levothyroxine Sodium 150 mcg 08/31/23 06:30 09/01/23 04:42 Levothyroxine Sodium 150 Mcg Tablet PO 09/30/23 06:29 150 mcg DAILYBB CASSIE Administration Olanzapine 10 mg 08/31/23 21:00 08/31/23 20:29 Olanzapine 10 Mg Tab PO 09/30/23 20:59 10 mg HS CASSIE Administration Timolol Maleate 1 drops 08/31/23 09:00 09/01/23 08:00 Timolol Maleate 0.5% Op Soln 5 Ml Btl OP 09/30/23 08:59 1 drops QAM CASSIE Administration Tramadol HCl 25 - 50 mg 08/31/23 02:46 09/01/23 07:38 Tramadol Hcl 50 Mg Tablet PO 09/30/23 02:45 50 mg Q4H PRN Administration Pain
[2023-09-01] MEDS: LACTATED RINGER'S 500 ML IV ONE (13:07)
[2023-09-02 17:16] LABS: Albumin Level 3.7 gm/dl (3.4-5.0); Bilirubin,Total 0.4 mg/dl (0.2-1.0); Calcium 10.6 mg/dl (8.6-10.3); Potassium 4.5 mmol/L (3.5-5.1)
[2023-09-02 17:18] LABS: Albumin Globulin Ratio 1.4 (0.9-2); BUN Creatinine Ratio 16.7 (10-20); Creatinine Clr Calc Pharmacy 15.6 ml/min; Est GFR (Non-African American) 14.7 ml/min; Globulin 2.6 gm/dl (2.5-4.0); Total Protein 6.3 gm/dl (6.0-8.3)
[2023-09-02] MEDS: LACTATED RINGER'S 500 ML IV ONE (18:39)
[2023-09-02] MEDS ORDERED: OLANZapine 10 MG TAB PO SCH (21:00)
[2023-09-02] MEDS: OLANZapine 5 MG TABLET PO SCH (21:25)
[2023-09-03] MEDS: hydrALAZINE HCL 20 MG/ML VIAL IV STA (03:06)
[2023-09-03] MEDS: amLODIPine BESYLATE 5 MG TAB PO ONE (05:03)
[2023-09-03 06:17] LABS: Hematocrit (blood only) 31.1 % (37.0-47.0); Hemoglobin 10.3 g/dl (12.0-16.0); Mean Corpuscular Hemoglobin 29.9 pg (25.0-34.0); Mean Corpuscular Hgb Conc 33.1 g/dL (32.0-36.0); Mean Corpuscular Volume 90.4 fL (80.0-100.0); Mean Platelet Volume 11.3 fL (9.4-12.4); Platelet Count 120 K/uL (130-400); RDW Coefficient of Variation 14.8 % (11.5-14.5); RDW Standard Deviation 49.1 fL (36.4-46.3); Red Blood Count 3.44 M/uL (4.20-5.40); White Blood Count 4.59 K/ul (4.8-10.8)
[2023-09-03] MEDS ORDERED: amLODIPine BESYLATE 5 MG TAB PO SCH (09:00)
[2023-09-03] MEDS: LIDOCAINE 5% 1 PATCH TD STA (10:35)
[2023-09-03 10:38] LABS: Calcium 10.6 mg/dl (8.6-10.3); Magnesium 1.7 mg/dl (1.7-2.4); Potassium 4.5 mmol/L (3.5-5.1)
[2023-09-03 10:58] LABS: BUN Creatinine Ratio 19.2 (10-20); Creatinine Clr Calc Pharmacy 16.9 ml/min; Est GFR (African American) 18.8 ml/min; Est GFR (Non-African American) 16.3 ml/min
--- NOTE | 2023-09-03 12:21 | Discharge Summary ---
Discharge Summary Date of Service September 03, 2023 Principal Dx & Hospital Course #1 = Principal Diagnosis (1) Hypertensive crisis: Ms. Tejeda is an 83-year-old female with past medical history significant for hypothyroidism, primary Hyperparathyroidism, hyperlipidemia, secondary hyperparathyroidism, paroxysmal atrial fibrillation, chronic diastolic CHF, mitral wall regurgitation, tricuspid valve regurgitation, sinus node dysfunction status post pacemaker, hypertension, CKD stage IV, gout, primary angle-closure glaucoma, bipolar disorder, anxiety generalized, depression, who lives alone at home admitted for severe anxiety and hypertensive urgency. Patient reports some improvement in anxiety but eager to get home due to inability to sleep. Pressure liable iso of extreme anxiety. Spoke to daughter at bedside who is agreeable with plan for discharge as patient has CBT and Psych appts next week, #Hypertensive urgency iso severe anxiety/agitation #hypertension on Coreg and clonidine Stable on home regimen Recommend addressing anxiety prior to bp as bp has been liable with aggressive IV mgmt #anxiety generalized #bipolar disorder #depression psych meds have been adjusted recently, psych evaluated on 08/30 -Recommends fluoxetine 40mg, Lamictal 50mg bid, olanzapine 10qhs -Xanax prn #KAT on CKD stage IV resolved baseline creatinine around 2.5 presented with creatinine of 3.1, 2.5 as of this am avoid nephrotoxic agents likley multifactorial iso poor po intake and drastic fluctations of BP plan for OP follow up with nephro to be arranged #hypercalcemia 10.5 on admission, resolving with fluids # chronic diastolic CHF stable monitor for volume overload # paroxysmal atrial fibrillation #sick sinus syndrome status post pacemaker on amiodarone, Coreg and Eliquis #glaucoma continue home eyedrops #gout on allopurinol Home with home health Notes For Next Care Provider Medication Changes From Visit Discontinued: klonipin, lorazepam, abilify, mirtazepine Increased Lamictal 50mg bid Decreased fluoxetine to 40mg daily Started olanzipine 5mg daily Admission HPI Per Admitting Provider History obtained from patient, family, and records. Medical history significant for chronic diastolic heart failure (EF 50%, TTE 2023), SSS status post PPM on Eliquis, trace MR, hypertension, primary hyperparathyroidism status post incomplete surgery, hypothyroidism, CRI (baseline creatinine 2s), chronic anemia (baseline hemoglobin of 9-10), anxiety/mood disorder, gout. Recent confinement last month for anxiety, ARF on CKD. Kidney function back to baseline on discharge. Psychiatry recommended continuing Abilify, Lamictal and fluoxetine home medications. Mirtazapine started with eventual goal of reducing Klonopin home Rx. Uncontrolled anxiety at home. Denies suicidality. Patient returned to ER last week but subsequently sent home. Patient restless and pacing nonstop at home and shaky. Fall at home resulting in neck pain without head trauma as per patient. No LOC. Concern for Abilify making patient's symptoms worse. Patient consulted ER for worsening anxiety and neck pain complaints. Anxiety making her too weak to walk. Neck pain does not radiate to arms. Patient denies chest pain, SOB, headache symptoms. Patient compliant with medications. Highest SBP of 215 documented at the ER. 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 Admission Exam Per Admitting Provider GENERAL: uncomfortable, anxious, no respiratory distress SKIN: Pallor, warm HEENT: Pale palpebral conjunctivae, no ptosis, dry buccal mucosa NECK : Some limitation in motion, minimal cervical tenderness CHEST : CTA, no tenderness HEART : RRR, systolic murmur ABDOMEN: Some distention, nontender EXTREMITIES : No LE swelling/tenderness, no other conspicuous deformities noted NEUROLOGIC : Coherent, no facial asymmetry, no other gross focality Discharge Exam Constitutional WD/WN, vitals as above Respiratory normal respiratory effort, lungs clear to auscultation Cardiovascular RRR, no murmur, no edema Gastrointestinal (Abdomen) normal bowel sounds, soft, nontender, no hepatosplenomegaly Updated Medication List Medication Instructions Recorded Confirmed Type allopurinol 300 mg tablet 300 mg PO QAM 04/21/19 08/31/23 History brimonidine 0.15 % eye drops 1 drp OPB BID 04/21/19 08/31/23 History timolol maleate 0.5 % eye drops 1 drp OPB QAM 04/21/19 08/31/23 History cholecalciferol (vitamin D3) 50 50 mcg PO QAM 04/23/21 08/31/23 History mcg (2,000 unit) capsule (Vitamin D3) amiodarone 200 mg tablet 200 mg PO QAM 06/03/21 08/31/23 History clonidine HCl 0.1 mg tablet 0.1 mg PO BID #14 tabs 06/05/21 08/31/23 Rx apixaban 2.5 mg tablet (Eliquis) 2.5 mg PO BID 07/18/23 08/31/23 History carvedilol 25 mg tablet 25 mg PO BID 07/18/23 08/31/23 History levothyroxine 150 mcg tablet 150 mcg PO QAM 07/18/23 08/31/23 History cyanocobalamin (vitamin B-12) 1,000 mcg PO DAILY 08/31/23 08/31/23 History 1,000 mcg tablet (Vitamin B-12) folic acid 1 mg tablet 1 mg PO DAILY 08/31/23 08/31/23 History magnesium glycinate 100 mg (as 100 mg PO DAILY 08/31/23 08/31/23 History glycinate) tablet nystatin 100,000 unit/gram topical 1 applic topical DIRECTED PRN 08/31/23 08/31/23 History cream Skin Irritation nystatin 100,000 unit/gram topical 1 applic topical DIRECTED PRN 08/31/23 08/31/23 History powder Skin Irritation alprazolam 0.5 mg tablet (Xanax) 0.5 mg PO Q12H PRN anxiety #60 tabs 09/03/23 Rx fluoxetine 40 mg capsule 40 mg PO QAM #30 caps 09/03/23 Rx lamotrigine 25 mg tablet 50 mg (2 x 25 mg) PO BID #120 tabs 09/03/23 Rx olanzapine 5 mg tablet 5 mg PO HS #30 tabs 09/03/23 Rx Hospital Stay Data Consultations 08/31/23 00:09 ED Decision to Admit Stat 08/31/23 05:04 Consult Psychiatry Routine Diagnostic Imagining Performed 08/31/23 00:28 CT cervical spine wo con Stat Pending Results Patient Have Any Pending Studies at Discharge: No Discharge Instructions Given to Patient (Per Discharging Provider) You were admitted for hypertension and severe anxiety The following medications were adjusted Discontinue clonipin Discontinue abilify Discontinue lorazepam Discontinue hydroxyzine Discontinue mirtazapine Start xanax 0.5mg as needed every 12 hours for anxiety Start olanzapine 5mg at bedtime Increase lamictal 50mg two times a day Decrease fluoxetine 40mg daily Total Time Total Time Spent Total Time Spent (In Minutes): 35
[2023-09-03] MEDS ORDERED: TROLAMINE SALICYLATE 10% CRM 255 APPLN/85 GM TUBE EXT SCH (14:00)
--- NOTE | 2023-09-03 17:15 | XRay Report ---
XR shoulder LT min 2V routine CLINICAL HISTORY: s/p fall severe pain TECHNIQUE: 3 views of the left shoulder were obtained. Comparison: None available at the time of this dictation. FINDINGS: There is no evidence of an acute fracture. Joint spaces are well-preserved. The overlying soft tissue s are unremarkable. The visualized portions of the lungs are clear. IMPRESSION: No evidence of acute osseous injury. ACT 112: Negative or not required by law. Electronically signed by: Steven Forman M.D. 09/03/2023 5:13 PM
== END 2023-09-03 13:32 | disposition home health service (06) ==
LOC: ED 20:43 → 2S 20:43